=== PATIENT | male | born 1960 | race Caucasian/White ===

== ENCOUNTER 2016-12-25 21:37 | Inpatient (IN) ==
--- NOTE | 2016-12-25 21:41 | Emergency Department Note ---
Disposition Clinical Impression: Deep vein thrombosis of lower extremity Disposition: Admitted As Inpatient Condition: Undetermined General Adult HPI - General Chief complaint: ED Extremity Problem,Nontraumatic Stated complaint: right leg pain r/o DVT/hx DVT on blood thinners Time Seen by Provider: 12/25/16 21:39 - Related Data Home Medications Medication Instructions Recorded Confirmed Duloxetine HCl [Cymbalta] 60 mg PO 0900,1700 07/13/15 12/25/16 clonazePAM [Klonopin] 0.5 mg PO BID 07/13/15 12/25/16 Mycophenolate Mofetil [Cellcept] 500 mg PO BID 12/14/15 12/25/16 amLODIPine [Norvasc] 5 mg PO DAILY 12/14/15 12/25/16 Metoprolol [Lopressor] 12.5 mg PO BID 04/04/16 12/25/16 ARIPiprazole [Abilify] 10 mg PO DAILY 12/25/16 12/25/16 Albuterol Sulfate [Ventolin Hfa] 2 puff IH Q4H PRN 12/25/16 12/25/16 Budesonide/Formoterol 160/4.5 2 puff IH BID 12/25/16 12/25/16 [Symbicort 160/4.5] Buspirone HCl [Buspar] 10 mg PO TID 12/25/16 12/25/16 Trazodone HCl 100 - 300 mg PO HS 12/25/16 12/25/16 predniSONE [PredniSONE] 10 mg PO DAILY 12/25/16 12/25/16 Previous Rx's Medication Instructions Recorded Apixaban [Eliquis] 2.5 mg PO BID #60 tablet 04/12/16 Allergies Allergy/AdvReac Type Severity Reaction Status Date / Time codeine AdvReac Nausea Verified 12/25/16 21:40 Past Medical History - Past Medical History Medical history: Reports: COPD, coronary artery disease, DVT, hepatitis, hypertension, renal disease, other Surgical history: Reports: hip replacement, transplant Psychiatric history: Reports: anxiety, depression, previous psychiatric hospitalization, other - Social History Smoking Status: Current every day smoker Smokeless Tobacco Status: No Alcohol use: Reports: none Drug use: Reports: cocaine, marijuana Course Vital Signs Temperature 98.4 F 12/25/16 21:41 Pulse Rate 86 12/25/16 21:41 Respiratory Rate 20 12/25/16 21:41 Blood Pressure 136/97 12/25/16 21:41 O2 Sat by Pulse Oximetry 94 12/25/16 21:41 Temperature 97.8 F 12/26/16 03:44 Pulse Rate 68 12/26/16 03:44 Respiratory Rate 18 12/26/16 03:44 Blood Pressure 117/74 12/26/16 03:44 O2 Sat by Pulse Oximetry 97 12/26/16 03:44 Oxygen Delivery Oxygen Delivery Room Air Medical Decision Making - Lab Data Result diagrams: 12/25/16 22:35 12/25/16 22:35 Lab Results 12/25/16 12/25/16 12/25/16 Range/Units 22:35 22:35 22:35 WBC 9.2 (4.3-11.1) K/mcL RBC 5.74 H (4.19-5.50) M/mcL Hgb 14.6 (12.9-16.9) g/dL Hct 47.5 (37.5-50.1) % MCV 82.8 L (83.0-100.0) fL MCH 25.4 L (28.0-33.3) pg MCHC 30.7 L (31.6-35.5) g/dL RDW 15.1 H (11.5-14.5) % Plt Count 250 (140-400) K/mcL MPV 8.6 L (9.4-12.4) fL Immature Gran % 0.4 (0-4) % Seg Neutrophils % 74.7 % Lymphocytes % 15.2 % Monocytes % 8.6 % Eosinophils % 1.0 % Basophils % 0.1 % Neutrophils # 6.9 (1.6-8.9) K/mcL Lymphocytes # 1.4 (0.6-4.6) K/mcL Monocytes # 0.8 (0.0-1.3) K/mcL Eosinophils # 0.1 (0.0-0.6) K/mcL Basophils # 0.0 (0.0-0.2) K/mcL PT 12.5 H (9.4-12.1) Seconds INR 1.2 APTT 30.4 (26.0-36.0) Seconds Sodium 141 (136-145) mEq/L Potassium 3.8 (3.5-4.5) mEq/L Chloride 105 (98-109) mEq/L Carbon Dioxide 27 (19-29) mEq/L BUN 13 (8-26) mg/dL Creatinine 1.06 (0.72-1.25) mg/dL Est GFR ( Amer) > 60 (> 60) Est GFR (Non-Af Amer) > 60 (> 60) BUN/Creatinine Ratio 12 (6-26) Glucose 105 H (70-99) mg/dL Calculated Osmolality 292 (280-300) Calcium 10.4 (8.6-10.8) mg/dL Critical Care Time Critical Care Time: Yes Total Critical Care Time: 30 Attestation: Patient required IV heparinization due to an acute DVT in his right thigh despite being on eliquis. admission to hospitalist Attestation Statement - Attestation Attestation: I examined this patient and my medical decision-making was reviewed with the [employer]PR[employer]ISER/PA/Advanced Practice Nurse/Resident Physician. I agree with the documented findings, disposition and treatment plan as described except to the extent set forth below. [id number] time provided Patient presents via EMS complaining of right lower extremity pain. He has a history of recurrent DVTs and takes eliquis. Subjectively his pain is similar to had DVTs. Doppler ultrasound ordered. No evidence of acute arterial insufficiency on exam
--- NOTE | 2016-12-25 21:48 | Emergency Department Note ---
Disposition Clinical Impression: Deep vein thrombosis of lower extremity Qualifiers: Affected thrombotic vein of extremity: iliac Laterality: right Chronicity: acute Qualified Code(s): I82.421 - Acute embolism and thrombosis of right iliac vein Disposition: Admitted As Inpatient Condition: Undetermined Referrals: NO,PCP [Primary Care Provider] - Forms: ED Satisfaction Letter Time of Disposition: 23:24 Extremity Problem HPI - General Chief complaint: ED Extremity Problem,Nontraumatic Stated complaint: right leg pain r/o DVT/hx DVT on blood thinners Time Seen by Provider: 12/25/16 21:39 Source: patient Mode of arrival: EMS Limitations: no limitations Nursing Notes Reviewed: Yes Vital Signs Reviewed: Yes - History of Present Illness HPI Narrative: 56-year-old male with history of renal transplant, hypertension, DVT 3 on Eloquis. Patient states that he is here today complaining of right lower extremity pain that feels identical to his previous DVT in the right lower extremity that started 1 week ago. The patient denies any difficulty breathing or any other complaints. Patient denies any other complaints. He has been taking his medications as prescribed. Pt Subjective Complaint: extremity pain Injury Location: right, lower extremity Pain Scale: 4 Quality: aching Radiation: none Improves with: nothing Worsens with: nothing Associated symptoms: Reports: denies other symptoms - Related Data Home Medications Medication Instructions Recorded Confirmed Duloxetine HCl [Cymbalta] 60 mg PO 0900,1700 07/13/15 12/25/16 clonazePAM [Klonopin] 0.5 mg PO BID 07/13/15 12/25/16 Mycophenolate Mofetil [Cellcept] 500 mg PO BID 12/14/15 12/25/16 amLODIPine [Norvasc] 5 mg PO DAILY 12/14/15 12/25/16 Metoprolol [Lopressor] 12.5 mg PO BID 04/04/16 12/25/16 ARIPiprazole [Abilify] 10 mg PO DAILY 12/25/16 12/25/16 Albuterol Sulfate [Ventolin Hfa] 2 puff IH Q4H PRN 12/25/16 12/25/16 Budesonide/Formoterol 160/4.5 2 puff IH BID 12/25/16 12/25/16 [Symbicort 160/4.5] Buspirone HCl [Buspar] 10 mg PO TID 12/25/16 12/25/16 Trazodone HCl 100 - 300 mg PO HS 12/25/16 12/25/16 predniSONE [PredniSONE] 10 mg PO DAILY 12/25/16 12/25/16 Previous Rx's Medication Instructions Recorded Apixaban [Eliquis] 2.5 mg PO BID #60 tablet 04/12/16 Allergies Allergy/AdvReac Type Severity Reaction Status Date / Time codeine AdvReac Nausea Verified 12/25/16 21:40 All systems ED: reviewed and negative except as stated. Constitutional: Denies: fever, chills, weakness, weight change Eyes: Denies: eye pain, eye discharge, vision change ENT ED: Denies: ear pain, throat pain, dental pain, hearing loss, epistaxis, congestion, dysphagia Cardiovascular: Denies: chest pain, palpitations, dyspnea on exertion, edema, syncope Respiratory: Denies: cough, dyspnea, wheezes, hemoptysis, stridor Gastrointestinal: Denies: abdominal pain, nausea, vomiting, diarrhea, constipation, hematemesis, melena, hematochezia Genitourinary: Denies: urgency, dysuria, frequency, hematuria Musculoskeletal: Reports: myalgia. Denies: back pain, neck pain, arthralgia Integumentary: Denies: rash, abrasion, lesions Neurological: Denies: headache, weakness, numbness, paresthesias, confusion, abnormal gait, vertigo Past Medical History - Past Medical History Attestation: Yes The following information was validated with the patient. Source: patient Medical history: Reports: COPD, coronary artery disease, DVT, hepatitis, hypertension, renal disease, other Surgical history: Reports: hip replacement, transplant Psychiatric history: Reports: anxiety, depression, previous psychiatric hospitalization, other - Social History Smoking Status: Current every day smoker Smokeless Tobacco Status: No Alcohol use: Reports: none Drug use: Reports: cocaine, marijuana Physical Exam - General Limitations: no limitations General appearance: alert, in no apparent distress - Head Head exam: atraumatic, normocephalic, normal inspection - Eye Eye exam: Present: normal appearance, PERRL, EOMI - Expanded Eye Exam Pupils: Bilateral: reactive - ENT ENT exam: normal exam, normal oropharynx, mucous membranes moist - Expanded ENT Exam External ear exam: Present: normal external inspection Mouth exam: Present: normal external inspection Teeth exam: Present: normal inspection Throat exam: Present: normal inspection - Neck Neck exam: Present: normal inspection, full ROM, trachea midline - Chest Chest inspection: Present: normal inspection, symmetric chest wall rise - Respiratory Respiratory exam: Present: normal lung sounds bilaterally - Cardiovascular Cardiovascular exam: Present: regular rate, normal rhythm, normal heart sounds - Abdominal Exam Abdominal exam: Present: soft, Non-Tender. Absent: tenderness, distention, guarding, rebound, rigidity - Extremities Exam Extremities exam: Present: normal inspection, full ROM. Absent: tenderness, pedal edema - Expanded Upper Extremity Exam Shoulder exam: Present: normal inspection, full ROM Arm exam: Present: normal inspection, full ROM Elbow exam: Present: normal inspection, full ROM Forearm/Wrist exam: Present: normal inspection, full ROM Hand exam: Present: normal inspection, full ROM Vascular exam: Normal: capillary refill, radial pulse - Expanded Lower Extremity Exam Hip/Pelvis exam: Present: normal inspection, full ROM Upper leg exam: Present: normal inspection, full ROM Knee exam: Present: normal inspection, full ROM Lower leg exam: Present: full ROM, tenderness (In calf and behind right knee), other (Chronic venous stasis noted on bilateral lower extremities) Ankle exam: Present: normal inspection, full ROM Foot/toe exam: Present: normal inspection, full ROM Neurovascular/Tendon exam: Present: normal capillary refill. Absent: pulse deficit, motor deficit, sensory deficit, tendon deficit - Back Exam Back exam: Present: normal inspection, full ROM. Absent: tenderness - Neurological Exam Neurological exam: Present: alert, oriented X3 - Expanded Neurological Exam Patient oriented to: Present: person, place, time Coma Scale Eye Opening: Spontaneous Coma Scale Motor Response: Obeys Commands Coma Scale Verbal Response: Oriented Coma Scale Total: 15 - Psychiatric Psychiatric exam: Present: normal affect, normal mood - Skin Skin exam: Present: warm, dry, intact, normal color Course - Consultations Consultation #1: We spoke to Dr. Glaser in hematology who requested the patient be admitted to the hospital and heparinized. Patient agrees to plan. We will perform labs and heparinized the patient. Time: 22:32 Vital Signs Temperature 98.4 F 12/25/16 21:41 Pulse Rate 86 12/25/16 21:41 Respiratory Rate 20 12/25/16 21:41 Blood Pressure 136/97 12/25/16 21:41 O2 Sat by Pulse Oximetry 94 12/25/16 21:41 Temperature 98.4 F 12/25/16 21:41 Pulse Rate 73 12/25/16 22:30 Respiratory Rate 20 12/25/16 22:30 Blood Pressure 136/82 12/25/16 22:30 O2 Sat by Pulse Oximetry 96 12/25/16 22:30 Oxygen Delivery Oxygen Delivery Room Air Extremity Problem, Nontraumati - MDM Narrative Medical decision making narrative: Right lower extremity DVT study positive. There is a acute thrombus in the right mid thigh with collaterals and flow around it. Does appear Acute. Patient already taking Eliquis. He had previously taken or friend but states he was having difficulty with tolerating it. We will discuss this with hematology oncology. Hematology recommends heparinization and admission to the hospital. Spoke with the hospitalist who accepts patient. - Medical Records Medical records reviewed: Yes I reviewed the patient's medical records. - Lab Data Lab results reviewed: Yes I reviewed the patient's lab results. Result diagrams: 12/25/16 22:35 12/25/16 22:35 Lab Results 12/25/16 12/25/16 12/25/16 Range/Units 22:35 22:35 22:35 WBC 9.2 (4.3-11.1) K/mcL RBC 5.74 H (4.19-5.50) M/mcL Hgb 14.6 (12.9-16.9) g/dL Hct 47.5 (37.5-50.1) % MCV 82.8 L (83.0-100.0) fL MCH 25.4 L (28.0-33.3) pg MCHC 30.7 L (31.6-35.5) g/dL RDW 15.1 H (11.5-14.5) % Plt Count 250 (140-400) K/mcL MPV 8.6 L (9.4-12.4) fL Immature Gran % 0.4 (0-4) % Seg Neutrophils % 74.7 % Lymphocytes % 15.2 % Monocytes % 8.6 % Eosinophils % 1.0 % Basophils % 0.1 % Neutrophils # 6.9 (1.6-8.9) K/mcL Lymphocytes # 1.4 (0.6-4.6) K/mcL Monocytes # 0.8 (0.0-1.3) K/mcL Eosinophils # 0.1 (0.0-0.6) K/mcL Basophils # 0.0 (0.0-0.2) K/mcL PT 12.5 H (9.4-12.1) Seconds INR 1.2 APTT 30.4 (26.0-36.0) Seconds Sodium 141 (136-145) mEq/L Potassium 3.8 (3.5-4.5) mEq/L Chloride 105 (98-109) mEq/L Carbon Dioxide 27 (19-29) mEq/L BUN 13 (8-26) mg/dL Creatinine 1.06 (0.72-1.25) mg/dL Est GFR ( Amer) > 60 (> 60) Est GFR (Non-Af Amer) > 60 (> 60) BUN/Creatinine Ratio 12 (6-26) Glucose 105 H (70-99) mg/dL Calculated Osmolality 292 (280-300) Calcium 10.4 (8.6-10.8) mg/dL - Radiology Data Radiology results reviewed: Yes I reviewed the patient's radiology results. - EKG Data EKG attestation: Yes I reviewed and interpreted this EKG. EKG results narrative: Heart rate 73 bpm. TN interval 209 ms. QTc 420 ms. Left axis deviation. Normal sinus rhythm. No ST elevation or ST depression noted. No previous EKG on record.
[2016-12-25] MEDS ORDERED: *HR* Heparin 5,000 UNIT/ML VIAL IVP ONE (22:30)
[2016-12-25] MEDS ORDERED: *HR* Heparin 5,000 UNIT/ML VIAL IVP PRN ×2 (22:30)
--- NOTE | 2016-12-25 22:50 | Venous Imaging Report ---
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 Right lower extremity: normal superficial exam. Recommendations: Test completed on 12/25/2016 at 10:06:00 pm. Critical findings reported to Dr Champion in ED in person at 10:08:00 pm on 12/25/2016 by Meg Mendez RDCS. Findings Venous Duplex Results: Right: Venous imaging of the lower extremity reveals full patency and normal vessel compressibility of the right distal iliac, right common femoral, right popliteal, right posterior tibial, right peroneal, right great saphenous and right lesser saphenous. Doppler signals in the evaluated veins were normal. There is an acute partially occlusive thrombus seen in the right mid superficial femoral. It demonstrates a partially compressible vein. Flow was phasic and it did augment. Lower Extremity Venous Duplex Side Vein Compress Spontaneous Flow Augment Diameter (cm) Depth (cm) Right Distal Iliac Normal Yes Phasic Yes Right Common Femoral Normal Yes Phasic Yes Right Superficial Femoral Partial yes Phasic yes Right Popliteal Normal Yes Phasic Yes Right Posterior Tibial Normal Yes Phasic Yes Right Peroneal Normal Yes Phasic Yes Right Great Saphenous Normal Yes Phasic Yes Right Lesser Saphenous Normal Yes Phasic Yes Updated by Adama Bernal MD, FACS on 12/25/2016 10:46:11 PM Adama Bernal MD electronically signed on 12/25/2016 10:46:28 PM with status of Final
[2016-12-25 22:55] LABS: Basophils % 0.1 %; Eosinophils # 0.1 K/mcL (0.0-0.6); Hematocrit 47.5 % (37.5-50.1); Hemoglobin 14.6 g/dL (12.9-16.9); Immature Granulocytes % 0.4 % (0-4); Lymphocytes # 1.4 K/mcL (0.6-4.6); Lymphocytes % 15.2 %; Mean Corpuscular HGB Conc 30.7 g/dL (31.6-35.5); Mean Corpuscular Hemoglobin 25.4 pg (28.0-33.3); Mean Corpuscular Volume 82.8 fL (83.0-100.0); Mean Platelet Volume 8.6 fL (9.4-12.4); Monocytes # 0.8 K/mcL (0.0-1.3); Monocytes % 8.6 %; Neutrophils # 6.9 K/mcL (1.6-8.9); Platelet Count 250 K/mcL (140-400); Red Blood Count 5.74 M/mcL (4.19-5.50); Red Cell Distribution Width 15.1 % (11.5-14.5); Segmented Neutrophils % 74.7 %
[2016-12-25 23:02] LABS: INR 1.2; Prothrombin Time 12.5 Seconds (9.4-12.1)
[2016-12-25 23:05] LABS: Activated Partial Thrombo Time 30.4 Seconds (26.0-36.0)
[2016-12-25 23:10] LABS: BUN/Creatinine Ratio 12 (6-26); Blood Urea Nitrogen 13 mg/dL (8-26); Calcium 10.4 mg/dL (8.6-10.8); Carbon Dioxide 27 mEq/L (19-29); Chloride 105 mEq/L (98-109); Glucose 105 mg/dL (70-99); Osmolality,Calculated 292 (280-300); Potassium 3.8 mEq/L (3.5-4.5); Sodium 141 mEq/L (136-145); eGFR For African Americans > 60 (> 60); eGFR For Non-African Americans > 60 (> 60)
[2016-12-26] MEDS: Heparin 25,000 UNIT/500 ML D5W 25,000 UNIT/500 ML MLS IVC SCH ×2 (01:07→23:06)
[2016-12-26] MEDS ORDERED: *HR* Morphine 2 MG/ML SYRINGE IVP ONE (01:41)
[2016-12-26] MEDS ORDERED: 0.9 % Sodium Chloride 1,000 ML ONE (04:01)
[2016-12-26] MEDS: 0.9 % Sodium Chloride 1,000 ML IVC SCH (04:05)
--- NOTE | 2016-12-26 04:40 | Internal Med History&Physical ---
Date of Encounter: 12/26/16 Time of Encounter: 04:00 Assessment and Plan (1) Acute deep vein thrombosis (DVT) Current visit: Yes Status: Acute Pt was previously on apixaban 2.5 mg BID (which is not full dose therapeutic dose) - pt developed acute DVT on this dose. Venous Doppler showed acute partially occlusive thrombus in the right mid superficial femoral vein. ER provider discussed with the oncologist recommended heparin infusion. I think pt can be started on full dose anticoagulation with rivaroxaban versus warfarin. Will consult oncologist for further evaluation of device Qualifiers: DVT location: lower extremity Affected thrombotic vein of extremity: femoral Laterality: right Qualified Code(s): I82.411 - Acute embolism and thrombosis of right femoral vein (2) History of kidney transplant Current visit: Yes Status: Chronic Continue home medications (3) COPD (chronic obstructive pulmonary disease) Current visit: Yes Status: Chronic continue bronchodilators Qualifiers: COPD type: unspecified COPD Qualified Code(s): J44.9 - Chronic obstructive pulmonary disease, unspecified (4) Hypertension Current visit: Yes Status: Chronic Continue home medications Qualifiers: Hypertension type: essential hypertension Qualified Code(s): I10 - Essential (primary) hypertension (5) Nicotine dependence Current visit: Yes Status: Chronic Counselled for smoking cessation. Pt does not want nicotine patches at this time Qualifiers: Nicotine product type: cigarettes Substance use status: unspecified nicotine-induced disorder Qualified Code(s): F17.219 - Nicotine dependence, cigarettes, with unspecified nicotine-induced disorders Internal Medicine - H&P: HPI Chief complaint: Pain in right lower extremity Admitted From: Emergency Dept Plans for Post Hospital Care: Home History of present illness: Mr. Campbell is a 56 year old male with history of renal transplant, hypertension , prior DVTs - on Eliquis (2.5 mg BID - pt reports compliance with treatment and missed one dose 2 days ago), COPD - presents with moderate pain / pressing sensation in the popliteal area, for a week and is worsening. The pain was similar to his prior DVTs and hence he was concerned about DVT and presented to the emergency department. He also noticed some swelling of the right leg. He denies chest pain, shortness of breath, hemoptysis, abdominal pain, hematuria, nausea, vomiting, hemoptysis, melena, hematochezia, fever, chills. Was evaluated in the emergency department and venous Doppler showed acute partially occlusive thrombus in the right mid superficial femoral vein. ER physician discussed with technical sme/oncologist media relations coordinator, who recommended heparin infusion. Patient is admitted to the hospitalist service for further management. Past Med Surg Social Fam HX - Past Medical History Medical history: COPD, coronary artery disease, DVT, hepatitis, hypertension, renal disease, other Psychiatric history: anxiety, depression, previous psychiatric hospitalization, other - Past Surgical History Surgical History: hip replacement, transplant - Social History Smoking Status: Current every day smoker Smokeless Tobacco Status: No Alcohol use: none Drug use: cocaine, marijuana - Family History Mother Adopted: No Family Member Ethnicity: Non- Living Status: Hx Family Cardiac Disorders: Yes Hx Family Respiratory Disorders: Yes Hx Family Cancer: No Hx Family GI Disorders: No Hx Family Endocrine Disorder: No Hx Family Neuromuscular Disorders: No Hx Family Neurologic Disorders: No Hx Family HEENT Disorders: No Hx Family Autoimmune Disorders: No Internal Medicine - H&P: Meds Duloxetine HCl [Cymbalta] 60 mg PO 0900,1700 07/13/15 [History] clonazePAM [Klonopin] 0.5 mg PO BID 07/13/15 [History] Mycophenolate Mofetil [Cellcept] 500 mg PO BID 12/14/15 [History] amLODIPine [Norvasc] 5 mg PO DAILY 12/14/15 [History] Metoprolol [Lopressor] 12.5 mg PO BID 04/04/16 [History] Apixaban [Eliquis] 2.5 mg PO BID #60 tablet 04/12/16 [Rx] ARIPiprazole [Abilify] 10 mg PO DAILY 12/25/16 [History] Albuterol Sulfate [Ventolin Hfa] 2 puff IH Q4H PRN 12/25/16 [History] Budesonide/Formoterol 160/4.5 [Symbicort 160/4.5] 2 puff IH BID 12/25/16 [ History] Buspirone HCl [Buspar] 10 mg PO TID 12/25/16 [History] Trazodone HCl 100 - 300 mg PO HS 12/25/16 [History] predniSONE [PredniSONE] 10 mg PO DAILY 12/25/16 [History] Allergies codeine Adverse Reaction (Verified 12/25/16 21:40) Nausea All Systems PM: A 10-system review of systems was performed and is negative for pertinent findings except as documented above in the HPI. - Constitutional Vitals: Temp Pulse Resp BP Pulse Ox 97.8 F 68 18 117/74 97 12/26/16 03:44 12/26/16 03:44 12/26/16 03:44 12/26/16 03:44 12/26/16 03:44 Exam: General: Not in acute distress at the time of my evaluation HEENT: Oral mucosa is moist. No conjunctival palor or scleral icterus Neck: No obvious neck swellings Lungs: Clear to auscultation Cardiac: Regular rate and rhythm. No significant murmurs Abdomen: Soft, non tender. Bowel sounds present Genitourinary: No sanford catheter Neurological: Alert and oriented. No gross localizing deficits Psych: Not aggressive or agitated Extremities: Venous stasis dermatosis of the legs with small ulcers present Skin: No generalized rash Internal Med - H&P Results - Labs CBC & Chem 7: 12/25/16 22:35 12/25/16 22:35
[2016-12-26] MEDS ORDERED: Naloxone 0.4 MG/ML INJ IVP PRN (04:42)
[2016-12-26 06:29] LABS: Hematocrit 44.1 % (37.5-50.1); Hemoglobin 13.8 g/dL (12.9-16.9); Mean Corpuscular HGB Conc 31.3 g/dL (31.6-35.5); Mean Corpuscular Volume 83.2 fL (83.0-100.0); Platelet Count 177 K/mcL (140-400); Red Cell Distribution Width 15.3 % (11.5-14.5)
[2016-12-26 06:47] LABS: BUN/Creatinine Ratio 17 (6-26); Blood Urea Nitrogen 17 mg/dL (8-26); Calcium 9.7 mg/dL (8.6-10.8); Carbon Dioxide 30 mEq/L (19-29); Chloride 107 mEq/L (98-109); Glucose 96 mg/dL (70-99); Magnesium 1.6 mg/dL (1.6-2.6); Osmolality,Calculated 295 (280-300); Potassium 4.2 mEq/L (3.5-4.5); Sodium 142 mEq/L (136-145); eGFR For African Americans > 60 (> 60); eGFR For Non-African Americans > 60 (> 60)
[2016-12-26] MEDS: ARIPiprazole 10 MG TABLET PO SCH (08:42)
[2016-12-26] MEDS: clonazePAM 0.5 MG TABLET PO SCH ×2 (08:43→20:25)
[2016-12-26] MEDS: predniSONE 10 MG TABLET PO SCH (08:43)
[2016-12-26] MEDS: amLODIPine 5 MG TABLET PO SCH (08:43)
--- NOTE | 2016-12-26 10:01 | Event Note ---
Date of Encounter: 12/26/16 Time of Encounter: 09:00 Seen and evaluated at bedside Admitted this morning for DVT while on anticoagulation, patient endorsed non- complaince "sometimes" with Eliquis. He has a PMH of Recurrent DVT, HTN, s/p renal transplant on Cellcept and prednisone, anxiety disorder, hepatitis, tobacco abuse He has been started on heparin drip and awaiting Onoclogy evaluation Denies new complains, has pain on R LE, where DVT is, pain is mild. Physical exam: Cachectic, disheveled, not in distress. VSS. Chest is clear, Heart: S1, S2 only, Abd: Scar. Soft, not tender, Extremities: Chronic venous stasis changes, multiple healed skin lesions on the legs bilaterally. Neurology exam with no focal deficits. Labs and Imaging reviewed Plan is to continue current care, await heme/onc eval for recommendation for oral anticoagulation. Plan of care discussed, verbalized understanding
[2016-12-26] MEDS: Budesonide/Formoterol 160/4.5 MDI IH SCH ×2 (11:33→19:44)
[2016-12-26] MEDS: *HR* HYDROcodone/Acet 5/325 mg TABLET PO PRN ×2 (14:01→20:25)
--- NOTE | 2016-12-26 14:55 | Electrocardiograph Report ---
[place] [id number] Test Date: 2016-12-25 Pat Name: Fahad Campbell Department: 105 Room: 3B46 Gender: M [employer] Consultant: SULTANA : 1960 Requested By: Juliana Khan Order Number: [id number] Reading MD: Uriel Magana MD Measurements Intervals [place] Rate: 73 P: -14 NE: 209 QRS: -30 QRSD: 115 T: 55 QT: 394 QTc: 420 Interpretive Statements SINUS RHYTHM BORDERLINE LEFT AXIS DEVIATION MINIMAL VOLTAGE CRITERIA FOR LVH, CONSIDER NORMAL VARIANT Electronically Signed On 12-26-2016 14:54:07 EDT by Uriel Magana MD
--- NOTE | 2016-12-26 17:59 | Oncology Inp Consult Note ---
Date of Encounter: 12/26/16 Time of Encounter: 17:00 Assessment and Plan (1) Recurrent deep vein thrombosis (DVT) of both lower extremities Status: Chronic Assessment and plan: Patient with history of recurrent deep venous thrombosis, bilateral lower extremities as well as right upper extremity in the past, with acute right lower extremity superficial femoral vein thrombosis. Patient was on apixiban and had missed one dose due to running out of medication supply. He reports compliance otherwise. Patient had difficulty with achieving INR previously on Coumadin. Would be safe to start patient on xarelto twice daily for buttermaker anticoagulation. Risk benefits reviewed briefy. He will f/u with our clinic for continued anticoagulation/monitoring and lab works periodically. Outpt meds reviewed. Compliance reinforced Patient is agreeable to above plan of care - Data of Consult Requesting Physician: Juliana Gamez Primary Care Provider: PCP NO - Consult Narrative Reason for consult: dvt recurrent History of present illness: Mr. Campbell is a 56 year old male medical history significant for kidney transplant in 2005, end-stage renal disease was on dialysis several years prior , hypertension, deep venous thrombosis in the right and lower extremities recurrent was on apixiban, hospitalized due to right lower extremity pain, patient reports missing 1 dose of his blood thinner as he ran out of medication otherwise reports compliance. A Doppler study obtained showed left lower extremity right superficial femoral vein acute thrombosis. Right side exam was normal. Patient currently does not have any pain or swelling. He denies any shortness of breath. He is on prednisone and CellCept for his transplanted kidney. He denies any bleeding issues hemoglobin on admission was 13.8 normal kidney function. 14 point review of systems otherwise negative. Past Med Surg Social Fam HX - Past Medical History Medical history: COPD, coronary artery disease, DVT, hepatitis, hypertension, renal disease, other Psychiatric history: anxiety, depression, previous psychiatric hospitalization, other - Past Surgical History Surgical History: hip replacement, transplant - Social History Smoking Status: Current every day smoker Smokeless Tobacco Status: No Alcohol use: none Drug use: cocaine, marijuana - Family History Mother Adopted: No Family Member Ethnicity: Non- Living Status: Hx Family Cardiac Disorders: Yes Hx Family Respiratory Disorders: Yes Hx Family Cancer: No Hx Family GI Disorders: No Hx Family Endocrine Disorder: No Hx Family Neuromuscular Disorders: No Hx Family Neurologic Disorders: No Hx Family HEENT Disorders: No Hx Family Autoimmune Disorders: No Medications and Allergies Duloxetine HCl [Cymbalta] 60 mg PO 0900,1700 07/13/15 [History] clonazePAM [Klonopin] 0.5 mg PO BID 07/13/15 [History] Mycophenolate Mofetil [Cellcept] 500 mg PO BID 12/14/15 [History] amLODIPine [Norvasc] 5 mg PO DAILY 12/14/15 [History] Metoprolol [Lopressor] 12.5 mg PO BID 04/04/16 [History] Apixaban [Eliquis] 2.5 mg PO BID #60 tablet 04/12/16 [Rx] ARIPiprazole [Abilify] 10 mg PO DAILY 12/25/16 [History] Albuterol Sulfate [Ventolin Hfa] 2 puff IH Q4H PRN 12/25/16 [History] Budesonide/Formoterol 160/4.5 [Symbicort 160/4.5] 2 puff IH BID 12/25/16 [ History] Buspirone HCl [Buspar] 10 mg PO TID 12/25/16 [History] Trazodone HCl 100 - 300 mg PO HS 12/25/16 [History] predniSONE [PredniSONE] 10 mg PO DAILY 12/25/16 [History] Allergies codeine Adverse Reaction (Verified 12/25/16 21:40) Nausea Review of systems: as in HPI Oncology - Exam - Constitutional Vitals: Temp Pulse Resp BP Pulse Ox 98.3 F 64 16 105/66 98 12/26/16 15:24 12/26/16 15:24 12/26/16 15:24 12/26/16 15:24 12/26/16 15:24 General appearance: average body habitus, cooperative - Head Head exam: Present: atraumatic, normal inspection - Eye Eye exam: Present: sclera anicteric - ENT ENT exam: Present: mucous membranes dry - Neck Neck exam: Present: full ROM, normal inspection - Respiratory Respiratory exam: Present: CTAB - Cardiovascular Cardiovascular exam: Present: +S1, +S2 - GI/Abdominal GI/Abdominal exam: Present: distended, normal bowel sounds, soft - Extremities Exam Additional comments: no edema/skin changes - Neurological Exam Neurological exam: Present: alert, CN II-XII intact, oriented X3 - Psychiatric Psychiatric exam: Present: normal mood - Skin Skin exam: Present: dry, warm Oncology - Results - Labs Labs: Short CBC 12/26/16 Range/Units 06:19 WBC 5.6 (4.3-11.1) K/mcL Hgb 13.8 (12.9-16.9) g/dL Hct 44.1 (37.5-50.1) % Plt Count 177 (140-400) K/mcL BMP 12/26/16 06:19 Sodium 142 Potassium 4.2 Chloride 107 Carbon Dioxide 30 H BUN 17 Creatinine 0.99 Glucose 96 Calcium 9.7 - Imaging and Cardiology Venous US Status: image reviewed by me Consult Discharge Plan - Plan Referrals: NO,PCP [Primary Care Provider] -
[2016-12-26] MEDS ORDERED: traZODone 50 MG TABLET PO SCH (21:00)
[2016-12-27] MEDS: 0.9 % Sodium Chloride 1,000 ML IVC SCH (00:45)
[2016-12-27] MEDS: *HR* HYDROcodone/Acet 5/325 mg TABLET PO PRN ×2 (05:46→12:50)
[2016-12-27] MEDS: predniSONE 10 MG TABLET PO SCH (09:04)
[2016-12-27] MEDS: amLODIPine 5 MG TABLET PO SCH (09:04)
[2016-12-27] MEDS: ARIPiprazole 10 MG TABLET PO SCH (09:04)
[2016-12-27] MEDS: clonazePAM 0.5 MG TABLET PO SCH (09:04)
[2016-12-27] MEDS: *HR* Rivaroxaban 15 MG TABLET PO SCH ×2 (09:18→15:01)
[2016-12-27] MEDS: Budesonide/Formoterol 160/4.5 MDI IH SCH (10:25)
[2016-12-27 11:12] VITALS: BP 123/72
--- NOTE | 2016-12-27 12:47 | Discharge Summary ---
Date of Encounter: 12/27/16 Time of Encounter: 12:45 - Discharge Diagnosis (1) Acute deep vein thrombosis (DVT) Priority: Primary Status: Acute Qualifiers: DVT location: lower extremity Affected thrombotic vein of extremity: femoral Laterality: right Qualified Code(s): I82.411 - Acute embolism and thrombosis of right femoral vein (2) Hypothyroid Priority: Secondary Status: Chronic Qualifiers: Hypothyroidism type: unspecified Qualified Code(s): E03.9 - Hypothyroidism , unspecified (3) COPD (chronic obstructive pulmonary disease) Priority: Secondary Status: Chronic Qualifiers: COPD type: unspecified COPD Qualified Code(s): J44.9 - Chronic obstructive pulmonary disease, unspecified (4) History of kidney transplant Priority: Secondary Status: Chronic (5) Hepatitis C Priority: Secondary Status: Chronic Qualifiers: Viral hepatitis chronicity: chronic Hepatic coma status: without hepatic coma Qualified Code(s): B18.2 - Chronic viral hepatitis C (6) Recurrent deep vein thrombosis (DVT) of both lower extremities Priority: Secondary Status: Chronic (7) Hypertension Priority: Secondary Status: Chronic Qualifiers: Hypertension type: essential hypertension Qualified Code(s): I10 - Essential (primary) hypertension (8) Nicotine dependence Priority: Secondary Status: Chronic Qualifiers: Nicotine product type: cigarettes Substance use status: unspecified nicotine-induced disorder Qualified Code(s): F17.219 - Nicotine dependence, cigarettes, with unspecified nicotine-induced disorders - Discharge Medications Prescriptions: Rivaroxaban [Xarelto] 15 mg PO BID #42 tablet Home Medications: Duloxetine HCl [Cymbalta] 60 mg PO 0900,1700 07/13/15 [History] clonazePAM [Klonopin] 0.5 mg PO BID 07/13/15 [History] Mycophenolate Mofetil [Cellcept] 500 mg PO BID 12/14/15 [History] amLODIPine [Norvasc] 5 mg PO DAILY 12/14/15 [History] Metoprolol [Lopressor] 12.5 mg PO BID 04/04/16 [History] ARIPiprazole [Abilify] 10 mg PO DAILY 12/25/16 [History] Albuterol Sulfate [Ventolin Hfa] 2 puff IH Q4H PRN 12/25/16 [History] Budesonide/Formoterol 160/4.5 [Symbicort 160/4.5] 2 puff IH BID 12/25/16 [ History] Buspirone HCl [Buspar] 10 mg PO TID 12/25/16 [History] Trazodone HCl 100 - 300 mg PO HS 12/25/16 [History] predniSONE [PredniSONE] 10 mg PO DAILY 12/25/16 [History] Rivaroxaban [Xarelto] 15 mg PO BID #42 tablet 12/27/16 [Rx] Allergies/Adverse Reactions: Allergies codeine Adverse Reaction (Verified 12/25/16 21:40) Nausea Procedures/tests Complete & Pending: Procedures Performed prior 72 hours Category Date Time Status ECG 12 lead ECG [ECG] Routine Y 12/25/16 21:44 Completed Date of admission: 12/26/16 05:01 Primary care physician: PCP DAYANA Discharging clinician: Azam Yanes Anticipated date of discharge: 12/27/16 - Patient Status Disposition: Home, Self-Care Condition: Fair Functional capacity at discharge: independent ambulation Overall status at discharge: patient is progressing back to baseline - Discharge Instructions Instructions: Rivaroxaban (By mouth) Follow Up With: DAYANA,PCP [Primary Care Provider] - - Diet and Activity Activity: resume usual activities as tolerated Interval History: See below Hospital course: Mr. Campbell is a 56 year old male with PMH of Recurrent DVT, HTN, s/p renal transplant on Cellcept and prednisone, anxiety disorder, hepatitis, tobacco abuse He was admitted for acute R LE superficial femoral vein DVT while on anticoagulation He was started on heparin drip and Oncology consulted due to patient's history of recurrent DVTs and anothe DVT while on ELiquis His other chronic medical conditions were stable Hematology/Oncology recommended Xarelto which was started in-patient Patient is seen at bedside this morning, he is clinically stable to be discharged home He was educated about his new medication Tobacco cessation counselling done Follow up and establish PCP care and follow up with Hematology/Oncology Time spent discussing smoking cessation with patient: 3 to 10 minutes (3 minutes on tobacco cessation) - Time Spent with Patient Total time spent providing and/or coordinating discharge services: Less than 30 minutes - Constitutional Vitals: Temp Pulse Resp BP Pulse Ox 97.5 F L 58 14 123/72 96 12/27/16 11:11 12/27/16 11:11 12/27/16 11:11 12/27/16 11:11 12/27/16 11:11 General appearance: Present: A&O X 3, pleasant, no acute distress - Head Head exam: Present: atraumatic, normocephalic - Eye Eye exam: Present: PERRL, conjuntiva pink, sclera anicteric Pupils: Present: PERRL - Neck Neck exam general surgery: Present: supple, trachea midline. Absent: lymphadenopathy - Respiratory Respiratory exam: Present: CTAB. Absent: accessory muscle use, rales, rhonchi, wheezes - Cardiovascular Cardiovascular exam: Present: RRR, +S1, +S2. Absent: diastolic murmur, gallop, rubs, systolic murmur - GI/Abdominal GI/Abdominal exam: Present: normal bowel sounds, soft, no peritoneal signs. Absent: distended, tenderness - Extremities Exam Extremities exam: Present: warm, radial pulses palpable and symetrical. Absent : calf tenderness, cyanotic, pedal edema Additional comments: Chronic venous stasis changes - Neurological Exam Neurological exam: Present: alert, CN II-XII intact, oriented X3, no focal deficits. Absent: pronater drift, facial droop, speech deficit - Skin Skin exam: Present: dry, intact - VTE Reasons for not Prescribing Prophylaxis: Not indicated-Anticoagulated or INR therapeutic
--- NOTE | 2016-12-27 13:01 | Oncology Inp Progress Note ---
Date of Encounter: 12/27/16 Time of Encounter: 12:15 (1) Recurrent deep vein thrombosis (DVT) of both lower extremities Current Visit: No Status: Chronic Assessment and plan: Appears to be doing well with improved swelling and pain. Continue with Xarelto 15 mg bid x 21 days and transition to 20 mg daily. Will set up for outpatient follow-up with Karen. We will otherwise signoff. Please call [phone] with questions. Oncology: Subj Interval history: Feeling better. Ambulated about the room a bit but still a bit unsteady and not as surefooted as he would like to be. Pain and swelling have improved. No SOB or SANCHEZ. Afebrile. - Constitutional Vitals: Vital Signs Temp Pulse Resp BP Pulse Ox 12/27/16 11:11 97.5 F L 58 14 123/72 96 12/27/16 07:29 97.4 F L 62 15 126/75 96 12/27/16 03:23 97.4 F L 57 16 106/60 96 12/26/16 22:46 98.2 F 52 18 113/69 93 12/26/16 19:45 18 97 12/26/16 18:42 97.9 F 57 18 111/62 95 12/26/16 15:24 98.3 F 64 16 105/66 98 Intake and Output 12/27/16 12/27/16 12/27/16 00:59 08:59 16:59 Intake Total 1240 / 1240 150 / 150 240 / 240 Output Total 225 / 225 Balance 1015 / 1015 150 / 150 240 / 240 Intake: IV Fluids 1240 / 1240 150 / 150 0.9 % Sodium Chloride 1, 1000 / 1000 000 ML @ 50 mls/hr IVC . Q20H [facility] Rx#:[id number] Heparin 25,000 UNIT/500 240 / 240 150 / 150 ML D5W 25,000 unit In 500 ml @ 14 UNIT/KG/HR 19. 305 mls/hr IVC .Q24H [facility] Rx#:[id number] Oral 240 / 240 Output: Urine 225 / 225 Other: Meal Breakfast Percent of Meal Consumed 100% Weight 70.6 kg Patient Weight 12/28/16 00:59 Weight 70.6 kg General appearance: average body habitus, no acute distress - Head Head exam: Present: atraumatic, normal inspection, normocephalic - Eye Eye exam: Present: normal appearance, sclera anicteric - ENT ENT exam: Present: mucous membranes moist - Neck Neck exam: Present: full ROM, normal inspection - Respiratory Respiratory exam: Present: CTAB - Cardiovascular Cardiovascular exam: Present: RRR - GI/Abdominal GI/Abdominal exam: Present: normal bowel sounds, soft - Extremities Exam Extremities exam: Present: normal inspection - Expanded Lower Extremity Exam Lower leg exam: Present: abrasion - Neurological Exam Neurological exam: Present: CN II-XII intact, normal gait, oriented X3 - Skin Skin exam: Present: abrasion, erythema Oncology: Obj Data - Labs CBC & Chem 7: 12/26/16 06:19 12/26/16 06:19 Labs: Laboratory Results - last 24 hr 12/26/16 12/26/16 12/27/16 12:35 20:05 02:56 APTT 39.9 H 76.3 H D 100.0 H 12/27/16 09:33 APTT 72.1 H - ABG Interpretation ABG results: PT/INR, D-dimer PT 12.5 Seconds (9.4-12.1) H 12/25/16 22:35 Consult Discharge Plan - Plan Referrals: NO,PCP [Primary Care Provider] - Prescriptions: Rivaroxaban [Xarelto] 15 mg PO BID #42 tablet
== END 2016-12-27 15:00 | disposition home or self-care (01) | DRG 300 ==
LOC: EMEROO 21:37 → 3BNU 21:37
PROVIDERS: ADMIT Internal Medicine; ATTEND Nurse Practitioner Family

== ENCOUNTER 2017-11-16 19:10 | Observation (INO) ==
--- NOTE | 2017-11-16 19:59 | Emergency Department Note ---
Disposition Clinical Impression: Lower extremity edema Dyspnea Qualifiers: Dyspnea type: shortness of breath Qualified Code(s): R06.02 - Shortness of breath Disposition: Admitted As Inpatient Condition: Fair Time of Disposition: 22:00 General Adult HPI - General Chief complaint: ED Extremity Problem,Nontraumatic Stated complaint: leg pain Time Seen by Provider: 11/16/17 19:15 Source: patient Limitations: no limitations Nursing Notes Reviewed: Yes Vital Signs Reviewed: Yes - History of Present Illness HPI Narrative: Patient is a 57-year-old male who presents to [facility] ED with a chief complaint of right lower extremity pain and swelling. Patient does have a history of prior DVT and is anticoagulated on xarelto. States over the last several days, he feels like the swelling and pain have worsened in his right lower extremity. Concern that the clot is worsening. He has also gotten a little more short of breath over the last several days with exertion. Denies any pleuritic chest pain. No abdominal pain, problems with urination or bowel movements. Onset (ago): day(s) Location: right, lower extremity Pain Severity: moderate Pain Scale: 7 Quality: aching Consistency: Worsening Improves with: nothing Worsens with: nothing Associated symptoms: Reports: shortness of breath. Denies: chest pain, cough, fever/chills, nausea/vomiting, rash Treatments Prior to Arrival: none - Related Data Home Medications Medication Instructions Recorded Confirmed Duloxetine HCl [Cymbalta] 60 mg PO 0900,1700 07/13/15 11/16/17 clonazePAM [Klonopin] 0.5 mg PO BID 07/13/15 11/16/17 Mycophenolate Mofetil [Cellcept] 500 mg PO BID 12/14/15 11/16/17 ARIPiprazole [Abilify] 15 mg PO DAILY 12/25/16 11/16/17 Albuterol Sulfate [Ventolin Hfa] 2 puff IH Q4H PRN 12/25/16 11/16/17 Budesonide/Formoterol 160/4.5 2 puff IH BID 12/25/16 11/16/17 [Symbicort 160/4.5] Buspirone HCl [Buspar] 5 mg PO TID 12/25/16 11/16/17 Trazodone HCl 100 - 300 mg PO HS 12/25/16 11/16/17 predniSONE [PredniSONE] 10 mg PO DAILY 12/25/16 11/16/17 Eucerin Creme 1 applic TD DAILY 10/23/17 11/16/17 Rivaroxaban [Xarelto] 20 mg PO BID 10/23/17 11/16/17 Triamcinolone Acet 0.1% CRM 1 appl TP BID 10/23/17 11/16/17 [Kenalog] Previous Rx's Medication Instructions Recorded Ascorbic Acid [Vitamin C] 500 mg PO 0630 tablet 11/05/17 Ferrous Sulfate 325 mg PO 0630 tablet 11/05/17 Allergies Allergy/AdvReac Type Severity Reaction Status Date / Time codeine AdvReac Nausea Verified 11/16/17 20:50 All systems ED: reviewed and negative except as stated. Past Medical History - Past Medical History Attestation: Yes The following information was validated with the patient. Source: patient Medical history: Reports: COPD, coronary artery disease, DVT, hepatitis, hypertension, renal disease, other Surgical history: Reports: hip replacement, transplant Psychiatric history: Reports: anxiety, depression, previous psychiatric hospitalization, other - Social History Smoking Status: Current every day smoker Smokeless Tobacco Status: No Alcohol use: Reports: none Drug use: Reports: cocaine, marijuana Physical Exam - General Limitations: no limitations General appearance: alert - Head Head exam: atraumatic, normocephalic, normal inspection - Eye Eye exam: Present: normal appearance, EOMI - ENT ENT exam: normal exam, mucous membranes moist - Neck Neck exam: Present: normal inspection, other (no jvd) - Chest Chest inspection: Present: normal inspection, symmetric chest wall rise - Respiratory Respiratory exam: Present: normal lung sounds bilaterally - Cardiovascular Cardiovascular exam: Present: regular rate, normal rhythm, normal heart sounds - Abdominal Exam Abdominal exam: Present: soft, Non-Tender. Absent: tenderness, distention, guarding, rebound, rigidity - Extremities Exam Extremities exam: Present: pedal edema (2+ b/l), other (excoriations present b/l ) - Neurological Exam Neurological exam: Present: alert, oriented X3 - Psychiatric Psychiatric exam: Present: normal affect, normal mood - Skin Skin exam: Present: warm, dry Course Course Narrative: Patient seen and examined. Bilateral lower extremity swelling. Pain worse in the right lower extremity. Concern for possible worsening DVT. Patient already anticoagulated on xarelto. Right lower extremity Doppler ultrasound ordered. Patient has also had gradual worsening shortness of breath. Denies any pleuritic chest pain. His oxygenation is normal so I do not suspect patient to have a pulmonary embolus. He is not tachycardic on my exam. Concern for possible congestive heart failure with more fluid retention. Cardiopulmonary workup. - Reevaluation(s) Reevaluation #1: Labwork shows elevated BNP level in the 1999. This was previously in the 100s. Concern for possible new right-sided heart failure. Since there was a new onset heart failure, decision was made to do a CTA of the chest. This did not show any pulmonary embolus. Patient will likely need an echocardiogram. I discussed with the hospitalist who has accepted patient for admission. Time: 21:56 Vital Signs Temperature 98.7 F 11/16/17 19:17 Pulse Rate 101 11/16/17 19:17 Respiratory Rate 18 11/16/17 19:17 Blood Pressure 148/97 11/16/17 19:17 O2 Sat by Pulse Oximetry 97 11/16/17 19:17 Temperature 98.3 F 11/17/17 04:17 Pulse Rate 71 11/17/17 04:17 Respiratory Rate 18 11/17/17 04:17 Blood Pressure 116/75 11/17/17 04:17 O2 Sat by Pulse Oximetry 94 11/17/17 04:17 Oxygen Delivery Oxygen Delivery Room Air Medical Decision Making - Medical Records Medical records reviewed: Yes I reviewed the patient's medical records. - Lab Data Lab results reviewed: Yes I reviewed the patient's lab results. Result diagrams: 11/16/17 19:29 11/16/17 19:15 Lab Results 11/16/17 11/16/17 11/16/17 Range/Units 19:15 19:24 19:29 WBC 6.2 (4.3-11.1) K/mcL RBC 4.02 L (4.19-5.50) M/mcL Hgb 10.4 L (12.9-16.9) g/dL Hct 34.7 L (37.5-50.1) % MCV 86.3 (83.0-100.0) fL MCH 25.9 L (28.0-33.3) pg MCHC 30.0 L (31.6-35.5) g/dL RDW 17.9 H (11.5-14.5) % Plt Count 194 (140-400) K/mcL MPV 9.1 L (9.4-12.4) fL Immature Gran % 0.6 (0-4) % Seg Neutrophils % 81.4 % Lymphocytes % 10.9 % Monocytes % 6.6 % Eosinophils % 0.3 % Basophils % 0.2 % Neutrophils # 5.0 (1.6-8.9) K/mcL Lymphocytes # 0.7 (0.6-4.6) K/mcL Monocytes # 0.4 (0.0-1.3) K/mcL Eosinophils # 0.0 (0.0-0.6) K/mcL Basophils # 0.0 (0.0-0.2) K/mcL Sodium 140 (136-145) mEq/L Potassium 4.0 (3.5-5.1) mEq/L Chloride 110 H (98-107) mEq/L Carbon Dioxide 22 L (23-29) mEq/L BUN 18 (6-20) mg/dL Creatinine 0.82 (0.70-1.30) mg/dL Est GFR ( Amer) > 60 (> 60) Est GFR (Non-Af Amer) > 60 (> 60) BUN/Creatinine Ratio 22 (6-26) Glucose 149 H (70-105) mg/dL Calculated Osmolality 295 (280-300) Calcium 9.3 (8.6-10.3) mg/dL Magnesium 1.7 (1.6-2.6) mg/dL Troponin I (< 0.04) ng/mL B-Natriuretic Peptide 1355 H (Less than 100) pg/mL 11/16/17 Range/Units 19:29 WBC (4.3-11.1) K/mcL RBC (4.19-5.50) M/mcL Hgb (12.9-16.9) g/dL Hct (37.5-50.1) % MCV (83.0-100.0) fL MCH (28.0-33.3) pg MCHC (31.6-35.5) g/dL RDW (11.5-14.5) % Plt Count (140-400) K/mcL MPV (9.4-12.4) fL Immature Gran % (0-4) % Seg Neutrophils % % Lymphocytes % % Monocytes % % Eosinophils % % Basophils % % Neutrophils # (1.6-8.9) K/mcL Lymphocytes # (0.6-4.6) K/mcL Monocytes # (0.0-1.3) K/mcL Eosinophils # (0.0-0.6) K/mcL Basophils # (0.0-0.2) K/mcL Sodium (136-145) mEq/L Potassium (3.5-5.1) mEq/L Chloride (98-107) mEq/L Carbon Dioxide (23-29) mEq/L BUN (6-20) mg/dL Creatinine (0.70-1.30) mg/dL Est GFR ( Amer) (> 60) Est GFR (Non-Af Amer) (> 60) BUN/Creatinine Ratio (6-26) Glucose (70-105) mg/dL Calculated Osmolality (280-300) Calcium (8.6-10.3) mg/dL Magnesium (1.6-2.6) mg/dL Troponin I 0.03 (< 0.04) ng/mL B-Natriuretic Peptide (Less than 100) pg/mL - Radiology Data Radiology results reviewed: Yes I reviewed the patient's radiology results. Chest X-Ray 11/16/17 19:24 IMPRESSION: Normal chest x-ray D/ / Melchor Pineda MD / Melchor Pineda MD Interpreting Provider: Melchor Pineda MD Chest CTA 11/16/17 20:26 IMPRESSION: No evidence of pulmonary embolism or acute pulmonary abnormality. Kyphosis Mild COPD D/ / Melchor Pineda MD / Melchor Pineda MD Interpreting Provider: Melchor Pineda MD - EKG Data EKG #1 EKG attestation: Yes I reviewed and interpreted this EKG. EKG results narrative: EKG done at 1954 shows normal sinus rhythm with a rate of 99 bpm. First-degree AV block noted. Occasional PVCs. No acute ST elevation or depression. Left axis deviation. Q waves noted in leads 1 and aVL. This appears unchanged from prior EKG done 10/16/2017. Attestation Statement - Attestation Attestation: I examined this patient and my medical decision-making was reviewed with the Resident Physician. I agree with the documented findings, disposition and treatment plan as described except to the extent set forth below. Superficial thrombophlebitis in the setting of previous DVT and findings of elevated BNP and worsening dyspnea recently. X-ray shows no acute findings however we will admit for cardiac echo and further evaluation of elevated bnp.
[2017-11-16 20:09] LABS: BUN/Creatinine Ratio 22 (6-26); Blood Urea Nitrogen 18 mg/dL (6-20); Calcium 9.3 mg/dL (8.6-10.3); Carbon Dioxide 22 mEq/L (23-29); Chloride 110 mEq/L (98-107); Glucose 149 mg/dL (70-105); Osmolality,Calculated 295 (280-300); Sodium 140 mEq/L (136-145); eGFR For African Americans > 60 (> 60); eGFR For Non-African Americans > 60 (> 60)
[2017-11-16 20:16] LABS: Basophils % 0.2 %; Eosinophils % 0.3 %; Hematocrit 34.7 % (37.5-50.1); Hemoglobin 10.4 g/dL (12.9-16.9); Immature Granulocytes % 0.6 % (0-4); Lymphocytes # 0.7 K/mcL (0.6-4.6); Lymphocytes % 10.9 %; Mean Corpuscular Hemoglobin 25.9 pg (28.0-33.3); Mean Corpuscular Volume 86.3 fL (83.0-100.0); Mean Platelet Volume 9.1 fL (9.4-12.4); Monocytes # 0.4 K/mcL (0.0-1.3); Monocytes % 6.6 %; Platelet Count 194 K/mcL (140-400); Red Blood Count 4.02 M/mcL (4.19-5.50); Red Cell Distribution Width 17.9 % (11.5-14.5); Segmented Neutrophils % 81.4 %
[2017-11-16] MEDS ORDERED: Isovue-370 500 ML INFUS..BTL IV ONE (20:26)
--- NOTE | 2017-11-16 22:50 | Internal Med History&Physical ---
Date of Encounter: 11/16/17 Time of Encounter: 22:41 Internal Medicine - H&P: HPI Chief complaint: Dyspnea Admitted From: Emergency Dept Plans for Post Hospital Care: Home History of present illness: Mr. 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 The patient is on xarelto for anticoagulation. He has been having pain and swelling that has worsened fora few days. He was worried that his DVT's recurred so he came to the ED. He also reports some shortness of breath worse with exertion. He was hemodynamically stable in the ED. Labs significant for BNP of 1355 which is above his baseline, hgb of 10.4 with previous hemoglobin of 14.0 back on 10/16. A CXR was negative. A CTA chest ruled out PE. LE doppler ruled out DVT on the right. EKG with NSR with no acute ischemic changes. It did show PVCs. Patient' s last echo was in 2014 with an EF of 60%, mild diastolic dysfunction. Denies fever, chills, nausea, vomiting, chest pain, blurry vision, headache, diarrhea, constipation, abdominal pain, urinary symptoms, or neurological symptoms. Past Med Surg Social Fam HX - Past Medical History Medical history: COPD, coronary artery disease, DVT, hepatitis, hypertension, renal disease, other Psychiatric history: anxiety, depression, previous psychiatric hospitalization, other - Past Surgical History Surgical History: hip replacement, transplant - Social History Smoking Status: Current every day smoker Smokeless Tobacco Status: No Alcohol use: none Drug use: cocaine, marijuana - Family History Father Hx Family Cardiac Disorders: Yes ([place]) Mother Adopted: No Family Member Ethnicity: Non- Living Status: Hx Family Cardiac Disorders: Yes ([place]) Hx Family Respiratory Disorders: Yes (asthma) Hx Family Cancer: No Hx Family GI Disorders: No Hx Family Endocrine Disorder: No Hx Family Neuromuscular Disorders: No Hx Family Neurologic Disorders: No Hx Family HEENT Disorders: No Hx Family Autoimmune Disorders: No Internal Medicine - H&P: Meds Duloxetine HCl [Cymbalta] 60 mg PO 0900,1700 07/13/15 [History] clonazePAM [Klonopin] 0.5 mg PO BID 07/13/15 [History] Mycophenolate Mofetil [Cellcept] 500 mg PO BID 12/14/15 [History] ARIPiprazole [Abilify] 15 mg PO DAILY 12/25/16 [History] Albuterol Sulfate [Ventolin Hfa] 2 puff IH Q4H PRN 12/25/16 [History] Budesonide/Formoterol 160/4.5 [Symbicort 160/4.5] 2 puff IH BID 12/25/16 [ History] Buspirone HCl [Buspar] 5 mg PO TID 12/25/16 [History] Trazodone HCl 100 - 300 mg PO HS 12/25/16 [History] predniSONE [PredniSONE] 10 mg PO DAILY 12/25/16 [History] Eucerin Creme 1 applic TD DAILY 10/23/17 [History] Rivaroxaban [Xarelto] 20 mg PO BID 10/23/17 [History] Triamcinolone Acet 0.1% CRM [Kenalog] 1 appl TP BID 10/23/17 [History] Ascorbic Acid [Vitamin C] 500 mg PO 0630 tablet 11/05/17 [Rx] Ferrous Sulfate 325 mg PO 0630 tablet 11/05/17 [Rx] 3 Allergy/AdvReac Type Severity Reaction Status Date / Time codeine AdvReac Nausea Verified 11/16/17 20:50 All Systems PM: A 10-system review of systems was performed and is negative for pertinent findings except as documented above in the HPI. Review of systems: All systems reviewed are negative except as mentioned above - Constitutional Vitals: Temp Pulse Resp BP Pulse Ox 98.0 F 83 16 147/99 97 11/16/17 22:32 11/16/17 22:32 11/16/17 22:32 11/16/17 22:32 11/16/17 22:32 Exam: GEN: NAD HEENT: AT, NC, No cyanosis, oral mucosa is moist, No JVD Lymphatics: No lymphadenoapthy Eyes: Extrocular muscles intact, anicteric CVS:RRR. S1, S2, No m/r/g RESP: CTAB ABD: Soft, NT, ND, +BS EXT: 2+ edema, No rashes, 2+ DP NEURO: Nonfocal, CN II-XII intact, No focal motor or sensory deficits Psych: Cooperative, Not anxious or depressed Internal Med - H&P Results - Labs CBC & Chem 7: 11/16/17 19:29 11/16/17 19:15 - Assessment and plan (1) Dyspnea Current Visit: Yes Status: Acute Assessment and plan: The patient reports dyspnea but his CXR is clear. ??anemia causing dyspnea. Has some what of a significant drop since last month but no bleeding. Will check iron studies. He is not hypoxic. BNP is elevated. echo ordered. Qualifiers: Dyspnea type: shortness of breath Qualified Code(s): R06.02 - Shortness of breath; R06.00 - Dyspnea, unspecified; R06.01 - Orthopnea (2) Lower extremity edema Current Visit: Yes Status: Acute Assessment and plan: I believe the patient may have some right sided heart failure. Will give lasix 40 mg IV now and start lasix IV BID tomorrow. Will check an echo as above. BNP is significantly above baseline. monitor I&O. (3) Elevated TSH Current Visit: Yes Status: Acute Assessment and plan: Had mildly elevated TSH at 6.20 back on 10/25. He used to be on synthroid but has been taken off for some reason. Will check thyroid panel. (4) Anemia Current Visit: No Status: Acute Assessment and plan: We will check iron studies. I suspect some of the patient's dyspnea might be related to this. Patient is on anticoagulation with Xarelto. Check FOBT and rule out a GI bleed. His hemoglobin was 4 g higher earlier last month. The patient is on iron supplements Qualifiers: Anemia type: unspecified type Qualified Code(s): D64.9 - Anemia, unspecified (5) COPD (chronic obstructive pulmonary disease) Current Visit: No Status: Chronic Assessment and plan: Not in exacerbation. Resume inhalers. Qualifiers: COPD type: unspecified COPD Qualified Code(s): J44.9 - Chronic obstructive pulmonary disease, unspecified (6) History of kidney transplant Current Visit: No Status: Chronic Assessment and plan: Resume immunosuppressants. (7) History of DVT (deep vein thrombosis) Current Visit: Yes Status: Acute Assessment and plan: c/w xarelto (8) DVT prophylaxis Current Visit: Yes Status: Acute Assessment and plan: On xarelto. - Time Spent With Patient Total time spent is greater than 50% in coordination of care (as documented) at patient's floor/unit and/or counseling patient:
[2017-11-16] MEDS ORDERED: Naloxone 0.4 MG/ML INJ IVP PRN (22:51)
[2017-11-16] MEDS ORDERED: Acetaminophen 325 MG TABLET PO PRN (22:51)
[2017-11-16] MEDS ORDERED: Furosemide 40 MG/4 ML VIAL IVP ONE (23:09)
[2017-11-16 23:13] LABS: Magnesium 1.7 mg/dL (1.6-2.6)
[2017-11-17] MEDS: *HR* HYDROcodone/Acet 5/325 mg TABLET PO PRN ×3 (00:13→19:58)
[2017-11-17] MEDS ORDERED: Magnesium Oxide 400 MG TABLET PO ONE (03:37)
[2017-11-17 05:49] LABS: % Iron Saturation 9 % (20-55); Ferritin 122 ng/ml (20-250); Iron 27 mcg/dL (65-175); Transferrin 214 mg/dL (203-362)
[2017-11-17] MEDS: Ascorbic Acid 500 MG TABLET PO SCH (05:59)
[2017-11-17 06:07] LABS: Triiodothyronine (T3) Free 2.35 pg/mL (2.50-3.90)
[2017-11-17 06:12] LABS: Triiodothyronine (T3) Total 0.85 ng/mL (0.87-1.78)
[2017-11-17 06:15] LABS: Folate 13.9 ng/mL (3.0-16.0)
[2017-11-17] MEDS: Budesonide/Formoterol 160/4.5 MDI IH SCH ×2 (07:46→20:47)
[2017-11-17] MEDS: Furosemide 40 MG/4 ML VIAL IVP SCH ×2 (10:58→17:20)
[2017-11-17] MEDS: ARIPiprazole 10 MG TABLET PO SCH (10:58)
[2017-11-17] MEDS: predniSONE 10 MG TABLET PO SCH (10:59)
[2017-11-17] MEDS: clonazePAM 0.5 MG TABLET PO SCH ×2 (11:00→22:09)
[2017-11-17] MEDS: Triamcinolone Acet 0.1% CRM 15 GM TUBE TP SCH ×2 (14:53→22:08)
--- NOTE | 2017-11-17 15:24 | Internal Med Progress Note ---
Date of Encounter: 11/17/17 Time of Encounter: 15:22 - Assessment and plan (1) Hypothyroid Current Visit: No Status: Chronic Assessment and plan: cont home meds Qualifiers: Hypothyroidism type: unspecified Qualified Code(s): E03.9 - Hypothyroidism , unspecified (2) COPD (chronic obstructive pulmonary disease) Current Visit: No Status: Chronic Assessment and plan: no active wheezing Qualifiers: COPD type: unspecified COPD Qualified Code(s): J44.9 - Chronic obstructive pulmonary disease, unspecified (3) History of kidney transplant Current Visit: No Status: Chronic Assessment and plan: normal renal function (4) Lower extremity edema Current Visit: Yes Status: Acute Assessment and plan: due to chf no new dvt (5) Dyspnea Current Visit: Yes Status: Acute Assessment and plan: acute chf Qualifiers: Dyspnea type: shortness of breath Qualified Code(s): R06.02 - Shortness of breath; R06.00 - Dyspnea, unspecified; R06.01 - Orthopnea - Time Spent With Patient Total time spent is greater than 50% in coordination of care (as documented) at patient's floor/unit and/or counseling patient: - Subjective Interval history: Patient with history of DVT on anticoagulation, hypertension, COPD, and history of kidney transplantation. Patient present with the lower extremity swelling right more than the left with increased shortness of breath emergency room evaluation had a CTA which showed no pulmonary embolism BNP was 1353 of acute congestive heart failure patient received some diuresis. Today patient feeling much better 2-D echo has been done patient just came back from the echo studies reports pending on exams still have some bilateral rales lower extremity edema has improved - Constitutional Vitals: Temp Pulse Resp BP Pulse Ox 98.6 F 92 20 131/79 97 11/17/17 11:50 11/17/17 11:50 11/17/17 11:50 11/17/17 11:50 11/17/17 11:50 - Head Head exam: Present: atraumatic, normocephalic - Eye Eye exam: Present: PERRL, conjuntiva pink, sclera anicteric Pupils: Present: PERRL - Respiratory Respiratory exam: Present: rales, rhonchi - Cardiovascular Cardiovascular exam: Present: RRR, +S1, +S2. Absent: diastolic murmur, gallop, rubs, systolic murmur - GI/Abdominal GI/Abdominal exam: Present: normal bowel sounds, soft, no peritoneal signs. Absent: distended, tenderness - Extremities Exam Extremities exam: Present: warm, radial pulses palpable and symmetrical. Absent : calf tenderness, cyanotic, pedal edema Internal Medicine: Result - Labs CBC & Chem 7: 11/16/17 19:29 11/16/17 19:15 Consult Discharge Plan - Plan Referrals: NONE,PCP [Primary Care Provider] -
[2017-11-17] MEDS ORDERED: Bumetanide 1 MG/4 ML VIAL IVP ONE (15:28)
[2017-11-17] MEDS ORDERED: *HR* Rivaroxaban 10 MG TABLET PO SCH (18:00)
[2017-11-17] MEDS ORDERED: traZODone 50 MG TABLET PO SCH (21:00)
[2017-11-18] MEDS: Ascorbic Acid 500 MG TABLET PO SCH (05:51)
[2017-11-18] MEDS: Budesonide/Formoterol 160/4.5 MDI IH SCH (07:51)
[2017-11-18 07:52] LABS: BUN/Creatinine Ratio 20 (6-26); Blood Urea Nitrogen 20 mg/dL (6-20); Calcium 9.7 mg/dL (8.6-10.3); Carbon Dioxide 30 mEq/L (23-29); Chloride 106 mEq/L (98-107); Glucose 96 mg/dL (70-105); Osmolality,Calculated 302 (280-300); Potassium 4.1 mEq/L (3.5-5.1); Sodium 145 mEq/L (136-145); eGFR For African Americans > 60 (> 60); eGFR For Non-African Americans > 60 (> 60)
[2017-11-18] MEDS: *HR* HYDROcodone/Acet 5/325 mg TABLET PO PRN (08:14)
[2017-11-18] MEDS: ARIPiprazole 10 MG TABLET PO SCH (08:15)
[2017-11-18] MEDS: clonazePAM 0.5 MG TABLET PO SCH (08:15)
[2017-11-18] MEDS: predniSONE 10 MG TABLET PO SCH (08:15)
[2017-11-18] MEDS: Furosemide 40 MG/4 ML VIAL IVP SCH (08:15)
[2017-11-18] MEDS: Triamcinolone Acet 0.1% CRM 15 GM TUBE TP SCH (08:17)
[2017-11-18 11:53] VITALS: BP 139/93
--- NOTE | 2017-11-18 12:34 | Discharge Summary ---
Date of Encounter: 11/18/17 Time of Encounter: 12:31 - Discharge Diagnosis (1) Hypothyroid Priority: Secondary Status: Chronic Qualifiers: Hypothyroidism type: unspecified Qualified Code(s): E03.9 - Hypothyroidism , unspecified (2) COPD (chronic obstructive pulmonary disease) Priority: Secondary Status: Chronic Assessment and Plan: clinically much better Qualifiers: COPD type: unspecified COPD Qualified Code(s): J44.9 - Chronic obstructive pulmonary disease, unspecified (3) History of kidney transplant Priority: Secondary Status: Chronic Assessment and Plan: renal function normal (4) Lower extremity edema Priority: Primary Status: Acute Assessment and Plan: much im[proved (5) Dyspnea Priority: Secondary Status: Acute Qualifiers: Dyspnea type: shortness of breath Qualified Code(s): R06.02 - Shortness of breath; R06.00 - Dyspnea, unspecified; R06.01 - Orthopnea Hospital course: Mr. Campbell is a 57 year old male Discharge discussed with: patient - Time Spent with Patient Total time spent providing and/or coordinating discharge services: Less than 30 minutes - Discharge Medications Home Medications: Duloxetine HCl [Cymbalta] 60 mg PO 0900,1700 07/13/15 [History] clonazePAM [Klonopin] 0.5 mg PO BID 07/13/15 [History] Mycophenolate Mofetil [Cellcept] 500 mg PO BID 12/14/15 [History] ARIPiprazole [Abilify] 15 mg PO DAILY 12/25/16 [History] Albuterol Sulfate [Ventolin Hfa] 2 puff IH Q4H PRN 12/25/16 [History] Budesonide/Formoterol 160/4.5 [Symbicort 160/4.5] 2 puff IH BID 12/25/16 [ History] Buspirone HCl [Buspar] 5 mg PO TID 12/25/16 [History] Trazodone HCl 100 - 300 mg PO HS 12/25/16 [History] predniSONE [PredniSONE] 10 mg PO DAILY 12/25/16 [History] Rivaroxaban [Xarelto] 20 mg PO BID 10/23/17 [History] amLODIPine [Norvasc] 5 mg PO DAILY 11/17/17 [History] Furosemide [Lasix] 40 mg PO DAILY tablet 05/08/18 [Rx] Allergies/Adverse Reactions: 3 Allergy/AdvReac Type Severity Reaction Status Date / Time codeine AdvReac Nausea Verified 11/16/17 20:50 Date of admission: 11/16/17 21:44 Primary care physician: PCP NONE Discharging clinician: Myriam Mayfield Anticipated date of discharge: 11/18/17 - Constitutional Vitals: Temp Pulse Resp BP Pulse Ox 97.6 F 94 14 139/93 97 11/18/17 11:51 11/18/17 11:51 11/18/17 11:51 11/18/17 11:51 11/18/17 11:51 - Patient Status Disposition: Home, Self-Care Condition: Good Functional capacity at discharge: independent ambulation Overall status at discharge: patient is progressing back to baseline - Discharge Instructions - Diet and Activity Activity: increase activity as tolerated Diet: advance to your usual diet
--- NOTE | 2017-11-18 16:31 | Electrocardiograph Report ---
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
[2017-11-19] MEDS ORDERED: Furosemide 40 MG TABLET PO SCH (09:00)
== END 2017-11-18 14:50 | disposition home or self-care (01) ==
LOC: EMEROO 19:10 → 3BNU 19:10
PROVIDERS: ADMIT Internal Medicine; ATTEND Internal Medicine

== ENCOUNTER 2017-12-31 03:39 | Inpatient (IN) ==
--- NOTE | 2017-12-31 04:04 | Emergency Department Note ---
Disposition Clinical Impression: Acute exacerbation of chronic obstructive airways disease Acute exacerbation of CHF (congestive heart failure) Qualifiers: Heart failure type: unspecified Qualified Code(s): I50.9 - Heart failure, unspecified A-fib Qualifiers: Atrial fibrillation type: unspecified Qualified Code(s): I48.91 - Unspecified atrial fibrillation Disposition: Admitted As Inpatient Condition: Undetermined Referrals: NONE,PCP [Non-Partnered Physician] - Forms: ED Satisfaction Letter General Adult HPI - General Chief complaint: ED Shortness of Breath/Dyspnea Stated complaint: SoB Time Seen by Provider: 12/31/17 03:40 Source: patient, EMS Mode of arrival: EMS Limitations: no limitations Nursing Notes Reviewed: Yes Vital Signs Reviewed: Yes - History of Present Illness HPI Narrative: 57-year-old male presents emergency department via EMS for evaluation of " CANNOT BREATHE" patient states that what position he is then he is having shortness of breath. He states this started a couple weeks ago about a week after he was released from the skilled nursing. Patient also complaining of increased shortness breath with exertion. Symptoms have progressively gotten worse over time. Patient states he is on inhalers, and that he has been taking all of his medication as he is supposed to. He states he has a daily inhaler and his rescue inhaler and that he has had to be using his rescue inhaler "a lot". Patient is a smoker and states he smokes around 5 cigarettes a day. Patient denies fevers, chills, coughing, chest pain, palpitations, edema, nausea , vomiting, diarrhea, constipation, genitourinary complaints, he denies any symptoms of DVT. Patient does have a history of multiple DVTs of the last DVT in October 2017 where he was treated and placed on Xarelto, he is a new diagnosis CHF with an echo on 11/17 that showed an EF of 40-45%, COPD, kidney transplant recipient (no medications), hypertension, hypothyroidism, HCV, he states he has a "slight murmur". EMS reports the patient SPO2 is high 80s around 88-89% on room air whenever he is ambulating, he is 94% when sitting, after placing 2 L nasal cannula on patient his saturation level balanced out and he stated he felt "much better" Pt does not have home 02 Onset (ago): week(s) Improves with: rest Worsens with: movement Treatments Prior to Arrival: other (Prescribed medications) - Related Data Home Medications Medication Instructions Recorded Confirmed Duloxetine HCl [Cymbalta] 60 mg PO 0900,1700 07/13/15 11/17/17 clonazePAM [Klonopin] 0.5 mg PO BID 07/13/15 11/17/17 Mycophenolate Mofetil [Cellcept] 500 mg PO BID 12/14/15 11/17/17 ARIPiprazole [Abilify] 15 mg PO DAILY 12/25/16 11/17/17 Albuterol Sulfate [Ventolin Hfa] 2 puff IH Q4H PRN 12/25/16 11/17/17 Budesonide/Formoterol 160/4.5 2 puff IH BID 12/25/16 11/17/17 [Symbicort 160/4.5] Buspirone HCl [Buspar] 5 mg PO TID 12/25/16 11/17/17 Trazodone HCl 100 - 300 mg PO HS 12/25/16 11/17/17 predniSONE [PredniSONE] 10 mg PO DAILY 12/25/16 11/17/17 Rivaroxaban [Xarelto] 20 mg PO BID 10/23/17 11/17/17 amLODIPine [Norvasc] 5 mg PO DAILY 11/17/17 11/17/17 Previous Rx's Medication Instructions Recorded Furosemide [Lasix] 40 mg PO DAILY tablet 11/18/17 Allergies Allergy/AdvReac Type Severity Reaction Status Date / Time codeine AdvReac Nausea Verified 11/16/17 20:50 All systems ED: reviewed and negative except as stated. Review of Systems: As Per HPI Past Medical History - Past Medical History Attestation: Yes The following information was validated with the patient. Source: patient Medical history: Reports: COPD, coronary artery disease, DVT, hepatitis, hypertension, renal disease, other Surgical history: Reports: hip replacement, transplant Psychiatric history: Reports: anxiety, depression, previous psychiatric hospitalization, other - Social History Smoking Status: Current every day smoker Smokeless Tobacco Status: No Alcohol use: Reports: none Drug use: Reports: cocaine, marijuana Physical Exam - General Limitations: no limitations General appearance: alert, in no apparent distress - Head Head exam: atraumatic, normocephalic, normal inspection - Eye Eye exam: Present: normal appearance - ENT ENT exam: normal exam, mucous membranes moist - Neck Neck exam: Present: normal inspection, full ROM, trachea midline. Absent: tenderness - Chest Chest inspection: Present: normal inspection, symmetric chest wall rise - Respiratory Respiratory exam: Present: normal lung sounds bilaterally - Cardiovascular Cardiovascular exam: Present: tachycardia, irregular rhythm, normal heart sounds - Abdominal Exam Abdominal exam: Present: soft, Non-Tender, normal bowel sounds. Absent: tenderness, distention, guarding, rebound, rigidity - Extremities Exam Extremities exam: Present: normal inspection, full ROM, normal capillary refill. Absent: tenderness, pedal edema - Back Exam Back exam: Present: normal inspection, full ROM. Absent: tenderness - Neurological Exam Neurological exam: Present: alert, oriented X3 - Psychiatric Psychiatric exam: Present: normal affect, normal mood - Skin Skin exam: Present: warm, dry, intact, normal color Course Course Narrative: Nontoxic appearing male who is well-hydrated, well-developed. Respirations are easy and even, he speaks in full sentences without distress. Physical exam reveals respirations easy and even on 2 L of oxygen, lungs clear to auscultate. Heart rate irregular, EKG reveals A. fib with a ventricle rate of 102, normotensive, No edema. Abdomen round, nontender. Spoke with patient regarding admission to hospital, patient is agreeable to stay and receive treatment. BNP elevated at 1755, chest x-ray shows cardiomegaly and exacerbation of CHF. Admit for acute exacerbation CHF, A. fib. Spoke with hospitalist who is agreeable to take patient for inpatient status, patient agreeable to plan of care. Patient has rested comfortably all night, ABG shows slightly hypercapnia , respiratory alkalosis. Patient has been on oxygen throughout the night should resolve as breathing status normalizes. Dr. Peñaloza is seen patient had one-on-one face time and is agreeable plan of care. Vital Signs Temperature 98.2 F 12/31/17 03:42 Pulse Rate 110 12/31/17 03:42 Respiratory Rate 20 12/31/17 03:42 Blood Pressure 120/93 12/31/17 03:42 O2 Sat by Pulse Oximetry 97 12/31/17 03:42 Temperature 98.2 F 12/31/17 03:42 Pulse Rate 103 12/31/17 05:51 Respiratory Rate 20 12/31/17 05:51 Blood Pressure 140/113 12/31/17 05:51 O2 Sat by Pulse Oximetry 98 12/31/17 05:51 Oxygen Delivery Oxygen Delivery Room Air Medical Decision Making - Medical Records Medical records reviewed: Yes I reviewed the patient's medical records. - Lab Data Lab results reviewed: Yes I reviewed the patient's lab results. Result diagrams: 12/31/17 05:08 12/31/17 05:08 Lab Results 12/31/17 12/31/17 12/31/17 Range/Units 05:08 05:08 05:08 WBC 8.1 (4.3-11.1) K/mcL RBC 4.81 (4.19-5.50) M/mcL Hgb 11.8 L (12.9-16.9) g/dL Hct 38.4 (37.5-50.1) % MCV 79.8 L (83.0-100.0) fL MCH 24.5 L (28.0-33.3) pg MCHC 30.7 L (31.6-35.5) g/dL RDW 16.7 H (11.5-14.5) % Plt Count 293 (140-400) K/mcL MPV 9.5 (9.4-12.4) fL Immature Gran % 0.9 (0-4) % Seg Neutrophils % 74.0 % Lymphocytes % 9.1 % Monocytes % 12.3 % Eosinophils % 3.5 % Basophils % 0.2 % Neutrophils # 6.0 (1.6-8.9) K/mcL Lymphocytes # 0.7 (0.6-4.6) K/mcL Monocytes # 1.0 (0.0-1.3) K/mcL Eosinophils # 0.3 (0.0-0.6) K/mcL Basophils # 0.0 (0.0-0.2) K/mcL Immature Plt Fraction 2.1 (1.1-6.1) % VBG pH (7.32-7.42) pH Units VBG pCO2 (41-51) mmHg VBG pO2 (25-50) mmHg VBG HCO3 (21-27) mEq/L Sodium 135 L (136-145) mEq/L Potassium 3.8 (3.5-5.1) mEq/L Chloride 104 (98-107) mEq/L Carbon Dioxide 23 (23-29) mEq/L BUN 13 (6-20) mg/dL Creatinine 0.77 (0.70-1.30) mg/dL Est GFR ( Amer) > 60 (> 60) Est GFR (Non-Af Amer) > 60 (> 60) BUN/Creatinine Ratio 17 (6-26) Glucose 114 H (70-105) mg/dL Calculated Osmolality 281 (280-300) Lactic Acid 1.3 (0.5-2.2) mmol/L Calcium 8.9 (8.6-10.3) mg/dL B-Natriuretic Peptide (Less than 100) pg/mL 12/31/17 12/31/17 Range/Units 05:08 05:18 WBC (4.3-11.1) K/mcL RBC (4.19-5.50) M/mcL Hgb (12.9-16.9) g/dL Hct (37.5-50.1) % MCV (83.0-100.0) fL MCH (28.0-33.3) pg MCHC (31.6-35.5) g/dL RDW (11.5-14.5) % Plt Count (140-400) K/mcL MPV (9.4-12.4) fL Immature Gran % (0-4) % Seg Neutrophils % % Lymphocytes % % Monocytes % % Eosinophils % % Basophils % % Neutrophils # (1.6-8.9) K/mcL Lymphocytes # (0.6-4.6) K/mcL Monocytes # (0.0-1.3) K/mcL Eosinophils # (0.0-0.6) K/mcL Basophils # (0.0-0.2) K/mcL Immature Plt Fraction (1.1-6.1) % VBG pH 7.49 H (7.32-7.42) pH Units VBG pCO2 31 L (41-51) mmHg VBG pO2 223 H (25-50) mmHg VBG HCO3 24 (21-27) mEq/L Sodium (136-145) mEq/L Potassium (3.5-5.1) mEq/L Chloride (98-107) mEq/L Carbon Dioxide (23-29) mEq/L BUN (6-20) mg/dL Creatinine (0.70-1.30) mg/dL Est GFR ( Amer) (> 60) Est GFR (Non-Af Amer) (> 60) BUN/Creatinine Ratio (6-26) Glucose (70-105) mg/dL Calculated Osmolality (280-300) Lactic Acid (0.5-2.2) mmol/L Calcium (8.6-10.3) mg/dL B-Natriuretic Peptide 1777 H (Less than 100) pg/mL - Radiology Data Radiology results reviewed: Yes I reviewed the patient's radiology results. Chest X-Ray 12/31/17 03:56 IMPRESSION: 1. Cardiomegaly with mild to moderate congestive heart failure. D/ / Myesha Dalton MD / Myesha Dalton MD Interpreting Provider: Myesha Dalton MD - EKG Data EKG #1 EKG attestation: Yes I reviewed and interpreted this EKG. Attestation Statement - Attestation Attestation: I examined this patient and my medical decision-making was reviewed with the Resident Physician. I agree with the documented findings, disposition and treatment plan as described except to the extent set forth below. new onset afib , will start lovenox, admit to hospital for cards evaluation.
[2017-12-31] MEDS ORDERED: 0.9 % Sodium Chloride 500 ML IVC ONE (05:15)
[2017-12-31 05:21] LABS: Basophils % 0.2 %; Eosinophils # 0.3 K/mcL (0.0-0.6); Eosinophils % 3.5 %; Hematocrit 38.4 % (37.5-50.1); Hemoglobin 11.8 g/dL (12.9-16.9); Immature Granulocytes % 0.9 % (0-4); Immature Platelets 2.1 % (1.1-6.1); Lymphocytes # 0.7 K/mcL (0.6-4.6); Lymphocytes % 9.1 %; Mean Corpuscular HGB Conc 30.7 g/dL (31.6-35.5); Mean Corpuscular Hemoglobin 24.5 pg (28.0-33.3); Mean Corpuscular Volume 79.8 fL (83.0-100.0); Mean Platelet Volume 9.5 fL (9.4-12.4); Monocytes % 12.3 %; Platelet Count 293 K/mcL (140-400); Red Blood Count 4.81 M/mcL (4.19-5.50); Red Cell Distribution Width 16.7 % (11.5-14.5)
[2017-12-31 05:21] LABS: VBG HCO3 24 mEq/L (21-27); VBG PCO2 31 mmHg (41-51); VBG PH 7.49 pH Units (7.32-7.42); VBG PO2 223 mmHg (25-50)
[2017-12-31 05:35] LABS: BUN/Creatinine Ratio 17 (6-26); Blood Urea Nitrogen 13 mg/dL (6-20); Calcium 8.9 mg/dL (8.6-10.3); Carbon Dioxide 23 mEq/L (23-29); Chloride 104 mEq/L (98-107); Glucose 114 mg/dL (70-105); Osmolality,Calculated 281 (280-300); Potassium 3.8 mEq/L (3.5-5.1); Sodium 135 mEq/L (136-145); eGFR For African Americans > 60 (> 60); eGFR For Non-African Americans > 60 (> 60)
[2017-12-31 06:31] LABS: Magnesium 1.7 mg/dL (1.6-2.6); Phosphorous 3.3 mg/dL (2.7-4.5)
[2017-12-31 06:33] LABS: Bilirubin,Urine Moderate (Negative); Blood,Urine Negative (Negative); Clarity,Urine Clear (Clear); Color,Urine Dark Yellow (Yellow); Glucose,Urine (UA) Normal (Normal); Ketones,Urine Trace mg/dL (Negative); Leukocyte Esterase,Urine Negative (Negative); Nitrite,Urine Negative (Negative); Protein,Urine >=300 mg/dL (Neg-Trace); Specific Gravity,Urine 1.026 (1.010-1.025); Urobilinogen,Urine Normal (Normal)
[2017-12-31 06:36] LABS: Bacteria,Urine None Seen per hpf (None-Few); Hyaline Casts,Urine None Seen per lpf (None-Few); Squamous Epithelial Cell,Urine Many per lpf (None-Few)
[2017-12-31 06:37] LABS: Troponin I 0.06 ng/mL (< 0.04)
[2017-12-31] MEDS ORDERED: Aspirin 325 MG TABLET PO ONE (07:48)
--- NOTE | 2017-12-31 07:54 | Emergency Department Note ---
START Narrative - START START: Patient was admitted to medicine, accepted by the hospitalist per nurse practitioner Patricia Quiroz. After her shift ended, patient's troponin was resulted and is elevated. Patient's EKG does not show an ST elevation NM. I discussed this result with Dr. Peñaloza who had also already seen the patient. He recommends giving the patient an aspirin. We discussed that the patient is currently on Xarelto. He stated that the patient should still be given an aspirin. This was ordered.
[2017-12-31] MEDS ORDERED: Naloxone 0.4 MG/ML INJ IVP PRN (11:05)
--- NOTE | 2017-12-31 11:21 | Internal Med History&Physical ---
Date of Encounter: 12/31/17 Time of Encounter: 09:00 Internal Medicine - H&P: HPI Chief complaint: Shortness of breath Admitted From: Home Plans for Post Hospital Care: Home History of present illness: Patient is a 57-year-old male with past medical history significant for systolic heart failure, COPD, hypertension, multiple DVTs and renal transplant recipient who presents to the ER on 12/31/17 due to shortness of breath. Patient reports for the past few weeks of having shortness of breath which has gradually gotten worse. Patient reports his shortness of breath is mainly with exertion. He admits to not taking his Lasix as directed and only has taken it twice in the last week. Patient called EMS and was brought into the ER for evaluation. In the ER, patient was found to have elevated troponin of 0.06 with elevated BNP of 1777 in addition to vascular congestion on chest x-ray. He will be admitted for acute on chronic systolic heart failure with new onset atrial fibrillation Past Med Surg Social Fam HX - Past Medical History Medical history: COPD, coronary artery disease, DVT, hepatitis, hypertension, renal disease, other Additional medical history: Last DVT 2008 Psychiatric history: anxiety, depression, previous psychiatric hospitalization, other - Past Surgical History Surgical History: hip replacement, transplant Additional surgical history: Kidney transplant, left hip replacement - Social History Smoking Status: Current every day smoker Packs per day: 1/4 Smokeless Tobacco Status: No Alcohol use: none Drug use: cocaine, marijuana - Family History Father Living Status: Hx Family Cardiac Disorders: Yes (ID) Mother Adopted: No Family Member Ethnicity: Non- Living Status: Hx Family Cardiac Disorders: Yes (ID) Hx Family Respiratory Disorders: Yes (asthma) Hx Family Cancer: No Hx Family GI Disorders: No Hx Family Endocrine Disorder: No Hx Family Neuromuscular Disorders: No Hx Family Neurologic Disorders: No Hx Family HEENT Disorders: No Hx Family Autoimmune Disorders: No Internal Medicine - H&P: Meds Duloxetine HCl [Cymbalta] 60 mg PO 0900,1700 07/13/15 [History] clonazePAM [Klonopin] 0.5 mg PO BID 07/13/15 [History] Mycophenolate Mofetil [Cellcept] 500 mg PO BID 12/14/15 [History] ARIPiprazole [Abilify] 15 mg PO DAILY 12/25/16 [History] Albuterol Sulfate [Ventolin Hfa] 2 puff IH Q4H PRN 12/25/16 [History] Budesonide/Formoterol 160/4.5 [Symbicort 160/4.5] 2 puff IH BID 12/25/16 [ History] Buspirone HCl [Buspar] 10 mg PO TID 12/25/16 [History] Trazodone HCl 100 - 300 mg PO HS 12/25/16 [History] predniSONE [PredniSONE] 10 mg PO DAILY 12/25/16 [History] Rivaroxaban [Xarelto] 20 mg PO DAILY 10/23/17 [History] amLODIPine [Norvasc] 5 mg PO DAILY 11/17/17 [History] Furosemide [Lasix] 40 mg PO DAILY tablet 11/18/17 [Rx] 3 Allergy/AdvReac Type Severity Reaction Status Date / Time codeine AdvReac Nausea Verified 12/31/17 06:50 All Systems PM: A 10-system review of systems was performed and is negative for pertinent findings except as documented above in the HPI. - Constitutional Vitals: Temp Pulse Resp BP Pulse Ox 98.2 F 96 17 122/105 93 12/31/17 03:42 12/31/17 08:56 12/31/17 08:56 12/31/17 08:56 12/31/17 08:56 General appearance: Present: A&O X 3, no acute distress, answers questions appropriately - Eye Eye exam: Present: normal appearance - ENT ENT exam: Present: mucous membranes moist - Respiratory Respiratory exam: Present: CTAB. Absent: accessory muscle use, rales, rhonchi, wheezes - Cardiovascular Cardiovascular exam: Present: RRR, +S1, +S2. Absent: diastolic murmur, gallop, rubs, systolic murmur - GI/Abdominal GI/Abdominal exam: Present: normal bowel sounds, soft, no peritoneal signs. Absent: distended, tenderness - Extremities Exam Extremities exam: Absent: pedal edema - Neurological Exam Neurological exam: Absent: no focal deficits - Psychiatric Psychiatric exam: Present: normal mood - Skin Skin exam: Present: normal color Internal Med - H&P Results - Labs CBC & Chem 7: 12/31/17 05:08 12/31/17 05:08 - Assessment and plan (1) New onset atrial fibrillation Current Visit: Yes Status: Acute Assessment and plan: Patient found to have new onset of atrial fibrillation; rate controlled Patient already on oral anticoagulation for history of multiple DVTs Cardiology has been consulted and appreciate recommendations (2) Acute exacerbation of CHF (congestive heart failure) Current Visit: Yes Status: Acute Assessment and plan: Patient with acute on chronic diastolic heart failure Patient with elevated BNP in the ER of 1777 and vascular congestion noted on chest x-ray. Patient of not taking his Lasix as directed. He will be started on IV Lasix 40 mg twice daily Qualifiers: Heart failure type: systolic Qualified Code(s): I50.23 - Acute on chronic systolic (congestive) heart failure (3) Anemia Current Visit: No Status: Acute Assessment and plan: Patient with a hemoglobin of 11.8 which is stable Will continue to monitor Qualifiers: Anemia type: unspecified type Qualified Code(s): D64.9 - Anemia, unspecified (4) COPD (chronic obstructive pulmonary disease) Current Visit: No Status: Chronic Assessment and plan: Patient not in exacerbation; continue home medications Qualifiers: COPD type: unspecified COPD Qualified Code(s): J44.9 - Chronic obstructive pulmonary disease, unspecified (5) Hepatitis C Current Visit: No Status: Chronic Assessment and plan: Patient reports a history of hepatitis C Qualifiers: Viral hepatitis chronicity: chronic Hepatic coma status: without hepatic coma Qualified Code(s): B18.2 - Chronic viral hepatitis C (6) History of kidney transplant Current Visit: No Status: Chronic Assessment and plan: Continue daily prednisone (7) Hypertension Current Visit: No Status: Chronic Assessment and plan: Controlled; continue home medications Qualifiers: Hypertension type: essential hypertension Qualified Code(s): I10 - Essential (primary) hypertension (8) Personality disorder Current Visit: No Status: Chronic Assessment and plan: Continue home medications (9) History of DVT (deep vein thrombosis) Current Visit: No Status: Acute Assessment and plan: Continue oral anticoagulation was Xarelto (10) DVT prophylaxis Current Visit: No Status: Acute Assessment and plan: Patient is on Xarelto - Time Spent With Patient Total time spent is greater than 50% in coordination of care (as documented) at patient's floor/unit and/or counseling patient:
--- NOTE | 2017-12-31 12:36 | Electrocardiograph Report ---
[place] [id number] Test Date: 2017-12-31 Pat Name: Fahad Campbell Department: 103 Room: 2NE19 Gender: M Offset [employer]: ENOC : 1960 Requested By: [id number] Order Number: [id number] Reading MD: Uriel Magana Measurements Intervals [place] Rate: 102 P: NE: 0 QRS: -37 QRSD: 107 T: 17 QT: 359 QTc: 418 Interpretive Statements ATRIAL FIBRILLATION WITH RAPID VENTRICULAR RESPONSE MARKED LEFT AXIS DEVIATION Poor R wave progression Electronically Signed On 12-31-2017 12:34:55 EDT by Uriel Magana
--- NOTE | 2017-12-31 14:00 | Cardiology Consult Note ---
<Britton Lorenz R - Last Filed: 12/31/17 15:55> Date of Encounter: 12/31/17 Time of Encounter: 13:59 Assessment and Plan (1) Acute exacerbation of CHF (congestive heart failure) Current Visit: Yes Status: Acute TTE in 2014 EF was preserved. TTE 11/2017 EF newly reduced 40-45%, global, moderate-severe MR, mild TR, severe phtn. Pt reports being noncompliant with Lasix in recent weeks. BNP 1777. CXR with evidence of CHF. Agree with IV diuresis Lasix 40mg BID. Recommend strict I/Os, Na and fluid restriction, daily weights. Qualifiers: Heart failure type: systolic Qualified Code(s): I50.23 - Acute on chronic systolic (congestive) heart failure (2) Cardiomyopathy Current Visit: Yes Status: Acute TTE 11/2017 EF newly reduced 40-45%. Global dysfunction, moderate-severe MR. TTE in 2014 EF was preserved. ICMP vs NICMP. No prior ischemic evaluation. Recommend LHC during stay to further evaluate. R/B/A discussed. Will await oncology consult for recurrent DVTs on Xarelto and VQ scan to r/o CTEPH. Given DVTs as recent as 10/2017. Will require bridging with IV heparin gtt. Discussed with Dr. Barrera. Will stop Xarelto and start heparin gtt in anticipation for LHC. Qualifiers: Cardiomyopathy type: unspecified Qualified Code(s): I42.9 - Cardiomyopathy , unspecified (3) History of kidney transplant Current Visit: Yes Status: Chronic Hx of renal transplant in 2005. Renal function currently normal. Will monitor closely with diuresis and possible LHC. (4) Recurrent deep vein thrombosis (DVT) of both lower extremities Current Visit: Yes Status: Chronic Hx of recurrent DVTs. Recently had recurrent DVTs 10/2017 while on Xarelto and was transferred to [facility]. Continues to be on Xarelto. LLE doppler 11/2017 Normal left lower extremity deep venous exam. The left lesser saphenous vein has chronic superficial venous thrombosis. Oncology consulted to evaluate recurrent DVTs on Xarelto. Reviewed prior notes, appears has hx of recurrent DVT on Eliquis as well and previously on Coumadin but had difficulty with INRs. There is concern for chronic thromboembolic pulmonary hypertension given severe phtn on TTE and known hypercoaguable state. VQ scans have higher sensitivity than CTA in this condition. VQ scan ordered. Hold Xarelto, start IV heparin gtt in anticipation for LHC. (5) A-fib Current Visit: Yes Status: Acute Pt had TTE 11/2017 and rhythm was noted to be A-Fib during study. Current rhythm is difficult to interpret, as sometimes there are P waves, but very irregular. [id number] 2 (CHF, HTN). Anticoagulation recommended. Already on Xarelto 20mg daily for recurrent DVT hx. HR 90s-low 100s at bedside. Add low dose BB. Qualifiers: Atrial fibrillation type: unspecified Qualified Code(s): I48.91 - Unspecified atrial fibrillation (6) Elevated troponin Current Visit: Yes Status: Acute Troponin 0.06, 0.07--mild, flat troponin in setting of CHF exacerbation. Suspect demand ischemia, nondiagnostic for ACS. Known recently reduced EF 40-45%. LHC during stay. Denies chest pain. (7) Mitral regurgitation Current Visit: Yes Status: Acute Moderate-severe MR on TTE. LHC when able to evaluate for ischemic cause. Further recs to follow. Qualifiers: Cardiac valve disease etiology: etiology unspecified Qualified Code(s): I34.0 - Nonrheumatic mitral (valve) insufficiency Discussion w patient/family: The assessment and plan as outlined above was discussed with the patient and/or family members who expressed understanding and agreement. All questions were answered. Thank you for involving us in the care of your patient. Please call with any questions. I will discuss all the above with Dr. Barrera and make changes as necessary. History of Present Illness Consult date: 12/31/17 Requesting physician: Willy Blair Consult reason: A-Fib, systolic CHF Chief complaint: dyspnea History of present illness: Mr. Campbell is a 57 year old male with PMH COPD, hypertension, multiple DVTs anticoagulated on Xarelto and renal transplant in 2005, presents to ED due to worsening shortness of breath over the past few weeks. Reports his shortness of breath is mostly with exertion. He admits to not taking his Lasix in recent weeks. Patient called EMS and was brought into the ER for evaluation. In the ER , patient was found to have elevated troponin of 0.06, 0.07 with elevated BNP of 1777 in addition to vascular congestion on chest x-ray. He was also noted to be in A-Fib. Pt denies chest pain, palpitations or LE edema. Upon further review , pt had TTE in 2014 with preserved EF of 60%. He had an echo during hospitalization last month that showed a newly reduced EF 40-45%, global dysfunction, moderate-severe MR, mild TR, severe phtn. Rhythm on echo last month documented to be A-Fib. HR at bedside 90s-low 100s. Cardiology consulted for further recs. There was also concern for 8 beat run NSVT on telemetry, but on review appears irregular, suspect A-Fib with aberrancy. Prior CV testing: TTE 11/17/17: LVEF 40-45%. Normal LV chamber size and wall thickness. Global left ventricular systolic dysfunction. Indeterminate diastolic function. Normal right ventricular structure and function. Moderate-severe mitral regurgitation. Mild tricuspid regurgitation. Severe pulmonary hypertension. TTE 04/26/15: LVEF 60%, normal LV size and systolic function. Evidence of mild ( Grade I) diastolic dysfunction. Normal RV size and function. Mildly calcified aortic valve with mild . No phtn. Past Med Surg Social Fam HX - Past Medical History Medical history: COPD, DVT, hepatitis, hypertension, renal disease, other Additional medical history: Last DVT 2008 Psychiatric history: anxiety, depression, previous psychiatric hospitalization, other - Past Surgical History Surgical History: hip replacement, transplant Additional surgical history: Kidney transplant, left hip replacement - Social History Smoking Status: Current every day smoker Packs per day: 1/4 Smokeless Tobacco Status: No Alcohol use: none Drug use: cocaine, marijuana - Family History Father Living Status: Hx Family Cardiac Disorders: Yes (RI) Mother Adopted: No Family Member Ethnicity: Non- Living Status: Hx Family Cardiac Disorders: Yes (RI) Hx Family Respiratory Disorders: Yes (asthma) Hx Family Cancer: No Hx Family GI Disorders: No Hx Family Endocrine Disorder: No Hx Family Neuromuscular Disorders: No Hx Family Neurologic Disorders: No Hx Family HEENT Disorders: No Hx Family Autoimmune Disorders: No Medications and Allergies Duloxetine HCl [Cymbalta] 60 mg PO 0900,1700 07/13/15 [History] clonazePAM [Klonopin] 0.5 mg PO BID 07/13/15 [History] Mycophenolate Mofetil [Cellcept] 500 mg PO BID 06/02/16 [History] ARIPiprazole [Abilify] 15 mg PO DAILY 12/25/16 [History] Albuterol Sulfate [Ventolin Hfa] 2 puff IH Q4H PRN 12/25/16 [History] Budesonide/Formoterol 160/4.5 [Symbicort 160/4.5] 2 puff IH BID 12/25/16 [ History] Buspirone HCl [Buspar] 10 mg PO TID 12/25/16 [History] Trazodone HCl 100 - 300 mg PO HS 12/25/16 [History] predniSONE [PredniSONE] 10 mg PO DAILY 12/25/16 [History] Rivaroxaban [Xarelto] 20 mg PO DAILY 10/23/17 [History] amLODIPine [Norvasc] 5 mg PO DAILY 11/17/17 [History] Furosemide [Lasix] 40 mg PO DAILY tablet 11/18/17 [Rx] 3 Allergy/AdvReac Type Severity Reaction Status Date / Time codeine AdvReac Nausea Verified 12/31/17 06:50 All Systems Review: The remainder of the systems were reviewed and are negative - Cardiovascular Cardiovascular: as per HPI, dyspnea at rest, dyspnea on exertion - Respiratory Respiratory: dyspnea Physical Examination Vital Signs, Last 4 Hours Pulse Resp BP Pulse Ox 12/31/17 11:28 103 19 121/91 99 Vital Signs Temp Pulse Resp BP Pulse Ox 12/31/17 11:28 103 19 121/91 99 12/31/17 08:56 96 17 122/105 93 12/31/17 08:20 86 22 114/88 93 12/31/17 07:22 95 124/100 12/31/17 06:42 75 20 113/92 98 12/31/17 05:51 103 20 140/113 98 12/31/17 04:45 116 20 120/97 97 12/31/17 03:42 98.2 F 110 20 120/93 97 Intake and Output 12/30/17 12/31/17 12/31/17 23:59 07:59 15:59 Other: Weight 65.771 kg Patient Weight 12/31/17 23:59 Weight 65.771 kg General: Conversant, No Apparent Distress HEENT: Atraumatic, Normocephaly, Mucus Membranes Moist Neck: No JVD, Normal carotid pulses Cardiac: Other (irregularly irregular, 2/6 murmur) Lungs: Other (diminished) Neuro: Alert and responsive, No focal deficits noted Abdomen: Soft, Non-Tender Skin: No rashes noted on visualized skin Musculoskeletal: No Chest Wall Tenderness Extremities: No Clubbing, No Cyanosis, No Edema, Normal Pulses Results 12/31/17 05:08 12/31/17 05:08 Lab Results 12/31/17 11:46 Troponin I 0.07 H* Short CBC 12/31/17 Range/Units 05:08 WBC 8.1 (4.3-11.1) K/mcL Hgb 11.8 L (12.9-16.9) g/dL Hct 38.4 (37.5-50.1) % Plt Count 293 (140-400) K/mcL Neutrophils # 6.0 (1.6-8.9) K/mcL BMP 12/31/17 Range/Units 05:08 Sodium 135 L (136-145) mEq/L Potassium 3.8 (3.5-5.1) mEq/L Chloride 104 (98-107) mEq/L Carbon Dioxide 23 (23-29) mEq/L BUN 13 (6-20) mg/dL Creatinine 0.77 (0.70-1.30) mg/dL Glucose 114 H (70-105) mg/dL Calcium 8.9 (8.6-10.3) mg/dL Cardiac Enzymes 12/31/17 12/31/17 Range/Units 11:46 05:08 Troponin I 0.07 H* 0.06 H* (< 0.04) ng/mL Urine 12/31/17 Range/Units 06:19 Urine Color Dark Yellow (Yellow) Urine Clarity Clear (Clear) Urine pH 6.0 (5.0-8.0) pH Units Ur Specific [place] 1.026 H (1.010-1.025) Urine Protein >=300 H (Neg-Trace) mg/dL Urine Glucose (UA) Normal (Normal) mg/dL Impressions Chest X-Ray 12/31/17 03:56 IMPRESSION: 1. Cardiomegaly with mild to moderate congestive heart failure. D/ / 12/31/2017 07:42:09 Myesha Dalton MD / carlos Interpreting Provider: Myesha Dalton MD Active Medications Albuterol Sulfate (Albuterol Inhaler) 2 puff IH Q4H PRN PRN Reason: Shortness Of Breath Stop: 07/02/18 11:11 Amlodipine Besylate (Norvasc) 5 mg PO DAILY [place] PRN Reason: Protocol Stop: 07/03/18 09:01 Aripiprazole (Abilify) 15 mg PO DAILY [place] Stop: 07/03/18 09:01 Budesonide/Formoterol Fumarate (Symbicort) 2 puff IH BIDR [facility] PRN Reason: Protocol Stop: 07/02/18 22:01 Buspirone HCl (Buspar) 10 mg PO TID [place] Stop: 07/02/18 15:01 Clonazepam (Klonopin) 0.5 mg PO BID [place] Stop: 07/02/18 21:01 Duloxetine HCl (Cymbalta) 60 mg PO 0900,1700 [place] Stop: 07/02/18 17:01 Furosemide (Lasix) 40 mg IVP BID [place] Stop: 07/02/18 21:01 Mycophenolate Mofetil (Cellcept) 500 mg PO BID [facility] Stop: 07/02/18 21:01 Naloxone HCl (Narcan) 0.4 mg IVP Q2MIN PRN PRN Reason: SEE COMMENTS Stop: 07/02/18 11:06 Prednisone (Prednisone) 10 mg PO DAILY [facility] Stop: 07/03/18 09:01 Rivaroxaban (Xarelto) 20 mg PO DAILY [facility] Stop: 07/03/18 09:01 - Imaging and Cardiology Echo: report reviewed - EKG Interpretation EKG results cardiology: personally reviewed (A-Fib) Consult Discharge Plan - Plan Referrals: NONE,PCP [Primary Care Provider] - <Tram Barrera - Last Filed: 12/31/17 16:10> Date of Encounter: 12/31/17 - Attending Attestation I examined this patient and my medical decision-making was reviewed with the Resident Physician. I agree with the documented findings, disposition and treatment plan. Mr. Campbell presents with worsening SOB which may be multifactorial. He admits to not taking any lasix for the last 3 weeks. He was incidentally discovered to have presumably newly reduced LVEF on an Echo done about a month ago. He presents with elevated BNP and pulmonary congestion noted on CXR. Agree with IV lasix. Alternatively, also with a complicated history of recurrent DVT. Etiology of DVT's is unclear. Developed the first one in 1998. Presumably, he had a hypercoaguable workup in the past but this is not documented. Also, notably he was on both coumadin and eliquis with recurrent DVT. Also with a DVT in October while on xarelto. Patient does admit to forgetting some doses more recently but denies missing several doses. At this time, we recommend having the patient undergo a V/Q scan which can be helpful in the setting of CTEPH. He did have a CTA last month that was negative for PE. Echo demonstrates newly discovered pulmonary hypertension. We will stop xarelto and start him on heparin in anticipation of potentially undergoing LHC for elevated troponin and newly reduced LVEF. We will ask Hematology to help with anticoagulation in the setting of possible treatment failure for DVT. In regards to atrial fibrillation, this was incidentally discovered during a recent hospitalization. Presently he appears to be in NSR with PACs. Would ideally agree with anticoagulation (CHADSVASC 2). Will await Hematology recommendations to help guide management. Assessment and Plan Discussion w patient/family: The assessment and plan as outlined above was discussed with the patient and/or family members who expressed understanding and agreement. All questions were answered. Thank you for involving us in the care of your patient. Please call with any questions. History of Present Illness History of present illness: Mr. Campbell is a 57 year old male All Systems Review: The remainder of the systems were reviewed and are negative Physical Examination Vital Signs, Last 4 Hours Temp Pulse Resp BP Pulse Ox 12/31/17 15:21 97.7 F 95 18 127/91 98 Results 12/31/17 05:08 12/31/17 05:08
[2017-12-31] MEDS ORDERED: *HR* Heparin 5,000 UNIT/ML VIAL IVP ONE (16:00)
[2017-12-31] MEDS ORDERED: *HR* Heparin 5,000 UNIT/ML VIAL IVP PRN ×2 (16:00)
[2017-12-31 16:39] LABS: Hematocrit 47.1 % (37.5-50.1); Hemoglobin 13.8 g/dL (12.9-16.9); Mean Corpuscular HGB Conc 29.3 g/dL (31.6-35.5); Mean Corpuscular Hemoglobin 24.2 pg (28.0-33.3); Mean Corpuscular Volume 82.6 fL (83.0-100.0); Mean Platelet Volume 9.2 fL (9.4-12.4); Platelet Count 298 K/mcL (140-400); Red Cell Distribution Width 17.9 % (11.5-14.5)
[2017-12-31 16:43] LABS: INR 1.4; Prothrombin Time 15.4 Seconds (9.4-12.1)
[2017-12-31 16:45] LABS: Activated Partial Thrombo Time 44.6 Seconds (26.0-36.0)
[2017-12-31] MEDS: Metoprolol XL (24 HR) Succ 25 MG TAB.ER.24H PO SCH (16:54)
[2017-12-31] MEDS: Heparin 25,000 UNIT/500 ML D5W 25,000 UNIT/500 ML BAG IVC SCH (17:39)
[2017-12-31] MEDS: clonazePAM 0.5 MG TABLET PO SCH (20:01)
[2017-12-31] MEDS: Furosemide 40 MG/4 ML VIAL IVP SCH (20:01)
[2017-12-31] MEDS: Budesonide/Formoterol 160/4.5 MDI IH SCH (21:46)
[2018-01-01 05:39] LABS: Basophils % 0.3 %; Eosinophils # 0.4 K/mcL (0.0-0.6); Hematocrit 40.5 % (37.5-50.1); Immature Granulocytes % 0.4 % (0-4); Lymphocytes # 0.9 K/mcL (0.6-4.6); Lymphocytes % 12.8 %; Mean Corpuscular HGB Conc 30.1 g/dL (31.6-35.5); Mean Corpuscular Hemoglobin 24.5 pg (28.0-33.3); Mean Corpuscular Volume 81.5 fL (83.0-100.0); Mean Platelet Volume 9.5 fL (9.4-12.4); Monocytes # 0.9 K/mcL (0.0-1.3); Monocytes % 12.4 %; Neutrophils # 4.9 K/mcL (1.6-8.9); Platelet Count 265 K/mcL (140-400); Red Blood Count 4.97 M/mcL (4.19-5.50); Red Cell Distribution Width 16.5 % (11.5-14.5); Segmented Neutrophils % 68.1 %
[2018-01-01 05:41] LABS: Hemoglobin 12.2 g/dL (12.9-16.9)
[2018-01-01 05:49] LABS: BUN/Creatinine Ratio 14 (6-26); Blood Urea Nitrogen 16 mg/dL (6-20); Calcium 8.9 mg/dL (8.6-10.3); Carbon Dioxide 26 mEq/L (23-29); Chloride 105 mEq/L (98-107); Glucose 135 mg/dL (70-105); Osmolality,Calculated 285 (280-300); Potassium 3.9 mEq/L (3.5-5.1); Sodium 136 mEq/L (136-145); eGFR For African Americans > 60 (> 60); eGFR For Non-African Americans > 60 (> 60)
[2018-01-01] MEDS: Budesonide/Formoterol 160/4.5 MDI IH SCH ×2 (08:10→19:53)
[2018-01-01] MEDS ORDERED: *HR* Rivaroxaban 15 MG TABLET PO SCH (09:00)
[2018-01-01] MEDS: ARIPiprazole 10 MG TABLET PO SCH (09:12)
[2018-01-01] MEDS: predniSONE 10 MG TABLET PO SCH (09:13)
[2018-01-01] MEDS: clonazePAM 0.5 MG TABLET PO SCH ×2 (09:13→19:51)
[2018-01-01] MEDS: Furosemide 40 MG/4 ML VIAL IVP SCH ×2 (09:13→17:36)
[2018-01-01] MEDS: Metoprolol XL (24 HR) Succ 25 MG TAB.ER.24H PO SCH (09:13)
[2018-01-01] MEDS: amLODIPine 5 MG TABLET PO SCH (09:13)
--- NOTE | 2018-01-01 09:24 | Internal Med Progress Note ---
Date of Encounter: 01/01/18 Time of Encounter: 09:20 - Assessment and plan (1) Acute exacerbation of CHF (congestive heart failure) Current Visit: Yes Status: Acute Assessment and plan: Patient with acute on chronic systolic and diastolic heart failure with EF 40-45 %. Patient with elevated BNP in the ER of 1777 and vascular congestion noted on chest x-ray. STarted on lasix 40mg IV BID. cardiology following Qualifiers: Heart failure type: combined systolic and diastolic Qualified Code(s): I50.43 - Acute on chronic combined systolic (congestive) and diastolic ( congestive) heart failure (2) Cardiomyopathy Current Visit: Yes Status: Acute Assessment and plan: New onset cardiomyopathy. cardiology plan for left heart cath. On heparin drip to bridge xarelto Qualifiers: Cardiomyopathy type: unspecified Qualified Code(s): I42.9 - Cardiomyopathy , unspecified (3) New onset atrial fibrillation Current Visit: Yes Status: Acute Assessment and plan: Patient found to have new onset of atrial fibrillation; rate controlled Patient already on oral anticoagulation for history of multiple DVTs. Currently on heparin drip for bridging prior to cath (4) Limb ischemia Current Visit: Yes Status: Acute Assessment and plan: Query limb ischemia, Pt has extremely cold right foot with faint pulses. Denies pain. will obtain BONIFACIO and arterial studies. Vascular recs appreciated (5) COPD (chronic obstructive pulmonary disease) Current Visit: Yes Status: Chronic Assessment and plan: Patient not in exacerbation; continue home medications Qualifiers: COPD type: unspecified COPD Qualified Code(s): J44.9 - Chronic obstructive pulmonary disease, unspecified (6) History of kidney transplant Current Visit: Yes Status: Chronic Assessment and plan: Continue daily prednisone (7) Hepatitis C Current Visit: No Status: Chronic Assessment and plan: Patient reports a history of hepatitis C Qualifiers: Viral hepatitis chronicity: chronic Hepatic coma status: without hepatic coma Qualified Code(s): B18.2 - Chronic viral hepatitis C (8) Personality disorder Current Visit: No Status: Chronic Assessment and plan: Continue home medications (9) Hypertension Current Visit: No Status: Chronic Assessment and plan: Controlled; continue home medications Qualifiers: Hypertension type: essential hypertension Qualified Code(s): I10 - Essential (primary) hypertension (10) Anemia Current Visit: No Status: Acute Assessment and plan: Patient with a hemoglobin of 11.8 which is stable Will continue to monitor Qualifiers: Anemia type: unspecified type Qualified Code(s): D64.9 - Anemia, unspecified (11) History of DVT (deep vein thrombosis) Current Visit: No Status: Acute Assessment and plan: wason xarelto. currently on hold and on heparin drip for bridging prior to cath (12) DVT prophylaxis Current Visit: No Status: Acute Assessment and plan: Patient is on Xarelto - Time Spent With Patient Total time spent is greater than 50% in coordination of care (as documented) at patient's floor/unit and/or counseling patient: - Subjective Interval history: No acute events overnight - Constitutional Vitals: Temp Pulse Resp BP Pulse Ox 98.6 F 84 16 101/82 94 01/01/18 07:27 01/01/18 07:27 01/01/18 08:12 01/01/18 07:27 01/01/18 08:12 General appearance: Present: A&O X 3, no acute distress, answers questions appropriately - Head Head exam: Present: atraumatic, normocephalic - Eye Eye exam: Present: PERRL, conjuntiva pink, sclera anicteric Pupils: Present: PERRL - Neck Neck exam general surgery: Present: supple, trachea midline. Absent: lymphadenopathy - Respiratory Respiratory exam: Present: CTAB. Absent: accessory muscle use, rales, rhonchi, wheezes - Cardiovascular Cardiovascular exam: Present: RRR, +S1, +S2. Absent: diastolic murmur, gallop, rubs, systolic murmur - GI/Abdominal GI/Abdominal exam: Present: normal bowel sounds, soft, no peritoneal signs. Absent: distended, tenderness - Extremities Exam Extremities exam: Present: warm, radial pulses palpable and symmetrical. Absent : calf tenderness, cyanotic, pedal edema Additional comments: faint pulses in the lower extremities, cold right foot - Neurological Exam Neurological exam: Present: CN II-XII intact, oriented X3, no focal deficits. Absent: pronater drift, facial droop, speech deficit - Skin Skin exam: Present: dry, intact Internal Medicine: Result - Labs CBC & Chem 7: 01/01/18 05:09 01/01/18 05:09 Labs: Short CBC 12/31/17 01/01/18 Range/Units 16:21 05:09 WBC 6.3 7.2 (4.3-11.1) K/mcL Hgb 13.8 D 12.2 L D (12.9-16.9) g/dL Hct 47.1 40.5 (37.5-50.1) % Plt Count 298 265 (140-400) K/mcL Neutrophils # 4.9 (1.6-8.9) K/mcL BMP 01/01/18 05:09 Sodium 136 Potassium 3.9 Chloride 105 Carbon Dioxide 26 BUN 16 Creatinine 1.12 Glucose 135 H Calcium 8.9 Cardiac Enzymes 12/31/17 12/31/17 Range/Units 16:21 23:14 Troponin I 0.07 H* 0.07 H* (< 0.04) ng/mL - ABG Interpretation ABG results: PT/INR, D-dimer PT 15.4 Seconds (9.4-12.1) H 12/31/17 16:21 Consult Discharge Plan - Plan Referrals: NONE,PCP [Primary Care Provider] -
--- NOTE | 2018-01-01 10:02 | Cardiology Progress Note ---
Date of Encounter: 01/01/18 Time of Encounter: 09:59 Assessment and Plan (1) Cardiomyopathy Current Visit: Yes Status: Acute TTE 11/2017 EF newly reduced 40-45%. Global dysfunction, moderate-severe MR. TTE in 2014 EF was preserved. ICMP vs NICMP. No prior ischemic evaluation. Ischemic evaluation with stress test vs [facility] recommended. With history of renal transplant would recommend stress test to evaluate to avoid possibility of ARABELLA. VQ scan ordered yesterday to evaluate for CTEPH. Patient was unable to lay flat for the test due to orthopnea. BNP was 1700. CXR showed mild to moderate CHF. Lasix 40 mg IV BID started last night. Recommend continuing diuresis today and we will re-evaluate readiness for ischemic evaluation tomorrow. Currently net positive 50 ML for stay. Strict I&O and daily weights. Low sodium diet. Qualifiers: Cardiomyopathy type: unspecified Qualified Code(s): I42.9 - Cardiomyopathy , unspecified (2) A-fib Current Visit: Yes Status: Acute Pt had TTE 11/2017 and rhythm was noted to be A-Fib during study. Currently afib on telemetry. Avg HR was 82 BPM. [id number] 2 (CHF, HTN). Anticoagulation recommended. Already on Xarelto 20mg daily for recurrent DVT hx. Hematology consulted for further recommendation. HR 90s-low 100s at bedside. Add dose BB added 12/31/17. Qualifiers: Atrial fibrillation type: unspecified Qualified Code(s): I48.91 - Unspecified atrial fibrillation (3) Elevated troponin Current Visit: Yes Status: Acute Troponin 0.06, 0.07--mild, flat troponin in setting of CHF exacerbation. Suspect demand ischemia, nondiagnostic for ACS. Known recently reduced EF 40-45%. Recommend ischemic evaluation during stay. Denies chest pain. (4) Mitral regurgitation Current Visit: Yes Status: Acute Moderate-severe MR on TTE. Continue medical therapy with IV diuresis. Possible ischemic evaluation during stay. Qualifiers: Cardiac valve disease etiology: etiology unspecified Qualified Code(s): I34.0 - Nonrheumatic mitral (valve) insufficiency (5) Recurrent deep vein thrombosis (DVT) of both lower extremities Current Visit: Yes Status: Chronic Hx of recurrent DVTs. Recently had recurrent DVTs 10/2017 while on Xarelto and was transferred to [facility]. Continues to be on Xarelto. LLE doppler 11/2017 Normal left lower extremity deep venous exam. The left lesser saphenous vein has chronic superficial venous thrombosis. Oncology consulted to evaluate recurrent DVTs on Xarelto. Appreciate recommendations for anticoagulation. Reported hx of recurrent DVT on Eliquis as well and previously on Coumadin but had difficulty with INRs. There is concern for chronic thromboembolic pulmonary hypertension given severe phtn on TTE and known hypercoaguable state. VQ scan ordered yesterday to rule out. Patient unable to lay flat. Noted that he had CTA one month ago that was negative. VQ scan with high sensitivity for CTEPH. Patient unable to complete due to orthopnea. We will hold off on testing at this time. Xarelto held yesterday and heparin gtt started in anticipation for further testing. Discussion w patient/family: The assessment and plan as outlined above was discussed with the patient and/or family members who expressed understanding and agreement. All questions were answered. Thank you for involving us in the care of your patient. Please call with any questions. Subjective Principal diagnosis: Cardiomyoapthy, afib, mod-severe MRArleen Interval history: Mr. Campbell denies chest pain. C/o SOB last night when trying to lay flat for VQ scan. IV lasix started. Objective Vital Signs, Last 4 Hours Temp Pulse Resp BP Pulse Ox 01/01/18 08:12 16 94 01/01/18 07:27 98.6 F 84 16 101/82 93 General: Conversant, No Apparent Distress HEENT: Atraumatic, Normocephaly, Mucus Membranes Moist Neck: No JVD, Normal carotid pulses Cardiac: Reg Rate and Rhythm, Normal S1 and S2, No Murmur Lungs: Normal Breath Sounds, No Wheeze, Rales, Rhonchi Neuro: Alert and responsive, No focal deficits noted Abdomen: Soft, Non-Tender Skin: No rashes noted on visualized skin Musculoskeletal: No Chest Wall Tenderness Extremities: No Clubbing, No Cyanosis, No Edema, Normal Pulses Results 01/01/18 05:09 01/01/18 05:09 Lab Results 12/31/17 12/31/17 12/31/17 16:21 16:21 16:21 WBC 6.3 Hgb 13.8 D Hct 47.1 Plt Count 298 INR 1.4 APTT 44.6 H Sodium Potassium Chloride Carbon Dioxide BUN Creatinine Glucose Calcium Troponin I 0.07 H* 12/31/17 12/31/17 01/01/18 23:14 23:14 05:09 WBC 7.2 Hgb 12.2 L D Hct 40.5 Plt Count 265 INR APTT 59.0 H Sodium Potassium Chloride Carbon Dioxide BUN Creatinine Glucose Calcium Troponin I 0.07 H* 01/01/18 01/01/18 05:09 05:09 WBC Hgb Hct Plt Count INR APTT 56.5 H Sodium 136 Potassium 3.9 Chloride 105 Carbon Dioxide 26 BUN 16 Creatinine 1.12 Glucose 135 H Calcium 8.9 Troponin I - EKG Interpretation EKG results cardiology: personally reviewed Consult Discharge Plan - Plan Referrals: NONE,PCP [Primary Care Provider] -
--- NOTE | 2018-01-01 14:53 | Oncology Inp Consult Note ---
<Helen Rich L - Last Filed: 01/02/18 10:10> Date of Encounter: 01/01/18 Time of Encounter: 11:30 Assessment and Plan (1) Recurrent deep vein thrombosis (DVT) of both lower extremities Status: Chronic Assessment and plan: Recurrent DVT-s/p multiple AC's with history of noncompliance. Most recently stopped taking his Xarelto about 3 weeks ago. Check Venous Dopplers to establish baseline with recent noncompliance. Encouraged regular use of medication given his history and high risk for complication Currently on heparin gtt in preparation for potential upcoming cardiac intervention Given his history of noncompliance he is a poor candidate for coumadin, his compliance may be best with continued Xarelto which allows for once daily dosing. Unless he has evidence of acute thrombosis on venous dopplers he may restart his 20 mg once daily dosing when cleared from intervention per cardiology. His kidney function is normal at this time, recommend continued monitoring while on Xarelto. He denies s/s of bleeding or history of bleeding, Hgb and platelet count stable (2) Encounter for smoking cessation counseling Status: Acute Assessment and plan: Longstanding history of tobacco abuse. He is not interested in quitting at this time. Information given on tobacco cassation when ready and free lung screening program. (3) Cardiomyopathy Status: Acute Assessment and plan: TTE 11/2017 EF newly reduced 40-45%. Global dysfunction, moderate-severe MRArleen TTE in 2014 EF was preserved. Cardiology considering stress test and potential C SOB improving with diuresis He has no history of PE according to chart review and patient. He had a CTA about one month ago which was negative. He is unable to lay flat for VQ He denies SOB at rest presently, chest pain, pain with inspiration or hemoptysis. He is in no acute distress and reports his SOB is improving since admission. Etiology of pulmonary HTN unclear, appreciate further workup per cardiology Qualifiers: Cardiomyopathy type: unspecified Qualified Code(s): I42.9 - Cardiomyopathy , unspecified - Data of Consult Patient: known to practice within the last 3 years Consult date: 01/01/18 Requesting Physician: Willy Blair Primary Care Provider: PCP NONE - Consult Narrative Reason for consult: Recurrent DVT History of present illness: Mr. Campbell is a 57 year old male with past medical history significant for kidney transplant in 2006 (prednisone/Cellcept), end-stage renal disease was on dialysis several years prior, hypertension, multiple, recurrent deep venous thrombosis in the BLE and RUE (state 8-9 since 1996). He denies history of PE. He has taken coumadin in the past with difficulty in achieving INR likely to noncompliance. According to record he has also taken apixiban (failed after charted non compliance) and most recently Xarelto since December of 2016 with the hope of once daily dosing to help with compliance. In October of 2017 he was transferred to [facility] following his ER presentation for acute DVT. In reviewing records from [facility] from this admission. He was discharged on Xarelto as his acute DVT was noted to patients reported non compliance with his xarelto at that time. Hypercoagulable workup was obtained at that time- Protein C and S were low likely in setting of clot, cardiolipin and beta-2 glycoprotein negative. Antithrombin was low but patient was on heparin gtt at this time so result is not significant. Mr. Campbell most recently presented to [facility] ED on 12/31/2017 with report of SOB. Patient informs me that his SOB has been gradually worsening over past 5 weeks. He also informed me that he stopped taking his Xarelto about 3 weeks ago. He denies LE pain. Denies chest pain, hemoptysis, cough or pain with inspiration. Reports dyspnea on exertion. He is admitted with cardiology consultation for cardiomyopathy, new onset A-Fib, acute exacerbation of CHF. Imaging: Chest CTA 11/16/17-No evidence of PE Left venous doppler 11/16/17-The left lesser saphenous vein has chronic superficial venous thrombosis. Bilateral venous doppler 10/16/17- reveals partially occlusive thrombus in the right superficial femoral and popliteal veins and occlusive thrombus in the right lesser saphenous vein. Left exam revealed a partial occlusive thrombus in the left distal iliac and popliteal. Past Med Surg Social Fam HX - Past Medical History Medical history: COPD, DVT, hepatitis, hypertension, renal disease, other Additional medical history: Last DVT 2008 Psychiatric history: anxiety, depression, previous psychiatric hospitalization, other - Past Surgical History Surgical History: hip replacement, transplant Additional surgical history: Kidney transplant, left hip replacement - Social History Smoking Status: Current every day smoker Packs per day: / Smokeless Tobacco Status: No Alcohol use: none Drug use: cocaine, marijuana - Family History Father Living Status: Hx Family Cardiac Disorders: Yes (NE) Mother Adopted: No Family Member Ethnicity: Non- Living Status: Hx Family Cardiac Disorders: Yes (NE) Hx Family Respiratory Disorders: Yes (asthma) Hx Family Cancer: No Hx Family GI Disorders: No Hx Family Endocrine Disorder: No Hx Family Neuromuscular Disorders: No Hx Family Neurologic Disorders: No Hx Family HEENT Disorders: No Hx Family Autoimmune Disorders: No Medications and Allergies Duloxetine HCl [Cymbalta] 60 mg PO 0900,1700 07/13/15 [History] clonazePAM [Klonopin] 0.5 mg PO BID 07/13/15 [History] Mycophenolate Mofetil [Cellcept] 500 mg PO BID 12/14/15 [History] ARIPiprazole [Abilify] 15 mg PO DAILY 12/25/16 [History] Albuterol Sulfate [Ventolin Hfa] 2 puff IH Q4H PRN 12/25/16 [History] Budesonide/Formoterol 160/4.5 [Symbicort 160/4.5] 2 puff IH BID 12/25/16 [ History] Buspirone HCl [Buspar] 10 mg PO TID 12/25/16 [History] Trazodone HCl 100 - 300 mg PO HS 12/25/16 [History] predniSONE [PredniSONE] 10 mg PO DAILY 12/25/16 [History] Rivaroxaban [Xarelto] 20 mg PO DAILY 10/23/17 [History] amLODIPine [Norvasc] 5 mg PO DAILY 11/17/17 [History] Furosemide [Lasix] 40 mg PO DAILY tablet 11/18/17 [Rx] 3 Allergy/AdvReac Type Severity Reaction Status Date / Time codeine AdvReac Nausea Verified 12/31/17 06:50 Constitutional: Present: fatigue, weakness. Absent: anorexia, chills, fever(s) , frequent falls, weight loss Eyes: Absent: change in vision Nose, mouth and throat: Absent: dysphagia Cardiovascular: Absent: chest pain, palpitations Respiratory: Present: dyspnea on exertion. Absent: cough, hemoptysis, pain on inspiration Gastrointestinal: Absent: abdominal pain, hematemesis, hematochezia, melena, nausea, vomiting Additional comments: denies dysuria Musculoskeletal: Present: muscle weakness Integumentary: Absent: rash, wounds Neurological: Absent: focal weakness, frequent falls, memory loss Additional comments: history of falls, denies recent fall Psychiatric: Present: as per HPI Endocrine: Present: as per HPI Hematologic/Lymphatic: Present: as per HPI Oncology - Exam - Constitutional Vitals: Temp Pulse Resp BP Pulse Ox 97.9 F 112 16 122/89 98 01/01/18 09:00 01/01/18 09:00 01/01/18 09:00 01/01/18 09:00 01/01/18 09:00 General appearance: cooperative, no acute distress, no febrile Exam: chronically ill appearing - Head Head exam: Present: atraumatic - ENT ENT exam: Present: mucous membranes moist - Respiratory Respiratory exam: Present: decreased breath sounds, wheezes. Absent: respiratory distress - Cardiovascular Cardiovascular exam: Present: RRR, +S1, +S2 Oncology - Results Labs: 3 01/01/18 01/01/18 01/01/18 12:24 05:09 05:09 WBC RBC Hgb Hct MCV MCH MCHC RDW Plt Count MPV Immature Gran % Seg Neutrophils % Lymphocytes % Monocytes % Eosinophils % Basophils % Neutrophils # Lymphocytes # Monocytes # Eosinophils # Basophils # PT INR APTT 93.7 H D 56.5 H Sodium 136 Potassium 3.9 Chloride 105 Carbon Dioxide 26 BUN 16 Creatinine 1.12 Est GFR ( Amer) > 60 Est GFR (Non-Af Amer) > 60 BUN/Creatinine Ratio 14 Glucose 135 H Calculated Osmolality 285 Calcium 8.9 Troponin I 3 01/01/18 12/31/17 12/31/17 05:09 23:14 23:14 WBC 7.2 RBC 4.97 Hgb 12.2 L D Hct 40.5 MCV 81.5 L MCH 24.5 L MCHC 30.1 L RDW 16.5 H Plt Count 265 MPV 9.5 Immature Gran % 0.4 Seg Neutrophils % 68.1 Lymphocytes % 12.8 Monocytes % 12.4 Eosinophils % 6.0 Basophils % 0.3 Neutrophils # 4.9 Lymphocytes # 0.9 Monocytes # 0.9 Eosinophils # 0.4 Basophils # 0.0 PT INR APTT 59.0 H Sodium Potassium Chloride Carbon Dioxide BUN Creatinine Est GFR ( Amer) Est GFR (Non-Af Amer) BUN/Creatinine Ratio Glucose Calculated Osmolality Calcium Troponin I 0.07 H* 3 06/12/31/17 12/31/17 16:21 16:21 16:21 WBC 6.3 RBC 5.70 H Hgb 13.8 D Hct 47.1 MCV 82.6 L MCH 24.2 L MCHC 29.3 L RDW 17.9 H Plt Count 298 MPV 9.2 L Immature Gran % Seg Neutrophils % Lymphocytes % Monocytes % Eosinophils % Basophils % Neutrophils # Lymphocytes # Monocytes # Eosinophils # Basophils # PT 15.4 H INR 1.4 APTT 44.6 H Sodium Potassium Chloride Carbon Dioxide BUN Creatinine Est GFR ( Amer) Est GFR (Non-Af Amer) BUN/Creatinine Ratio Glucose Calculated Osmolality Calcium Troponin I 0.07 H* Consult Discharge Plan - Plan Referrals: NONE,PCP [Primary Care Provider] - <Héctor Wen - Last Filed: 01/02/18 17:04> Date of Encounter: 01/02/18 - Data of Consult Requesting Physician: Willy Blair Primary Care Provider: DAIANA NONE - Consult Narrative History of present illness: Mr. Campbell is a 57 year old male Oncology - Exam - Constitutional Vitals: Temp Pulse Resp BP Pulse Ox 98.9 F 70 16 92/68 95 01/02/18 16:05 01/02/18 16:05 01/02/18 16:05 01/02/18 16:05 01/02/18 16:05 Oncology - Results Labs: 3 01/02/18 01/02/18 01/01/18 03:38 03:38 18:20 WBC 5.0 RBC 4.80 Hgb 11.5 L Hct 39.2 MCV 81.7 L MCH 24.0 L MCHC 29.3 L RDW 16.5 H Plt Count 238 MPV 9.7 Immature Gran % 0.4 Seg Neutrophils % 66.6 Lymphocytes % 14.8 Monocytes % 14.2 Eosinophils % 3.6 Basophils % 0.4 Neutrophils # 3.3 Lymphocytes # 0.7 Monocytes # 0.7 Eosinophils # 0.2 Basophils # 0.0 PT INR APTT 83.7 H Sodium 139 Potassium 3.6 Chloride 104 Carbon Dioxide 28 BUN 19 Creatinine 1.09 Est GFR ( Amer) > 60 Est GFR (Non-Af Amer) > 60 BUN/Creatinine Ratio 17 Glucose 115 H Calculated Osmolality 291 Calcium 9.1 Troponin I 3 01/01/18 01/01/1818 12:24 05:09 05:09 WBC RBC Hgb Hct MCV MCH MCHC RDW Plt Count MPV Immature Gran % Seg Neutrophils % Lymphocytes % Monocytes % Eosinophils % Basophils % Neutrophils # Lymphocytes # Monocytes # Eosinophils # Basophils # PT INR APTT 93.7 H D 56.5 H Sodium 136 Potassium 3.9 Chloride 105 Carbon Dioxide 26 BUN 16 Creatinine 1.12 Est GFR ( Amer) > 60 Est GFR (Non-Af Amer) > 60 BUN/Creatinine Ratio 14 Glucose 135 H Calculated Osmolality 285 Calcium 8.9 Troponin I 3 01/01/18 12/31/17 12/31/17 05:09 23:14 23:14 WBC 7.2 RBC 4.97 Hgb 12.2 L D Hct 40.5 MCV 81.5 L MCH 24.5 L MCHC 30.1 L RDW 16.5 H Plt Count 265 MPV 9.5 Immature Gran % 0.4 Seg Neutrophils % 68.1 Lymphocytes % 12.8 Monocytes % 12.4 Eosinophils % 6.0 Basophils % 0.3 Neutrophils # 4.9 Lymphocytes # 0.9 Monocytes # 0.9 Eosinophils # 0.4 Basophils # 0.0 PT INR APTT 59.0 H Sodium Potassium Chloride Carbon Dioxide BUN Creatinine Est GFR ( Amer) Est GFR (Non-Af Amer) BUN/Creatinine Ratio Glucose Calculated Osmolality Calcium Troponin I 0.07 H* 3 12/31/17 12/31/17 12/31/17 16:21 16:21 16:21 WBC 6.3 RBC 5.70 H Hgb 13.8 D Hct 47.1 MCV 82.6 L MCH 24.2 L MCHC 29.3 L RDW 17.9 H Plt Count 298 MPV 9.2 L Immature Gran % Seg Neutrophils % Lymphocytes % Monocytes % Eosinophils % Basophils % Neutrophils # Lymphocytes # Monocytes # Eosinophils # Basophils # PT 15.4 H INR 1.4 APTT 44.6 H Sodium Potassium Chloride Carbon Dioxide BUN Creatinine Est GFR ( Amer) Est GFR (Non-Af Amer) BUN/Creatinine Ratio Glucose Calculated Osmolality Calcium Troponin I 0.07 H* - Attending Attestation I 1. History of recurrent DVT. Chest CTA 11/16/17-No evidence of PE Left venous doppler 11/16/17-The left lesser saphenous vein has chronic superficial venous thrombosis. Bilateral venous doppler 10/16/17- reveals partially occlusive thrombus in the right superficial femoral and popliteal veins and occlusive thrombus in the right lesser saphenous vein. Left exam revealed a partial occlusive thrombus in the left distal iliac and popliteal. 2. Cardiology following for pulmonary hypertension. I am not sure if he had any PE or if pulmonary attention is secondary to his PE. V/Q scan low probability for PE 01/02/2018 3. Venkat ejection fraction 40-45%. [employer] elevated at 1700. History of A. fib 3. Currently he on heparin IV He was on Xarelto 20 mg by mouth daily at home. He has compliance issues with anticoagulation mainly Coumadin From hematological point of view he could continue Xarelto 20 mg a day. Compliance may be slightly better as it is once a day dosing and no monitoring necessary
--- NOTE | 2018-01-01 17:52 | Electrocardiograph Report ---
[place] [id number] Test Date: 2017-12-31 Pat Name: Fahad Campbell Department: 111 Room: 2NE19 Gender: M Bilingual Hr Generalist: ELVIRA : 1960 Requested By: Willy Blair Order Number: [id number] Reading MD: Krishan De Anda Measurements Intervals Pedro Rate: 81 P: MD: 0 QRS: -37 QRSD: 111 T: 29 QT: 417 QTc: 455 Interpretive Statements ATRIAL FIBRILLATION MARKED LEFT AXIS DEVIATION INTRAVENTRICULAR CONDUCTION DELAY NONSPECIFIC T-WAVE ABNORMALITY Electronically Signed On 01-01-2018 17:50:27 EDT by Krishan De Anda
--- NOTE | 2018-01-01 18:54 | Vascular/Endovasc Consult Note ---
Date of Encounter: 01/01/18 Time of Encounter: 18:15 Assessment and Plan (1) Acute exacerbation of CHF (congestive heart failure) Current Visit: Yes Status: Chronic Patient has known congestive heart failure. Qualifiers: Heart failure type: combined systolic and diastolic Qualified Code(s): I50.43 - Acute on chronic combined systolic (congestive) and diastolic ( congestive) heart failure (2) A-fib Current Visit: Yes Status: Chronic Patient has chronic atrial fibrillation. He has a pacemaker. Qualifiers: Atrial fibrillation type: unspecified Qualified Code(s): I48.91 - Unspecified atrial fibrillation (3) Limb ischemia Current Visit: Yes Status: Acute On physical examination the patient has pulse deficits distally. However noninvasive testing demonstrates noncompressible vessels at the level of the ankle most likely due to his chronic renal disease. However total brachial index measurements were made. These were found to be 1.06 on the right and 0.79 on the left. Also wave form analysis at the level of the ankle and at the level of the toe bilaterally are normal or near normal. The patient denies any discomfort. Therefore I do not think the patient has clinically significant vascular occlusive disease that limits his lifestyle or presents with limb threatening ischemia. I do not recommend any further diagnostic testing at this time including angiography or CT angiogram. The patient does not require follow- up at this time and I do not recommend a follow-up appointment in our office. - History of Present Illness Consult date: 01/01/18 Consult reason: Question of lower extremity arterial insufficiency Chief complaint: Shortness of breath History of present illness: Mr. Campbell is a 57 year old male Who was admitted earlier today for exacerbation of congestive heart failure with shortness of breath. Later the day there was some question raised about his peripheral circulation. Screening with the patient this evening he denies any lower extremity complaints or discomfort. Apparently earlier in the day the right leg was cold. The patient as noted above has a history of congestive heart failure as well as atrial fibrillation. He is on an IV heparin drip and was prescribed oral anticoagulation medicine on a chronic basis. The patient denies any antecedent history of claudication or ischemic rest pain or nocturnal rest pain. Past Med Surg Social Fam HX - Past Medical History Medical history: COPD, DVT, hepatitis, hypertension, renal disease, other Additional medical history: Last DVT 2008 Psychiatric history: anxiety, depression, previous psychiatric hospitalization, other - Past Surgical History Surgical History: hip replacement, transplant Additional surgical history: Kidney transplant, left hip replacement - Social History Smoking Status: Current every day smoker Packs per day: 1/ Smokeless Tobacco Status: No Alcohol use: none Drug use: cocaine, marijuana - Family History Father Living Status: Hx Family Cardiac Disorders: Yes ([place]) Mother Adopted: No Family Member Ethnicity: Non- Living Status: Hx Family Cardiac Disorders: Yes ([place]) Hx Family Respiratory Disorders: Yes (asthma) Hx Family Cancer: No Hx Family GI Disorders: No Hx Family Endocrine Disorder: No Hx Family Neuromuscular Disorders: No Hx Family Neurologic Disorders: No Hx Family HEENT Disorders: No Hx Family Autoimmune Disorders: No Medications and Allergies Duloxetine HCl [Cymbalta] 60 mg PO 0900,1700 07/13/15 [History] clonazePAM [Klonopin] 0.5 mg PO BID 07/13/15 [History] Mycophenolate Mofetil [Cellcept] 500 mg PO BID 12/14/15 [History] ARIPiprazole [Abilify] 15 mg PO DAILY 12/25/16 [History] Albuterol Sulfate [Ventolin Hfa] 2 puff IH Q4H PRN 12/25/16 [History] Budesonide/Formoterol 160/4.5 [Symbicort 160/4.5] 2 puff IH BID 12/25/16 [ History] Buspirone HCl [Buspar] 10 mg PO TID 12/25/16 [History] Trazodone HCl 100 - 300 mg PO HS 12/25/16 [History] predniSONE [PredniSONE] 10 mg PO DAILY 12/25/16 [History] Rivaroxaban [Xarelto] 20 mg PO DAILY 10/23/17 [History] amLODIPine [Norvasc] 5 mg PO DAILY 11/17/17 [History] Furosemide [Lasix] 40 mg PO DAILY tablet 11/18/17 [Rx] 3 Allergy/AdvReac Type Severity Reaction Status Date / Time codeine AdvReac Nausea Verified 12/31/17 06:50 All Systems Review: The remainder of the systems were reviewed and are negative Exam Vital Signs, Last 4 Hours Temp Pulse Resp BP Pulse Ox 01/01/18 15:30 98.5 F 75 17 100/69 100 General: Present: Conversant, No Apparent Distress, Other (Ill appearing white male who looks older than his stated age.) HEENT: Present: Other (Muscular wasting of the temporal and neck muscles.) Neck: Absent: JVD Cardiac: Present: Reg Rate and Rhythm, Normal S1 and S2, No Murmur Lungs: Present: Decreased breath sounds Neuro: Present: Alert and responsive, No focal deficits noted, Cranial nerves grossly intact Abdomen: Present: Soft, Non-tender, Other (Status post right pelvic kidney transplant with associated fullness to the right hypogastric region. This area is nontender.). Absent: Masses Vascular: Present: Normal capillary refill, Pulse, absent (I do not palpate pedal pulses on either side.). Absent: Cyanosis, Edema Skin: Present: No rashes noted on visualized skin Consult Discharge Plan - Plan Referrals: NONE,PCP [Primary Care Provider] -
[2018-01-01] MEDS: Heparin 25,000 UNIT/500 ML D5W 25,000 UNIT/500 ML BAG IVC SCH (19:52)
[2018-01-02 04:20] LABS: Basophils % 0.4 %; Eosinophils # 0.2 K/mcL (0.0-0.6); Eosinophils % 3.6 %; Hematocrit 39.2 % (37.5-50.1); Hemoglobin 11.5 g/dL (12.9-16.9); Immature Granulocytes % 0.4 % (0-4); Lymphocytes # 0.7 K/mcL (0.6-4.6); Lymphocytes % 14.8 %; Mean Corpuscular HGB Conc 29.3 g/dL (31.6-35.5); Mean Corpuscular Volume 81.7 fL (83.0-100.0); Mean Platelet Volume 9.7 fL (9.4-12.4); Monocytes # 0.7 K/mcL (0.0-1.3); Monocytes % 14.2 %; Neutrophils # 3.3 K/mcL (1.6-8.9); Platelet Count 238 K/mcL (140-400); Red Cell Distribution Width 16.5 % (11.5-14.5); Segmented Neutrophils % 66.6 %
[2018-01-02 04:32] LABS: BUN/Creatinine Ratio 17 (6-26); Blood Urea Nitrogen 19 mg/dL (6-20); Calcium 9.1 mg/dL (8.6-10.3); Carbon Dioxide 28 mEq/L (23-29); Chloride 104 mEq/L (98-107); Glucose 115 mg/dL (70-105); Osmolality,Calculated 291 (280-300); Potassium 3.6 mEq/L (3.5-5.1); Sodium 139 mEq/L (136-145); eGFR For African Americans > 60 (> 60); eGFR For Non-African Americans > 60 (> 60)
[2018-01-02] MEDS: Budesonide/Formoterol 160/4.5 MDI IH SCH ×2 (07:56→19:33)
--- NOTE | 2018-01-02 09:21 | Cardiology Progress Note ---
Date of Encounter: 01/02/18 Time of Encounter: 09:15 Assessment and Plan (1) Cardiomyopathy Current Visit: Yes Status: Acute TTE 11/2017 EF newly reduced 40-45%. Global dysfunction, moderate-severe MR. TTE in 2014 EF was preserved. ICMP vs NICMP. No prior ischemic evaluation. Ischemic evaluation with stress test vs [facility] recommended. With history of renal transplant would recommend stress test to evaluate to avoid possibility of ARABELLA. VQ scan ordered to evaluate for CTEPH. Patient was unable to lay flat for the test due to orthopnea. SOB improved with diuresis. We will proceed with test today. Plan for stress test tomorrow. BNP was 1700. CXR showed mild to moderate CHF. Lasix 40 mg IV BID started 12/31/17. Currently net negative 1270ml for stay. Scr remains normal. Symptoms significantly improved. Will decrease IV lasix to once a day. Strict I&O and daily weights. Low sodium diet. Qualifiers: Cardiomyopathy type: unspecified Qualified Code(s): I42.9 - Cardiomyopathy , unspecified (2) A-fib Current Visit: Yes Status: Chronic Pt had TTE 11/2017 and rhythm was noted to be A-Fib during study. Currently afib on telemetry. Avg HR was 82 BPM. [id number] 2 (CHF, HTN). Anticoagulation recommended. Already on Xarelto 20mg daily for recurrent DVT hx. Hematology consulted for further recommendation. BB added 12/31/17. Qualifiers: Atrial fibrillation type: unspecified Qualified Code(s): I48.91 - Unspecified atrial fibrillation (3) Elevated troponin Current Visit: Yes Status: Acute Troponin 0.06, 0.07--mild, flat troponin in setting of CHF exacerbation. Suspect demand ischemia, nondiagnostic for ACS. Known recently reduced EF 40-45%. Recommend ischemic evaluation during stay. Denies chest pain. (4) Mitral regurgitation Current Visit: Yes Status: Acute Moderate-severe MR on TTE. Continue medical therapy with IV diuresis. Possible ischemic evaluation during stay. Qualifiers: Cardiac valve disease etiology: etiology unspecified Qualified Code(s): I34.0 - Nonrheumatic mitral (valve) insufficiency (5) Recurrent deep vein thrombosis (DVT) of both lower extremities Current Visit: Yes Status: Chronic Hx of recurrent DVTs. Recently had recurrent DVTs 10/2017 while on Xarelto and was transferred to [facility]. Continues to be on Xarelto. LLE doppler 11/2017 Normal left lower extremity deep venous exam. The left lesser saphenous vein has chronic superficial venous thrombosis. Repeat dopplers pending. Hematology consulted to evaluate recurrent DVTs on Xarelto. Appreciate recommendations for anticoagulation. Reported hx of recurrent DVT on Eliquis as well and previously on Coumadin but had difficulty with INRs. There is concern for non-compliance as documented in the past. There is concern for chronic thromboembolic pulmonary hypertension given severe phtn on TTE and known hypercoaguable state. VQ scan ordered to rule out. Noted that he had CTA one month ago that was negative. VQ scan with high sensitivity for CTEPH. Xarelto held yesterday and heparin gtt started in anticipation for further testing. Restart AC prior to d/c. Discussion w patient/family: The assessment and plan as outlined above was discussed with the patient and/or family members who expressed understanding and agreement. All questions were answered. Thank you for involving us in the care of your patient. Please call with any questions. Subjective Principal diagnosis: Cardiomyoapthy, afib, mod-severe MRArleen Interval history: Mr. Campbell denies chest pain. Reports SOB has improved. He does have back pain that limits his ability to lay flat. On my exam he was able to lay flat. Objective Vital Signs, Last 4 Hours Temp Pulse Resp BP Pulse Ox 01/02/18 07:56 18 99 01/02/18 07:36 97.6 F 77 16 109/83 97 General: Conversant, No Apparent Distress HEENT: Atraumatic, Normocephaly, Mucus Membranes Moist Neck: No JVD, Normal carotid pulses Cardiac: Other (Irregularly irregular) Lungs: Normal Breath Sounds, No Wheeze, Rales, Rhonchi Neuro: Alert and responsive, No focal deficits noted Abdomen: Soft, Non-Tender Skin: Other (BLE edema with brownish dicoloration and scaling. ) Musculoskeletal: No Chest Wall Tenderness Extremities: No Clubbing, No Cyanosis, No Edema Results 01/02/18 03:38 01/02/18 03:38 Lab Results 01/01/18 01/01/18 01/02/18 12:24 18:20 03:38 WBC 5.0 Hgb 11.5 L Hct 39.2 Plt Count 238 APTT 93.7 H D 83.7 H Sodium Potassium Chloride Carbon Dioxide BUN Creatinine Glucose Calcium 01/02/18 03:38 WBC Hgb Hct Plt Count APTT Sodium 139 Potassium 3.6 Chloride 104 Carbon Dioxide 28 BUN 19 Creatinine 1.09 Glucose 115 H Calcium 9.1 - Imaging and Cardiology Echo: report reviewed - EKG Interpretation EKG results cardiology: personally reviewed Consult Discharge Plan - Plan Referrals: NONE,PCP [Primary Care Provider] -
--- NOTE | 2018-01-02 09:39 | Internal Med Progress Note ---
Date of Encounter: 01/02/18 Time of Encounter: 09:35 - Assessment and plan (1) Acute exacerbation of CHF (congestive heart failure) Current Visit: Yes Status: Chronic Assessment and plan: Patient with acute on chronic systolic and diastolic heart failure with EF 40-45 %. Patient has elevated BNP in the ER of 1777 and vascular congestion noted on chest x-ray. Lasix reduced to 40mg Iv daily by cardiology. Plan for cardiomyopathy work up. Qualifiers: Heart failure type: combined systolic and diastolic Qualified Code(s): I50.43 - Acute on chronic combined systolic (congestive) and diastolic ( congestive) heart failure (2) Cardiomyopathy Current Visit: Yes Status: Acute Assessment and plan: New onset cardiomyopathy. Unclear etiology. Cardiology planned for left heart cath, but want to proceed with stress test instead due to risk of contrast induced nephropathy in the setting of kidney transplant. V/Q scan ordered to evaluate for CTEPH Qualifiers: Cardiomyopathy type: unspecified Qualified Code(s): I42.9 - Cardiomyopathy , unspecified (3) A-fib Current Visit: Yes Status: Chronic Assessment and plan: Pt had TTE in november 2017 and was found to be in a fib during study. He was on xarelto for recurrent DVTs. 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 BONIFACIO came back WNL. Seen by vascular surgery who recommend no further intervention (5) Mitral regurgitation Current Visit: Yes Status: Acute Assessment and plan: Cotninue IV diuresis, f/u cardiomyopathy work up Qualifiers: Cardiac valve disease etiology: etiology unspecified Qualified Code(s): I34.0 - Nonrheumatic mitral (valve) insufficiency (6) COPD (chronic obstructive pulmonary disease) Current Visit: Yes Status: Chronic Assessment and plan: Patient not in exacerbation; continue home medications Qualifiers: COPD type: unspecified COPD Qualified Code(s): J44.9 - Chronic obstructive pulmonary disease, unspecified (7) History of kidney transplant Current Visit: Yes Status: Chronic Assessment and plan: Continue daily prednisone (8) Hepatitis C Current Visit: No Status: Chronic Assessment and plan: Patient reports a history of hepatitis C Qualifiers: Viral hepatitis chronicity: chronic Hepatic coma status: without hepatic coma Qualified Code(s): B18.2 - Chronic viral hepatitis C (9) Personality disorder Current Visit: No Status: Chronic Assessment and plan: Continue home medications (10) Hypertension Current Visit: No Status: Chronic Assessment and plan: Controlled; continue home medications Qualifiers: Hypertension type: essential hypertension Qualified Code(s): I10 - Essential (primary) hypertension (11) History of DVT (deep vein thrombosis) Current Visit: No Status: Acute Assessment and plan: was on xarelto with non compliance. Plan to repeat dopplers. Hematology following. Continue heparin drip (12) DVT prophylaxis Current Visit: No Status: Acute Assessment and plan: Patient is on Xarelto - Time Spent With Patient Total time spent is greater than 50% in coordination of care (as documented) at patient's floor/unit and/or counseling patient: - Subjective Interval history: No acute events overnight - Constitutional Vitals: Temp Pulse Resp BP Pulse Ox 97.6 F 77 18 109/83 99 01/02/18 07:36 01/02/18 07:36 01/02/18 07:56 01/02/18 07:36 01/02/18 07:56 General appearance: Present: A&O X 3, no acute distress, answers questions appropriately - Head Head exam: Present: atraumatic, normocephalic - Eye Eye exam: Present: PERRL, conjuntiva pink, sclera anicteric Pupils: Present: PERRL - Neck Neck exam general surgery: Present: supple, trachea midline. Absent: lymphadenopathy - Respiratory Respiratory exam: Present: CTAB. Absent: accessory muscle use, rales, rhonchi, wheezes - Cardiovascular Cardiovascular exam: Present: RRR, +S1, +S2. Absent: diastolic murmur, gallop, rubs, systolic murmur - GI/Abdominal GI/Abdominal exam: Present: normal bowel sounds, soft, no peritoneal signs. Absent: distended, tenderness - Extremities Exam Extremities exam: Present: warm, radial pulses palpable and symmetrical. Absent : calf tenderness, cyanotic, pedal edema - Neurological Exam Neurological exam: Present: CN II-XII intact, oriented X3, no focal deficits. Absent: pronater drift, facial droop, speech deficit - Skin Skin exam: Present: dry, intact Internal Medicine: Result - Labs CBC & Chem 7: 01/02/18 03:38 01/02/18 03:38 Labs: Short CBC 01/02/18 Range/Units 03:38 WBC 5.0 (4.3-11.1) K/mcL Hgb 11.5 L (12.9-16.9) g/dL Hct 39.2 (37.5-50.1) % Plt Count 238 (140-400) K/mcL Neutrophils # 3.3 (1.6-8.9) K/mcL BMP 01/02/18 03:38 Sodium 139 Potassium 3.6 Chloride 104 Carbon Dioxide 28 BUN 19 Creatinine 1.09 Glucose 115 H Calcium 9.1 - ABG Interpretation ABG results: PT/INR, D-dimer PT 15.4 Seconds (9.4-12.1) H 12/31/17 16:21 Consult Discharge Plan - Plan Referrals: NONE,PCP [Primary Care Provider] -
[2018-01-02] MEDS ORDERED: *HR* Morphine 2 MG/ML SYRINGE IVP ONE (10:01)
[2018-01-02] MEDS: Metoprolol XL (24 HR) Succ 25 MG TAB.ER.24H PO SCH (10:19)
[2018-01-02] MEDS: amLODIPine 5 MG TABLET PO SCH (10:19)
[2018-01-02] MEDS: clonazePAM 0.5 MG TABLET PO SCH ×2 (10:20→21:01)
[2018-01-02] MEDS: ARIPiprazole 10 MG TABLET PO SCH (10:20)
[2018-01-02] MEDS: predniSONE 10 MG TABLET PO SCH (10:20)
[2018-01-02] MEDS: Furosemide 40 MG/4 ML VIAL IVP SCH (10:24)
--- NOTE | 2018-01-02 15:19 | Oncology Inp Progress Note ---
<Helen Rich L - Last Filed: 01/02/18 18:09> Date of Encounter: 01/02/18 Time of Encounter: 14:00 (1) Recurrent deep vein thrombosis (DVT) of both lower extremities Current Visit: Yes Status: Chronic Assessment and plan: Recurrent DVT-s/p multiple AC's with history of noncompliance. Most recently stopped taking his Xarelto about 3 weeks ago. Check Venous Dopplers to establish baseline with recent noncompliance. Encouraged regular use of medication given his history and high risk for complication Currently on heparin gtt in preparation for potential upcoming cardiac intervention Given his history of noncompliance he is a poor candidate for coumadin, his compliance may be best with continued Xarelto which allows for once daily dosing. Preliminary results of Venous doppler on 01/01/2018 reveals "No DVT right leg, Right superficial lesser saphenous vein appears to have calcified chronic partial clot, Left deep External iliac vein and Common femoral vein both appear to have chronic small calcified area along wall. No acute DVT or superficial clot seen at this time." With no sign of acute clot, recommend he restart his Xarelto at 20 mg once daily dosing when cleared from intervention per cardiology. His kidney function is normal at this time, recommend continued monitoring while on Xarelto. He denies s/s of bleeding or history of bleeding, Hgb and platelet count stable. He was given a follow up appointment with Dr. Wen in about 2 weeks time. Hematology will otherwise sign off, please feel free to contact for any other questions or concerns. (2) Encounter for smoking cessation counseling Current Visit: Yes Status: Acute Assessment and plan: Longstanding history of tobacco abuse. He is not interested in quitting at this time. Information given on tobacco cassation when ready and free lung screening program. (3) Cardiomyopathy Current Visit: Yes Status: Acute Assessment and plan: TTE 11/2017 EF newly reduced 40-45%. Global dysfunction, moderate-severe MR. TTE in 2014 EF was preserved. Cardiology considering stress test and potential LHC SOB improving with diuresis He has no history of PE according to chart review and patient. He had a CTA about one month ago which was negative. He was able to tolerate VQ scanning today, ventilation images are unremarkable and there are no focal areas of consolidation or significant effusions on recent chest radiograph. He denies SOB at rest presently, chest pain, pain with inspiration or hemoptysis. He is in no acute distress and reports his SOB is improving since admission. Radiographic findings, history and clinical exam do not appear to be consistent with CTEPH. Etiology of pulmonary HTN unclear, appreciate further workup per cardiology. As discussed above, hematology will sign off at this time. Qualifiers: Cardiomyopathy type: unspecified Qualified Code(s): I42.9 - Cardiomyopathy , unspecified Oncology: Subj Interval history: Mr. Campbell is resting comfortably. He denies pain. His SOB is improving. He denies chest pain, calf pain, cough, fever or chills. - Constitutional Vitals: Vital Signs Temp Pulse Resp BP Pulse Ox 01/02/18 12:23 98.9 F 75 17 113/90 100 01/02/18 07:56 18 99 01/02/18 07:36 97.6 F 77 16 109/83 97 01/02/18 05:00 97.8 F 70 16 112/90 99 01/01/18 21:00 97.7 F 80 18 113/65 99 01/01/18 20:00 16 97 01/01/18 15:30 98.5 F 75 17 100/69 100 Intake and Output 01/01/18 01/02/18 01/02/18 23:59 07:59 15:59 Intake Total 340 / 340 60 / 60 0 / 0 Output Total 150 / 150 500 / 500 Balance 190 / 190 -440 / -440 0 / 0 Intake: IV Fluids 100 / 100 Heparin 25,000 UNIT/500 ML D5W 100 / 100 25,000 unit In 500 ml @ 14 UNIT /KG/HR 18.416 mls/hr IVC .Q24H [facility] Rx#:[id number] Oral 240 / 240 60 / 60 0 / 0 Output: Urine 150 / 150 500 / 500 Other: Meal NPO breakfast Stool Size Moderate Stool Consistency soft Stool Color Brown # Urine Diapers 1 # Bowel Movement Diapers 1 Weight 70.5 kg Patient Weight 01/02/18 23:59 Weight 70.5 kg General appearance: cooperative, no acute distress, no febrile - Head Head exam: Present: atraumatic - ENT ENT exam: Present: mucous membranes moist - Respiratory Respiratory exam: Present: wheezes. Absent: respiratory distress - Cardiovascular Cardiovascular exam: Present: RRR, +S1, +S2 - GI/Abdominal GI/Abdominal exam: Present: normal bowel sounds, soft. Absent: guarding, rebound, tenderness - Extremities Exam Extremities exam: Absent: calf tenderness Additional comments: chronic skin changes to BLE secondary to chronic venous insufficiency - Neurological Exam Neurological exam: Present: alert, oriented X3, no focal deficits, strengths equal and symetr throughout - Psychiatric Psychiatric exam: Present: normal affect, normal mood - Skin Skin exam: Present: dry, intact, normal color, warm Oncology: Obj Data - Labs CBC & Chem 7: 01/02/18 03:38 01/02/18 03:38 Labs: Laboratory Results - last 24 hr 01/01/18 01/02/18 01/02/18 18:20 03:38 03:38 WBC 5.0 RBC 4.80 Hgb 11.5 L Hct 39.2 MCV 81.7 L MCH 24.0 L MCHC 29.3 L RDW 16.5 H Plt Count 238 MPV 9.7 Immature Gran % 0.4 Seg Neutrophils % 66.6 Lymphocytes % 14.8 Monocytes % 14.2 Eosinophils % 3.6 Basophils % 0.4 Neutrophils # 3.3 Lymphocytes # 0.7 Monocytes # 0.7 Eosinophils # 0.2 Basophils # 0.0 APTT 83.7 H Sodium 139 Potassium 3.6 Chloride 104 Carbon Dioxide 28 BUN 19 Creatinine 1.09 Est GFR ( Amer) > 60 Est GFR (Non-Af Amer) > 60 BUN/Creatinine Ratio 17 Glucose 115 H Calculated Osmolality 291 Calcium 9.1 - Impressions Impressions Pulmonary Perfusion Imaging 01/02/18 08:54 IMPRESSION: Low probability for pulmonary embolus. D/ / Randy Alexandre MD / Randy Alexandre MD Interpreting Provider: aRndy Alexandre MD Chest X-Ray 01/02/18 11:00 IMPRESSION: No significant interval change in coarse interstitial bilateral opacities. D/ / Isabela Nino MD / Isabela Nino MD Interpreting Provider: Isabela Nino MD - ABG Interpretation ABG results: PT/INR, D-dimer PT 15.4 Seconds (9.4-12.1) H 12/31/17 16:21 Consult Discharge Plan - Plan Referrals: NONE,PCP [Primary Care Provider] - <Charles Gibbons - Last Filed: 01/02/18 20:56> Date of Encounter: 01/02/18 - Constitutional Vitals: Vital Signs Temp Pulse Resp BP Pulse Ox 01/02/18 19:36 18 100 01/02/18 16:05 98.9 F 70 16 92/68 95 01/02/18 12:23 98.9 F 75 17 113/90 100 01/02/18 07:56 18 99 01/02/18 07:36 97.6 F 77 16 109/83 97 01/02/18 05:00 97.8 F 70 16 112/90 99 01/01/18 21:00 97.7 F 80 18 113/65 99 Intake and Output 01/02/18 01/02/18 01/03/18 08:59 16:59 00:59 Intake Total 60 / 60 0 / 0 620 / 620 Output Total 500 / 500 250 / 250 Balance -440 / -440 -250 / -250 620 / 620 Intake: IV Fluids 500 / 500 Heparin 25,000 UNIT/500 ML D5W 500 / 500 25,000 unit In 500 ml @ 14 UNIT /KG/HR 18.416 mls/hr IVC .Q24H [facility] Rx#:[id number] Oral 60 / 60 0 / 0 120 / 120 Output: Urine 500 / 500 250 / 250 Other: Meal NPO breakfast Dinner Percent of Meal Consumed 75% Stool Size Moderate Stool Consistency soft Stool Color Brown # Urine Diapers 1 # Bowel Movement Diapers 1 Weight 70.5 kg Patient Weight 01/03/18 00:59 Weight 70.5 kg Oncology: Obj Data - Labs CBC & Chem 7: 01/02/18 03:38 01/02/18 03:38 Labs: Laboratory Results - last 24 hr 01/02/18 01/02/18 01/02/18 03:38 03:38 18:30 WBC 5.0 RBC 4.80 Hgb 11.5 L Hct 39.2 MCV 81.7 L MCH 24.0 L MCHC 29.3 L RDW 16.5 H Plt Count 238 MPV 9.7 Immature Gran % 0.4 Seg Neutrophils % 66.6 Lymphocytes % 14.8 Monocytes % 14.2 Eosinophils % 3.6 Basophils % 0.4 Neutrophils # 3.3 Lymphocytes # 0.7 Monocytes # 0.7 Eosinophils # 0.2 Basophils # 0.0 APTT 32.4 D Sodium 139 Potassium 3.6 Chloride 104 Carbon Dioxide 28 BUN 19 Creatinine 1.09 Est GFR ( Amer) > 60 Est GFR (Non-Af Amer) > 60 BUN/Creatinine Ratio 17 Glucose 115 H Calculated Osmolality 291 Calcium 9.1 - Impressions Impressions Pulmonary Perfusion Imaging 01/02/18 08:54 IMPRESSION: Low probability for pulmonary embolus. D/ / Randy Alexandre MD / Randy Alexandre MD Interpreting Provider: Randy Alexandre MD Chest X-Ray 01/02/18 11:00 IMPRESSION: No significant interval change in coarse interstitial bilateral opacities. D/ / Isabela Nino MD / Isabela Nino MD Interpreting Provider: Isabela Nino MD - ABG Interpretation ABG results: PT/INR, D-dimer PT 15.4 Seconds (9.4-12.1) H 12/31/17 16:21 - Attending Attestation I examined this patient and my medical decision-making was reviewed with the Advanced Practice Nurse. I agree with the documented findings, disposition and treatment plan as described except to the extent set forth below. Mr. Campbell has history of DVT. No evidence of PE by CT or V/Q, so thromboembolism unlikely cause of pulmonary HTN. Would recommend Xarelto at d/c. Outpatient f/ u scheduled. We will sign off. Please call with concerns or questions.
[2018-01-02] MEDS: Heparin 25,000 UNIT/500 ML D5W 25,000 UNIT/500 ML BAG IVC SCH (17:24)
[2018-01-03 03:17] LABS: Basophils % 0.4 %; Eosinophils # 0.1 K/mcL (0.0-0.6); Eosinophils % 2.3 %; Hemoglobin 11.3 g/dL (12.9-16.9); Immature Granulocytes % 0.2 % (0-4); Lymphocytes # 0.7 K/mcL (0.6-4.6); Mean Corpuscular HGB Conc 29.7 g/dL (31.6-35.5); Mean Corpuscular Hemoglobin 24.1 pg (28.0-33.3); Mean Corpuscular Volume 81.2 fL (83.0-100.0); Mean Platelet Volume 9.6 fL (9.4-12.4); Monocytes # 0.6 K/mcL (0.0-1.3); Neutrophils # 3.8 K/mcL (1.6-8.9); Platelet Count 253 K/mcL (140-400); Red Blood Count 4.68 M/mcL (4.19-5.50); Red Cell Distribution Width 16.6 % (11.5-14.5); Segmented Neutrophils % 72.1 %
[2018-01-03 03:31] LABS: BUN/Creatinine Ratio 19 (6-26); Blood Urea Nitrogen 22 mg/dL (6-20); Calcium 9.1 mg/dL (8.6-10.3); Carbon Dioxide 30 mEq/L (23-29); Chloride 103 mEq/L (98-107); Glucose 150 mg/dL (70-105); Osmolality,Calculated 296 (280-300); Potassium 3.8 mEq/L (3.5-5.1); Sodium 140 mEq/L (136-145); eGFR For African Americans > 60 (> 60); eGFR For Non-African Americans > 60 (> 60)
[2018-01-03] MEDS ORDERED: Regadenoson 0.4 MG/5 ML SYRINGE IVP ONE (05:17)
[2018-01-03] MEDS: Budesonide/Formoterol 160/4.5 MDI IH SCH ×2 (07:37→19:55)
--- NOTE | 2018-01-03 08:39 | Internal Med Progress Note ---
Date of Encounter: 01/03/18 Time of Encounter: 08:40 - Assessment and plan (1) Acute exacerbation of CHF (congestive heart failure) Current Visit: Yes Status: Chronic Assessment and plan: Patient has acute on chronic systolic and diastolic heart failure with EF 40-45% . Patient has elevated BNP in the ER of 1777 and vascular congestion noted on chest x-ray. Lasix reduced to 40mg Iv daily by cardiology. Plan for cardiomyopathy work up wtith stress test. Qualifiers: Heart failure type: combined systolic and diastolic Qualified Code(s): I50.43 - Acute on chronic combined systolic (congestive) and diastolic ( congestive) heart failure (2) Cardiomyopathy Current Visit: Yes Status: Acute Assessment and plan: New onset cardiomyopathy. Unclear etiology. Cardiology planned for left heart cath, but want to proceed with stress test instead due to risk of contrast induced nephropathy in the setting of kidney transplant. V/Q scan ordered to evaluate for CTEPH came back WNL Qualifiers: Cardiomyopathy type: unspecified Qualified Code(s): I42.9 - Cardiomyopathy , unspecified (3) A-fib Current Visit: Yes Status: Chronic Assessment and plan: Pt had TTE in november 2017 and was found to be in a fib during study. He was on xarelto for recurrent DVTs. 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 BONIFACIO came back WNL. Seen by vascular surgery who recommend no further intervention (5) Mitral regurgitation Current Visit: Yes Status: Acute Assessment and plan: Cotninue IV diuresis, f/u cardiomyopathy work up Qualifiers: Cardiac valve disease etiology: etiology unspecified Qualified Code(s): I34.0 - Nonrheumatic mitral (valve) insufficiency (6) COPD (chronic obstructive pulmonary disease) Current Visit: Yes Status: Chronic Assessment and plan: Patient not in exacerbation; continue home medications Qualifiers: COPD type: unspecified COPD Qualified Code(s): J44.9 - Chronic obstructive pulmonary disease, unspecified (7) History of kidney transplant Current Visit: Yes Status: Chronic Assessment and plan: Continue daily prednisone (8) Hepatitis C Current Visit: No Status: Chronic Assessment and plan: Patient reports a history of hepatitis C Qualifiers: Viral hepatitis chronicity: chronic Hepatic coma status: without hepatic coma Qualified Code(s): B18.2 - Chronic viral hepatitis C (9) Personality disorder Current Visit: No Status: Chronic Assessment and plan: Continue home medications (10) Hypertension Current Visit: No Status: Chronic Assessment and plan: Controlled; continue home medications Qualifiers: Hypertension type: essential hypertension Qualified Code(s): I10 - Essential (primary) hypertension (11) History of DVT (deep vein thrombosis) Current Visit: No Status: Acute Assessment and plan: was on xarelto with non compliance. Plan to repeat dopplers. Hematology following. Continue heparin drip (12) DVT prophylaxis Current Visit: No Status: Acute Assessment and plan: Patient is on Xarelto - Time Spent With Patient Total time spent is greater than 50% in coordination of care (as documented) at patient's floor/unit and/or counseling patient: - Subjective Interval history: No acute events overnight - Constitutional Vitals: Temp Pulse Resp BP Pulse Ox 97.6 F 74 18 97/81 97 01/03/18 06:52 01/03/18 06:52 01/03/18 07:37 01/03/18 06:52 01/03/18 07:37 General appearance: Present: A&O X 3, no acute distress, answers questions appropriately - Head Head exam: Present: atraumatic, normocephalic - Eye Eye exam: Present: PERRL, conjuntiva pink, sclera anicteric Pupils: Present: PERRL - Neck Neck exam general surgery: Present: supple, trachea midline. Absent: lymphadenopathy - Respiratory Respiratory exam: Present: CTAB. Absent: accessory muscle use, rales, rhonchi, wheezes - Cardiovascular Cardiovascular exam: Present: RRR, +S1, +S2. Absent: diastolic murmur, gallop, rubs, systolic murmur - GI/Abdominal GI/Abdominal exam: Present: normal bowel sounds, soft, no peritoneal signs. Absent: distended, tenderness - Extremities Exam Extremities exam: Present: warm, radial pulses palpable and symmetrical. Absent : calf tenderness, cyanotic, pedal edema Additional comments: 2+ pitting edema - Neurological Exam Neurological exam: Present: CN II-XII intact, oriented X3, no focal deficits. Absent: pronater drift, facial droop, speech deficit - Skin Skin exam: Present: dry, intact Internal Medicine: Result - Labs CBC & Chem 7: 01/03/18 02:54 01/03/18 02:54 Labs: Short CBC 01/03/18 Range/Units 02:54 WBC 5.3 (4.3-11.1) K/mcL Hgb 11.3 L (12.9-16.9) g/dL Hct 38.0 (37.5-50.1) % Plt Count 253 (140-400) K/mcL Neutrophils # 3.8 (1.6-8.9) K/mcL BMP 01/03/18 02:54 Sodium 140 Potassium 3.8 Chloride 103 Carbon Dioxide 30 H BUN 22 H Creatinine 1.15 Glucose 150 H Calcium 9.1 - ABG Interpretation ABG results: PT/INR, D-dimer PT 15.4 Seconds (9.4-12.1) H 12/31/17 16:21 - Impressions Impressions Pulmonary Perfusion Imaging 01/02/18 08:54 IMPRESSION: Low probability for pulmonary embolus. D/ / Randy Alexandre MD / Randy Alexandre MD Interpreting Provider: Randy Alexandre MD Chest X-Ray 01/02/18 11:00 IMPRESSION: No significant interval change in coarse interstitial bilateral opacities. D/ / Isabela Nino MD / Isabela Nino MD Interpreting Provider: Isabela Nino MD Consult Discharge Plan - Plan Referrals: NONE,PCP [Primary Care Provider] -
[2018-01-03] MEDS: clonazePAM 0.5 MG TABLET PO SCH ×2 (08:52→23:08)
[2018-01-03] MEDS: ARIPiprazole 10 MG TABLET PO SCH (08:53)
[2018-01-03] MEDS: amLODIPine 5 MG TABLET PO SCH (08:53)
[2018-01-03] MEDS: Metoprolol XL (24 HR) Succ 25 MG TAB.ER.24H PO SCH (08:53)
[2018-01-03] MEDS: predniSONE 10 MG TABLET PO SCH (08:53)
[2018-01-03] MEDS ORDERED: Furosemide 40 MG/4 ML VIAL IVP SCH (09:00)
--- NOTE | 2018-01-03 11:18 | Cardiology Progress Note ---
Date of Encounter: 01/03/18 Time of Encounter: 11:16 Assessment and Plan (1) A-fib Current Visit: Yes Status: Chronic Atrial fibrillation noted. [id number] (CHF, HTN). Anticoagulation recommended. Previously on Xarelto, now on a heparin drip. Continue beta porsche therapy. Seen by hematology. Recommended resuming Xarelto after cardiology work up complete. Qualifiers: Atrial fibrillation type: unspecified Qualified Code(s): I48.91 - Unspecified atrial fibrillation (2) Cardiomyopathy Current Visit: Yes Status: Acute TTE 11/2017 EF newly reduced 40-45%. Global dysfunction, moderate-severe MR. TTE in 2014 EF was preserved. Unclear if ischemic or nonischemic. No prior ischemic evaluation. Ischemic evaluation with stress test vs [facility] recommended. With history of renal transplant would recommend stress test to evaluate to avoid possibility of ARABELLA. VQ scan ordered to evaluate for CTEPH. Results indicate low probability study. Plan for Lexiscan nuclear stress test, but we will need to wait 48 hours after VQ scan. We should be able to perform stress test on Friday. Continue CHF education. Patient has tolerated cautious diuresis. Qualifiers: Cardiomyopathy type: unspecified Qualified Code(s): I42.9 - Cardiomyopathy , unspecified Discussion w patient/family: The assessment and plan as outlined above was discussed with the patient and/or family members who expressed understanding and agreement. All questions were answered. Thank you for involving us in the care of your patient. Please call with any questions. Subjective Principal diagnosis: Cardiomyoapthy, afib, mod-severe MR. Interval history: Patient seen and examined. Overall, reports he is doing well. Denies chest pain or discomfort. Ventilation/perfusion scan results reviewed with the patient, findings suggest low probability. We will proceed with an ischemic evaluation for cardiomyopathy. TTE 11/2017: LVEF 40-45%. Global LV systolic dysfunction. Normal RV size and function. Moderate to severe MR. Mild TR. Severe pulmonary hypertension. Objective Vital Signs, Last 4 Hours Temp Pulse Resp BP Pulse Ox 01/03/18 10:57 97.8 F 94 16 108/84 91 01/03/18 07:37 18 97 General: Conversant, No Apparent Distress HEENT: Atraumatic, Normocephaly, Mucus Membranes Moist Neck: No JVD, Normal carotid pulses Cardiac: Normal S1 and S2, Other (Irregular rate and rhythm. Mild systolic murmur.) Lungs: Normal Breath Sounds, No Wheeze, Rales, Rhonchi Neuro: Alert and responsive, No focal deficits noted Abdomen: Soft, Non-Tender Skin: No rashes noted on visualized skin Musculoskeletal: No Chest Wall Tenderness Extremities: No Edema Results 01/03/18 02:54 01/03/18 02:54 Lab Results 01/02/18 01/02/18 01/03/18 18:30 21:14 02:54 WBC 5.3 Hgb 11.3 L Hct 38.0 Plt Count 253 APTT 32.4 D 66.4 H D Sodium Potassium Chloride Carbon Dioxide BUN Creatinine Glucose Calcium 01/03/18 02:54 WBC Hgb Hct Plt Count APTT Sodium 140 Potassium 3.8 Chloride 103 Carbon Dioxide 30 H BUN 22 H Creatinine 1.15 Glucose 150 H Calcium 9.1 - Imaging and Cardiology Echo: report reviewed Consult Discharge Plan - Plan Referrals: NONE,PCP [Primary Care Provider] -
[2018-01-03] MEDS: *HR* Rivaroxaban 10 MG TABLET PO SCH (17:19)
[2018-01-04 04:07] LABS: Basophils % 0.3 %; Eosinophils # 0.2 K/mcL (0.0-0.6); Eosinophils % 2.7 %; Hematocrit 38.5 % (37.5-50.1); Hemoglobin 11.5 g/dL (12.9-16.9); Immature Granulocytes % 0.3 % (0-4); Lymphocytes # 0.8 K/mcL (0.6-4.6); Lymphocytes % 12.9 %; Mean Corpuscular HGB Conc 29.9 g/dL (31.6-35.5); Mean Corpuscular Hemoglobin 24.6 pg (28.0-33.3); Mean Corpuscular Volume 82.3 fL (83.0-100.0); Mean Platelet Volume 9.4 fL (9.4-12.4); Monocytes # 0.7 K/mcL (0.0-1.3); Monocytes % 10.7 %; Neutrophils # 4.6 K/mcL (1.6-8.9); Platelet Count 254 K/mcL (140-400); Red Blood Count 4.68 M/mcL (4.19-5.50); Red Cell Distribution Width 16.6 % (11.5-14.5); Segmented Neutrophils % 73.1 %
[2018-01-04 04:27] LABS: BUN/Creatinine Ratio 21 (6-26); Blood Urea Nitrogen 26 mg/dL (6-20); Calcium 9.3 mg/dL (8.6-10.3); Carbon Dioxide 32 mEq/L (23-29); Chloride 103 mEq/L (98-107); Glucose 107 mg/dL (70-105); Osmolality,Calculated 293 (280-300); Sodium 139 mEq/L (136-145); eGFR For African Americans > 60 (> 60); eGFR For Non-African Americans 59 (> 60)
[2018-01-04] MEDS: Budesonide/Formoterol 160/4.5 MDI IH SCH ×2 (07:37→19:39)
--- NOTE | 2018-01-04 08:02 | Internal Med Progress Note ---
Date of Encounter: 01/04/18 Time of Encounter: 08:00 - Assessment and plan (1) Acute exacerbation of CHF (congestive heart failure) Current Visit: Yes Status: Chronic Assessment and plan: Patient has acute on chronic systolic and diastolic heart failure with EF 40-45% . Patient has elevated BNP in the ER of 1776 and vascular congestion noted on chest x-ray. Pt has crackles on lung exam. Will increase lasix to BID. Plan for cardiomyopathy work up with stress test on friday. Qualifiers: Heart failure type: combined systolic and diastolic Qualified Code(s): I50.43 - Acute on chronic combined systolic (congestive) and diastolic ( congestive) heart failure (2) Cardiomyopathy Current Visit: Yes Status: Acute Assessment and plan: New onset cardiomyopathy. Unclear etiology. Cardiology planned for left heart cath, but want to proceed with stress test instead due to risk of contrast induced nephropathy in the setting of kidney transplant. V/Q scan ordered to evaluate for CTEPH came back WNL. Stress test pending Qualifiers: Cardiomyopathy type: unspecified Qualified Code(s): I42.9 - Cardiomyopathy , unspecified (3) A-fib Current Visit: Yes Status: Chronic Assessment and plan: Pt had TTE in november 2017 and was found to be in a fib during study. He was on xarelto for recurrent DVTs. 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 Currently on heparin drip Qualifiers: Atrial fibrillation type: unspecified Qualified Code(s): I48.91 - Unspecified atrial fibrillation (4) Limb ischemia Current Visit: Yes Status: Acute Assessment and plan: Query limb ischemia, Pt has extremely cold right foot with faint pulses. BONIFACIO came back WNL. Seen by vascular surgery who recommend no further intervention (5) Mitral regurgitation Current Visit: Yes Status: Acute Assessment and plan: Cotninue IV diuresis, f/u cardiomyopathy work up Qualifiers: Cardiac valve disease etiology: etiology unspecified Qualified Code(s): I34.0 - Nonrheumatic mitral (valve) insufficiency (6) COPD (chronic obstructive pulmonary disease) Current Visit: Yes Status: Chronic Assessment and plan: Patient not in exacerbation; continue home medications Qualifiers: COPD type: unspecified COPD Qualified Code(s): J44.9 - Chronic obstructive pulmonary disease, unspecified (7) History of kidney transplant Current Visit: Yes Status: Chronic Assessment and plan: Continue daily prednisone (8) Hepatitis C Current Visit: No Status: Chronic Assessment and plan: Patient reports a history of hepatitis C Qualifiers: Viral hepatitis chronicity: chronic Hepatic coma status: without hepatic coma Qualified Code(s): B18.2 - Chronic viral hepatitis C (9) Personality disorder Current Visit: No Status: Chronic Assessment and plan: Continue home medications (10) Hypertension Current Visit: No Status: Chronic Assessment and plan: Controlled; continue home medications Qualifiers: Hypertension type: essential hypertension Qualified Code(s): I10 - Essential (primary) hypertension (11) History of DVT (deep vein thrombosis) Current Visit: No Status: Acute Assessment and plan: was on xarelto with non compliance. Repeat dopplers showed evidence of chronic DVT. Hematology following. Continue heparin drip till cardiology workup is complete (12) DVT prophylaxis Current Visit: No Status: Acute Assessment and plan: Patient is on heparin drip - Time Spent With Patient Total time spent is greater than 50% in coordination of care (as documented) at patient's floor/unit and/or counseling patient: - Subjective Interval history: No acute events overnight - Constitutional Vitals: Temp Pulse Resp BP Pulse Ox 97.6 F 90 16 103/79 100 01/04/18 06:54 01/04/18 06:54 01/04/18 06:54 01/04/18 06:54 01/04/18 06:54 General appearance: Present: A&O X 3, no acute distress, answers questions appropriately - Head Head exam: Present: atraumatic, normocephalic - Eye Eye exam: Present: PERRL, conjuntiva pink, sclera anicteric Pupils: Present: PERRL - Neck Neck exam general surgery: Present: supple, trachea midline. Absent: lymphadenopathy - Respiratory Respiratory exam: Present: CTAB. Absent: accessory muscle use, rales, rhonchi, wheezes - Cardiovascular Cardiovascular exam: Present: RRR, +S1, +S2. Absent: diastolic murmur, gallop, rubs, systolic murmur - GI/Abdominal GI/Abdominal exam: Present: normal bowel sounds, soft, no peritoneal signs. Absent: distended, tenderness - Extremities Exam Extremities exam: Present: warm, radial pulses palpable and symmetrical. Absent : calf tenderness, cyanotic, pedal edema Additional comments: 2+ edema - Neurological Exam Neurological exam: Present: CN II-XII intact, oriented X3, no focal deficits. Absent: pronater drift, facial droop, speech deficit - Skin Skin exam: Present: dry, intact Internal Medicine: Result - Labs CBC & Chem 7: 01/04/18 03:48 01/04/18 03:48 Labs: Short CBC 01/04/18 Range/Units 03:48 WBC 6.4 (4.3-11.1) K/mcL Hgb 11.5 L (12.9-16.9) g/dL Hct 38.5 (37.5-50.1) % Plt Count 254 (140-400) K/mcL Neutrophils # 4.6 (1.6-8.9) K/mcL BMP 01/04/18 03:48 Sodium 139 Potassium 4.0 Chloride 103 Carbon Dioxide 32 H BUN 26 H Creatinine 1.25 Glucose 107 H Calcium 9.3 - ABG Interpretation ABG results: PT/INR, D-dimer PT 15.4 Seconds (9.4-12.1) H 12/31/17 16:21 Consult Discharge Plan - Plan Referrals: NONE,PCP [Primary Care Provider] -
[2018-01-04] MEDS: ARIPiprazole 10 MG TABLET PO SCH (09:01)
[2018-01-04] MEDS: Furosemide 40 MG/4 ML VIAL IVP SCH ×2 (09:01→22:08)
[2018-01-04] MEDS: Metoprolol XL (24 HR) Succ 25 MG TAB.ER.24H PO SCH (09:01)
[2018-01-04] MEDS: amLODIPine 5 MG TABLET PO SCH (09:02)
[2018-01-04] MEDS: predniSONE 10 MG TABLET PO SCH (09:02)
[2018-01-04] MEDS: clonazePAM 0.5 MG TABLET PO SCH ×2 (09:02→22:08)
--- NOTE | 2018-01-04 12:09 | Event Note ---
Date of Encounter: 01/04/18 Time of Encounter: 12:07 No new events reported overnight. Plan for ischemic evaluation tomorrow with stress test. Further recommendations to follow.
[2018-01-04] MEDS: *HR* Rivaroxaban 10 MG TABLET PO SCH (16:42)
[2018-01-05 05:31] LABS: Basophils % 0.3 %; Eosinophils # 0.2 K/mcL (0.0-0.6); Eosinophils % 2.3 %; Hematocrit 40.3 % (37.5-50.1); Immature Granulocytes % 0.5 % (0-4); Lymphocytes # 0.9 K/mcL (0.6-4.6); Mean Corpuscular HGB Conc 29.8 g/dL (31.6-35.5); Mean Corpuscular Hemoglobin 24.6 pg (28.0-33.3); Mean Corpuscular Volume 82.8 fL (83.0-100.0); Mean Platelet Volume 9.5 fL (9.4-12.4); Monocytes # 0.7 K/mcL (0.0-1.3); Monocytes % 10.9 %; Neutrophils # 4.7 K/mcL (1.6-8.9); Platelet Count 267 K/mcL (140-400); Red Blood Count 4.87 M/mcL (4.19-5.50); Red Cell Distribution Width 16.4 % (11.5-14.5)
[2018-01-05 05:53] LABS: BUN/Creatinine Ratio 26 (6-26); Blood Urea Nitrogen 33 mg/dL (6-20); Calcium 9.6 mg/dL (8.6-10.3); Carbon Dioxide 35 mEq/L (23-29); Chloride 100 mEq/L (98-107); Glucose 107 mg/dL (70-105); Osmolality,Calculated 296 (280-300); Potassium 3.8 mEq/L (3.5-5.1); Sodium 139 mEq/L (136-145); eGFR For African Americans > 60 (> 60); eGFR For Non-African Americans 58 (> 60)
[2018-01-05] MEDS ORDERED: Regadenoson 0.4 MG/5 ML SYRINGE IVP ONE (06:11)
--- NOTE | 2018-01-05 08:13 | Internal Med Progress Note ---
Date of Encounter: 01/05/18 Time of Encounter: 08:00 - Assessment and plan (1) Acute exacerbation of CHF (congestive heart failure) Current Visit: Yes Status: Chronic Assessment and plan: Patient has acute on chronic systolic and diastolic heart failure with echo showing EF 40-45%. Patient had elevated BNP in the ER of 177 and vascular congestion noted on chest x-ray. Pt has crackles on lung exam. Will increase lasix to BID. Plan for cardiomyopathy work up with stress test today. Qualifiers: Heart failure type: combined systolic and diastolic Qualified Code(s): I50.43 - Acute on chronic combined systolic (congestive) and diastolic ( congestive) heart failure (2) Cardiomyopathy Current Visit: Yes Status: Acute Assessment and plan: New onset cardiomyopathy. Unclear etiology. Cardiology planned for left heart cath, but want to proceed with stress test instead due to risk of contrast induced nephropathy in the setting of kidney transplant. V/Q scan ordered to evaluate for CTEPH came back WNL. Stress test today Qualifiers: Cardiomyopathy type: unspecified Qualified Code(s): I42.9 - Cardiomyopathy , unspecified (3) A-fib Current Visit: Yes Status: Chronic Assessment and plan: Pt had TTE in november 2017 and was found to be in a fib during study. He was on xarelto for recurrent DVTs. Hematology consulted for further recs for skilled nursing anticoagulation especially in the setting of mitral regurgitation. Currently on heparin drip pending completion of cardiac work up which may include left heart catheterization for new onset cardiomyopathy Qualifiers: Atrial fibrillation type: unspecified Qualified Code(s): I48.91 - Unspecified atrial fibrillation (4) Mitral regurgitation Current Visit: Yes Status: Acute Qualifiers: Cardiac valve disease etiology: etiology unspecified Qualified Code(s): I34.0 - Nonrheumatic mitral (valve) insufficiency (5) COPD (chronic obstructive pulmonary disease) Current Visit: Yes Status: Chronic Assessment and plan: Patient not in exacerbation; continue home medications Qualifiers: COPD type: unspecified COPD Qualified Code(s): J44.9 - Chronic obstructive pulmonary disease, unspecified (6) History of kidney transplant Current Visit: Yes Status: Chronic Assessment and plan: Continue daily prednisone (7) Hepatitis C Current Visit: No Status: Chronic Assessment and plan: Patient reports a history of hepatitis C Qualifiers: Viral hepatitis chronicity: chronic Hepatic coma status: without hepatic coma Qualified Code(s): B18.2 - Chronic viral hepatitis C (8) Hypertension Current Visit: No Status: Chronic Assessment and plan: Controlled; continue home medications Qualifiers: Hypertension type: essential hypertension Qualified Code(s): I10 - Essential (primary) hypertension (9) History of DVT (deep vein thrombosis) Current Visit: No Status: Acute Assessment and plan: was on xarelto with non compliance. Repeat dopplers showed evidence of chronic DVT. Hematology following. Continue heparin drip till cardiology workup is complete (10) DVT prophylaxis Current Visit: No Status: Acute Assessment and plan: Patient is on heparin drip - Time Spent With Patient Total time spent is greater than 50% in coordination of care (as documented) at patient's floor/unit and/or counseling patient: - Subjective Interval history: No acute events overnight - Constitutional Vitals: Temp Pulse Resp BP Pulse Ox 97.6 F 80 16 106/73 91 01/05/18 04:00 01/05/18 06:32 01/05/18 06:32 01/05/18 06:32 01/05/18 06:32 General appearance: Present: A&O X 3, no acute distress, answers questions appropriately - Head Head exam: Present: atraumatic, normocephalic - Eye Eye exam: Present: PERRL, conjuntiva pink, sclera anicteric Pupils: Present: PERRL - Neck Neck exam general surgery: Present: supple, trachea midline. Absent: lymphadenopathy - Respiratory Respiratory exam: Present: CTAB. Absent: accessory muscle use, rales, rhonchi, wheezes - Cardiovascular Cardiovascular exam: Present: RRR, +S1, +S2. Absent: diastolic murmur, gallop, rubs, systolic murmur - GI/Abdominal GI/Abdominal exam: Present: normal bowel sounds, soft, no peritoneal signs. Absent: distended, tenderness - Extremities Exam Extremities exam: Present: warm, radial pulses palpable and symmetrical. Absent : calf tenderness, cyanotic, pedal edema - Neurological Exam Neurological exam: Present: CN II-XII intact, oriented X3, no focal deficits. Absent: pronater drift, facial droop, speech deficit - Skin Skin exam: Present: dry, intact Internal Medicine: Result - Labs CBC & Chem 7: 01/05/18 05:19 01/05/18 05:19 Labs: Short CBC 06/25/18 Range/Units 05:19 WBC 6.5 (4.3-11.1) K/mcL Hgb 12.0 L (12.9-16.9) g/dL Hct 40.3 (37.5-50.1) % Plt Count 267 (140-400) K/mcL Neutrophils # 4.7 (1.6-8.9) K/mcL BMP 01/05/18 05:19 Sodium 139 Potassium 3.8 Chloride 100 Carbon Dioxide 35 H BUN 33 H Creatinine 1.27 Glucose 107 H Calcium 9.6 - ABG Interpretation ABG results: PT/INR, D-dimer PT 15.4 Seconds (9.4-12.1) H 12/31/17 16:21 - Impressions Impressions Chest X-Ray 01/04/18 08:32 IMPRESSION: 1. Persistently enlarged cardiac silhouette with prominence of the pulmonary vasculature. 2. There may be a trace left pleural effusion with left basilar atelectasis. D/ / Neftaly Warner MD / Neftaly Warner MD Interpreting Provider: Neftaly Warner MD Consult Discharge Plan - Plan Referrals: NONE,PCP [Primary Care Provider] -
[2018-01-05] MEDS: Budesonide/Formoterol 160/4.5 MDI IH SCH ×2 (09:35→19:30)
[2018-01-05] MEDS: ARIPiprazole 10 MG TABLET PO SCH (10:15)
[2018-01-05] MEDS: clonazePAM 0.5 MG TABLET PO SCH ×2 (10:16→21:29)
[2018-01-05] MEDS: amLODIPine 5 MG TABLET PO SCH (10:16)
[2018-01-05] MEDS: Metoprolol XL (24 HR) Succ 25 MG TAB.ER.24H PO SCH (10:16)
[2018-01-05] MEDS: Furosemide 40 MG/4 ML VIAL IVP SCH (10:16)
[2018-01-05] MEDS: predniSONE 10 MG TABLET PO SCH (10:17)
--- NOTE | 2018-01-05 12:39 | Cardiology Progress Note ---
Date of Encounter: 01/05/18 Time of Encounter: 12:37 Assessment and Plan (1) Cardiomyopathy Current Visit: Yes Status: Acute TTE 11/2017 EF newly reduced 40-45%. Global dysfunction, moderate-severe MR. TTE in 2014 EF was preserved. Unclear if ischemic or nonischemic. Ischemic evaluation with stress test vs [facility] recommended. With history of renal transplant recommended stress test to evaluate to avoid possibility of ARABELLA. Stress test resulted. Negative for ischemia. Findings suggest prior infarct involving basal to mid lateral wall. Gated EF 31%. No known hx of prior infarct. Will discuss with Dr. Magana to determine if further work-up is warranted. Would recommend ACEi prior to d/c if renal function tolerates. Qualifiers: Cardiomyopathy type: unspecified Qualified Code(s): I42.9 - Cardiomyopathy , unspecified (2) A-fib Current Visit: Yes Status: Chronic Atrial fibrillation noted. [id number] 2 (CHF, HTN). Anticoagulation recommended. On Xarelto for recurrent DVT hx. Continue beta porsche therapy. Qualifiers: Atrial fibrillation type: unspecified Qualified Code(s): I48.91 - Unspecified atrial fibrillation (3) Mitral regurgitation Current Visit: Yes Status: Acute Moderate-severe MR on TTE. Continue medical therapy with IV diuresis. Qualifiers: Cardiac valve disease etiology: etiology unspecified Qualified Code(s): I34.0 - Nonrheumatic mitral (valve) insufficiency Discussion w patient/family: The assessment and plan as outlined above was discussed with the patient and/or family members who expressed understanding and agreement. All questions were answered. Thank you for involving us in the care of your patient. Please call with any questions. I will discuss all the above with Dr. Magana and make changes as necessary. Subjective Principal diagnosis: Cardiomyoapthy, afib, mod-severe MR. Interval history: Denies acute complaints this AM. Denies chest pain. Dyspnea improved. Stress test resulted. Negative for ischemia. Findings suggest prior infarct involving basal to mid lateral wall. Gated EF 31%. Objective Vital Signs, Last 4 Hours Resp Pulse Ox 01/05/18 09:35 16 100 Vital Signs Temp Pulse Resp BP Pulse Ox 01/05/18 09:35 16 100 01/05/18 06:32 80 16 106/73 91 01/05/18 04:00 97.6 F 83 16 115/79 100 01/04/18 20:00 98.1 F 87 17 111/84 100 01/04/18 19:41 16 98 01/04/18 15:36 97.9 F 83 16 110/102 94 Intake and Output 01/04/18 01/05/18 01/05/18 23:59 07:59 15:59 Intake Total 120 / 120 0 / 0 Output Total 100 / 100 525 / 525 225 / 225 Balance -525 / -525 -225 / -225 Intake: Oral 120 / 120 0 / 0 Output: Urine 100 / 100 525 / 525 225 / 225 Other: Weight 70.8 kg Patient Weight 01/05/18 23:59 Weight 70.8 kg General: Conversant, No Apparent Distress HEENT: Atraumatic, Normocephaly, Mucus Membranes Moist Neck: Normal carotid pulses Cardiac: Other (irregular) Lungs: Other (diminished, wheezes) Neuro: Alert and responsive, No focal deficits noted Abdomen: Soft, Non-Tender Skin: No rashes noted on visualized skin Musculoskeletal: No Chest Wall Tenderness Extremities: No Clubbing, No Cyanosis, No Edema, Normal Pulses Results 01/05/18 05:19 01/05/18 05:19 Lab Results 01/05/18 01/05/18 05:19 05:19 WBC 6.5 Hgb 12.0 L Hct 40.3 Plt Count 267 Sodium 139 Potassium 3.8 Chloride 100 Carbon Dioxide 35 H BUN 33 H Creatinine 1.27 Glucose 107 H Calcium 9.6 Short CBC 01/05/18 Range/Units 05:19 WBC 6.5 (4.3-11.1) K/mcL Hgb 12.0 L (12.9-16.9) g/dL Hct 40.3 (37.5-50.1) % Plt Count 267 (140-400) K/mcL Neutrophils # 4.7 (1.6-8.9) K/mcL BMP 01/05/18 Range/Units 05:19 Sodium 139 (136-145) mEq/L Potassium 3.8 (3.5-5.1) mEq/L Chloride 100 (98-107) mEq/L Carbon Dioxide 35 H (23-29) mEq/L BUN 33 H (6-20) mg/dL Creatinine 1.27 (0.70-1.30) mg/dL Glucose 107 H (70-105) mg/dL Calcium 9.6 (8.6-10.3) mg/dL Active Medications Albuterol Sulfate (Albuterol Inhaler) 2 puff IH Q4H PRN PRN Reason: Shortness Of Breath Stop: 07/02/18 11:11 Last Admin: 01/01/18 08:11 Dose: 2 puff Amlodipine Besylate (Norvasc) 5 mg PO DAILY [facility] PRN Reason: Protocol Stop: 07/03/18 09:01 Last Admin: 01/05/18 10:16 Dose: 5 mg Aripiprazole (Abilify) 15 mg PO DAILY [facility] Stop: 07/03/18 09:01 Last Admin: 01/05/18 10:15 Dose: 15 mg Budesonide/Formoterol Fumarate (Symbicort) 2 puff IH BIDR [facility] PRN Reason: Protocol Stop: 07/02/18 22:01 Last Admin: 01/05/18 09:35 Dose: 2 puff Buspirone HCl (Buspar) 10 mg PO TID [facility] Stop: 07/02/18 15:01 Last Admin: 01/05/18 10:16 Dose: 10 mg Clonazepam (Klonopin) 0.5 mg PO BID [facility] Stop: 07/02/18 21:01 Last Admin: 01/05/18 10:16 Dose: 0.5 mg Duloxetine HCl (Cymbalta) 60 mg PO 0900,1700 [facility] Stop: 07/02/18 17:01 Last Admin: 01/05/18 10:16 Dose: 60 mg Furosemide (Lasix) 40 mg IVP BID [facility] Stop: 07/06/18 09:01 Last Admin: 01/05/18 10:16 Dose: 40 mg Metoprolol Succinate (Toprol Xl) 12.5 mg PO DAILY [facility] Stop: 07/02/18 16:01 Last Admin: 01/05/18 10:16 Dose: 12.5 mg Mycophenolate Mofetil (Cellcept) 500 mg PO BID [facility] Stop: 07/02/18 21:01 Last Admin: 01/05/18 10:16 Dose: 500 mg Naloxone HCl (Narcan) 0.4 mg IVP Q2MIN PRN PRN Reason: SEE COMMENTS Stop: 07/02/18 11:06 Prednisone (Prednisone) 10 mg PO DAILY [facility] Stop: 07/03/18 09:01 Last Admin: 01/05/18 10:17 Dose: 10 mg Rivaroxaban (Xarelto) 20 mg PO 1700 [facility] Stop: 07/05/18 17:01 Last Admin: 01/04/18 16:42 Dose: 20 mg - Imaging and Cardiology Stress Test: report reviewed Echo: report reviewed - EKG Interpretation EKG results cardiology: other (12 hr tele AVG HR 79, A-Fib and SR PACs) Consult Discharge Plan - Plan Referrals: NONE,PCP [Primary Care Provider] -
--- NOTE | 2018-01-05 14:19 | Event Note ---
Date of Encounter: 01/05/18 Time of Encounter: 14:10 - Cardiology Event Note Seen and examined. Results of Nuclear stress test (see below) discussed with Dr. Magana. Given hx of renal transplant and lack of CP symptoms, recommended medical therapy. Continue BB, consider addition of MARTÍN-I upon discharge if renal function/BP will allow. No further recommendations as inpatient. Cardiology will sign-off. Will coordinate outpatient follow-up. Regadenoson Nuclear Stress 01/05/18 Impression: No perfusion evidence for ischemia. Severe intensity fixed perfusion defect involving the basal to mid lateral wall associated with abnormal wall motion. Findings consistent with infarct. Pharmacologic stress ECG is negative for ischemia at level of heart rate achieved. No appreciable change from baseline ECG. Frequent PACs noted during testing. Gated EF = 31%. The left ventricle is dilated.
[2018-01-05] MEDS: *HR* Rivaroxaban 10 MG TABLET PO SCH (16:37)
[2018-01-06 05:00] LABS: Basophils % 0.3 %; Eosinophils # 0.1 K/mcL (0.0-0.6); Eosinophils % 1.2 %; Hematocrit 36.6 % (37.5-50.1); Hemoglobin 10.7 g/dL (12.9-16.9); Immature Granulocytes % 0.3 % (0-4); Lymphocytes # 0.7 K/mcL (0.6-4.6); Lymphocytes % 11.6 %; Mean Corpuscular HGB Conc 29.2 g/dL (31.6-35.5); Mean Corpuscular Hemoglobin 23.8 pg (28.0-33.3); Mean Corpuscular Volume 81.3 fL (83.0-100.0); Mean Platelet Volume 9.6 fL (9.4-12.4); Monocytes # 0.6 K/mcL (0.0-1.3); Monocytes % 9.9 %; Neutrophils # 4.5 K/mcL (1.6-8.9); Platelet Count 234 K/mcL (140-400); Red Cell Distribution Width 16.6 % (11.5-14.5); Segmented Neutrophils % 76.7 %
[2018-01-06 05:17] LABS: BUN/Creatinine Ratio 31 (6-26); Blood Urea Nitrogen 35 mg/dL (6-20); Calcium 9.5 mg/dL (8.6-10.3); Carbon Dioxide 33 mEq/L (23-29); Chloride 103 mEq/L (98-107); Glucose 125 mg/dL (70-105); Osmolality,Calculated 299 (280-300); Potassium 3.8 mEq/L (3.5-5.1); Sodium 140 mEq/L (136-145); eGFR For African Americans > 60 (> 60); eGFR For Non-African Americans > 60 (> 60)
[2018-01-06 07:23] VITALS: BP 106/84
[2018-01-06] MEDS ORDERED: Aspirin 81 MG TAB.CHEW PO SCH (09:00)
[2018-01-06] MEDS ORDERED: Furosemide 40 MG/4 ML VIAL IVP SCH (09:00)
[2018-01-06] MEDS: Budesonide/Formoterol 160/4.5 MDI IH SCH (09:30)
[2018-01-06] MEDS: predniSONE 10 MG TABLET PO SCH (09:48)
[2018-01-06] MEDS: ARIPiprazole 10 MG TABLET PO SCH (09:48)
[2018-01-06] MEDS: amLODIPine 5 MG TABLET PO SCH (09:49)
[2018-01-06] MEDS: Metoprolol XL (24 HR) Succ 25 MG TAB.ER.24H PO SCH (09:49)
[2018-01-06] MEDS: clonazePAM 0.5 MG TABLET PO SCH (09:49)
--- NOTE | 2018-01-06 10:19 | Discharge Summary ---
- NOTES TO OUTPATIENT PROVIDER Notes to Outpatient Provider: Follow up with SNF physician in 2-3 days after discharge. Follow up with cardiology as directed. Orders not resulted at time of discharge: Pending orders 01/05/18 08:00 NM paige perf SPECT multi [NM] Routine 01/07/18 04:00 Basic Metabolic Panel AM 0400 CBC [Complete Blood Count] [HEME] AM 0400 Date of Encounter: 01/06/18 Time of Encounter: 10:17 - Discharge Diagnosis (1) Acute exacerbation of CHF (congestive heart failure) Priority: Primary Status: Acute Qualifiers: Heart failure type: combined systolic and diastolic Qualified Code(s): I50.43 - Acute on chronic combined systolic (congestive) and diastolic ( congestive) heart failure (2) A-fib Priority: Secondary Status: Chronic Qualifiers: Atrial fibrillation type: unspecified Qualified Code(s): I48.91 - Unspecified atrial fibrillation (3) Cardiomyopathy Priority: Secondary Status: Chronic Qualifiers: Cardiomyopathy type: unspecified Qualified Code(s): I42.9 - Cardiomyopathy , unspecified (4) Mitral regurgitation Priority: Secondary Status: Chronic Qualifiers: Cardiac valve disease etiology: etiology unspecified Qualified Code(s): I34.0 - Nonrheumatic mitral (valve) insufficiency (5) COPD (chronic obstructive pulmonary disease) Priority: Secondary Status: Chronic Qualifiers: COPD type: unspecified COPD Qualified Code(s): J44.9 - Chronic obstructive pulmonary disease, unspecified (6) History of kidney transplant Priority: Secondary Status: Chronic (7) Hepatitis C Priority: Secondary Status: Chronic Qualifiers: Viral hepatitis chronicity: chronic Hepatic coma status: without hepatic coma Qualified Code(s): B18.2 - Chronic viral hepatitis C (8) Hypertension Priority: Secondary Status: Chronic Qualifiers: Hypertension type: essential hypertension Qualified Code(s): I10 - Essential (primary) hypertension (9) History of DVT (deep vein thrombosis) Priority: Secondary Status: Chronic (10) DVT prophylaxis Priority: Secondary Status: Acute Hospital course: Mr. Campbell is a 57 year old male admitted for SOB likely secondary to acute exacerbation of CHF and new onset AFib. Patient was admitted to general medical floor with telemetry. Cardiology was consultd. Home xarelto was continued. He was started on IV lasix for diuresis. Low dose beta porsche was started for rate control. Cardiology initially considered LHC, but decided on stress test due to renal disease and risk. Oncology was consulted about recurrent DVTs on xarelto. Recurrent DVTs likely secondary to non-compliance. Oncology recommended restarting xarelto. Vascular surgery consulted for possible limb ischemia. They determined he likely does not have clinically significant vascular occlusive disease or limb ischemia. Stress test showed infarct but no ischemia. Cardiology recommended medical management with aspirin , statin, beta porsche, and tuyet inhibitor. He will follow up with cardiology as directed after discharge. 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 SOB resolved with diuresis. He will follow up with [facility] physician in 2-3 days after discharge. Patient has met maximum benefit of this hospitalization and will be discharged home in stable condition. Discharge discussed with: patient, nurse, case management - Time Spent with Patient Total time spent providing and/or coordinating discharge services: Greater than 30 minutes - Discharge Medications Prescriptions: Atorvastatin [Lipitor] 40 mg PO HS 4 Days #4 tablet clonazePAM [Klonopin] 0.5 mg PO BID 4 Days #8 tablet Metoprolol XL (24 HR) Succ [Toprol Xl] 12.5 mg PO DAILY 4 Days #4 tab.er.24h Home Medications: Duloxetine HCl [Cymbalta] 60 mg PO 0900,1700 07/13/15 [History] Mycophenolate Mofetil [Cellcept] 500 mg PO BID 12/14/15 [History] ARIPiprazole [Abilify] 15 mg PO DAILY 12/25/16 [History] Albuterol Sulfate [Ventolin Hfa] 2 puff IH Q4H PRN 12/25/16 [History] Budesonide/Formoterol 160/4.5 [Symbicort 160/4.5] 2 puff IH BID 12/25/16 [ History] Buspirone HCl [Buspar] 10 mg PO TID 12/25/16 [History] Trazodone HCl 100 - 300 mg PO HS 12/25/16 [History] predniSONE [PredniSONE] 10 mg PO DAILY 12/25/16 [History] Rivaroxaban [Xarelto] 20 mg PO DAILY 10/23/17 [History] amLODIPine [Norvasc] 5 mg PO DAILY 11/17/17 [History] Furosemide [Lasix] 40 mg PO DAILY tablet 11/18/17 [Rx] Aspirin 81 mg PO DAILY tab.chew 01/06/18 [Rx] Atorvastatin [Lipitor] 40 mg PO HS 4 Days #4 tablet 01/06/18 [Rx] Metoprolol XL (24 HR) Succ [Toprol Xl] 12.5 mg PO DAILY 4 Days #4 tab.er.24h [Rx] clonazePAM [Klonopin] 0.5 mg PO BID 4 Days #8 tablet 01/06/18 [Rx] Allergies/Adverse Reactions: 3 Allergy/AdvReac Type Severity Reaction Status Date / Time codeine AdvReac Nausea Verified 12/31/17 06:50 Date of admission: 12/31/17 14:34 Primary care physician: PCP NONE Consults: 12/31/17 14:39 Consult to Oncology [CONS] Routine Consulting Provider: Oncology [facility] Reason for Consult: recurrent DVT 10/2017 while on Xarelto, anticoagulation recs Call Completed: Yes 01/01/18 12:47 Consult to Vascular Surgery [CONS] Routine Consulting Provider: Vascular Surgery Jamila Reason for Consult: cold right foot with faint pulses r/o PAD/ ischemic limb Call Completed: Yes Discharging clinician: Magdy Olivera Anticipated date of discharge: 01/06/18 - Constitutional Vitals: Temp Pulse Resp BP Pulse Ox 98.0 F 90 17 106/84 96 01/06/18 04:39 01/06/18 07:09 01/06/18 09:33 01/06/18 07:09 01/06/18 09:33 General appearance: Present: cooperative, A&O X 3, pleasant, no acute distress, answers questions appropriately - Respiratory Respiratory exam: Present: CTAB. Absent: accessory muscle use, rales, rhonchi, wheezes Additional comments: Normal WOB - Cardiovascular Cardiovascular exam: Present: RRR, +S1, +S2. Absent: diastolic murmur, gallop, rubs, systolic murmur Additional comments: No BLE edema - GI/Abdominal GI/Abdominal exam: Present: normal bowel sounds, soft. Absent: distended, hepatomegaly, mass, splenomegaly, tenderness - Psychiatric Psychiatric exam: Present: normal affect, normal mood. Absent: agitated, anxious, depressed - Skin Skin exam: Present: dry, intact, warm. Absent: cyanosis, rash - Patient Status Disposition: Transfer SNF Condition: Good Overall status at discharge: patient is progressing back to baseline - Discharge Instructions Follow Up With: NONE,PCP [Primary Care Provider] - Additional Instructions: Follow up with SNF physician in 2-3 days after discharge. Follow up with cardiology as directed. - Diet and Activity Activity: as per physical therapy Diet: low fat, low cholesterol, low salt diet, other (Cardiac Diet, Renal Diet) - VTE Contraindication No Overlap Therapy: Admin of oral Factor Xa Inhibitor
--- NOTE | 2018-01-06 11:06 | Physician Discharge Referral ---
ExtendedCare Referral Info Transfer To: [facility] Provider in Charge after Transfer: Other (SNF Physician) Institutional Level of Care: Skilled - Diagnosis (1) Acute exacerbation of CHF (congestive heart failure) Priority: Primary Status: Acute (2) A-fib Priority: Secondary Status: Chronic (3) Cardiomyopathy Priority: Secondary Status: Chronic (4) Mitral regurgitation Priority: Secondary Status: Chronic (5) COPD (chronic obstructive pulmonary disease) Priority: Secondary Status: Chronic (6) History of kidney transplant Priority: Secondary Status: Chronic (7) Hepatitis C Priority: Secondary Status: Chronic (8) Hypertension Priority: Secondary Status: Chronic (9) History of DVT (deep vein thrombosis) Priority: Secondary Status: Chronic (10) DVT prophylaxis Priority: Secondary Status: Acute Prognosis: Fair Aware of Diagnosis: Patient Aware of Prognosis: Patient - Transfer Medications Prescriptions: Atorvastatin [Lipitor] 40 mg PO HS 4 Days #4 tablet clonazePAM [Klonopin] 0.5 mg PO BID 4 Days #8 tablet Metoprolol XL (24 HR) Succ [Toprol Xl] 12.5 mg PO DAILY 4 Days #4 tab.er.24h Home Medications: Duloxetine HCl [Cymbalta] 60 mg PO 0900,1700 07/13/15 [History] Mycophenolate Mofetil [Cellcept] 500 mg PO BID 12/14/15 [History] ARIPiprazole [Abilify] 15 mg PO DAILY 12/25/16 [History] Albuterol Sulfate [Ventolin Hfa] 2 puff IH Q4H PRN 12/25/16 [History] Budesonide/Formoterol 160/4.5 [Symbicort 160/4.5] 2 puff IH BID 12/25/16 [ History] Buspirone HCl [Buspar] 10 mg PO TID 12/25/16 [History] Trazodone HCl 100 - 300 mg PO HS 12/25/16 [History] predniSONE [PredniSONE] 10 mg PO DAILY 12/25/16 [History] Rivaroxaban [Xarelto] 20 mg PO DAILY 10/23/17 [History] amLODIPine [Norvasc] 5 mg PO DAILY 11/17/17 [History] Furosemide [Lasix] 40 mg PO DAILY tablet 11/18/17 [Rx] Aspirin 81 mg PO DAILY tab.chew 01/06/18 [Rx] Atorvastatin [Lipitor] 40 mg PO HS 4 Days #4 tablet 01/06/18 [Rx] Metoprolol XL (24 HR) Succ [Toprol Xl] 12.5 mg PO DAILY 4 Days #4 tab.er.24h [Rx] clonazePAM [Klonopin] 0.5 mg PO BID 4 Days #8 tablet 01/06/18 [Rx] Allergies/Adverse Reactions: 3 Allergy/AdvReac Type Severity Reaction Status Date / Time codeine AdvReac Nausea Verified 12/31/17 06:50 - Respiratory Orders None Smoking Cessation: Smoking cessation has been advised. For more information, call the [place] Tobacco Quit Line at 4-019-AQGT-NOW. - Advance Directives Code Status: Full Code - Mobility Orders Other (Per physical therapy) - Rehabiliation Orders Rehab Potential: Fair Rehab Orders: Evaluation for Physical Therapy, Evaluation for Occupational Therapy - Diet Orders No Added Salt (BRIGID), Renal, Cardiac CERTIFICATION: I certify that the transfer of the above named patient to an Extended Care Facility is necessary for the continuing treatment of the diagnosis listed. The above information is true and accurate reflection of patient's current condition. Confidential - Redisclosure prohibited without a patient's written consent.
== END 2018-01-06 16:54 | DRG 291 ==
LOC: EMEROO 03:39 → 2NENU 03:39
PROVIDERS: ADMIT Hospitalist; ATTEND Hospitalist

== ENCOUNTER 2018-01-18 21:28 | Inpatient (IN) ==
--- NOTE | 2018-01-18 21:45 | Emergency Department Note ---
Disposition Clinical Impression: Premature atrial complexes, Elevated INR, Dyspnea on exertion Chest pain Qualifiers: Chest pain type: unspecified Qualified Code(s): R07.9 - Chest pain, unspecified CHF exacerbation Qualifiers: Heart failure type: unspecified Qualified Code(s): I50.9 - Heart failure, unspecified Disposition: Still a Patient Condition: Fair Referrals: NONE,PCP [Primary Care Provider] - Forms: ED Satisfaction Letter General Adult HPI - General Time Seen by Provider: 01/18/18 21:30 Nursing Notes Reviewed: Yes Vital Signs Reviewed: Yes - History of Present Illness HPI Narrative: 57 year male presents emergency department with concern for shortness of breath , chest pain. Patient states that his shortness of breath has been going on for last few days. It is worse on exertion. He has known history of congestive heart failure. He describes having chest pain at 1600 today. States that it could not of last more than 30 minutes. Has not had any chest pain since Patient has no history of heart attack before. Does not have any stents. Reports having history of atrial fibrillation. States that he takes his medications. Currently on metoprolol extended release 12.5 mg once daily. Patient also takes Xarelto. Patient reports having history of hepatitis C. - Related Data Home Medications Medication Instructions Recorded Confirmed Duloxetine HCl [Cymbalta] 60 mg PO 0900,1700 07/13/15 01/13/18 Mycophenolate Mofetil [Cellcept] 500 mg PO BID 12/14/15 01/13/18 ARIPiprazole [Abilify] 15 mg PO DAILY 12/25/16 01/13/18 Albuterol Sulfate [Ventolin Hfa] 2 puff IH Q4H PRN 12/25/16 01/13/18 Budesonide/Formoterol 160/4.5 2 puff IH BID 12/25/16 01/13/18 [Symbicort 160/4.5] Buspirone HCl [Buspar] 10 mg PO TID 12/25/16 01/13/18 Trazodone HCl 100 - 300 mg PO HS 12/25/16 01/13/18 predniSONE [PredniSONE] 10 mg PO DAILY 12/25/16 01/13/18 Rivaroxaban [Xarelto] 20 mg PO DAILY 10/23/17 01/13/18 amLODIPine [Norvasc] 5 mg PO DAILY 11/17/17 01/13/18 Previous Rx's Medication Instructions Recorded Furosemide [Lasix] 40 mg PO DAILY tablet 11/18/17 Aspirin 81 mg PO DAILY tab.chew 01/06/18 Atorvastatin [Lipitor] 40 mg PO HS 4 Days #4 tablet 01/06/18 Metoprolol XL (24 HR) Succ [Toprol 12.5 mg PO DAILY 4 Days #4 01/06/18 Xl] tab.er.24h clonazePAM [Klonopin] 0.5 mg PO BID 4 Days #8 tablet 01/06/18 Ascorbic Acid [Vitamin C] 1 tab PO DAILY #30 tablet 01/13/18 Ferrous Sulfate [Iron] 1 tab PO DAILY #30 tablet 01/13/18 Allergies Allergy/AdvReac Type Severity Reaction Status Date / Time codeine AdvReac Nausea Verified 01/13/18 13:17 All systems ED: reviewed and negative except as stated. Review of Systems: As Per HPI Constitutional: Denies: fever Cardiovascular: Reports: chest pain, palpitations, dyspnea on exertion Respiratory: Reports: dyspnea Gastrointestinal: Denies: abdominal pain, nausea, vomiting Genitourinary: Denies: hematuria Musculoskeletal: Denies: back pain Neurological: Denies: headache Hematological/Lymphatic: Denies: easy bleeding Past Medical History - Past Medical History Medical history: Reports: COPD, DVT, hepatitis, hypertension, renal disease, other Surgical history: Reports: hip replacement, transplant Psychiatric history: Reports: anxiety, depression, previous psychiatric hospitalization, other - Social History Smoking Status: Current every day smoker Smokeless Tobacco Status: No Alcohol use: Reports: none Drug use: Reports: cocaine, marijuana Physical Exam - General General appearance: alert, in no apparent distress - Head Head exam: atraumatic - Eye Eye exam: Present: EOMI - ENT ENT exam: normal oropharynx - Neck Neck exam: Present: trachea midline - Chest Chest inspection: Present: symmetric chest wall rise - Respiratory Respiratory exam: Present: wheezes (Mild). Absent: respiratory distress, accessory muscle use - Cardiovascular Cardiovascular exam: Present: tachycardia, irregular rhythm - Abdominal Exam Abdominal exam: Present: Non-Tender, distention - Extremities Exam Extremities exam: Present: normal capillary refill. Absent: pedal edema - Back Exam Back exam: Present: full ROM - Neurological Exam Neurological exam: Present: alert, oriented X3 - Psychiatric Psychiatric exam: Present: normal affect, normal mood - Skin Skin exam: Present: warm, dry, intact Course Vital Signs Temperature 97.9 F 01/18/18 21:38 Pulse Rate 120 01/18/18 21:38 Respiratory Rate 26 01/18/18 21:38 Blood Pressure 123/114 01/18/18 21:38 O2 Sat by Pulse Oximetry 96 01/18/18 21:38 Temperature 97.9 F 01/18/18 21:38 Pulse Rate 113 01/18/18 22:59 Respiratory Rate 16 01/18/18 22:59 Blood Pressure 118/102 01/18/18 22:59 O2 Sat by Pulse Oximetry 97 01/18/18 22:59 Oxygen Delivery Oxygen Delivery Nasal Cannula Medical Decision Making - MDM Narrative Medical decision making narrative: 57-year-old male presents emergency department with concern for increasing dyspnea on exertion the past few weeks as well as a having an episode of chest pain and worsening shortness of breath earlier today. EKG revealed patient was in sinus rhythm with frequent premature atrial complexes. Patient was given a dose of Lopressor IV 5 mg. He was also then given oral 12.5 mg of metoprolol. We will obtain a chest x-ray this revealed cardiomegaly with no overt failure. BNP is 2024. Due to patient's symptoms, we have administered 40 mg of Lasix. Patient had an INR of 4.0. Patient states that he does not take any Coumadin. With known history of hepatitis C, there is concern for possible liver cirrhosis and patient not being able to produce his clotting factors. Patient not currently complaining of any bleeding at this time. Patient had some mild wheezes on lung exam. We gave one 25 mg Solu-Medrol as well as 3 DuoNeb's. Due to concern for worsening heart failure as well as having sinus tachycardia with multiple premature atrial complexes that is not rate controlled, and patient having an INR 4.0, society admit patient to hospitalist. Did not give any aspirin at this time for the episode of chest pain. Patient currently takes 81 mg of aspirin daily, and with the elevated INR 4.0, there is concern for GI bleed. Patient currently signed out to night team awaiting hospitalist to call back for admission. Chest X-Ray 01/18/18 21:35 IMPRESSION: Stable chest. Cardiomegaly with no overt failure. Stable dependent left basilar atelectasis. D/ / Fahad Amaral MD / Fahad Amaral MD Interpreting Provider: Fahad Amaral MD - Lab Data Result diagrams: 01/18/18 21:49 01/18/18 21:49 Lab Results 01/18/18 01/18/18 01/18/18 Range/Units 21:49 21:49 21:49 WBC 9.6 (4.3-11.1) K/mcL RBC 4.61 (4.19-5.50) M/mcL Hgb 11.2 L (12.9-16.9) g/dL Hct 37.4 L (37.5-50.1) % MCV 81.1 L (83.0-100.0) fL MCH 24.3 L (28.0-33.3) pg MCHC 29.9 L (31.6-35.5) g/dL RDW 18.1 H (11.5-14.5) % Plt Count 216 (140-400) K/mcL MPV 9.2 L (9.4-12.4) fL Immature Gran % 0.5 (0-4) % Seg Neutrophils % 86.7 % Lymphocytes % 6.9 % Monocytes % 5.6 % Eosinophils % 0.2 % Basophils % 0.1 % Neutrophils # 8.4 (1.6-8.9) K/mcL Lymphocytes # 0.7 (0.6-4.6) K/mcL Monocytes # 0.5 (0.0-1.3) K/mcL Eosinophils # 0.0 (0.0-0.6) K/mcL Basophils # 0.0 (0.0-0.2) K/mcL PT 45.6 H* (9.4-12.1) Seconds INR 4.0 APTT 63.4 H (26.0-36.0) Seconds Sodium (136-145) mEq/L Potassium (3.5-5.1) mEq/L Chloride (98-107) mEq/L Carbon Dioxide (23-29) mEq/L BUN (6-20) mg/dL Creatinine (0.70-1.30) mg/dL Est GFR ( Amer) (> 60) Est GFR (Non-Af Amer) (> 60) BUN/Creatinine Ratio (6-26) Glucose (70-105) mg/dL Calculated Osmolality (280-300) Calcium (8.6-10.3) mg/dL Total Bilirubin (0.3-1.0) mg/dL Direct Bilirubin (0.0-0.2) mg/dL Indirect Bilirubin (0.0-1.2) mg/dL AST (13-39) Units/L ALT (7-52) Units/L Alkaline Phosphatase (34-104) Units/L Troponin I (< 0.04) ng/mL B-Natriuretic Peptide 2025 H (Less than 100) pg/mL Serum Total Protein (6.4-8.9) g/dL Albumin (3.5-5.7) g/dL Globulin (2.4-3.5) g/dL Albumin/Globulin Ratio (1.1-2.2) 01/18/18 Range/Units 21:49 WBC (4.3-11.1) K/mcL RBC (4.19-5.50) M/mcL Hgb (12.9-16.9) g/dL Hct (37.5-50.1) % MCV (83.0-100.0) fL MCH (28.0-33.3) pg MCHC (31.6-35.5) g/dL RDW (11.5-14.5) % Plt Count (140-400) K/mcL MPV (9.4-12.4) fL Immature Gran % (0-4) % Seg Neutrophils % % Lymphocytes % % Monocytes % % Eosinophils % % Basophils % % Neutrophils # (1.6-8.9) K/mcL Lymphocytes # (0.6-4.6) K/mcL Monocytes # (0.0-1.3) K/mcL Eosinophils # (0.0-0.6) K/mcL Basophils # (0.0-0.2) K/mcL PT (9.4-12.1) Seconds INR APTT (26.0-36.0) Seconds Sodium 140 (136-145) mEq/L Potassium 3.7 (3.5-5.1) mEq/L Chloride 107 (98-107) mEq/L Carbon Dioxide 23 (23-29) mEq/L BUN 25 H (6-20) mg/dL Creatinine 1.19 (0.70-1.30) mg/dL Est GFR ( Amer) > 60 (> 60) Est GFR (Non-Af Amer) > 60 (> 60) BUN/Creatinine Ratio 21 (6-26) Glucose 114 H (70-105) mg/dL Calculated Osmolality 295 (280-300) Calcium 9.6 (8.6-10.3) mg/dL Total Bilirubin 0.6 (0.3-1.0) mg/dL Direct Bilirubin 0.2 (0.0-0.2) mg/dL Indirect Bilirubin 0.4 (0.0-1.2) mg/dL AST 18 (13-39) Units/L ALT 12 (7-52) Units/L Alkaline Phosphatase 97 (34-104) Units/L Troponin I 0.05 H* (< 0.04) ng/mL B-Natriuretic Peptide (Less than 100) pg/mL Serum Total Protein 7.2 (6.4-8.9) g/dL Albumin 3.5 (3.5-5.7) g/dL Globulin 3.7 H (2.4-3.5) g/dL Albumin/Globulin Ratio 0.9 L (1.1-2.2) - EKG Data EKG #1 EKG attestation: Yes I reviewed and interpreted this EKG. EKG results narrative: 21:38 Ventricular rate 97 bpm, no P waves, QRS duration 107 ms, QT 365 ms, QTC 420 ms Atrial fibrillation with a ventricular rate of [address] changes when in comparison with her previous study obtained on 12/31/2017.
[2018-01-18] MEDS ORDERED: 0.9 % Sodium Chloride 1,000 ML IVC ONE (21:51)
[2018-01-18 22:03] LABS: Basophils % 0.1 %; Eosinophils % 0.2 %; Hematocrit 37.4 % (37.5-50.1); Hemoglobin 11.2 g/dL (12.9-16.9); Immature Granulocytes % 0.5 % (0-4); Lymphocytes # 0.7 K/mcL (0.6-4.6); Lymphocytes % 6.9 %; Mean Corpuscular HGB Conc 29.9 g/dL (31.6-35.5); Mean Corpuscular Hemoglobin 24.3 pg (28.0-33.3); Mean Corpuscular Volume 81.1 fL (83.0-100.0); Mean Platelet Volume 9.2 fL (9.4-12.4); Monocytes # 0.5 K/mcL (0.0-1.3); Monocytes % 5.6 %; Neutrophils # 8.4 K/mcL (1.6-8.9); Platelet Count 216 K/mcL (140-400); Red Blood Count 4.61 M/mcL (4.19-5.50); Red Cell Distribution Width 18.1 % (11.5-14.5); Segmented Neutrophils % 86.7 %
[2018-01-18 22:13] LABS: Activated Partial Thrombo Time 63.4 Seconds (26.0-36.0)
[2018-01-18 22:17] LABS: Prothrombin Time 45.6 Seconds (9.4-12.1)
--- NOTE | 2018-01-18 22:17 | Emergency Department Note ---
Disposition Clinical Impression: Premature atrial complexes, Elevated INR, Dyspnea on exertion Chest pain Qualifiers: Chest pain type: unspecified Qualified Code(s): R07.9 - Chest pain, unspecified CHF exacerbation Qualifiers: Heart failure type: systolic Qualified Code(s): I50.23 - Acute on chronic systolic (congestive) heart failure Disposition: Admitted As Inpatient Condition: Fair General Adult HPI - General Chief complaint: ED Chest Pain Stated complaint: Chest pain Time Seen by Provider: 01/18/18 21:30 Source: patient, EMS Mode of arrival: ambulatory Limitations: no limitations Nursing Notes Reviewed: Yes Vital Signs Reviewed: Yes - History of Present Illness Pain Scale: 0 - Related Data Home Medications Medication Instructions Recorded Confirmed Duloxetine HCl [Cymbalta] 60 mg PO 0900,1700 07/13/15 01/19/18 Mycophenolate Mofetil [Cellcept] 500 mg PO BID 12/14/15 01/19/18 ARIPiprazole [Abilify] 15 mg PO DAILY 12/25/16 01/19/18 Albuterol Sulfate [Ventolin Hfa] 2 puff IH Q4H PRN 12/25/16 01/19/18 Budesonide/Formoterol 160/4.5 2 puff IH BID 12/25/16 01/19/18 [Symbicort 160/4.5] Buspirone HCl [Buspar] 10 mg PO TID 12/25/16 01/19/18 predniSONE [PredniSONE] 10 mg PO DAILY 12/25/16 01/19/18 Rivaroxaban [Xarelto] 20 mg PO DAILY 10/23/17 01/19/18 amLODIPine [Norvasc] 5 mg PO DAILY 11/17/17 01/19/18 Ferrous Sulfate [Iron] 325 mg PO DAILY 01/19/18 01/19/18 Lanolin Alcohol/Mo/W.pet/[place] 1 appl TP DAILY 01/19/18 01/19/18 [Eucerin Creme] Previous Rx's Medication Instructions Recorded Furosemide [Lasix] 40 mg PO DAILY tablet 11/18/17 Metoprolol XL (24 HR) Succ [Toprol 12.5 mg PO DAILY 4 Days #4 01/06/18 Xl] tab.er.24h clonazePAM [Klonopin] 0.5 mg PO BID 4 Days #8 tablet 01/06/18 Ascorbic Acid [Vitamin C] 1 tab PO DAILY #30 tablet 01/13/18 Allergies Allergy/AdvReac Type Severity Reaction Status Date / Time codeine AdvReac Nausea Verified 01/13/18 13:17 Past Medical History - Past Medical History Medical history: Reports: COPD, DVT, hepatitis, hypertension, renal disease, other Surgical history: Reports: hip replacement, transplant Psychiatric history: Reports: anxiety, depression, previous psychiatric hospitalization, other - Social History Smoking Status: Current every day smoker Smokeless Tobacco Status: No Alcohol use: Reports: none Drug use: Reports: cocaine, marijuana Physical Exam - General Limitations: no limitations General appearance: alert, in no apparent distress Course Vital Signs Temperature 97.9 F 01/18/18 21:38 Pulse Rate 120 01/18/18 21:38 Respiratory Rate 26 01/18/18 21:38 Blood Pressure 123/114 01/18/18 21:38 O2 Sat by Pulse Oximetry 96 01/18/18 21:38 Temperature 99.4 F 01/21/18 00:20 Pulse Rate 93 01/21/18 01:00 Respiratory Rate 15 01/21/18 01:09 Blood Pressure 126/79 01/21/18 01:00 O2 Sat by Pulse Oximetry 96 01/21/18 01:09 Oxygen Delivery Oxygen Delivery Nasal Cannula Medical Decision Making - Lab Data Result diagrams: 01/20/18 22:00 01/20/18 00:41 Lab Results 01/18/18 01/18/18 01/18/18 Range/Units 21:49 21:49 21:49 WBC 9.6 (4.3-11.1) K/mcL RBC 4.61 (4.19-5.50) M/mcL Hgb 11.2 L (12.9-16.9) g/dL Hct 37.4 L (37.5-50.1) % MCV 81.1 L (83.0-100.0) fL MCH 24.3 L (28.0-33.3) pg MCHC 29.9 L (31.6-35.5) g/dL RDW 18.1 H (11.5-14.5) % Plt Count 216 (140-400) K/mcL MPV 9.2 L (9.4-12.4) fL Immature Gran % 0.5 (0-4) % Seg Neutrophils % 86.7 % Lymphocytes % 6.9 % Monocytes % 5.6 % Eosinophils % 0.2 % Basophils % 0.1 % Neutrophils # 8.4 (1.6-8.9) K/mcL Lymphocytes # 0.7 (0.6-4.6) K/mcL Monocytes # 0.5 (0.0-1.3) K/mcL Eosinophils # 0.0 (0.0-0.6) K/mcL Basophils # 0.0 (0.0-0.2) K/mcL PT 45.6 H* (9.4-12.1) Seconds INR 4.0 APTT 63.4 H (26.0-36.0) Seconds Sodium (136-145) mEq/L Potassium (3.5-5.1) mEq/L Chloride (98-107) mEq/L Carbon Dioxide (23-29) mEq/L BUN (6-20) mg/dL Creatinine (0.70-1.30) mg/dL Est GFR ( Amer) (> 60) Est GFR (Non-Af Amer) (> 60) BUN/Creatinine Ratio (6-26) Glucose (70-105) mg/dL Calculated Osmolality (280-300) Calcium (8.6-10.3) mg/dL Total Bilirubin (0.3-1.0) mg/dL Direct Bilirubin (0.0-0.2) mg/dL Indirect Bilirubin (0.0-1.2) mg/dL AST (13-39) Units/L ALT (7-52) Units/L Alkaline Phosphatase (34-104) Units/L Troponin I (< 0.04) ng/mL B-Natriuretic Peptide 2025 H (Less than 100) pg/mL Serum Total Protein (6.4-8.9) g/dL Albumin (3.5-5.7) g/dL Globulin (2.4-3.5) g/dL Albumin/Globulin Ratio (1.1-2.2) 01/18/18 Range/Units 21:49 WBC (4.3-11.1) K/mcL RBC (4.19-5.50) M/mcL Hgb (12.9-16.9) g/dL Hct (37.5-50.1) % MCV (83.0-100.0) fL MCH (28.0-33.3) pg MCHC (31.6-35.5) g/dL RDW (11.5-14.5) % Plt Count (140-400) K/mcL MPV (9.4-12.4) fL Immature Gran % (0-4) % Seg Neutrophils % % Lymphocytes % % Monocytes % % Eosinophils % % Basophils % % Neutrophils # (1.6-8.9) K/mcL Lymphocytes # (0.6-4.6) K/mcL Monocytes # (0.0-1.3) K/mcL Eosinophils # (0.0-0.6) K/mcL Basophils # (0.0-0.2) K/mcL PT (9.4-12.1) Seconds INR APTT (26.0-36.0) Seconds Sodium 140 (136-145) mEq/L Potassium 3.7 (3.5-5.1) mEq/L Chloride 107 (98-107) mEq/L Carbon Dioxide 23 (23-29) mEq/L BUN 25 H (6-20) mg/dL Creatinine 1.19 (0.70-1.30) mg/dL Est GFR ( Amer) > 60 (> 60) Est GFR (Non-Af Amer) > 60 (> 60) BUN/Creatinine Ratio 21 (6-26) Glucose 114 H (70-105) mg/dL Calculated Osmolality 295 (280-300) Calcium 9.6 (8.6-10.3) mg/dL Total Bilirubin 0.6 (0.3-1.0) mg/dL Direct Bilirubin 0.2 (0.0-0.2) mg/dL Indirect Bilirubin 0.4 (0.0-1.2) mg/dL AST 18 (13-39) Units/L ALT 12 (7-52) Units/L Alkaline Phosphatase 97 (34-104) Units/L Troponin I 0.05 H* (< 0.04) ng/mL B-Natriuretic Peptide (Less than 100) pg/mL Serum Total Protein 7.2 (6.4-8.9) g/dL Albumin 3.5 (3.5-5.7) g/dL Globulin 3.7 H (2.4-3.5) g/dL Albumin/Globulin Ratio 0.9 L (1.1-2.2) Attestation Statement - Attestation Attestation: I, Maximo Epstein, examined this patient and my medical decision-making was reviewed with the HAIR AND MAKEUP DESIGNER/PA/Advanced Practice Nurse/Resident Physician. I agree with the documented findings, disposition and treatment plan as described except to the extent set forth below. 57-year-old male presents emergency Department with concerns of acute onset chest pain, dyspnea with exertion and weakness. Patient states that symptoms have been worsening over the past few weeks prior to arrival but significantly worse today. Patient denies recent trauma. He denies nausea, vomiting, diarrhea, hematochezia, melena, changes in medications.. Patient does not have chest pain emergency department. He does have atrial fibrillation with a rapid ventricular response that varies from 90 to 130. Patient hemoglobin is at his baseline. Patient has significantly elevated INR and PTT compared to previous lab values. Patient has mildly elevated troponin which is at his baseline compared to previous labs. He is a significantly elevated BNP. Chest x-ray shows vascular congestion and patient was given 40 mg of Lasix IV. Patient was started on Lopressor for his atrial fibrillation with RVR. Additional laboratory evaluation is pending, patient will likely be admitted to the hospitalist for further care and evaluation.
[2018-01-18 22:23] LABS: BUN/Creatinine Ratio 21 (6-26); Blood Urea Nitrogen 25 mg/dL (6-20); Calcium 9.6 mg/dL (8.6-10.3); Carbon Dioxide 23 mEq/L (23-29); Chloride 107 mEq/L (98-107); Glucose 114 mg/dL (70-105); Osmolality,Calculated 295 (280-300); Potassium 3.7 mEq/L (3.5-5.1); Sodium 140 mEq/L (136-145); eGFR For African Americans > 60 (> 60); eGFR For Non-African Americans > 60 (> 60)
[2018-01-18 22:29] LABS: Troponin I 0.05 ng/mL (< 0.04)
[2018-01-18] MEDS ORDERED: *HR* Metoprolol 5 MG/5 ML VIAL IVP ONE (22:42)
[2018-01-18] MEDS ORDERED: Furosemide 40 MG/4 ML VIAL IVP ONE (22:42)
[2018-01-18 23:08] LABS: Alanine Aminotransferase 12 Units/L (7-52); Albumin 3.5 g/dL (3.5-5.7); Albumin/Globulin Ratio 0.9 (1.1-2.2); Alkaline Phosphatase 97 Units/L (34-104); Aspartate Amino Transferase 18 Units/L (13-39); Bilirubin,Direct 0.2 mg/dL (0.0-0.2); Bilirubin,Indirect 0.4 mg/dL (0.0-1.2); Bilirubin,Total 0.6 mg/dL (0.3-1.0); Globulin 3.7 g/dL (2.4-3.5); Total Protein 7.2 g/dL (6.4-8.9)
[2018-01-18] MEDS ORDERED: Ipratropium/Albuterol Neb 3 ML IH ONE (23:34)
[2018-01-18] MEDS ORDERED: methylPREDNISolone 125 MG/2 ML VIAL IVP ONE (23:35)
--- NOTE | 2018-01-19 00:05 | Emergency Department Note ---
Disposition Clinical Impression: Premature atrial complexes, Elevated INR, Dyspnea on exertion Chest pain Qualifiers: Chest pain type: unspecified Qualified Code(s): R07.9 - Chest pain, unspecified CHF exacerbation Qualifiers: Heart failure type: unspecified Qualified Code(s): I50.9 - Heart failure, unspecified Disposition: Admitted As Inpatient Condition: Fair Referrals: NONE,PCP [Primary Care Provider] - Forms: ED Satisfaction Letter Time of Disposition: 00:05 General Adult HPI - General Chief complaint: ED Chest Pain Stated complaint: Chest pain Time Seen by Provider: 01/18/18 21:30 Source: patient, EMS Mode of arrival: ambulatory Limitations: no limitations - History of Present Illness Pain Scale: 0 - Related Data Home Medications Medication Instructions Recorded Confirmed Duloxetine HCl [Cymbalta] 60 mg PO 0900,1700 07/13/15 01/13/18 Mycophenolate Mofetil [Cellcept] 500 mg PO BID 12/14/15 01/13/18 ARIPiprazole [Abilify] 15 mg PO DAILY 12/25/16 01/13/18 Albuterol Sulfate [Ventolin Hfa] 2 puff IH Q4H PRN 12/25/16 01/13/18 Budesonide/Formoterol 160/4.5 2 puff IH BID 12/25/16 01/13/18 [Symbicort 160/4.5] Buspirone HCl [Buspar] 10 mg PO TID 12/25/16 01/13/18 Trazodone HCl 100 - 300 mg PO HS 12/25/16 01/13/18 predniSONE [PredniSONE] 10 mg PO DAILY 12/25/16 01/13/18 Rivaroxaban [Xarelto] 20 mg PO DAILY 10/23/17 01/13/18 amLODIPine [Norvasc] 5 mg PO DAILY 11/17/17 01/13/18 Previous Rx's Medication Instructions Recorded Furosemide [Lasix] 40 mg PO DAILY tablet 11/18/17 Aspirin 81 mg PO DAILY tab.chew 01/06/18 Atorvastatin [Lipitor] 40 mg PO HS 4 Days #4 tablet 01/06/18 Metoprolol XL (24 HR) Succ [Toprol 12.5 mg PO DAILY 4 Days #4 01/06/18 Xl] tab.er.24h clonazePAM [Klonopin] 0.5 mg PO BID 4 Days #8 tablet 01/06/18 Ascorbic Acid [Vitamin C] 1 tab PO DAILY #30 tablet 01/13/18 Ferrous Sulfate [Iron] 1 tab PO DAILY #30 tablet 01/13/18 Allergies Allergy/AdvReac Type Severity Reaction Status Date / Time codeine AdvReac Nausea Verified 01/13/18 13:17 Constitutional: Denies: fever Cardiovascular: Reports: chest pain, palpitations, dyspnea on exertion Respiratory: Reports: dyspnea Gastrointestinal: Denies: abdominal pain, nausea, vomiting Genitourinary: Denies: hematuria Musculoskeletal: Denies: back pain Neurological: Denies: headache Hematological/Lymphatic: Denies: easy bleeding Past Medical History - Past Medical History Medical history: Reports: COPD, DVT, hepatitis, hypertension, renal disease, other Surgical history: Reports: hip replacement, transplant Psychiatric history: Reports: anxiety, depression, previous psychiatric hospitalization, other - Social History Smoking Status: Current every day smoker Smokeless Tobacco Status: No Alcohol use: Reports: none Drug use: Reports: cocaine, marijuana Physical Exam - General Limitations: no limitations General appearance: alert, in no apparent distress Course - Reevaluation(s) Reevaluation #1: Received patient in signout from the department in ED attending Maximo ARANDA and Titus Sood. Patient signed out at 2300. For ACS CHF. Patient's troponin was negative his B and P was 2025 chest x-ray shows increased markings discussed case with hospitalist Dr. MARRERO. Patient accepted for admission in stable condition Time: 00:04 Vital Signs Temperature 97.9 F 01/18/18 21:38 Pulse Rate 120 01/18/18 21:38 Respiratory Rate 26 01/18/18 21:38 Blood Pressure 123/114 01/18/18 21:38 O2 Sat by Pulse Oximetry 96 01/18/18 21:38 Temperature 97.9 F 01/18/18 21:38 Pulse Rate 113 01/18/18 22:59 Respiratory Rate 16 01/18/18 22:59 Blood Pressure 118/102 01/18/18 22:59 O2 Sat by Pulse Oximetry 97 01/18/18 22:59 Oxygen Delivery Oxygen Delivery Nasal Cannula Medical Decision Making - Lab Data Result diagrams: 01/18/18 21:49 01/18/18 21:49 Lab Results 01/18/18 01/18/18 01/18/18 Range/Units 21:49 21:49 21:49 WBC 9.6 (4.3-11.1) K/mcL RBC 4.61 (4.19-5.50) M/mcL Hgb 11.2 L (12.9-16.9) g/dL Hct 37.4 L (37.5-50.1) % MCV 81.1 L (83.0-100.0) fL MCH 24.3 L (28.0-33.3) pg MCHC 29.9 L (31.6-35.5) g/dL RDW 18.1 H (11.5-14.5) % Plt Count 216 (140-400) K/mcL MPV 9.2 L (9.4-12.4) fL Immature Gran % 0.5 (0-4) % Seg Neutrophils % 86.7 % Lymphocytes % 6.9 % Monocytes % 5.6 % Eosinophils % 0.2 % Basophils % 0.1 % Neutrophils # 8.4 (1.6-8.9) K/mcL Lymphocytes # 0.7 (0.6-4.6) K/mcL Monocytes # 0.5 (0.0-1.3) K/mcL Eosinophils # 0.0 (0.0-0.6) K/mcL Basophils # 0.0 (0.0-0.2) K/mcL PT 45.6 H* (9.4-12.1) Seconds INR 4.0 APTT 63.4 H (26.0-36.0) Seconds Sodium (136-145) mEq/L Potassium (3.5-5.1) mEq/L Chloride (98-107) mEq/L Carbon Dioxide (23-29) mEq/L BUN (6-20) mg/dL Creatinine (0.70-1.30) mg/dL Est GFR ( Amer) (> 60) Est GFR (Non-Af Amer) (> 60) BUN/Creatinine Ratio (6-26) Glucose (70-105) mg/dL Calculated Osmolality (280-300) Calcium (8.6-10.3) mg/dL Total Bilirubin (0.3-1.0) mg/dL Direct Bilirubin (0.0-0.2) mg/dL Indirect Bilirubin (0.0-1.2) mg/dL AST (13-39) Units/L ALT (7-52) Units/L Alkaline Phosphatase (34-104) Units/L Troponin I (< 0.04) ng/mL B-Natriuretic Peptide 2025 H (Less than 100) pg/mL Serum Total Protein (6.4-8.9) g/dL Albumin (3.5-5.7) g/dL Globulin (2.4-3.5) g/dL Albumin/Globulin Ratio (1.1-2.2) 01/18/18 Range/Units 21:49 WBC (4.3-11.1) K/mcL RBC (4.19-5.50) M/mcL Hgb (12.9-16.9) g/dL Hct (37.5-50.1) % MCV (83.0-100.0) fL MCH (28.0-33.3) pg MCHC (31.6-35.5) g/dL RDW (11.5-14.5) % Plt Count (140-400) K/mcL MPV (9.4-12.4) fL Immature Gran % (0-4) % Seg Neutrophils % % Lymphocytes % % Monocytes % % Eosinophils % % Basophils % % Neutrophils # (1.6-8.9) K/mcL Lymphocytes # (0.6-4.6) K/mcL Monocytes # (0.0-1.3) K/mcL Eosinophils # (0.0-0.6) K/mcL Basophils # (0.0-0.2) K/mcL PT (9.4-12.1) Seconds INR APTT (26.0-36.0) Seconds Sodium 140 (136-145) mEq/L Potassium 3.7 (3.5-5.1) mEq/L Chloride 107 (98-107) mEq/L Carbon Dioxide 23 (23-29) mEq/L BUN 25 H (6-20) mg/dL Creatinine 1.19 (0.70-1.30) mg/dL Est GFR ( Amer) > 60 (> 60) Est GFR (Non-Af Amer) > 60 (> 60) BUN/Creatinine Ratio 21 (6-26) Glucose 114 H (70-105) mg/dL Calculated Osmolality 295 (280-300) Calcium 9.6 (8.6-10.3) mg/dL Total Bilirubin 0.6 (0.3-1.0) mg/dL Direct Bilirubin 0.2 (0.0-0.2) mg/dL Indirect Bilirubin 0.4 (0.0-1.2) mg/dL AST 18 (13-39) Units/L ALT 12 (7-52) Units/L Alkaline Phosphatase 97 (34-104) Units/L Troponin I 0.05 H* (< 0.04) ng/mL B-Natriuretic Peptide (Less than 100) pg/mL Serum Total Protein 7.2 (6.4-8.9) g/dL Albumin 3.5 (3.5-5.7) g/dL Globulin 3.7 H (2.4-3.5) g/dL Albumin/Globulin Ratio 0.9 L (1.1-2.2)
[2018-01-19] MEDS ORDERED: Naloxone 0.4 MG/ML INJ IVP PRN ×2 (01:04→04:14)
[2018-01-19] MEDS ORDERED: *HR* Metoprolol 5 MG/5 ML VIAL IVP PRN (01:10)
[2018-01-19] MEDS ORDERED: Furosemide 40 MG/4 ML VIAL IVP ONE (01:13)
[2018-01-19] MEDS ORDERED: Ipratropium/Albuterol Neb 3 ML IH ONE (01:13)
[2018-01-19] MEDS ORDERED: Nitroglycerin 0.4 MG TAB.SUBL SL PRN (01:13)
[2018-01-19] MEDS ORDERED: Nitroglycerin 0.4 MG TAB.SUBL SL ONE (01:20)
[2018-01-19] MEDS ORDERED: *HR* LORazepam 2 MG/ML VIAL IVP ONE (01:53)
--- NOTE | 2018-01-19 02:06 | Internal Med History&Physical ---
Date of Encounter: 01/19/18 Time of Encounter: 02:00 Internal Medicine - H&P: HPI Chief complaint: Shortness of breath, chest pain Admitted From: Home (Shortness of breath) Plans for Post Hospital Care: Home History of present illness: Mr. Campbell is a 57 year old male with medical history of atrial fibrillation, CHF reduced ejection fraction, cardiomyopathy, mitral regurgitation, COPD, history of renal transplant, chronic hepatitis C, hypertension, his showed deep venous thromboses on anticoagulation. The patient also has multiple psychiatric diagnoses including anxiety disorder, pression, previous psychiatric hospitalization. He also has history of illicit drug use and drug abuse. Patient was seen and evaluated in the emergency room, he was dyspneic on evaluation, tripoding, able to complete his sentences, and also very anxious. Chest examination revealed diffuse coarse crackles up to the neck. Associated JVD. The patient reports having had a short of shortness of breath for the past week , he reports no leg swelling, he reports chest pain started on the afternoon prior to presentation, said to have lasted about 20 minutes, substernal, nonradiating, and not associated with dizziness or diaphoresis. He denied nausea, vomiting, diarrhea, change in bowel habits, no hematemesis, or hematochezia. In the emergency room, workup revealed supratherapeutic INR of fall, tachycardia with atrial fibrillation and rapid ventricular response, increased vascular markings on chest x-ray, BNP elevated 2024, anemia is stable at baseline, kidney function is stable at this time. Liver Function tests is unremarkable. The patient is also hypoxic and is not previously on home oxygen. Patient will be admitted inpatient for management of acute on chronic heart failure, acute hypoxic respiratory failure, COPD exacerbation. He remains high- risk mechanical intubation. The patient is full code Past Med Surg Social Fam HX - Past Medical History Medical history: CHF, COPD, DVT, hepatitis, hypertension, renal disease, other Additional medical history: Last DVT 2008 Psychiatric history: anxiety, depression, previous psychiatric hospitalization, other - Past Surgical History Surgical History: hip replacement, transplant Additional surgical history: Kidney transplant, left hip replacement - Social History Smoking Status: Current every day smoker Smokeless Tobacco Status: No Alcohol use: none Drug use: cocaine, marijuana - Family History Father Living Status: Hx Family Cardiac Disorders: Yes ([place]) Mother Adopted: No Family Member Ethnicity: Non- Living Status: Hx Family Cardiac Disorders: Yes ([place]) Hx Family Respiratory Disorders: Yes (asthma) Hx Family Cancer: No Hx Family GI Disorders: No Hx Family Endocrine Disorder: No Hx Family Neuromuscular Disorders: No Hx Family Neurologic Disorders: No Hx Family HEENT Disorders: No Hx Family Autoimmune Disorders: No Internal Medicine - H&P: Meds Duloxetine HCl [Cymbalta] 60 mg PO 0900,1700 07/13/15 [History] Mycophenolate Mofetil [Cellcept] 500 mg PO BID 12/14/15 [History] ARIPiprazole [Abilify] 15 mg PO DAILY 12/25/16 [History] Albuterol Sulfate [Ventolin Hfa] 2 puff IH Q4H PRN 12/25/16 [History] Budesonide/Formoterol 160/4.5 [Symbicort 160/4.5] 2 puff IH BID 12/25/16 [ History] Buspirone HCl [Buspar] 10 mg PO TID 12/25/16 [History] Trazodone HCl 100 - 300 mg PO HS 12/25/16 [History] predniSONE [PredniSONE] 10 mg PO DAILY 12/25/16 [History] Rivaroxaban [Xarelto] 20 mg PO DAILY 10/23/17 [History] amLODIPine [Norvasc] 5 mg PO DAILY 11/17/17 [History] Furosemide [Lasix] 40 mg PO DAILY tablet 11/18/17 [Rx] Aspirin 81 mg PO DAILY tab.chew 01/06/18 [Rx] Atorvastatin [Lipitor] 40 mg PO HS 4 Days #4 tablet 01/06/18 [Rx] Metoprolol XL (24 HR) Succ [Toprol Xl] 12.5 mg PO DAILY 4 Days #4 tab.er.24h [Rx] clonazePAM [Klonopin] 0.5 mg PO BID 4 Days #8 tablet 01/06/18 [Rx] Ascorbic Acid [Vitamin C] 1 tab PO DAILY #30 tablet 01/13/18 [Rx] Ferrous Sulfate [Iron] 1 tab PO DAILY #30 tablet 01/13/18 [Rx] 3 Allergy/AdvReac Type Severity Reaction Status Date / Time codeine AdvReac Nausea Verified 01/13/18 13:17 All Systems PM: A 10-system review of systems was performed and is negative for pertinent findings except as documented above in the HPI. - Constitutional Constitutional: no chills, no fever(s), no night sweats - EENT Eyes: no change in vision, no discharge, no pain, no photophobia Ears: no ear discharge, no ear pain, no tinnitus Nose, mouth and throat: no dysphagia, no nasal discharge, no neck pain, no sore throat - Cardiovascular Cardiovascular ROS IM: as per HPI - Respiratory Respiratory: as per HPI - Gastrointestinal Gastrointestinal: as per HPI - Genitourinary Genitourinary ROS male: as per HPI - Musculoskeletal Musculoskeletal ROS IM: no numbness, no tingling - Integumentary Integumentary IM: no rash, no unusual bruising - Neurological Neurological ROS: no confusion, no convulsions, no focal weakness, no numbness, no tingling, no tremor(s) - Hematologic/Lymphatic Hematologic/Lymphatic: no easy bruising - Constitutional Vitals: Temp Pulse Resp BP Pulse Ox 97.9 F 113 24 118/102 92 01/18/18 21:38 01/18/18 22:59 01/19/18 01:32 01/18/18 22:59 01/19/18 01:32 General appearance: Present: cachectic, A&O X 3, severe distress - Head Head exam: Present: atraumatic, normocephalic - Eye Eye exam: Present: PERRL, conjuntiva pink. Absent: scleral icterus - Neck Neck exam general surgery: Present: normal inspection - Respiratory Additional comments: diffuse widespread bilateral coarse crackles up to the neck - Cardiovascular Cardiovascular exam: Present: irregular rhythm, +S1, +S2, tachycardia. Absent: diastolic murmur, gallop, rubs, systolic murmur - GI/Abdominal GI/Abdominal exam: Present: normal bowel sounds, soft, no peritoneal signs. Absent: distended, tenderness - Extremities Exam Additional comments: Chronic venostasis changes trace bilateral pitting pedal edema - Neurological Exam Neurological exam: Present: alert, CN II-XII intact, oriented X3, no focal deficits. Absent: pronater drift, facial droop, speech deficit - Skin Skin exam: Present: dry Internal Med - H&P Results - Labs CBC & Chem 7: 01/18/18 21:49 01/18/18 21:49 - Assessment and plan (1) Acute respiratory failure with hypoxia Current Visit: Yes Status: Acute Assessment and plan: Patient with shortness of breath, in moderate to severe respiratory distress on evaluation, BNP 2024, history of CHF with cardiomyopathy EF estimated to be 31% on the last stress tests, Patient to be placed on BiPAP encouraged to keep BiPAP on, resume home on the anxiety meds, IV for now Very high risk for progression to worsening respiratory failure and invasive ventilation He is full code (2) A-fib Current Visit: Yes Status: Chronic Assessment and plan: Continue home dose of Toprol IV metoprolol 2.5 mg every 6 when necessary heart rate greater than 110 Adjust by mouth metoprolol as needed and as tolerated by blood pressure. Qualifiers: Atrial fibrillation type: chronic Qualified Code(s): I48.2 - Chronic atrial fibrillation (3) Acute exacerbation of CHF (congestive heart failure) Current Visit: Yes Status: Acute Assessment and plan: TTE 11/2017 EF reduced 40-45%. Global dysfunction, moderate-severe MR Stress test done 12/2017 shows infarct, no ischemia No intervention by cardiology at that time due to patient's history of renal transplant and no chest pain symptoms. Presents in acute on chronic CHF, with elevated troponin of 2.05, no EKG findings of ischemia. BNP 2024 Received 40 mg Lasix IV in the ER, give additional 40 to make 80 mg stat 40 mg IV twice a day Lasix Strict intake and output Daily weights Fluid restriction NIPPV for respiratory distress Qualifiers: Heart failure type: combined systolic and diastolic Qualified Code(s): I50.9 - Heart failure, unspecified (4) Acute exacerbation of chronic obstructive airways disease Current Visit: Yes Status: Acute Assessment and plan: Solu-Medrol, duo nebs every 4 hours, No current indication for antibiotics as the patient has no cough or phlegm production. Placed on BiPAP. (5) Anxiety disorder Current Visit: Yes Status: Chronic Assessment and plan: IV Ativan q8hr when necessary till home medications confirmed. Qualifiers: Anxiety disorder type: unspecified anxiety disorder Qualified Code(s): F41.9 - Anxiety disorder, unspecified (6) Cardiomyopathy Current Visit: Yes Status: Chronic Assessment and plan: as in CHF add low dose ACEI Qualifiers: Cardiomyopathy type: unspecified Qualified Code(s): I42.9 - Cardiomyopathy , unspecified (7) Chest pain Current Visit: Yes Status: Acute Assessment and plan: trop 0.05 cycle trops cardiology eval from last admission showed stress test with evidence of infarct but no ischemia, no intervention by cardiology due to patient being a kidney transplant patient. Cardiology will be consulted again this time due to presence of chest pain and patient in acute CHF exacerbation. Qualifiers: Chest pain type: unspecified Qualified Code(s): R07.9 - Chest pain, unspecified (8) DVT prophylaxis Current Visit: Yes Status: Acute Assessment and plan: SCDs, INR supratherapeutic (9) Elevated INR Current Visit: Yes Status: Acute (10) History of DVT (deep vein thrombosis) Current Visit: Yes Status: Chronic Assessment and plan: Hold xarelto. INR 4.0. Monitor INR daily. Goal INR is 2-3 (11) History of kidney transplant Current Visit: Yes Status: Chronic Assessment and plan: on prednisone chronically, on solumedrol for COPDE Resume prednisone upon discharge (12) Hypertension Current Visit: Yes Status: Chronic Assessment and plan: Continue beta blockers, MARTÍN inhibitor, Lasix. Qualifiers: Hypertension type: essential hypertension Qualified Code(s): I10 - Essential (primary) hypertension (13) Mitral regurgitation Current Visit: Yes Status: Chronic Assessment and plan: Management as in CHF. Qualifiers: Cardiac valve disease etiology: etiology unspecified Qualified Code(s): I34.0 - Nonrheumatic mitral (valve) insufficiency - Time Spent With Patient Total time spent is greater than 50% in coordination of care (as documented) at patient's floor/unit and/or counseling patient:
[2018-01-19] MEDS ORDERED: Lacri-Lube 3.5 GM TUBE BOTH EYES PRN (04:14)
--- NOTE | 2018-01-19 04:27 | Procedure Note ---
Date of procedure: 01/19/18 Pre-op diagnosis: Acute respiratory failure Post-op diagnosis: same Procedure: A time-out was not completed due to emergency intubation. The patient was placed in a flat position. Sedation was obtained using Versed 5mg, and additionally with Etomidate 20mg. The patient was easily ventilated using an ambu bag. The MAC 3 BLADE was used and inserted into the oropharynx at which time there was a Grade 1 view of the vocal cords. A 7.5-british endotracheal tube was inserted and visualized going through the vocal cords. The stylette was removed. Colorimetric change was visualized on the CO2 meter. Breath sounds were heard in both lung fraser equally. The endotracheal tube was placed at 23 cm, measured at the lip. Attending Dr. Yanes was present for the entire procedure. The patient tolerated the procedure well and there were no complications. A chest x-ray was ordered to assess for pneumothorax and verify endotracheal tube placement. ITS Impressions Chest X-Ray 01/19/18 04:14 IMPRESSION: Endotracheal tube and orogastric tube are in adequate position. Pulmonary vascular congestion. Worsening right perihilar and right basilar airspace opacities, which may reflect worsening edema. D/ / Bayron Nino MD / Bayron Nino MD Interpreting Provider: Bayron Nino MD Anesthesia: IV sedation Surgeon: Fahad Ford Was there an assistant district attorney present: Yes Mash Grinder: Azam Yanes Estimated blood loss (cc): 0 Specimen: N/A Pathology: none sent Condition: critical Disposition: ICU
[2018-01-19 04:46] LABS: Basophils % 0.1 %
[2018-01-19 04:47] LABS: Hematocrit 46.3 % (37.5-50.1); Immature Granulocytes % 0.9 % (0-4); Lymphocytes % 1.5 %; Mean Corpuscular HGB Conc 28.1 g/dL (31.6-35.5); Mean Corpuscular Hemoglobin 23.4 pg (28.0-33.3); Mean Corpuscular Volume 83.3 fL (83.0-100.0); Mean Platelet Volume 9.4 fL (9.4-12.4); Monocytes # 1.2 K/mcL (0.0-1.3); Monocytes % 5.2 %; Neutrophils # 21.3 K/mcL (1.6-8.9); Nucleated Red Blood Cells 0.1 /100 WBC (0); Platelet Count 298 K/mcL (140-400); Red Blood Count 5.56 M/mcL (4.19-5.50); Red Cell Distribution Width 19.7 % (11.5-14.5); Segmented Neutrophils % 92.3 %
[2018-01-19 04:56] LABS: Activated Partial Thrombo Time 54.2 Seconds (26.0-36.0)
[2018-01-19 05:01] LABS: Prothrombin Time 54.1 Seconds (9.4-12.1)
[2018-01-19 05:02] LABS: INR 4.8
[2018-01-19 05:07] LABS: BUN/Creatinine Ratio 20 (6-26); Blood Urea Nitrogen 28 mg/dL (6-20); Calcium 9.5 mg/dL (8.6-10.3); Carbon Dioxide 15 mEq/L (23-29); Chloride 106 mEq/L (98-107); Glucose 176 mg/dL (70-105); Osmolality,Calculated 294 (280-300); Sodium 137 mEq/L (136-145); eGFR For African Americans > 60 (> 60); eGFR For Non-African Americans 51 (> 60)
[2018-01-19] MEDS: Ipratropium/Albuterol Neb 3 ML IH SCH ×6 (05:08→23:44)
[2018-01-19 05:12] LABS: Troponin I 0.05 ng/mL (< 0.04)
[2018-01-19] MEDS: FentaNYL (PF) 1,000 MCG in 0.9 % Sodium Chloride 80 ML IVC SCH ×2 (05:14→13:30)
[2018-01-19 05:18] LABS: Lymphocytes # 0.4 K/mcL (0.6-4.6)
[2018-01-19 05:19] LABS: Anisocytosis 2+ (Not Present); Hypochromasia Present (Not Present); Microcytosis Present (Not Present); Platelet Estimate Normal (Normal)
[2018-01-19] MEDS: MethylPREDNISolone 40 MG/ML VIAL IVP SCH ×3 (06:30→18:26)
[2018-01-19 07:56] LABS: ABG Base Excess -8 mEq/L (-2 to 3); ABG HCO3 16 mEq/L (21-27); ABG Oxygen Saturation 97 % (95-98); ABG PCO2 30 mmHg (35-45); ABG PH 7.35 pH Units (7.32-7.45); ABG PO2 99 mmHg (85-104); ABG TCO2 17 mEq/L (20-26); Blood Gas Respiration Rate 12; Blood Gas VT 550 cc
--- NOTE | 2018-01-19 07:57 | Pulmonology Consult Note ---
<Jorje Pollard M - Last Filed: 01/19/18 13:07> Date of Encounter: 01/19/18 Medications and Allergies Duloxetine HCl [Cymbalta] 60 mg PO 0900,1700 07/13/15 [History] Mycophenolate Mofetil [Cellcept] 500 mg PO BID 12/14/15 [History] ARIPiprazole [Abilify] 15 mg PO DAILY 12/25/16 [History] Albuterol Sulfate [Ventolin Hfa] 2 puff IH Q4H PRN 12/25/16 [History] Budesonide/Formoterol 160/4.5 [Symbicort 160/4.5] 2 puff IH BID 12/25/16 [ History] Buspirone HCl [Buspar] 10 mg PO TID 12/25/16 [History] predniSONE [PredniSONE] 10 mg PO DAILY 12/25/16 [History] Rivaroxaban [Xarelto] 20 mg PO DAILY 10/23/17 [History] amLODIPine [Norvasc] 5 mg PO DAILY 11/17/17 [History] Furosemide [Lasix] 40 mg PO DAILY tablet 11/18/17 [Rx] Metoprolol XL (24 HR) Succ [Toprol Xl] 12.5 mg PO DAILY 4 Days #4 tab.er.24h [Rx] clonazePAM [Klonopin] 0.5 mg PO BID 4 Days #8 tablet 01/06/18 [Rx] Ascorbic Acid [Vitamin C] 1 tab PO DAILY #30 tablet 01/13/18 [Rx] Ferrous Sulfate [Iron] 325 mg PO DAILY 01/19/18 [History] Lanolin Alcohol/Mo/W.pet/Gardiner [Eucerin Creme] 1 appl TP DAILY 01/19/18 [History ] 3 Allergy/AdvReac Type Severity Reaction Status Date / Time codeine AdvReac Nausea Verified 01/13/18 13:17 All Systems: The remainder of the systems were reviewed and are negative Physical Examination Vital Signs: Vital Signs, Last 4 Hours Temp Pulse Resp BP Pulse Ox 01/19/18 08:00 121 19 137/95 96 01/19/18 07:39 41 96 01/19/18 07:00 97.4 F L 110 16 150/121 97 Ventilator Settings Ventilator Settings: Ventilator Settings, Last 8 Hours Ventilator Tidal Volume 550 Setting Ventilator Tidal Volume 550 Setting Ventilator Tidal Volume 480 Setting Ventilator Tidal Volume 480 Setting Ventilator Tidal Volume 480 Setting Ventilator Respiratory Rate 12 Setting Ventilator Respiratory Rate 12 Setting Ventilator Respiratory Rate 16 Setting Ventilator Respiratory Rate 16 Setting Ventilator Respiratory Rate 16 Setting Actual Respiratory Rate 20 Actual Respiratory Rate 12 Actual Respiratory Rate 17 Actual Respiratory Rate 42 Actual Respiratory Rate 40 Actual Respiratory Rate 29 Positive End Expiratory 5 Pressure Positive End Expiratory 5 Pressure Positive End Expiratory 5 Pressure Positive End Expiratory 5 Pressure Positive End Expiratory 5 Pressure Positive End Expiratory 5 Pressure Peak Inspiratory Airway 40 Pressure Peak Inspiratory Airway 30 Pressure Peak Inspiratory Airway 40 Pressure Peak Inspiratory Airway 25 Pressure Peak Inspiratory Airway 32 Pressure Results - Laboratory Findings CBC and BMP: 01/19/18 04:37 01/19/18 04:37 ABG ABG pH 7.35 pH Units (7.32-7.45) 01/19/18 07:52 ABG pCO2 30 mmHg (35-45) L 01/19/18 07:52 ABG pO2 99 mmHg (85-104) 01/19/18 07:52 ABG O2 Saturation 97 % (95-98) 01/19/18 07:52 PT/INR, D-dimer PT 54.1 Seconds (9.4-12.1) H* 01/19/18 04:37 Abnormal lab findings: Abnormal lab results WBC 23.1 K/mcL (4.3-11.1) H D 01/19/18 04:37 RBC 5.56 M/mcL (4.19-5.50) H 01/19/18 04:37 MCH 23.4 pg (28.0-33.3) L 01/19/18 04:37 MCHC 28.1 g/dL (31.6-35.5) L 01/19/18 04:37 RDW 19.7 % (11.5-14.5) H 01/19/18 04:37 Neutrophils # 21.3 K/mcL (1.6-8.9) H 01/19/18 04:37 Lymphocytes # 0.4 K/mcL (0.6-4.6) L 01/19/18 04:37 Nucleated RBCs/100 WBC 0.1 /100 WBC (0) H 01/19/18 04:37 Hypochromasia Present (Not Present) A 01/19/18 04:37 Anisocytosis 2+ (Not Present) A 01/19/18 04:37 Microcytosis Present (Not Present) A 01/19/18 04:37 PT 54.1 Seconds (9.4-12.1) H* 01/19/18 04:37 INR 4.8 H* 01/19/18 04:37 APTT 54.2 Seconds (26.0-36.0) H 01/19/18 04:37 ABG pCO2 30 mmHg (35-45) L 01/19/18 07:52 ABG HCO3 16 mEq/L (21-27) L 01/19/18 07:52 ABG Total CO2 17 mEq/L (20-26) L 01/19/18 07:52 ABG Base Excess -8 mEq/L (-2 to 3) L 01/19/18 07:52 Carbon Dioxide 15 mEq/L (23-29) L 01/19/18 04:37 BUN 28 mg/dL (6-20) H 01/19/18 04:37 Creatinine 1.42 mg/dL (0.70-1.30) H 01/19/18 04:37 Est GFR (Non-Af Amer) 51 (> 60) L 01/19/18 04:37 Glucose 176 mg/dL (70-105) H 01/19/18 04:37 POC Glucose 181 mg/dL (70-99) H 01/19/18 07:19 Troponin I 0.05 ng/mL (< 0.04) H* 01/19/18 04:37 B-Natriuretic Peptide 2025 pg/mL (Less than 100) H 01/18/18 21:49 Globulin 3.7 g/dL (2.4-3.5) H 01/18/18 21:49 Albumin/Globulin Ratio 0.9 (1.1-2.2) L 01/18/18 21:49 - Clinical Findings Intake & Output: Intake & Output 01/18/18 01/19/18 01/19/18 23:59 07:59 15:59 Intake Total Output Total 200 / 200 Balance -189 / -189 Weight 77.7 kg Consult Discharge Plan - Plan Referrals: NONE,PCP [Primary Care Provider] - - Attending Attestation I examined this patient and my medical decision-making was reviewed with the Resident Physician. I agree with the documented findings, disposition and treatment plan as described except to the extent set forth below. Patient seen and examined. Labs, radiology, chart personally reviewed. Agree with resident's history and physical, assessment, plan with following comments: APPLICATION COORDINATOR: Patient does not follows commands, will change sedation from Versed to propofol. Pulmonary: Acceptable oxygenation and ventilation, however there is significant intrinsic PEEP which I suspect is interfering with hemodynamics and I have changed vent setting and there is some improvement and intrinsic PEEP and continue sedation as well as treatment of COPD exacerbation. Cardiovascular: Relatively stable, however he has potential for deterioration and there is evidence of chronic changes in the lower extremities and will check BONIFACIO and if necessary will need consultation from vascular. GI: Nutrition per dietary and GI prophylaxis per routine Heme: DVT prophylaxis per routine ID: Continue antibiotics and plan to de-escalation Renal; urine out put and renal funtion reviewed Endorcine: blood glucose is monitored Lines: all lines checked and no evidence of infections Skin: skin care to prevent pressure ulcers per nursing routine care I spent 40 min of Critical Care time with this patient. It involved decision making of high complexity to assess, manipulate, and support vital organ system failure and/or to prevent further life threatening deterioration of the patient' s condition. The time involved in the performance of separately reportable procedures was not counted toward critical care time. <Neymra Guy - Last Filed: 01/19/18 14:51> Date of Encounter: 01/19/18 Time of Encounter: 07:57 Assessment and Plan (1) Acute respiratory failure with hypoxia Current Visit: Yes Status: Acute Patient presented in acute respiratory distress he did have worsening tachypnea while on BiPAP so patient was intubated and placed on the ventilator. Patient was sedated with Versed and fentanyl. We will discontinue the Versed and change to propofol and fentanyl. Patient does have history of COPD. He is not on oxygen at home. Patient most likely has pneumonia based on chest x-ray showing multifocal consolidations and possible effusions. Patient does not see a sales program coordinator regular. Patient needs to continue on the vent. We will get daily ABGs and change that sending ABGresults. Continue sedation daily Mcdaniel of 3. (2) Pneumonia Current Visit: No Status: Resolved Patient most likely has multifocal pneumonia this is most likely hospital- acquired as patient was not a fpc and it admitted approximate one month ago. Chest x-ray did show possible multifocal pneumonia and pleural effusions. Blood cultures pending Started on Zosyn, Levaquin, vancomycin Respiratory panel, Legionella, strep pneumonia, sputum culture pending Qualifiers: Pneumonia type: due to unspecified organism Laterality: right Lung location: lower lobe of lung Qualified Code(s): J18.1 - Lobar pneumonia, unspecified organism (3) Urethritis Current Visit: Yes Status: Acute when examining patient a green discharg patient is sedated to her unable to assess for sexual history. This most likely is going to be an STD, gonorrhea or chlamydia so we will prophylactically treat him with one time dose of ceftriaxone and azithromycin. (4) Acute exacerbation of chronic obstructive airways disease Current Visit: Yes Status: Acute Patient does have history of COPD. Patient is getting steroids every 6 hours. Also getting scheduled duo nebs. Patient is on the ventilator on proper ventilator settings. (5) A-fib Current Visit: Yes Status: Chronic Patient does have chronic history of A. fib. Patient is supratherapeutic on INRs there is no need for any anticoagulation at this time. We will continue to monitor. Qualifiers: Atrial fibrillation type: chronic Qualified Code(s): I48.2 - Chronic atrial fibrillation (6) Elevated INR Current Visit: Yes Status: Acute Patient does have L elevated INR greater than 4. We will hold patient's anticoagulation get him back to a more therapeutic level. (7) Diabetes mellitus Current Visit: Yes Status: Acute We will E patient of diabetes we will start him on low-dose sliding scale insulin. Qualifiers: Diabetes mellitus type: type 2 Diabetes mellitus senior living insulin use: unspecified senior living insulin use status Diabetes mellitus complication status : with unspecified complications Qualified Code(s): E11.8 - Type 2 diabetes mellitus with unspecified complications (8) Diminished pulses in lower extremity Current Visit: Yes Status: Acute On exam we noticed patient had decreased pulses in the right side there were pulses in the left side. Patient's right leg was mildly mottled. This seems to be a chronic vascular disease. ABIs ordered If positive we will get vascular consult (9) DVT prophylaxis Current Visit: Yes Status: Acute Supratherapeutic INR no DVT prophylaxis needed History of Present Illness Consult date: 01/19/18 Requesting physician: Azam Yanes Reason for consult: hypoxemia Chief complaint: Difficulty in breathing History of present illness: Mr. Campbell is a 57-year-old male with medical history of atrial fibrillation, CHF reduced ejection fraction, cardiomyopathy, mitral regurgitation, COPD, history of renal transplant, chronic hepatitis C, hypertension, DVT on anticoagulation he is on Eloquis. Patient does have history of drug use and drug abuse. In the emergency department he was dyspneic tripoding and unable to complete his sentences. Patient did have a supratherapeutic INR of greater than 4. He was tachycardic in A. fib with RVR. He is also hypoxic but is not on previously home oxygen. Patient did have he saturations with a respiratory of 40-50 while on BiPAP so patient was intubated by the hospitalist team at approximately 0 350. Chest x-ray did Confirm proper positioning. Patient was then admitted and transferred to the ICU. Past Med Surg Social Fam HX - Past Medical History Medical history: CHF, COPD, DVT, hepatitis, hypertension, renal disease, other Additional medical history: Last DVT 2008 Psychiatric history: anxiety, depression, previous psychiatric hospitalization, other - Past Surgical History Surgical History: hip replacement, transplant Additional surgical history: Kidney transplant, left hip replacement - Social History Smoking Status: Current every day smoker Smokeless Tobacco Status: No Alcohol use: none Drug use: cocaine, marijuana - Family History Father Living Status: Hx Family Cardiac Disorders: Yes ([place]) Mother Adopted: No Family Member Ethnicity: Non- Living Status: Hx Family Cardiac Disorders: Yes ([place]) Hx Family Respiratory Disorders: Yes (asthma) Hx Family Cancer: No Hx Family GI Disorders: No Hx Family Endocrine Disorder: No Hx Family Neuromuscular Disorders: No Hx Family Neurologic Disorders: No Hx Family HEENT Disorders: No Hx Family Autoimmune Disorders: No ROS unobtainable: due to endotracheal tube, due to mental status All Systems: The remainder of the systems were reviewed and are negative Physical Examination Vital Signs: Vital Signs, Last 4 Hours Temp Pulse Resp BP Pulse Ox 01/19/18 07:39 41 96 01/19/18 05:09 41 138/115 96 01/19/18 04:56 113 33 138/115 94 01/19/18 04:34 29 01/19/18 04:29 97.2 F L 01/19/18 04:10 97.2 F L 112 25 145/116 96 General appearance: no acute distress, other (Somnolent on a ventilator sedated. ) Eyes: nonicteric ENT: oropharynx moist Neck: supple Effort: normal Inspection: normal Auscultation: bilateral: rales Cardiovascular: regular rate and rhythm Gastrointestinal: normoactive bowel sounds, soft, non-tender, non-distended, other (When evaluating patient's . There was noticeable green discharge coming from the tip of the penis. Patient also had extensive anal warts.) Integumentary: normal Extremities: no cyanosis, no edema, no clubbing, other (Patient's right leg is pulseless and blue.) Musculoskeletal: no deformities, ROM normal non-focal exam, pupils equal and round, motor strength normal and symmetric Ventilator Settings Ventilator Settings: Ventilator Settings, Last 8 Hours Ventilator Tidal Volume 550 Setting Ventilator Tidal Volume 480 Setting Ventilator Tidal Volume 480 Setting Ventilator Tidal Volume 480 Setting Ventilator Respiratory Rate 12 Setting Ventilator Respiratory Rate 16 Setting Ventilator Respiratory Rate 16 Setting Ventilator Respiratory Rate 16 Setting Actual Respiratory Rate 12 Actual Respiratory Rate 42 Actual Respiratory Rate 40 Actual Respiratory Rate 29 Positive End Expiratory 5 Pressure Positive End Expiratory 5 Pressure Positive End Expiratory 5 Pressure Positive End Expiratory 5 Pressure Peak Inspiratory Airway 30 Pressure Peak Inspiratory Airway 25 Pressure Peak Inspiratory Airway 32 Pressure Results - Laboratory Findings CBC and BMP: 01/19/18 04:37 01/19/18 04:37 ABG ABG pH 7.35 pH Units (7.32-7.45) 01/19/18 07:52 ABG pCO2 30 mmHg (35-45) L 01/19/18 07:52 ABG pO2 99 mmHg (85-104) 01/19/18 07:52 ABG O2 Saturation 97 % (95-98) 01/19/18 07:52 PT/INR, D-dimer PT 54.1 Seconds (9.4-12.1) H* 01/19/18 04:37 Abnormal lab findings: Abnormal lab results WBC 23.1 K/mcL (4.3-11.1) H D 01/19/18 04:37 RBC 5.56 M/mcL (4.19-5.50) H 01/19/18 04:37 MCH 23.4 pg (28.0-33.3) L 01/19/18 04:37 MCHC 28.1 g/dL (31.6-35.5) L 01/19/18 04:37 RDW 19.7 % (11.5-14.5) H 01/19/18 04:37 Neutrophils # 21.3 K/mcL (1.6-8.9) H 01/19/18 04:37 Lymphocytes # 0.4 K/mcL (0.6-4.6) L 01/19/18 04:37 Nucleated RBCs/100 WBC 0.1 /100 WBC (0) H 01/19/18 04:37 Hypochromasia Present (Not Present) A 01/19/18 04:37 Anisocytosis 2+ (Not Present) A 01/19/18 04:37 Microcytosis Present (Not Present) A 01/19/18 04:37 PT 54.1 Seconds (9.4-12.1) H* 01/19/18 04:37 INR 4.8 H* 01/19/18 04:37 APTT 54.2 Seconds (26.0-36.0) H 01/19/18 04:37 ABG pCO2 30 mmHg (35-45) L 01/19/18 07:52 ABG HCO3 16 mEq/L (21-27) L 01/19/18 07:52 ABG Total CO2 17 mEq/L (20-26) L 01/19/18 07:52 ABG Base Excess -8 mEq/L (-2 to 3) L 01/19/18 07:52 Carbon Dioxide 15 mEq/L (23-29) L 01/19/18 04:37 BUN 28 mg/dL (6-20) H 01/19/18 04:37 Creatinine 1.42 mg/dL (0.70-1.30) H 01/19/18 04:37 Est GFR (Non-Af Amer) 51 (> 60) L 01/19/18 04:37 Glucose 176 mg/dL (70-105) H 01/19/18 04:37 POC Glucose 181 mg/dL (70-99) H 01/19/18 07:19 Troponin I 0.05 ng/mL (< 0.04) H* 01/19/18 04:37 B-Natriuretic Peptide 2025 pg/mL (Less than 100) H 01/18/18 21:49 Globulin 3.7 g/dL (2.4-3.5) H 01/18/18 21:49 Albumin/Globulin Ratio 0.9 (1.1-2.2) L 01/18/18 21:49 - Diagnostic Findings Chest x-ray: report reviewed, image reviewed - Clinical Findings Intake & Output: Intake & Output 01/18/18 01/18/18 01/19/18 15:59 23:59 07:59 Intake Total Output Total 200 / 200 Balance -189 / -189 Weight 77.7 kg
[2018-01-19] MEDS ORDERED: *HR* Midazolam HCl 5 MG/5 ML VIAL IVP ONE (07:58)
[2018-01-19] MEDS ORDERED: *HR* Etomidate 20 MG/10 ML AMPUL IVP ONE (07:58)
[2018-01-19] MEDS ORDERED: D5% in Water 1,000 ML IVC PRN (08:06)
[2018-01-19] MEDS ORDERED: Dextrose Gel 15 GM/37.5 ML TUBE PO PRN ×2 (08:06)
[2018-01-19] MEDS: Budesonide/Formoterol 160/4.5 MDI IH SCH ×2 (08:16→19:32)
[2018-01-19] MEDS: Chlorhexidine Rinse 15 ML MOUTHWASH MM SCH ×2 (08:27→20:51)
[2018-01-19] MEDS: Aspirin 81 MG TAB.CHEW PO SCH (08:28)
[2018-01-19] MEDS: Metoprolol XL (24 HR) Succ 25 MG TAB.ER.24H PO SCH (08:28)
[2018-01-19] MEDS: Pantoprazole 40 MG VIAL IVP SCH (08:28)
[2018-01-19] MEDS: Lacri-Lube 3.5 GM TUBE BOTH EYES SCH ×4 (08:28→20:51)
[2018-01-19] MEDS: Furosemide 40 MG TABLET PO SCH ×2 (08:29→18:27)
[2018-01-19] MEDS ORDERED: predniSONE 20 MG TABLET PO SCH (09:00)
[2018-01-19] MEDS ORDERED: *HR* LORazepam 2 MG/ML VIAL IVP PRN (09:00)
[2018-01-19] MEDS: Insulin LISPRO 300 UNITS/3 ML VIAL SQ SCH ×2 (12:04→18:39)
--- NOTE | 2018-01-19 13:07 | Cardiology Consult Note ---
Addendum entered and electronically signed by Britton Lorenz CNP 01/19/18 13:39: (5) A-Fib RVR A-Fib RVR in setting of acute respiratory failure. HR 110s at bedside. Continue BB. Anticoagulated on Xarelto. INR supratherapeutic. Original Note: <Britton Lorenz - Last Filed: 01/19/18 13:28> Date of Encounter: 01/19/18 Time of Encounter: 13:03 Assessment and Plan (5) Cardiomyopathy Current Visit: Yes Status: Chronic EF 11/2017 40-45%. Underwent stress test 12/2017, negative for ischemia. Did show evidence of prior infarct with no known previous CAD hx. Continue BB and ACEi as renal function tolerates. Qualifiers: Cardiomyopathy type: unspecified Qualified Code(s): I42.9 - Cardiomyopathy , unspecified (6) Acute exacerbation of CHF (congestive heart failure) Current Visit: Yes Status: Acute Known EF 40-45%. BNP 2024, presented with worsening dyspnea. Acute respiratory failure, currently intubated. Per pulmonary team, treating for COPD exacerbation as well. Currently on increased PO dose of Lasix--PO 40mg BID. Will discuss with Dr. An on whether to continue with PO or IV. Recommend strict I/Os, Na and fluid restriction, daily weights. Continue to follow. Qualifiers: Heart failure type: systolic Qualified Code(s): I50.23 - Acute on chronic systolic (congestive) heart failure (7) Mitral regurgitation Current Visit: Yes Status: Chronic Moderate-severe MR on TTE 11/2017. Diurese as necessary. Qualifiers: Cardiac valve disease etiology: etiology unspecified Qualified Code(s): I34.0 - Nonrheumatic mitral (valve) insufficiency (8) Elevated troponin Current Visit: Yes Status: Acute Troponin borderline 0.05 x 2 in setting of acute respiratory failure/CHF/COPD. Suspect demand ischemia, nondiagnostic for ACS. Discussion w patient/family: The assessment and plan as outlined above was discussed with the patient and/or family members who expressed understanding and agreement. All questions were answered. Thank you for involving us in the care of your patient. Please call with any questions. I will discuss all the above with Dr. An and make changes as necessary. History of Present Illness Consult date: 01/19/18 Consult reason: CHF exacerbation, chest pain History of present illness: Mr. 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 Pt is currently sedated and intubated. All info obtained from H&P. Pt reportedly dyspneic on evaluation, tripoding, able to complete his sentences, very anxious. He was noted to have crackles and JVD on presentation. Reportedly shortness of breath for the past week and then chest pain started on the afternoon prior to presentation, said to have lasted about 20 minutes, substernal, nonradiating, and not associated with dizziness or diaphoresis. In ED, had increased vascular markings on chest x-ray, BNP elevated 2024, anemia at baseline. He was hypoxic and not previously on home oxygen. During recent hospital stay, pt underwent stress test for new CMP. Negative for ischemia, evidence of prior infarct. Troponin 0.05 x 2. Prior CV testing: Regadenoson Nuclear Stress 01/05/18 Impression: No perfusion evidence for ischemia. Severe intensity fixed perfusion defect involving the basal to mid lateral wall associated with abnormal wall motion. Findings consistent with infarct. Pharmacologic stress ECG is negative for ischemia at level of heart rate achieved. No appreciable change from baseline ECG. Frequent PACs noted during testing. Gated EF = 31%. The left ventricle is dilated. TTE 11/17/17: LVEF 40-45%. Normal LV chamber size and wall thickness. Global left ventricular systolic dysfunction. Indeterminate diastolic function. Normal right ventricular structure and function. Moderate-severe mitral regurgitation. Mild tricuspid regurgitation. Severe pulmonary hypertension. Past Med Surg Social Fam HX - Past Medical History Medical history: atrial fibrillation, cardiomyopathy, CHF, COPD, DVT, hepatitis , hypertension, renal disease, other Additional medical history: Last DVT 2008 Psychiatric history: anxiety, depression, previous psychiatric hospitalization, other - Past Surgical History Surgical History: hip replacement, transplant Additional surgical history: Kidney transplant, left hip replacement - Social History Smoking Status: Current every day smoker Smokeless Tobacco Status: No Alcohol use: none Drug use: cocaine, marijuana - Family History Father Living Status: Hx Family Cardiac Disorders: Yes (OR) Mother Adopted: No Family Member Ethnicity: Non- Living Status: Hx Family Cardiac Disorders: Yes (OR) Hx Family Respiratory Disorders: Yes (asthma) Hx Family Cancer: No Hx Family GI Disorders: No Hx Family Endocrine Disorder: No Hx Family Neuromuscular Disorders: No Hx Family Neurologic Disorders: No Hx Family HEENT Disorders: No Hx Family Autoimmune Disorders: No Medications and Allergies Duloxetine HCl [Cymbalta] 60 mg PO 0900,1700 07/13/15 [History] Mycophenolate Mofetil [Cellcept] 500 mg PO BID 12/14/15 [History] ARIPiprazole [Abilify] 15 mg PO DAILY 12/25/16 [History] Albuterol Sulfate [Ventolin Hfa] 2 puff IH Q4H PRN 12/25/16 [History] Budesonide/Formoterol 160/4.5 [Symbicort 160/4.5] 2 puff IH BID 12/25/16 [ History] Buspirone HCl [Buspar] 10 mg PO TID 12/25/16 [History] predniSONE [PredniSONE] 10 mg PO DAILY 12/25/16 [History] Rivaroxaban [Xarelto] 20 mg PO DAILY 10/23/17 [History] amLODIPine [Norvasc] 5 mg PO DAILY 11/17/17 [History] Furosemide [Lasix] 40 mg PO DAILY tablet 11/18/17 [Rx] Metoprolol XL (24 HR) Succ [Toprol Xl] 12.5 mg PO DAILY 4 Days #4 tab.er.24h [Rx] clonazePAM [Klonopin] 0.5 mg PO BID 4 Days #8 tablet 01/06/18 [Rx] Ascorbic Acid [Vitamin C] 1 tab PO DAILY #30 tablet 01/13/18 [Rx] Ferrous Sulfate [Iron] 325 mg PO DAILY 01/19/18 [History] Lanolin Alcohol/Mo/W.pet/[place] [Eucerin Creme] 1 appl TP DAILY 01/19/18 [History ] 3 Allergy/AdvReac Type Severity Reaction Status Date / Time codeine AdvReac Nausea Verified 01/13/18 13:17 ROS unobtainable: due to endotracheal tube All Systems Review: The remainder of the systems were reviewed and are negative Physical Examination Vital Signs, Last 4 Hours Temp Pulse Resp BP Pulse Ox 01/19/18 12:00 119 01/19/18 11:22 98.3 F 01/19/18 11:17 15 137/91 97 01/19/18 11:00 98.3 F 114 16 106/80 98 01/19/18 10:00 114 15 122/77 97 Vital Signs Temp Pulse Resp BP Pulse Ox 01/19/18 12:00 119 01/19/18 11:22 98.3 F 01/19/18 11:17 15 137/91 97 01/19/18 11:00 98.3 F 114 16 106/80 98 01/19/18 10:00 114 15 122/77 97 01/19/18 09:00 114 15 122/77 97 01/19/18 08:00 119 19 137/95 96 01/19/18 07:39 41 96 01/19/18 07:00 97.4 F L 110 16 150/121 97 01/19/18 05:09 41 138/115 96 01/19/18 04:56 113 33 138/115 94 01/19/18 04:34 29 01/19/18 04:29 97.2 F L 01/19/18 04:10 97.2 F L 112 25 145/116 96 01/19/18 03:00 136 52 177/50 85 01/19/18 02:08 20 149/124 01/19/18 02:00 39 100 01/19/18 01:32 24 92 01/19/18 00:12 89 01/18/18 22:59 113 16 118/102 97 01/18/18 21:43 96 01/18/18 21:38 97.9 F 120 26 123/114 96 Intake and Output 01/18/18 01/19/18 01/19/18 23:59 07:59 15:59 Intake Total Output Total 200 / 200 150 / 150 Balance -189 / -189 -150 / -150 Intake: IV Fluids FentaNYL (PF) 1,000 MCG In 0.9 % Sodium Chloride 80 ML @ 50 MCG/HR 5 mls/hr IVC CONT [facility] Rx #:[id number] Output: Catheter 200 / 200 150 / 150 Urethral (Watters) 200 / 200 Other: Weight 72.121 kg 77.7 kg Blood Glucose* 181 219 Patient Weight 01/19/18 23:59 Weight 77.7 kg General: Other (intubated) HEENT: Atraumatic, Normocephaly, Mucus Membranes Moist Neck: Normal carotid pulses Cardiac: Other (irregularly irregular) Lungs: Other (crackles) Neuro: Other (sedated and intubated) Abdomen: Soft, Non-Tender Skin: No rashes noted on visualized skin Musculoskeletal: No Chest Wall Tenderness Extremities: No Clubbing, No Cyanosis, No Edema, Normal Pulses Results 01/19/18 04:37 01/19/18 04:37 Lab Results 01/19/18 01/19/18 01/19/18 04:37 04:37 04:37 WBC 23.1 H D Hgb 13.0 D Hct 46.3 Plt Count 298 INR 4.8 H* APTT 54.2 H Sodium 137 Potassium 4.0 Chloride 106 Carbon Dioxide 15 L BUN 28 H Creatinine 1.42 H Glucose 176 H Calcium 9.5 Troponin I 0.05 H* Short CBC 01/19/18 01/18/18 Range/Units 04:37 21:49 WBC 23.1 H D 9.6 (4.3-11.1) K/mcL Hgb 13.0 D 11.2 L (12.9-16.9) g/dL Hct 46.3 37.4 L (37.5-50.1) % Plt Count 298 216 (140-400) K/mcL Neutrophils # 21.3 H 8.4 (1.6-8.9) K/mcL BMP 01/19/18 01/18/18 Range/Units 04:37 21:49 Sodium 137 140 (136-145) mEq/L Potassium 4.0 3.7 (3.5-5.1) mEq/L Chloride 106 107 (98-107) mEq/L Carbon Dioxide 15 L 23 (23-29) mEq/L BUN 28 H 25 H (6-20) mg/dL Creatinine 1.42 H 1.19 (0.70-1.30) mg/dL Glucose 176 H 114 H (70-105) mg/dL Calcium 9.5 9.6 (8.6-10.3) mg/dL Cardiac Enzymes 01/19/18 01/18/18 Range/Units 04:37 21:49 Troponin I 0.05 H* 0.05 H* (< 0.04) ng/mL Liver Function 01/18/18 Range/Units 21:49 Total Bilirubin 0.6 (0.3-1.0) mg/dL Direct Bilirubin 0.2 (0.0-0.2) mg/dL AST 18 (13-39) Units/L ALT 12 (7-52) Units/L Alkaline Phosphatase 97 (34-104) Units/L Albumin 3.5 (3.5-5.7) g/dL Impressions Chest X-Ray 01/18/18 21:35 IMPRESSION: Stable chest. Cardiomegaly with no overt failure. Stable dependent left basilar atelectasis. D/ / Fahad Amaral MD / Fahad Amaral MD Interpreting Provider: Fahad Amaral MD Chest X-Ray 01/19/18 04:14 IMPRESSION: Endotracheal tube and orogastric tube are in adequate position. Pulmonary vascular congestion. Worsening right perihilar and right basilar airspace opacities, which may reflect worsening edema. D/ / 01/19/2018 07:44:09 Bayron Nino MD / [facility] Interpreting Provider: Bayron Nino MD Active Medications Albuterol Sulfate (Albuterol Inhaler) 2 puff IH [id number] [facility] Stop: 07/21/18 04:16 Last Admin: 01/19/18 11:16 Dose: Not Given Albuterol/Ipratropium (Duoneb) 3 ml IH [id number] [facility] Stop: 07/21/18 04:01 Last Admin: 01/19/18 11:15 Dose: 3 ml Artificial Tears (Lacri-Lube) 1 appl BOTH EYES Q4HR [facility] PRN Reason: Protocol Stop: 07/21/18 08:01 Last Admin: 01/19/18 12:04 Dose: 1 appl Artificial Tears (Lacri-Lube) 1 appl BOTH EYES Q2HR PRN; Protocol PRN Reason: Dry Eyes Stop: 07/21/18 04:15 Aspirin (Aspirin) 81 mg PO DAILY [facility] Stop: 07/21/18 09:01 Last Admin: 01/19/18 08:28 Dose: 81 mg Atorvastatin Calcium (Lipitor) 40 mg PO HS [facility] Stop: 07/21/18 21:01 Budesonide/Formoterol Fumarate (Symbicort) 2 puff IH BIDR [facility] PRN Reason: Protocol Stop: 07/21/18 10:01 Last Admin: 01/19/18 08:16 Dose: 2 puff Chlorhexidine Gluconate (Chlorhexidine Rinse) 15 ml MM BID [facility] Stop: 07/21/18 09:01 Last Admin: 01/19/18 08:27 Dose: 15 ml Dextrose/Water (Dextrose 50% (Syg)) 25 ml IVP AD PRN PRN Reason: Hypoglycemia Stop: 07/21/18 08:07 Furosemide (Lasix) 40 mg PO BIDDIURETIC [facility] Stop: 07/21/18 08:01 Last Admin: 01/19/18 08:29 Dose: 40 mg Glucagon (Glucagen) 1 mg IM ONCE PRN PRN Reason: Hypoglycemia Stop: 07/21/18 08:07 Glucose (Gluctose) 15 gm PO ONCE PRN PRN Reason: Hypoglycemia Stop: 07/21/18 08:07 Glucose (Gluctose) 30 gm PO ONCE PRN PRN Reason: Hypoglycemia Stop: 07/21/18 08:07 Fentanyl Citrate 1,000 mcg/ (Sodium Chloride) 100 mls @ 5 mls/hr IVC CONT [facility]; 50 MCG/HR PRN Reason: Protocol Stop: 07/21/18 04:16 Last Titration: 01/19/18 06:31 Dose: 100 mcg/hr, 10 mls/hr Propofol (Diprivan) 1,000 mg in 100 mls @ 2.105 mls/hr IVC .Q24H [facility]; 5 MCG/KG/ MIN PRN Reason: Protocol Stop: 07/21/18 07:01 Last Admin: 01/19/18 08:28 Dose: 5 mcg/kg/min, 2.105 mls/hr Dextrose (Dextrose 5%) 1,000 mls @ 100 mls/hr IVC .Q10H PRN PRN Reason: HYPOGLYCEMIA Stop: 07/21/18 08:07 Levofloxacin/Dextrose (Levaquin Premix 750mg/150 Ml) 750 mg in 150 mls @ 100 mls/hr IVPB DAILY [facility] PRN Reason: Protocol Stop: 07/22/18 09:01 Vancomycin HCl 1,250 mg/ (Sodium Chloride) 250 mls @ 167 mls/hr IVPB RPHPROT [facility] PRN Reason: Protocol Stop: 07/21/18 13:01 Insulin Human Lispro (Humalog) 0 units SQ Q6HR [facility] PRN Reason: Protocol Stop: 07/21/18 12:01 Last Admin: 01/19/18 12:04 Dose: 4 units Lisinopril (Zestril) 2.5 mg PO DAILY [facility] PRN Reason: Protocol Stop: 07/21/18 09:01 Last Admin: 01/19/18 08:29 Dose: 2.5 mg Lorazepam (Ativan) 0.5 mg IVP Q8HR PRN PRN Reason: Anxiety Stop: 07/21/18 09:01 Methylprednisolone (Solu-Medrol) 40 mg IVP Q6HR [facility] Stop: 07/21/18 06:01 Last Admin: 01/19/18 12:04 Dose: 40 mg Metoprolol Succinate (Toprol Xl) 12.5 mg PO DAILY [facility] Stop: 07/21/18 09:01 Last Admin: 01/19/18 08:28 Dose: 12.5 mg Metoprolol Tartrate (Lopressor) 2.5 mg IVP Q6HR PRN PRN Reason: HR >110, inform MD Stop: 07/21/18 01:11 Naloxone HCl (Narcan) 0.4 mg IVP Q2MIN PRN PRN Reason: SEE COMMENTS Stop: 07/21/18 04:15 Nitroglycerin (Nitroglycerin) 0.4 mg SL Q5MIN PRN PRN Reason: Chest Pain Stop: 07/21/18 01:14 Pantoprazole Sodium (Protonix) 40 mg IVP DAILY [facility] Stop: 07/21/18 09:01 Last Admin: 01/19/18 08:28 Dose: 40 mg - Imaging and Cardiology Stress Test: report reviewed Echo: report reviewed - EKG Interpretation EKG results cardiology: personally reviewed (A-Fib, rate 97), other (12 hr tele AVG HR 115, A-Fib) Consult Discharge Plan - Plan Referrals: NONE,PCP [Primary Care Provider] - <Kush An - Last Filed: 01/21/18 16:17> Date of Encounter: 01/21/18 - Attending Attestation I have personally performed a face to face evaluation on this patient. I have reviewed and agree with the care plan. History and Exam by me shows: 57 YOM with multiple comorbidities septic with respiratory failure currently intubated on vent. Afib RVR on EKG on amiodarone after failed x3 CVE's Mild CHF with pneumonia Stress test recently negative ECHO EF 45% Conservative management until cleared to have ischemic eval Continue amiodarone/heparin Assessment and Plan Discussion w patient/family: The assessment and plan as outlined above was discussed with the patient and/or family members who expressed understanding and agreement. All questions were answered. Thank you for involving us in the care of your patient. Please call with any questions. History of Present Illness History of present illness: Mr. Campbell is a 57 year old male All Systems Review: The remainder of the systems were reviewed and are negative Physical Examination Vital Signs, Last 4 Hours Temp Pulse Resp BP Pulse Ox 01/21/18 15:00 92 11 109/77 98 01/21/18 14:00 103 11 105/79 97 01/21/18 13:09 10 91/53 98 01/21/18 13:00 94 11 98/84 97 01/21/18 12:23 99.6 F Results 01/21/18 03:50 01/21/18 03:50 Lab Results 01/20/18 01/20/18 01/21/18 22:00 22:00 03:50 WBC 16.8 H 18.5 H Hgb 12.9 12.6 L Hct 42.8 42.4 Plt Count 274 241 INR 3.8 Sodium Potassium Chloride Carbon Dioxide BUN Creatinine Glucose Calcium 01/21/18 03:50 WBC Hgb Hct Plt Count INR Sodium 129 L Potassium 5.0 Chloride 98 Carbon Dioxide 16 L BUN 70 H Creatinine 2.35 H Glucose 327 H Calcium 7.9 L
[2018-01-19] MEDS ORDERED: Azithromycin 250 MG TABLET PO ONE (14:28)
[2018-01-19] MEDS ORDERED: cefTRIAXone 250 MG VIAL IM ONE (14:28)
[2018-01-19] MEDS ORDERED: Levofloxacin 750 MG/150 ML 750 MG/150 ML BAG IVPB SCH (15:00)
[2018-01-19 17:17] LABS: Adenovirus Not Detected (Not Detect); Bordetella Pertussis Not Detected (Not Detect); Chlamydophila pneumoniae Not Detected (Not Detect); Coronavirus 229E Not Detected (Not Detect); Coronavirus HKU1 Not Detected (Not Detect); Coronavirus NL63 Not Detected (Not Detect); Coronavirus OC43 Not Detected (Not Detect); Human Metapneumovirus Not Detected (Not Detect); Human Rhinovirus/Enterovirus Not Detected (Not Detect); Influenza A Subtype 2009 H1 Not Detected (Not Detect); Influenza A Untypeable Not Detected (Not Detect); Influenza B Not Detected (Not Detect); Mycoplasma pneumoniae Not Detected (Not Detect); Parainfluenza Virus 1 Not Detected (Not Detect); Parainfluenza Virus 2 Not Detected (Not Detect); Parainfluenza Virus 3 Not Detected (Not Detect); Parainfluenza Virus 4 Not Detected (Not Detect); Respiratory Syncytial Virus Not Detected (Not Detect)
[2018-01-19] MEDS: Piperacillin/Tazobactam 3.375 GM in 0.9 % Sodium Chloride Mini Bag 100 ML IVPB SCH (18:27)
--- NOTE | 2018-01-19 19:07 | Electrocardiograph Report ---
[place] [id number] Test Date: 2018-01-18 Pat Name: Fahad Campbell Department: 102 Room: 10 Gender: M Guest Relation Officer: Has : 1960 Requested By: Titus Herrmann Order Number: [id number] Reading MD: Uriel Magana Measurements Intervals [place] Rate: 97 P: MN: 0 QRS: -30 QRSD: 107 T: 74 QT: 365 QTc: 420 Interpretive Statements ATRIAL FIBRILLATION W PVC OR ABERRANT CONDUCTION BORDERLINE LEFT AXIS DEVIATION INCOMPLETE RIGHT BUNDLE BRANCH BLOCK Electronically Signed On 01-19-2018 19:06:29 EDT by Uriel Magana
[2018-01-20] MEDS: Piperacillin/Tazobactam 3.375 GM in 0.9 % Sodium Chloride Mini Bag 100 ML IVPB SCH ×3 (00:11→18:18)
[2018-01-20] MEDS: MethylPREDNISolone 40 MG/ML VIAL IVP SCH ×4 (00:11→17:35)
[2018-01-20] MEDS: Insulin LISPRO 300 UNITS/3 ML VIAL SQ SCH ×4 (00:12→18:15)
[2018-01-20] MEDS: Lacri-Lube 3.5 GM TUBE BOTH EYES SCH ×6 (00:13→19:31)
[2018-01-20] MEDS ORDERED: Acetaminophen IV 1,000 MG/100 ML INFUS..BTL IVPB ONE (00:14)
[2018-01-20] MEDS: FentaNYL (PF) 1,000 MCG in 0.9 % Sodium Chloride 80 ML IVC SCH ×3 (00:15→23:00)
[2018-01-20 01:00] LABS: Basophils % 0.1 %; Hematocrit 46.6 % (37.5-50.1); Immature Granulocytes % 0.4 % (0-4); Lymphocytes # 0.4 K/mcL (0.6-4.6); Lymphocytes % 1.5 %; Mean Corpuscular Hemoglobin 24.6 pg (28.0-33.3); Mean Corpuscular Volume 81.9 fL (83.0-100.0); Mean Platelet Volume 9.7 fL (9.4-12.4); Monocytes # 1.2 K/mcL (0.0-1.3); Nucleated Red Blood Cells 0.3 /100 WBC (0); Platelet Count 320 K/mcL (140-400); Red Blood Count 5.69 M/mcL (4.19-5.50); Red Cell Distribution Width 19.5 % (11.5-14.5)
[2018-01-20 01:18] LABS: Calcium 9.6 mg/dL (8.6-10.3); Potassium 5.1 mEq/L (3.5-5.1)
[2018-01-20 01:20] LABS: Platelet Estimate Normal (Normal)
[2018-01-20 01:21] LABS: Anisocytosis 1+ (Not Present); Polychromasia 1+ (Not Present)
[2018-01-20] MEDS: Ipratropium/Albuterol Neb 3 ML IH SCH ×6 (03:46→23:34)
[2018-01-20 05:39] LABS: ABG Base Excess -6 mEq/L (-2 to 3); ABG HCO3 19 mEq/L (21-27); ABG Oxygen Saturation 87 % (95-98); ABG PCO2 36 mmHg (35-45); ABG PH 7.33 pH Units (7.32-7.45); ABG PO2 56 mmHg (85-104); ABG TCO2 20 mEq/L (20-26); Blood Gas Modality VC; Blood Gas Respiration Rate 12; Blood Gas VT 550 cc
[2018-01-20] MEDS: Acetaminophen IV 1,000 MG/100 ML INFUS..BTL IVPB SCH ×3 (05:51→19:46)
[2018-01-20] MEDS: Budesonide/Formoterol 160/4.5 MDI IH SCH ×2 (07:53→19:50)
[2018-01-20] MEDS ORDERED: Albumin 25% 25gram/100mL 25 GM/100 ML IV.SOLN IVPB ONE (08:06)
--- NOTE | 2018-01-20 08:29 | Pulmonology Progress Note ---
<LatriceGeminimichael M - Last Filed: 01/20/18 17:19> Date of Encounter: 01/20/18 Objective PUL Vital signs: Last Vital Signs Temp 102.6 F H 01/20/18 11:00 Pulse 122 01/20/18 12:00 Resp 11 01/20/18 12:00 BP 81/33 01/20/18 12:00 Pulse Ox 97 01/20/18 12:00 Ventilator Settings Ventilator Settings: Ventilator Settings, Last 8 Hours Ventilator Tidal Volume 600 Setting Ventilator Tidal Volume 600 Setting Ventilator Tidal Volume 600 Setting Ventilator Tidal Volume 550 Setting Ventilator Tidal Volume 550 Setting Ventilator Tidal Volume 550 Setting Ventilator Tidal Volume 550 Setting Ventilator Tidal Volume 550 Setting Ventilator Tidal Volume 550 Setting Ventilator Tidal Volume 550 Setting Ventilator Tidal Volume 550 Setting Ventilator Respiratory Rate 10 Setting Ventilator Respiratory Rate 8 Setting Ventilator Respiratory Rate 8 Setting Ventilator Respiratory Rate 12 Setting Ventilator Respiratory Rate 12 Setting Ventilator Respiratory Rate 12 Setting Ventilator Respiratory Rate 12 Setting Ventilator Respiratory Rate 12 Setting Ventilator Respiratory Rate 12 Setting Ventilator Respiratory Rate 12 Setting Ventilator Respiratory Rate 12 Setting Actual Respiratory Rate 10 Actual Respiratory Rate 8 Actual Respiratory Rate 8 Actual Respiratory Rate 16 Actual Respiratory Rate 15 Actual Respiratory Rate 21 Actual Respiratory Rate 16 Actual Respiratory Rate 16 Actual Respiratory Rate 17 Actual Respiratory Rate 12 Actual Respiratory Rate 14 Positive End Expiratory 5 Pressure Positive End Expiratory 5 Pressure Positive End Expiratory 5 Pressure Positive End Expiratory 5 Pressure Positive End Expiratory 5 Pressure Positive End Expiratory 5 Pressure Positive End Expiratory 5 Pressure Positive End Expiratory 5 Pressure Positive End Expiratory 5 Pressure Positive End Expiratory 5 Pressure Positive End Expiratory 5 Pressure Peak Inspiratory Airway 42 Pressure Peak Inspiratory Airway 34 Pressure Peak Inspiratory Airway 9 Pressure Peak Inspiratory Airway 7 Pressure Peak Inspiratory Airway 17 Pressure Peak Inspiratory Airway 24 Pressure Peak Inspiratory Airway 27 Pressure Results - Laboratory Findings CBC and BMP: 01/20/18 00:41 01/20/18 00:41 ABG ABG pH 7.33 pH Units (7.32-7.45) 01/20/18 05:36 ABG pCO2 36 mmHg (35-45) 01/20/18 05:36 ABG pO2 56 mmHg (85-104) L 01/20/18 05:36 ABG O2 Saturation 87 % (95-98) L 01/20/18 05:36 PT/INR, D-dimer PT 54.1 Seconds (9.4-12.1) H* 01/19/18 04:37 Abnormal lab findings: Abnormal lab results WBC 24.7 K/mcL (4.3-11.1) H 01/20/18 00:41 RBC 5.69 M/mcL (4.19-5.50) H 01/20/18 00:41 MCV 81.9 fL (83.0-100.0) L 01/20/18 00:41 MCH 24.6 pg (28.0-33.3) L 01/20/18 00:41 MCHC 30.0 g/dL (31.6-35.5) L 01/20/18 00:41 RDW 19.5 % (11.5-14.5) H 01/20/18 00:41 Neutrophils # 23.0 K/mcL (1.6-8.9) H 01/20/18 00:41 Lymphocytes # 0.4 K/mcL (0.6-4.6) L 01/20/18 00:41 Nucleated RBCs/100 WBC 0.3 /100 WBC (0) H 01/20/18 00:41 Polychromasia 1+ (Not Present) A 01/20/18 00:41 Hypochromasia Present (Not Present) A 01/19/18 04:37 Anisocytosis 1+ (Not Present) A 01/20/18 00:41 Microcytosis Present (Not Present) A 01/19/18 04:37 PT 54.1 Seconds (9.4-12.1) H* 01/19/18 04:37 INR 4.8 H* 01/19/18 04:37 APTT 54.2 Seconds (26.0-36.0) H 01/19/18 04:37 ABG pO2 56 mmHg (85-104) L 01/20/18 05:36 ABG HCO3 19 mEq/L (21-27) L 01/20/18 05:36 ABG O2 Saturation 87 % (95-98) L 01/20/18 05:36 ABG Base Excess -6 mEq/L (-2 to 3) L 01/20/18 05:36 Carbon Dioxide 18 mEq/L (23-29) L 01/20/18 00:41 BUN 47 mg/dL (6-20) H 01/20/18 00:41 Creatinine 1.67 mg/dL (0.70-1.30) H 01/20/18 00:41 Est GFR ( Amer) 51 (> 60) L 01/20/18 00:41 Est GFR (Non-Af Amer) 42 (> 60) L 01/20/18 00:41 BUN/Creatinine Ratio 28 (6-26) H 01/20/18 00:41 Glucose 115 mg/dL (70-105) H 01/20/18 00:41 POC Glucose 175 mg/dL (70-99) H 01/20/18 13:06 Troponin I 0.05 ng/mL (< 0.04) H* 01/19/18 04:37 B-Natriuretic Peptide 2025 pg/mL (Less than 100) H 01/18/18 21:49 Globulin 3.7 g/dL (2.4-3.5) H 01/18/18 21:49 Albumin/Globulin Ratio 0.9 (1.1-2.2) L 01/18/18 21:49 - Microbiology Findings Microbiology Findings: Microbiology, Last 48 Hours 01/19/18 16:40 Sputum Culture - Preliminary Sputum 01/20/18 00:40 Blood Culture - Preliminary Peripheral Venipuncture Culture is incubating and being continuously monitored for growth. Final report to follow. 01/20/18 00:40 Blood Culture - Preliminary Peripheral Venipuncture Culture is incubating and being continuously monitored for growth. Final report to follow. 01/19/18 15:15 Legionella Antigen - Final Urine,Catheterized Streptococcus pneumoniae Antigen (M - Final 01/19/18 13:23 Blood Culture - Preliminary Peripheral Venipuncture Culture is incubating and being continuously monitored for growth. Final report to follow. 01/19/18 13:23 Blood Culture - Preliminary Peripheral Venipuncture Culture is incubating and being continuously monitored for growth. Final report to follow. - Clinical Findings Intake & Output: Intake & Output 01/19/18 01/20/18 01/20/18 23:59 07:59 15:59 Intake Total 100 / 100 951 / 951 1775 / 1775 Output Total 550 / 550 200 / 200 350 / 350 Balance -450 / -450 751 / 751 1425 / 1425 Weight 73.5 kg Consult Discharge Plan - Plan Referrals: NONE,PCP [Primary Care Provider] - - Attending Attestation I examined this patient and my medical decision-making was reviewed with the Resident Physician. I agree with the documented findings, disposition and treatment plan as described except to the extent set forth below. Patient seen and examined. Labs, radiology, chart personally reviewed. Agree with resident's history and physical, assessment, plan with following comments: FORENSIC NURSE: Patient does not follows commands, patient is sedated for the vent synchrony and also had to give him vecuronium due to significant auto PEEP. Pulmonary: Patient still have significant intrinsic PEEP that is interfering with the hemodynamics and changed tidal volume and respiratory rate and also paralytic was given with some improvement. Cardiovascular: Hemodynamic instability which is multifactorial most likely from underlying sepsis and patient is in septic shock and also he has underlying atrial fibrillation and discussed with cardiology and agree with the plan of care. GI: Nutrition per dietary and GI prophylaxis per routine Heme: DVT prophylaxis per routine ID: Continue antibiotics and plan to de-escalation Renal; urine out put and renal funtion reviewed Endorcine: blood glucose is monitored Lines: all lines checked and no evidence of infections Skin: skin care to prevent pressure ulcers per nursing routine care Discussed with the patient and prognosis is poor and patient with high mortality rate. I spent 40 min of Critical Care time with this patient. It involved decision making of high complexity to assess, manipulate, and support vital organ system failure and/or to prevent further life threatening deterioration of the patient' s condition. The time involved in the performance of separately reportable procedures was not counted toward critical care time. <Neymar Guy - Last Filed: 01/20/18 18:07> Date of Encounter: 01/20/18 Time of Encounter: 08:34 Assessment and Plan (1) Sepsis Current Visit: Yes Status: Acute Patient does meet sepsis criteria most likely secondary to patient's pneumonia. Patient was tachycardic but he is also in A. fib with RVR. Patient also has a fever and a source of infection with the pneumonia. Patient was positive for strep pneumonia urine antigen. We will continue patient on broad-spectrum antibiotics including vancomycin, Zosyn, Levaquin. Day 2 Patient was mildly hypotensive we did give 25% albumin this did not change patient's blood pressure. This could have been all due to breath stacking so we did give patient vecuronium and patient's blood pressure did seem to go up after that. But it did not hold. At this time we decided to consult cardiology cardiology says patient is atrial fibrillation and if we do get them out of atrial fibrillation a could help with patient's blood pressure as he would not be is tachycardic. Spoke with cardiology and they are going to plan on starting heparin drip and trying possible electrocardioversion. We did order a factor X a as patient is on Xarelto severe unsure of his correct INR which was reading at 4.5. The factor X a came back normal at 0.61. We gave patient 2 L lactated Ringer's and will also start Levaquin fed to support patient's blood pressure. For this we will consider placing central venous catheter to give this. We did attempt to decrease patient's sedation but then he was too alert. So patient be changed Precedex which did seem to help minorly but is not working to its full extent. CVC in left groin placed for pressor access. Will order levophed and neosynephrin. Qualifiers: Sepsis type: Pneumococcus Qualified Code(s): A40.3 - Sepsis due to Streptococcus pneumoniae (2) Acute respiratory failure with hypoxia Current Visit: Yes Status: Acute Patient presented in acute respiratory distress he did have worsening tachypnea while on BiPAP so patient was intubated and placed on the ventilator. Patient was sedated with fentanyl, propofol, Precedex. We will discontinue the Versed and change to propofol and fentanyl. Patient does have history of COPD. He is not on oxygen at home. Patient most likely has pneumonia based on chest x-ray showing multifocal consolidations and possible effusions. Patient does not see a transportation engineering technician regular. Patient needs to continue on the vent. We will get daily ABGs and change that sending ABGresults. Continue sedation daily Mcdaniel of 3. (3) Pneumonia Current Visit: No Status: Resolved Patient does have pneumonia. Urine strep pneumoniae antigen was positive. Blood cultures and sputum cultures are still pending. Continue Zosyn, Levaquin, vancomycin Qualifiers: Pneumonia type: due to unspecified organism Laterality: right Lung location: lower lobe of lung Qualified Code(s): J18.1 - Lobar pneumonia, unspecified organism (4) Urethritis Current Visit: Yes Status: Acute when examining patient a green discharg patient is sedated to her unable to assess for sexual history. This most likely is going to be an STD, gonorrhea or chlamydia so we will prophylactically treat him with one time dose of ceftriaxone and azithromycin. (5) Acute exacerbation of chronic obstructive airways disease Current Visit: Yes Status: Acute Patient does have history of COPD. Patient is getting steroids every 6 hours. Also getting scheduled duo nebs. Patient is on the ventilator on proper ventilator settings. (6) A-fib Current Visit: Yes Status: Chronic Patient does have chronic history of A. fib. Patient is supratherapeutic on INRs there is no need for any anticoagulation at this time. We will continue to monitor. Cardiology is following the patient patient will be cardioverted her cardiology' s request we are going to start patient on heparin while we do this. Qualifiers: Atrial fibrillation type: chronic Qualified Code(s): I48.2 - Chronic atrial fibrillation (7) Elevated INR Current Visit: Yes Status: Acute Patient does have elevated INR we did order factor X a which came back normal as patient is on Xarelto. This patient's patient is probably not anticoagulated. We will start heparin to anticoagulate patient due to him being in A. fib (8) Diabetes mellitus Current Visit: Yes Status: Acute Will place patient on low-dose sliding insulin scale Qualifiers: Diabetes mellitus type: type 2 Diabetes mellitus halfway insulin use: unspecified halfway insulin use status Diabetes mellitus complication status : with unspecified complications Qualified Code(s): E11.8 - Type 2 diabetes mellitus with unspecified complications (9) Diminished pulses in lower extremity Current Visit: Yes Status: Acute On exam we noticed patient had decreased pulses in the right side there were pulses in the left side. Patient's right leg was mildly mottled. This seems to be a chronic vascular disease. ABIs negative vascular surgery not needed this is probably chronic. (10) DVT prophylaxis Current Visit: Yes Status: Acute We will now start patient on heparin drip. Subjective Principal diagnosis: Pneumonia Interval history: Patient had no acute or events overnight. Patient still on the ventilator. Patient's labs, imaging, chart were reviewed. Patient this morning did have a few episodes of hypotension. Patient was given his beta porsche as well as Lasix but is scheduled for him. This could have been what caused hypotension. Otherwise patient is still on sedation and on the ventilator. Were unable to get further history on how patient was doing. Objective PUL Vital signs: Last Vital Signs Temp 100.2 F H 01/20/18 04:00 Pulse 122 01/20/18 06:00 Resp 17 01/20/18 07:59 BP 87/41 01/20/18 07:59 Pulse Ox 98 01/20/18 07:59 General appearance: no acute distress, other (Somnolence sedated while still on the ventilator ) Eyes: nonicteric ENT: oropharynx moist Neck: supple Auscultation: bilateral: wheezes, rales Cardiovascular: regular rate and rhythm Gastrointestinal: normoactive bowel sounds, soft, non-tender, non-distended Integumentary: normal Extremities: no cyanosis, no edema, no clubbing Musculoskeletal: no deformities, ROM normal non-focal exam, pupils equal and round, motor strength normal and symmetric Ventilator Settings Ventilator Settings: Ventilator Settings, Last 8 Hours Ventilator Tidal Volume 550 Setting Ventilator Tidal Volume 550 Setting Ventilator Tidal Volume 550 Setting Ventilator Tidal Volume 550 Setting Ventilator Tidal Volume 550 Setting Ventilator Tidal Volume 550 Setting Ventilator Tidal Volume 550 Setting Ventilator Tidal Volume 550 Setting Ventilator Tidal Volume 550 Setting Ventilator Tidal Volume 550 Setting Ventilator Tidal Volume 550 Setting Ventilator Respiratory Rate 12 Setting Ventilator Respiratory Rate 12 Setting Ventilator Respiratory Rate 12 Setting Ventilator Respiratory Rate 12 Setting Ventilator Respiratory Rate 12 Setting Ventilator Respiratory Rate 12 Setting Ventilator Respiratory Rate 12 Setting Ventilator Respiratory Rate 12 Setting Ventilator Respiratory Rate 12 Setting Ventilator Respiratory Rate 12 Setting Ventilator Respiratory Rate 12 Setting Actual Respiratory Rate 16 Actual Respiratory Rate 12 Actual Respiratory Rate 14 Actual Respiratory Rate 14 Actual Respiratory Rate 15 Actual Respiratory Rate 16 Actual Respiratory Rate 25 Actual Respiratory Rate 15 Actual Respiratory Rate 13 Actual Respiratory Rate 16 Positive End Expiratory 5 Pressure Positive End Expiratory 5 Pressure Positive End Expiratory 5 Pressure Positive End Expiratory 5 Pressure Positive End Expiratory 5 Pressure Positive End Expiratory 5 Pressure Positive End Expiratory 5 Pressure Positive End Expiratory 5 Pressure Positive End Expiratory 5 Pressure Positive End Expiratory 5 Pressure Positive End Expiratory 5 Pressure Peak Inspiratory Airway 17 Pressure Peak Inspiratory Airway 24 Pressure Peak Inspiratory Airway 27 Pressure Peak Inspiratory Airway 24 Pressure Peak Inspiratory Airway 24 Pressure Peak Inspiratory Airway 10 Pressure Peak Inspiratory Airway 24 Pressure Peak Inspiratory Airway 24 Pressure Peak Inspiratory Airway 18 Pressure Peak Inspiratory Airway 24 Pressure Results - Laboratory Findings CBC and BMP: 01/20/18 00:41 01/20/18 00:41 ABG ABG pH 7.33 pH Units (7.32-7.45) 01/20/18 05:36 ABG pCO2 36 mmHg (35-45) 01/20/18 05:36 ABG pO2 56 mmHg (85-104) L 01/20/18 05:36 ABG O2 Saturation 87 % (95-98) L 01/20/18 05:36 PT/INR, D-dimer PT 54.1 Seconds (9.4-12.1) H* 01/19/18 04:37 Abnormal lab findings: Abnormal lab results WBC 24.7 K/mcL (4.3-11.1) H 01/20/18 00:41 RBC 5.69 M/mcL (4.19-5.50) H 01/20/18 00:41 MCV 81.9 fL (83.0-100.0) L 01/20/18 00:41 MCH 24.6 pg (28.0-33.3) L 01/20/18 00:41 MCHC 30.0 g/dL (31.6-35.5) L 01/20/18 00:41 RDW 19.5 % (11.5-14.5) H 01/20/18 00:41 Neutrophils # 23.0 K/mcL (1.6-8.9) H 01/20/18 00:41 Lymphocytes # 0.4 K/mcL (0.6-4.6) L 01/20/18 00:41 Nucleated RBCs/100 WBC 0.3 /100 WBC (0) H 01/20/18 00:41 Polychromasia 1+ (Not Present) A 01/20/18 00:41 Hypochromasia Present (Not Present) A 01/19/18 04:37 Anisocytosis 1+ (Not Present) A 01/20/18 00:41 Microcytosis Present (Not Present) A 01/19/18 04:37 PT 54.1 Seconds (9.4-12.1) H* 01/19/18 04:37 INR 4.8 H* 01/19/18 04:37 APTT 54.2 Seconds (26.0-36.0) H 01/19/18 04:37 ABG pO2 56 mmHg (85-104) L 01/20/18 05:36 ABG HCO3 19 mEq/L (21-27) L 01/20/18 05:36 ABG O2 Saturation 87 % (95-98) L 01/20/18 05:36 ABG Base Excess -6 mEq/L (-2 to 3) L 01/20/18 05:36 Carbon Dioxide 18 mEq/L (23-29) L 01/20/18 00:41 BUN 47 mg/dL (6-20) H 01/20/18 00:41 Creatinine 1.67 mg/dL (0.70-1.30) H 01/20/18 00:41 Est GFR ( Amer) 51 (> 60) L 01/20/18 00:41 Est GFR (Non-Af Amer) 42 (> 60) L 01/20/18 00:41 BUN/Creatinine Ratio 28 (6-26) H 01/20/18 00:41 Glucose 115 mg/dL (70-105) H 01/20/18 00:41 POC Glucose 129 mg/dL (70-99) H 01/20/18 05:49 Troponin I 0.05 ng/mL (< 0.04) H* 01/19/18 04:37 B-Natriuretic Peptide 2025 pg/mL (Less than 100) H 01/18/18 21:49 Globulin 3.7 g/dL (2.4-3.5) H 01/18/18 21:49 Albumin/Globulin Ratio 0.9 (1.1-2.2) L 01/18/18 21:49 - Microbiology Findings Microbiology Findings: Microbiology, Last 48 Hours 01/20/18 00:40 Blood Culture - Preliminary Peripheral Venipuncture Culture is incubating and being continuously monitored for growth. Final report to follow. 01/20/18 00:40 Blood Culture - Preliminary Peripheral Venipuncture Culture is incubating and being continuously monitored for growth. Final report to follow. 01/19/18 16:40 Sputum Culture - Preliminary Sputum 01/19/18 15:15 Legionella Antigen - Final Urine,Catheterized Streptococcus pneumoniae Antigen (M - Final 01/19/18 13:23 Blood Culture - Preliminary Peripheral Venipuncture Culture is incubating and being continuously monitored for growth. Final report to follow. 01/19/18 13:23 Blood Culture - Preliminary Peripheral Venipuncture Culture is incubating and being continuously monitored for growth. Final report to follow. - Clinical Findings Intake & Output: Intake & Output 01/19/18 01/20/18 01/20/18 23:59 07:59 15:59 Intake Total 100 / 100 951 / 951 Output Total 550 / 550 200 / 200 Balance -450 / -450 751 / 751 Weight 73.5 kg
[2018-01-20] MEDS: Pantoprazole 40 MG VIAL IVP SCH (09:04)
[2018-01-20] MEDS: Chlorhexidine Rinse 15 ML MOUTHWASH MM SCH ×2 (09:04→19:50)
[2018-01-20] MEDS: Levofloxacin 750 MG/150 ML 750 MG/150 ML BAG IVPB SCH (09:05)
[2018-01-20] MEDS: Metoprolol XL (24 HR) Succ 25 MG TAB.ER.24H PO SCH (09:05)
[2018-01-20] MEDS: Aspirin 81 MG TAB.CHEW PO SCH (09:06)
[2018-01-20] MEDS: Furosemide 40 MG TABLET PO SCH ×2 (09:06→17:35)
[2018-01-20] MEDS: Dexmedetomidine HCl 400 MCG/100 ML MLS IVC SCH ×2 (10:08→18:50)
[2018-01-20] MEDS ORDERED: Ringers Solution, Lactated 1,000 ML ONE (10:54)
[2018-01-20] MEDS ORDERED: Ringers Solution, Lactated 1,000 ML IVC ONE ×2 (10:54→14:45)
[2018-01-20] MEDS ORDERED: *HR* Vecuronium 10 MG VIAL IVP ONE (11:10)
[2018-01-20] MEDS ORDERED: *HR* Vecuronium 10 MG VIAL ONE (11:13)
[2018-01-20] MEDS ORDERED: *HR* Heparin 5,000 UNIT/ML VIAL IVP ONE (14:59)
[2018-01-20] MEDS ORDERED: *HR* Heparin 5,000 UNIT/ML VIAL IVP PRN ×2 (14:59)
[2018-01-20] MEDS: Norepinephrine 4 MG in D5% in Water 250 ML IVC SCH ×2 (15:30→18:28)
[2018-01-20] MEDS: Heparin 25,000 UNIT/500 ML D5W 25,000 UNIT/500 ML BAG IVC SCH (15:48)
[2018-01-20] MEDS ORDERED: Amiodarone Premix 360 MG/200 ML BAG IVC ONE (16:23)
--- NOTE | 2018-01-20 16:30 | Procedure Note ---
Date of procedure: 01/20/18 Pre-op diagnosis: Atrial fibrillation Post-op diagnosis: same Procedure: PROCEDURE: Direct current cardioversion. REASON FOR PROCEDURE: Atrial fibrillation. PROCEDURE IN DETAIL: Patient was sedated so the procedure was not able to be explained to the patient. Due to patient's critical status this was an emergent procedure. The patient had already a transesophageal echocardiogram showing no left atrial appendage thrombus or thrombus in the left atrium. There was spontaneous echocardiogram contrast noticed. The patient was on anticoagulation with heparin. Patient is being sedated with fentanyl and Precedex on the ventilator. The pads applied in the anterior and posterior approach. With synchronized biphasic waveform at 150 J, patient was still in atrial fibrillation. With think and is biphasic waveform at 200 J patient was shocked again. Again patient was in atrial fibrillation so a third shock with synchronized biphasic waveform at 200 J was done again patient was in atrial fibrillation. The patient had no immediate post-procedure complications. Patient was still in atrial fibrillation. At that time patient was started on amiodarone bolus and then a drip. IMPRESSION: UNSuccessful direct current cardioversion patient still being in atrial fibrillation. Patient is started on amiodarone drip as well as bolus. Anesthesia: IV sedation Surgeon: Neymar Guy Was there an planning assistant present: No Estimated blood loss (cc): 0 Specimen: None Pathology: none sent Condition: critical Disposition: ICU
[2018-01-20] MEDS ORDERED: Amiodarone Premix 150 MG/100 ML BAG IVPB ONE (16:48)
[2018-01-20] MEDS ORDERED: Albuterol 2.5 MG/3 ML NEBULIZER IH PRN (17:55)
--- NOTE | 2018-01-20 18:05 | Procedure Note ---
<Neymar Guy - Last Filed: 01/20/18 18:01> Date of procedure: 01/20/18 Pre-op diagnosis: Hypotension Post-op diagnosis: same Procedure: Central Line Procedure Note: Central Venous Catheter Insertion Indication hypotension Attending Physician: Dr. Pollard Skirt Trimmer: Dr. Neymar Guy Indication: This is a 57 year-old Male with hypotension due to sepsis and afib . Consent: Detailed explanation of the procedure, treatment options, risks including but not limited to infection and bleeding, and benefits were explained to the Son. A written informed consent was obtained. Technique: A time out was preformed identifying the correct procedure, the correct location with the nursing staff. The left groin was prepped with 2% chlorhexidine and draped with a full length sterile sheet in the usual fashion. The[default value]vein was accessed under ultrasound guidance with an 18 gauge thin wall needle. A triple lumen was inserted via the seldinger technique. Blood was withdrawn from all lumens and flushed with normal saline. The catheter was sutured in place and a sterile dressing was applied over the site prior to removal of drapes. The patient tolerated the procedure well and there were no complications. EBL: 5cc Complication: None Anesthesia: IV sedation Surgeon: Neymar Guy Was there an retail loan originator assistant present: Yes Pipeline Executive: Duyen Simons Estimated blood loss (cc): 5 Specimen: None Pathology: none sent Condition: critical Disposition: ICU <Jorje Pollard - Last Filed: 01/20/18 22:37> Procedure: I examined this patient and my medical decision-making was reviewed with the Resident Physician. I agree with the documented findings, disposition and treatment plan as described except to the extent set forth below. I have personally supervised Dr. Guy placing central line without immediate complications.
[2018-01-20 18:19] LABS: ABG Base Excess -4 mEq/L (-2 to 3); ABG HCO3 22 mEq/L (21-27); ABG Oxygen Saturation 97 % (95-98); ABG PCO2 43 mmHg (35-45); ABG PH 7.33 pH Units (7.32-7.45); ABG PO2 94 mmHg (85-104); ABG TCO2 24 mEq/L (20-26)
[2018-01-20] MEDS: Phenylephrine 20 MG in D5% in Water 500 ML IVC SCH ×2 (19:30→22:38)
[2018-01-20] MEDS ORDERED: 0.9 % Sodium Chloride 500 ML ONE (20:48)
[2018-01-20] MEDS: Vasopressin 40 UNIT in D5% in Water 100 ML IV SCH (21:03)
[2018-01-20 22:28] LABS: Hematocrit 42.8 % (37.5-50.1); Hemoglobin 12.9 g/dL (12.9-16.9); Mean Corpuscular HGB Conc 30.1 g/dL (31.6-35.5); Mean Corpuscular Hemoglobin 23.8 pg (28.0-33.3); Mean Corpuscular Volume 79.1 fL (83.0-100.0); Mean Platelet Volume 9.2 fL (9.4-12.4); Platelet Count 274 K/mcL (140-400); Red Blood Count 5.41 M/mcL (4.19-5.50)
[2018-01-20 22:37] LABS: Heparin anti-factor XA UFH 0.69 IU/mL (0.30-0.70)
[2018-01-20 22:38] LABS: INR 3.8; Prothrombin Time 43.2 Seconds (9.4-12.1)
[2018-01-20] MEDS: Amiodarone Premix 360 MG/200 ML BAG IVC SCH (23:21)
[2018-01-21] MEDS: Piperacillin/Tazobactam 3.375 GM in 0.9 % Sodium Chloride Mini Bag 100 ML IVPB SCH ×2 (00:13→08:03)
[2018-01-21] MEDS: MethylPREDNISolone 40 MG/ML VIAL IVP SCH ×5 (00:14→23:01)
[2018-01-21] MEDS: Insulin LISPRO 300 UNITS/3 ML VIAL SQ SCH ×5 (00:15→23:02)
[2018-01-21] MEDS: Lacri-Lube 3.5 GM TUBE BOTH EYES SCH ×7 (00:22→23:01)
[2018-01-21] MEDS: Acetaminophen IV 1,000 MG/100 ML INFUS..BTL IVPB SCH ×5 (00:33→23:01)
[2018-01-21] MEDS: Norepinephrine 8 MG in D5% in Water 500 ML IVC SCH ×4 (01:26→18:34)
[2018-01-21] MEDS: Phenylephrine 20 MG in D5% in Water 500 ML IVC SCH (02:34)
[2018-01-21] MEDS: Dexmedetomidine HCl 400 MCG/100 ML MLS IVC SCH ×3 (02:42→23:01)
[2018-01-21] MEDS: Ipratropium/Albuterol Neb 3 ML IH SCH ×6 (03:31→23:34)
[2018-01-21 04:07] LABS: Hematocrit 42.4 % (37.5-50.1); Hemoglobin 12.6 g/dL (12.9-16.9); Mean Corpuscular HGB Conc 29.7 g/dL (31.6-35.5); Mean Corpuscular Volume 80.9 fL (83.0-100.0); Mean Platelet Volume 9.2 fL (9.4-12.4); Nucleated Red Blood Cells 0.4 /100 WBC (0); Platelet Count 241 K/mcL (140-400); Red Blood Count 5.24 M/mcL (4.19-5.50); Red Cell Distribution Width 18.4 % (11.5-14.5)
[2018-01-21 04:22] LABS: Calcium 7.9 mg/dL (8.6-10.3)
[2018-01-21 04:31] LABS: Monocytes # 1.1 K/mcL (0.0-1.3); Neutrophils # 17.4 K/mcL (1.6-8.9)
[2018-01-21 04:32] LABS: Anisocytosis 1+ (Not Present); Microcytosis Present (Not Present); Platelet Estimate Normal (Normal); Polychromasia 1+ (Not Present)
[2018-01-21 04:43] LABS: ABG Base Excess -9 mEq/L (-2 to 3); ABG HCO3 18 mEq/L (21-27); ABG Oxygen Saturation 98 % (95-98); ABG PCO2 45 mmHg (35-45); ABG PH 7.22 pH Units (7.32-7.45); ABG PO2 118 mmHg (85-104); ABG TCO2 20 mEq/L (20-26); Blood Gas Modality ASSIST CONTROL; Blood Gas Respiration Rate 10; Blood Gas VT 600 cc
--- NOTE | 2018-01-21 07:34 | Pulmonology Progress Note ---
<Neymar Guy - Last Filed: 01/21/18 12:16> Date of Encounter: 01/21/18 Time of Encounter: 07:34 Assessment and Plan (1) Sepsis Current Visit: Yes Status: Acute Patient does meet sepsis criteria most likely secondary to patient's pneumonia. Patient was tachycardic but he is also in A. fib with RVR. Patient also has a fever and a source of infection with the pneumonia. Patient was positive for strep pneumonia urine antigen. All other cultures are still pending. Patient was initially placed on broad-spectrum antibiotics including vancomycin , Zosyn, Levaquin. Patient was mildly hypotensive we did give 25% albumin this did not change patient's blood pressure. This could have been all due to breath stacking so we did give patient vecuronium and patient's blood pressure did seem to go up after that. But it did not hold. At this time we decided to consult cardiology cardiology says patient is atrial fibrillation and if we do get them out of atrial fibrillation a could help with patient's blood pressure as he would not be is tachycardic. Spoke with cardiology and they are going to plan on starting heparin drip and trying possible electrocardioversion. We did order a factor X a as patient is on Xarelto severe unsure of his correct INR which was reading at 4.5. The factor X a came back normal at 0.61. We gave patient 2 L lactated Ringer's and will also start Levaquin fed to support patient's blood pressure. For this we will consider placing central venous catheter to give this. We did attempt to decrease patient's sedation but then he was too alert. So patient be changed Precedex which did seem to help minorly but is not working to its full extent. CVC in left groin placed for pressor access. Patient did have to be on levofed , Kota-Synephrine, vasopressin. Has since only been weaned to levofed. Patient did have to be cooled last night as he did have fevers. Patient most likely still and sepsis. Discontinued Zosyn and vancomycin. Day 3 Levaquin Qualifiers: Sepsis type: Pneumococcus Qualified Code(s): A40.3 - Sepsis due to Streptococcus pneumoniae (2) Acute respiratory failure with hypoxia Current Visit: Yes Status: Acute Patient presented in acute respiratory distress he did have worsening tachypnea while on BiPAP so patient was intubated and placed on the ventilator. Patient was sedated with fentanyl, propofol, Precedex. We will discontinue the Versed and change to propofol and fentanyl. Patient does have history of COPD. He is not on oxygen at home. Patient most likely has pneumonia based on chest x-ray showing multifocal consolidations and possible effusions. 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 Patient needs to continue on the vent. We will get daily ABGs and change that sending ABGresults. Continue sedation daily Mcdaniel of 3. (3) Acute kidney injury Current Visit: Yes Status: Acute Worsening creatinine as today measured at 2.35 patient does have a kidney transplant those done about 15 years ago. Patient was a dialysis patient but does not have active using fistulas. Consult nephrology for possible Hoda or dialysis. Appreciate their recommendations (4) Pneumonia Current Visit: No Status: Resolved Patient does have pneumonia. Urine strep pneumoniae antigen was positive. Blood cultures and sputum cultures are still pending. Initially started patient on Zosyn, Levaquin, vancomycin. Due to kidney injury we will stop the vancomycin and keep the patient on Levaquin and also DC the Zosyn Day 3 Levaquin Qualifiers: Pneumonia type: due to unspecified organism Laterality: right Lung location: lower lobe of lung Qualified Code(s): J18.1 - Lobar pneumonia, unspecified organism (5) Urethritis Current Visit: Yes Status: Acute when examining patient a green discharg patient is sedated to her unable to assess for sexual history. This most likely is going to be an STD, gonorrhea or chlamydia so we will prophylactically treat him with one time dose of ceftriaxone and azithromycin. (6) Acute exacerbation of chronic obstructive airways disease Current Visit: Yes Status: Acute Patient does have history of COPD. Patient is getting steroids every 6 hours. Also getting scheduled duo nebs. Patient is on the ventilator on proper ventilator settings. (7) A-fib Current Visit: Yes Status: Chronic Patient does have chronic history of A. fib. Patient is supratherapeutic on INRs there is no need for any anticoagulation at this time. We will continue to monitor. Cardiology is following the patient patient will be cardioverted her cardiology' s request we are going to start patient on heparin while we do this. Patient was unable to be cardioverted so patient started on amiodarone bolus and a drip. Patient is still on initial fibrillation but does have a few beats of sinus rhythm. Cardiology is following we appreciate their recommendations Qualifiers: Atrial fibrillation type: chronic Qualified Code(s): I48.2 - Chronic atrial fibrillation (8) Elevated INR Current Visit: Yes Status: Acute Patient does have elevated INR we did order factor X a which came back normal as patient is on Xarelto. This patient's patient is probably not anticoagulated. We will start heparin to anticoagulate patient due to him being in A. 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 Patient's right leg was mildly mottled. This seems to be a chronic vascular disease. ABIs negative vascular surgery not needed this is probably chronic. (11) DVT prophylaxis Current Visit: Yes Status: Acute We will now start patient on heparin drip. Subjective Principal diagnosis: Pneumonia Interval history: Patient had no acute or events overnight. Patient still on the ventilator. Patient's labs, imaging, chart were reviewed. Patient did have central venous catheter placed yesterday had to be on 3 vasopressors have since been weaned to only 1. Did speak with family and they said there and, today we will speak about goals of care. Patient otherwise had no acute overnight events. Patient does still seem to be in atrial fibrillation but does have a few episodes of sinus rhythm. This is while being on amiodarone Objective PUL Vital signs: Last Vital Signs Temp 97.2 F L 01/21/18 04:59 Pulse 91 01/21/18 06:27 Resp 11 01/21/18 06:27 BP 107/76 01/21/18 06:27 Pulse Ox 97 01/21/18 06:27 General appearance: no acute distress Eyes: nonicteric ENT: oropharynx moist Neck: supple Effort: normal Auscultation: bilateral: rales Cardiovascular: regular rate and rhythm Gastrointestinal: normoactive bowel sounds, soft, non-tender, non-distended Integumentary: normal Extremities: no cyanosis, no edema, no clubbing Musculoskeletal: no deformities, ROM normal non-focal exam, pupils equal and round, motor strength normal and symmetric Ventilator Settings Ventilator Settings: Ventilator Settings, Last 8 Hours Ventilator Tidal Volume 600 Setting Ventilator Tidal Volume 600 Setting Ventilator Tidal Volume 600 Setting Ventilator Tidal Volume 600 Setting Ventilator Tidal Volume 600 Setting Ventilator Tidal Volume 600 Setting Ventilator Tidal Volume 600 Setting Ventilator Respiratory Rate 10 Setting Ventilator Respiratory Rate 10 Setting Ventilator Respiratory Rate 10 Setting Ventilator Respiratory Rate 10 Setting Ventilator Respiratory Rate 10 Setting Ventilator Respiratory Rate 10 Setting Ventilator Respiratory Rate 10 Setting Actual Respiratory Rate 11 Actual Respiratory Rate 11 Actual Respiratory Rate 13 Actual Respiratory Rate 14 Actual Respiratory Rate 13 Actual Respiratory Rate 13 Positive End Expiratory 5 Pressure Positive End Expiratory 5 Pressure Positive End Expiratory 5 Pressure Positive End Expiratory 5 Pressure Positive End Expiratory 5 Pressure Positive End Expiratory 5 Pressure Positive End Expiratory 5 Pressure Peak Inspiratory Airway 15 Pressure Peak Inspiratory Airway 12 Pressure Peak Inspiratory Airway 8.4 Pressure Peak Inspiratory Airway 17 Pressure Peak Inspiratory Airway 16 Pressure Peak Inspiratory Airway 21 Pressure Results - Laboratory Findings CBC and BMP: 01/21/18 03:50 01/21/18 03:50 ABG ABG pH 7.22 pH Units (7.32-7.45) L 01/21/18 04:36 ABG pCO2 45 mmHg (35-45) 01/21/18 04:36 ABG pO2 118 mmHg (85-104) H 01/21/18 04:36 ABG O2 Saturation 98 % (95-98) 01/21/18 04:36 PT/INR, D-dimer PT 43.2 Seconds (9.4-12.1) H 01/20/18 22:00 Abnormal lab findings: Abnormal lab results WBC 18.5 K/mcL (4.3-11.1) H 01/21/18 03:50 Hgb 12.6 g/dL (12.9-16.9) L 01/21/18 03:50 MCV 80.9 fL (83.0-100.0) L 01/21/18 03:50 MCH 24.0 pg (28.0-33.3) L 01/21/18 03:50 MCHC 29.7 g/dL (31.6-35.5) L 01/21/18 03:50 RDW 18.4 % (11.5-14.5) H 01/21/18 03:50 MPV 9.2 fL (9.4-12.4) L 01/21/18 03:50 Band Neutrophils % 18.0 % (0-4) H 01/21/18 03:50 Neutrophils # 17.4 K/mcL (1.6-8.9) H 01/21/18 03:50 Lymphocytes # 0.0 K/mcL (0.6-4.6) L 01/21/18 03:50 Nucleated RBCs/100 WBC 0.4 /100 WBC (0) H 01/21/18 03:50 Polychromasia 1+ (Not Present) A 01/21/18 03:50 Hypochromasia Present (Not Present) A 01/19/18 04:37 Anisocytosis 1+ (Not Present) A 01/21/18 03:50 Microcytosis Present (Not Present) A 01/21/18 03:50 PT 43.2 Seconds (9.4-12.1) H 01/20/18 22:00 APTT 54.2 Seconds (26.0-36.0) H 01/19/18 04:37 ABG pH 7.22 pH Units (7.32-7.45) L 01/21/18 04:36 ABG pO2 118 mmHg (85-104) H 01/21/18 04:36 ABG HCO3 18 mEq/L (21-27) L 01/21/18 04:36 ABG Base Excess -9 mEq/L (-2 to 3) L 01/21/18 04:36 Sodium 129 mEq/L (136-145) L 01/21/18 03:50 Carbon Dioxide 16 mEq/L (23-29) L 01/21/18 03:50 BUN 70 mg/dL (6-20) H 01/21/18 03:50 Creatinine 2.35 mg/dL (0.70-1.30) H 01/21/18 03:50 Est GFR ( Amer) 35 (> 60) L 01/21/18 03:50 Est GFR (Non-Af Amer) 29 (> 60) L 01/21/18 03:50 BUN/Creatinine Ratio 30 (6-26) H 01/21/18 03:50 Glucose 327 mg/dL (70-105) H 01/21/18 03:50 POC Glucose 262 mg/dL (70-99) H 01/21/18 06:20 Calculated Osmolality 301 (280-300) H 01/21/18 03:50 Calcium 7.9 mg/dL (8.6-10.3) L 01/21/18 03:50 Troponin I 0.05 ng/mL (< 0.04) H* 01/19/18 04:37 B-Natriuretic Peptide 2025 pg/mL (Less than 100) H 01/18/18 21:49 Globulin 3.7 g/dL (2.4-3.5) H 01/18/18 21:49 Albumin/Globulin Ratio 0.9 (1.1-2.2) L 01/18/18 21:49 Vancomycin Trough 16 mcg/mL (5-10) H 01/21/18 03:50 - Microbiology Findings Microbiology Findings: Microbiology, Last 48 Hours 01/19/18 16:40 Sputum Culture - Preliminary Sputum 01/20/18 00:40 Blood Culture - Preliminary Peripheral Venipuncture Culture is incubating and being continuously monitored for growth. Final report to follow. 01/20/18 00:40 Blood Culture - Preliminary Peripheral Venipuncture Culture is incubating and being continuously monitored for growth. Final report to follow. 01/19/18 15:15 Legionella Antigen - Final Urine,Catheterized Streptococcus pneumoniae Antigen (M - Final 01/19/18 13:23 Blood Culture - Preliminary Peripheral Venipuncture Culture is incubating and being continuously monitored for growth. Final report to follow. 01/19/18 13:23 Blood Culture - Preliminary Peripheral Venipuncture Culture is incubating and being continuously monitored for growth. Final report to follow. - Clinical Findings Intake & Output: Intake & Output 01/20/18 01/20/18 01/21/18 15:59 23:59 07:59 Intake Total 1974 / 1974 1404 / 1404 1194 / 1194 Output Total 650 / 650 475 / 475 140 / 140 Balance 1325 / 1325 929 / 929 1054 / 1054 Weight 80.5 kg - VTE Documentation of Mechanical Device: Intermittent pneumatic compression device Consult Discharge Plan - Plan Referrals: NONE,PCP [Primary Care Provider] - <Jorje Pollard - Last Filed: 01/21/18 15:55> Date of Encounter: 01/21/18 Objective PUL Vital signs: Last Vital Signs Temp 99.6 F 07/11/18 12:23 Pulse 92 01/21/18 15:00 Resp 11 01/21/18 15:00 BP 109/77 01/21/18 15:00 Pulse Ox 98 01/21/18 15:00 Ventilator Settings Ventilator Settings: Ventilator Settings, Last 8 Hours Ventilator Tidal Volume 600 Setting Ventilator Tidal Volume 600 Setting Ventilator Tidal Volume 600 Setting Ventilator Respiratory Rate 10 Setting Ventilator Respiratory Rate 10 Setting Ventilator Respiratory Rate 10 Setting Actual Respiratory Rate 11 Actual Respiratory Rate 12 Actual Respiratory Rate 10 Actual Respiratory Rate 11 Actual Respiratory Rate 11 Actual Respiratory Rate 16 Actual Respiratory Rate 11 Actual Respiratory Rate 12 Actual Respiratory Rate 12 Actual Respiratory Rate 10 Actual Respiratory Rate 12 Positive End Expiratory 5 Pressure Positive End Expiratory 5 Pressure Positive End Expiratory 5 Pressure Positive End Expiratory 5 Pressure Positive End Expiratory 5 Pressure Positive End Expiratory 5 Pressure Positive End Expiratory 5 Pressure Positive End Expiratory 5 Pressure Positive End Expiratory 5 Pressure Positive End Expiratory 5 Pressure Positive End Expiratory 5 Pressure Peak Inspiratory Airway 29 Pressure Peak Inspiratory Airway 25 Pressure Peak Inspiratory Airway 25 Pressure Peak Inspiratory Airway 22 Pressure Peak Inspiratory Airway 31 Pressure Peak Inspiratory Airway 23 Pressure Peak Inspiratory Airway 12 Pressure Peak Inspiratory Airway 12 Pressure Results - Laboratory Findings CBC and BMP: 01/21/18 03:50 01/21/18 03:50 ABG ABG pH 7.22 pH Units (7.32-7.45) L 01/21/18 04:36 ABG pCO2 45 mmHg (35-45) 01/21/18 04:36 ABG pO2 118 mmHg (85-104) H 01/21/18 04:36 ABG O2 Saturation 98 % (95-98) 01/21/18 04:36 PT/INR, D-dimer PT 43.2 Seconds (9.4-12.1) H 01/20/18 22:00 Abnormal lab findings: Abnormal lab results WBC 18.5 K/mcL (4.3-11.1) H 01/21/18 03:50 Hgb 12.6 g/dL (12.9-16.9) L 01/21/18 03:50 MCV 80.9 fL (83.0-100.0) L 01/21/18 03:50 MCH 24.0 pg (28.0-33.3) L 01/21/18 03:50 MCHC 29.7 g/dL (31.6-35.5) L 01/21/18 03:50 RDW 18.4 % (11.5-14.5) H 01/21/18 03:50 MPV 9.2 fL (9.4-12.4) L 01/21/18 03:50 Band Neutrophils % 18.0 % (0-4) H 01/21/18 03:50 Neutrophils # 17.4 K/mcL (1.6-8.9) H 01/21/18 03:50 Lymphocytes # 0.0 K/mcL (0.6-4.6) L 01/21/18 03:50 Nucleated RBCs/100 WBC 0.4 /100 WBC (0) H 01/21/18 03:50 Polychromasia 1+ (Not Present) A 01/21/18 03:50 Hypochromasia Present (Not Present) A 01/19/18 04:37 Anisocytosis 1+ (Not Present) A 01/21/18 03:50 Microcytosis Present (Not Present) A 01/21/18 03:50 PT 43.2 Seconds (9.4-12.1) H 01/20/18 22:00 APTT 54.2 Seconds (26.0-36.0) H 01/19/18 04:37 ABG pH 7.22 pH Units (7.32-7.45) L 01/21/18 04:36 ABG pO2 118 mmHg (85-104) H 01/21/18 04:36 ABG HCO3 18 mEq/L (21-27) L 01/21/18 04:36 ABG Base Excess -9 mEq/L (-2 to 3) L 01/21/18 04:36 Sodium 129 mEq/L (136-145) L 01/21/18 03:50 Carbon Dioxide 16 mEq/L (23-29) L 01/21/18 03:50 BUN 70 mg/dL (6-20) H 01/21/18 03:50 Creatinine 2.35 mg/dL (0.70-1.30) H 01/21/18 03:50 Est GFR ( Amer) 35 (> 60) L 01/21/18 03:50 Est GFR (Non-Af Amer) 29 (> 60) L 01/21/18 03:50 BUN/Creatinine Ratio 30 (6-26) H 01/21/18 03:50 Glucose 327 mg/dL (70-105) H 01/21/18 03:50 POC Glucose 150 mg/dL (70-99) H 01/21/18 11:13 Calculated Osmolality 301 (280-300) H 01/21/18 03:50 Lactic Acid 4.0 mmol/L (0.5-2.2) H* 01/21/18 12:40 Calcium 7.9 mg/dL (8.6-10.3) L 01/21/18 03:50 Troponin I 0.05 ng/mL (< 0.04) H* 01/19/18 04:37 B-Natriuretic Peptide 2025 pg/mL (Less than 100) H 01/18/18 21:49 Globulin 3.7 g/dL (2.4-3.5) H 01/18/18 21:49 Albumin/Globulin Ratio 0.9 (1.1-2.2) L 01/18/18 21:49 Vancomycin Trough 16 mcg/mL (5-10) H 01/21/18 03:50 - Microbiology Findings Microbiology Findings: Microbiology, Last 48 Hours 01/19/18 16:40 Sputum Culture - Final Sputum 01/20/18 00:40 Blood Culture - Preliminary Peripheral Venipuncture Culture is incubating and being continuously monitored for growth. Final report to follow. 01/20/18 00:40 Blood Culture - Preliminary Peripheral Venipuncture Culture is incubating and being continuously monitored for growth. Final report to follow. 01/19/18 15:15 Legionella Antigen - Final Urine,Catheterized Streptococcus pneumoniae Antigen (M - Final 01/19/18 13:23 Blood Culture - Preliminary Peripheral Venipuncture Culture is incubating and being continuously monitored for growth. Final report to follow. 01/19/18 13:23 Blood Culture - Preliminary Peripheral Venipuncture Culture is incubating and being continuously monitored for growth. Final report to follow. - Clinical Findings Intake & Output: Intake & Output 01/20/18 01/21/18 01/21/18 23:59 07:59 15:59 Intake Total 1404 / 1404 1294 / 1294 700 / 700 Output Total 475 / 475 140 / 140 100 / 100 Balance 929 / 929 1154 / 1154 600 / 600 Weight 80.5 kg - Attending Attestation I examined this patient and my medical decision-making was reviewed with the Resident Physician. I agree with the documented findings, disposition and treatment plan as described except to the extent set forth below. Patient seen and examined. Labs, radiology, chart personally reviewed. 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 Patient remain critically ill and overall condition is deteriorating and multiple discussion with the family regarding his CODE STATUS which was changed appropriately due to his comorbidities. Cardiovascular: Patient remained in cardiogenic shock GI: Nutrition per dietary and GI prophylaxis per routine Heme: DVT prophylaxis per routine ID: Continue antibiotics and plan to de-escalation Renal; urine out put and renal funtion reviewed. This is worsening and they suspect he will need Hoda and nephrology consult Endorcine: blood glucose is monitored Lines: all lines checked and no evidence of infections Skin: skin care to prevent pressure ulcers per nursing routine care Overall prognosis is poor
[2018-01-21] MEDS: Budesonide/Formoterol 160/4.5 MDI IH SCH ×2 (07:36→20:01)
[2018-01-21] MEDS: Chlorhexidine Rinse 15 ML MOUTHWASH MM SCH ×2 (08:02→20:07)
[2018-01-21] MEDS: Aspirin 81 MG TAB.CHEW PO SCH (08:02)
[2018-01-21] MEDS: Pantoprazole 40 MG VIAL IVP SCH (08:02)
[2018-01-21] MEDS: Furosemide 40 MG TABLET PO SCH (08:03)
[2018-01-21] MEDS: Levofloxacin 750 MG/150 ML 750 MG/150 ML BAG IVPB SCH (08:03)
[2018-01-21] MEDS: Metoprolol XL (24 HR) Succ 25 MG TAB.ER.24H PO SCH (08:04)
[2018-01-21] MEDS ORDERED: Aminoglycoside Consult 1 EACH MC ONE (09:34)
--- NOTE | 2018-01-21 10:43 | Nephrology Consult Note ---
Date of Encounter: 01/21/18 Time of Encounter: 09:00 Assessment and Plan (1) Pvjxc-zb-kzzoszy kidney injury Current Visit: Yes Status: Acute History of Renal transplant before 2011; home med Cellcept held on admission MDRD calc - GFR of 66.5 on 01/18/18 Worsening SCr, at 2.35 01/21/18 (1.19->1.42->1.67->2.35) Most likely ATN in setting of septic shock necessitating vasopressor support and use of vancomycin (pre-renal+intrarenal component) Plan: Trending UOP, K+, acidosis, lactic acid Adjust pressors as needed to maintain MAP/BP Vanc trough at 16, slightly high, primary team may consider switching to Linezolid Recommend 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 Day 3 vanc/zosyn/levaquin +strep pneumo urine antigen; cultures pending, consolidations on CXR (3) History of kidney transplant Current Visit: Yes Status: Chronic Prior to 2011; Cellcept held on admission In setting of septic shock continuing to hold; organ rejection/immune response still on differential, but low; monitoring (4) Atrial fibrillation with RVR Current Visit: Yes Status: Acute Primary and Cardiology managing A-Fib RVR in setting of acute respiratory failure, septic shock Cardiology DCCV at bedside on 01/20 x 3, unsuccessful On amiodarone and heparin gtt (5) Acute exacerbation of CHF (congestive heart failure) Current Visit: Yes Status: Acute Pulm vasc congestion and infiltrate on CXR +3L today though MAP/BP being sustained with Levophed currently Holding off on MULTIPLE KNIFE EDGE TRIMMER 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, plan as above Qualifiers: Heart failure type: systolic Qualified Code(s): I50.23 - Acute on chronic systolic (congestive) heart failure History of Present Illness - Reason for Consult Consult date: 01/21/18 Acute Kidney Injury Requesting physician: Neymar Guy - Chief Complaint KALANI; hx renal transplant; sepsis on pressor support; mechanical ventilation - History of Present Illness Interval History: Fahad Cambpell is a 57 year old male with past medical history of chronic afib on Xarelto and bb; CHF w/ EF of 40-45%; non-ischemic CM; COPD, renal transplant, chronic Hep C, HTN, admitted for acute hypoxic respiratory failure 2/2 acute CHF , PNA, and sepsis necessitating mechanical ventilation. Patient meets sepsis criteria due to tachycardia (on top of afib-rvr), fever, source of infection likely PNA with consolidations on CXR; is on day 3 of vanc/zosyn/levaquin. BP/ MAP has had to be managed with 3 pressors, currently now on Levophed, systolic in high 90s low 100s. Pt has also been on Cardizem drip+heparin in setting of afib-rvr; currently has moments of sinus rhythm in upper 90s. Patient was consulted to Nephrology for worsening serum creatinine (1.19->1.42-> 1.67->2.35); as mentioned he is a renal transplant recipient prior to 2011 ( chart review), no current functioning fistula. He is +3L cumulatively. His last ABG shows a metabolic acidosis of 7.22. Potassium of 5.0. Patient was seen and evaluated at ICU bedside, he is intubated and sedated at this time. Past Med Surg Social Fam HX - Past Medical History Medical history: COPD, DVT, hepatitis, hypertension, renal disease, other Additional medical history: Last DVT 2008 Psychiatric history: anxiety, depression, previous psychiatric hospitalization, other - Past Surgical History Surgical History: hip replacement, transplant Additional surgical history: Kidney transplant, left hip replacement - Social History Smoking Status: Current every day smoker Smokeless Tobacco Status: No Alcohol use: none Drug use: cocaine, marijuana - Family History Father Living Status: Hx Family Cardiac Disorders: Yes ([place]) Mother Adopted: No Family Member Ethnicity: Non- Living Status: Hx Family Cardiac Disorders: Yes (NM) Hx Family Respiratory Disorders: Yes (asthma) Hx Family Cancer: No Hx Family GI Disorders: No Hx Family Endocrine Disorder: No Hx Family Neuromuscular Disorders: No Hx Family Neurologic Disorders: No Hx Family HEENT Disorders: No Hx Family Autoimmune Disorders: No Medications and Allergies Duloxetine HCl [Cymbalta] 60 mg PO 0900,1700 07/13/15 [History] Mycophenolate Mofetil [Cellcept] 500 mg PO BID 12/14/15 [History] ARIPiprazole [Abilify] 15 mg PO DAILY 12/25/16 [History] Albuterol Sulfate [Ventolin Hfa] 2 puff IH Q4H PRN 12/25/16 [History] Budesonide/Formoterol 160/4.5 [Symbicort 160/4.5] 2 puff IH BID 12/25/16 [ History] Buspirone HCl [Buspar] 10 mg PO TID 12/25/16 [History] predniSONE [PredniSONE] 10 mg PO DAILY 12/25/16 [History] Rivaroxaban [Xarelto] 20 mg PO DAILY 10/23/17 [History] amLODIPine [Norvasc] 5 mg PO DAILY 11/17/17 [History] Furosemide [Lasix] 40 mg PO DAILY tablet 11/18/17 [Rx] Metoprolol XL (24 HR) Succ [Toprol Xl] 12.5 mg PO DAILY 4 Days #4 tab.er.24h [Rx] clonazePAM [Klonopin] 0.5 mg PO BID 4 Days #8 tablet 01/06/18 [Rx] Ascorbic Acid [Vitamin C] 1 tab PO DAILY #30 tablet 01/13/18 [Rx] Ferrous Sulfate [Iron] 325 mg PO DAILY 01/19/18 [History] Lanolin Alcohol/Mo/W.pet/[place] [Eucerin Creme] 1 appl TP DAILY 01/19/18 [History ] 3 Allergy/AdvReac Type Severity Reaction Status Date / Time codeine AdvReac Nausea Verified 01/13/18 13:17 Review of Systems ROS unobtainable: due to endotracheal tube Exam - Vital Signs Vital signs: Initial Vital Signs Temp Pulse Resp BP Pulse Ox 97.9 F 120 26 123/114 96 01/18/18 21:38 01/18/18 21:38 01/18/18 21:38 01/18/18 21:38 01/18/18 21:38 Vital Signs - Last 8 Hours Temp Pulse Resp BP Pulse Ox 01/21/18 08:33 98.5 F 01/21/18 08:16 10 111/76 98 01/21/18 08:00 98.5 F 101 12 111/76 97 01/21/18 07:35 12 111/76 96 01/21/18 07:00 92 13 108/77 97 01/21/18 06:27 91 11 107/76 97 01/21/18 06:08 13 95 01/21/18 06:00 91 13 108/65 97 01/21/18 05:00 98 12 111/72 94 01/21/18 04:59 97.2 F L 01/21/18 04:00 92 14 116/81 98 01/21/18 03:32 14 96 01/21/18 03:00 97 F L 95 12 117/73 97 Intake and Output 01/20/18 01/21/18 01/21/18 23:59 07:59 15:59 Intake Total 1404 / 1404 1294 / 1294 Output Total 475 / 475 140 / 140 50 / 50 Balance 929 / 929 1154 / 1154 -50 / -50 Intake: IV Fluids 1404 / 1404 1294 / 1294 Vasostrict 40 UNIT In Dextrose 42 / 42 5% 100 ML @ 0.03 UNIT/MIN 4.59 mls/hr IV .[id number] [facility] Rx#: [id number] PRECEDEX Premix 400 mcg In 100 100 / 100 100 / 100 ml @ 0.2 MCG/KG/HR 3.675 mls/hr IVC .Q24H [facility] Rx#:[id number] FentaNYL (PF) 1,000 MCG In 0.9 100 / 100 % Sodium Chloride 80 ML @ 50 MCG/HR 5 mls/hr IVC CONT [facility] Rx #:[id number] Levophed 4 MG In Dextrose 5% 250 / 250 250 ML @ 8 MCG/MIN 30.48 mls/hr IVC CONT [facility] Rx#:[id number] Levophed 8 MG In Dextrose 5% 500 / 500 500 ML @ 8 MCG/MIN 30.48 mls/hr IVC CONT [facility] Rx#:[id number] Phenylephrine 20 MG In Dextrose 754 / 754 352 / 352 5% 500 ML @ 100 MCG/MIN 150.6 mls/hr IVC CONT [facility] Rx#: [id number] Ofirmev 1,000 mg/100 ml 1,000 100 / 100 200 / 200 mg In 100 ml @ 400 mls/hr IVPB Q6HR [facility] Rx#:[id number] Zosyn 3.375 GM In 0.9 % Sodium 100 / 100 100 / 100 Chloride (Mini-Bag +) 100 ML @ 25 mls/hr IVPB Q8HR [facility] Rx#: [id number] Output: Catheter 375 / 375 100 / 100 50 / 50 Gastric Drainage 100 / 100 40 / 40 Other: Weight 80.5 kg Patient Weight 01/21/18 23:59 Weight 80.5 kg - General Appearance General appearance: sedated on ventilator, frail Neck: no JVD Respiratory: course breath sounds Cardiology: rapid rhythm, irregular rhythm, normal S1, normal S2 Gastrointestinal: no masses Integumentary: warm and dry Musculoskeletal: no cyanosis, no clubbing Results - Lab Results 01/21/18 03:50 01/21/18 03:50 Most recent lab results ABG pH 7.22 pH Units (7.32-7.45) L 01/21/18 04:36 ABG pCO2 45 mmHg (35-45) 01/21/18 04:36 ABG pO2 118 mmHg (85-104) H 01/21/18 04:36 ABG HCO3 18 mEq/L (21-27) L 01/21/18 04:36 ABG O2 Saturation 98 % (95-98) 01/21/18 04:36 Calcium 7.9 mg/dL (8.6-10.3) L 01/21/18 03:50 Consult Discharge Plan - Plan Referrals: NONE,PCP [Primary Care Provider] -
--- NOTE | 2018-01-21 11:10 | Palliative - Consult Note ---
Date of Encounter: 01/21/18 Time of Encounter: 11:05 - Assessment and Plan (1) Dyspnea Current Visit: Yes Status: Acute Assessment and plan: Continues with ventilator support. Qualifiers: Qualified Code(s): R06.00 - Dyspnea, unspecified (2) Goals of care, counseling/discussion Current Visit: Yes Status: Acute Assessment and plan: Discussed with son Travis at bedside. Dr. Neymar Guy has also met and discussed clinical situation with son. Son states that pt has resided with friend, that he does not know, but has been in rehab at [facility]. Son states that he does not really have a close relationship with his father, but does speak to him about once a week on the phone. States the last he knew about pt health is when he had some chest pain last October. Son was quite young with father was on dialysis and had renal transplant. He has another brother that is not currently here and asleep at home. Patient has no durable healthcare power of deputy county attorney, and Travis states they are unsure of their father's wishes. Patient does have a brother that they speak with often and son will keep him informed. Discussed code status, and informed that he is not likely to survive hospital stay, if he continues to decline and would cardiac arrest. Son is aware that his prognosis is very poor. He desires to speak with safety fire boss, and states he would need to discuss with brother prior to making any decisions. Will f/u later this afternoon. (3) Acute exacerbation of chronic obstructive airways disease Current Visit: Yes Status: Acute Assessment and plan: Remains on vent support, bronchodilators, and steroids. (4) Acute kidney injury Current Visit: Yes Status: Acute Assessment and plan: Nephrology consulted today. (5) Acute respiratory failure with hypoxia Current Visit: Yes Status: Acute (6) Cardiomyopathy Current Visit: Yes Status: Chronic Assessment and plan: Cardiology following. Last EF 40%. Attempted cardioversion yesterday. 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 Campbell is a 57 year old male who presented to ED with Shortness of breath. He is currently intubated in ICU, son at bedside, but he does not know much information on his father's recent medical condition, so most information was taken from medical record. He was short of breath and in tripod position in the ED. He continued to have increased shortness of breath and tachypnea, and did not tolerate bipap, therefore was intubated. He is being treated for bilateral pneumonia, and sepsis. He has been increasingly hypotensive and on multiple pressors. Also, having decreasing renal function, and has history of renal transplant. He has medical history pertinent for atrial fibrillation, CHF , Cardiomyopathy, COPD, Hepatitis C, HTN, Deep vein thrombosis, anxiety, depression, and the renal transplant several years ago. Upon my visit, he is unresponsive on ventilator. Son Travis is at bedside. He is receiving vasopressor support. Awaiting renal consult. Appears in no distress. Currently on Amiodarone drip to rate control atrial fibrillation. Lactic acid has elevated - currently 4.0. Leukocytosis noted. BUN 70/Cr 2.35. Has been febrile and receiving IV Acetaminophen. CC: Azam Yanes MD Past Med Surg Social Fam HX - Past Medical History Medical history: COPD, DVT, hepatitis, hypertension, renal disease, other Additional medical history: Last DVT 2008 Psychiatric history: anxiety, depression, previous psychiatric hospitalization, other - Past Surgical History Surgical History: hip replacement, transplant Additional surgical history: Kidney transplant, left hip replacement - Social History Smoking Status: Current every day smoker Smokeless Tobacco Status: No Alcohol use: none Drug use: cocaine, marijuana - Family History Father Living Status: Hx Family Cardiac Disorders: Yes ([place]) Mother Adopted: No Family Member Ethnicity: Non- Living Status: Hx Family Cardiac Disorders: Yes (DC) Hx Family Respiratory Disorders: Yes (asthma) Hx Family Cancer: No Hx Family GI Disorders: No Hx Family Endocrine Disorder: No Hx Family Neuromuscular Disorders: No Hx Family Neurologic Disorders: No Hx Family HEENT Disorders: No Hx Family Autoimmune Disorders: No Medications and Allergies Duloxetine HCl [Cymbalta] 60 mg PO 0900,1700 07/13/15 [History] Mycophenolate Mofetil [Cellcept] 500 mg PO BID 12/14/15 [History] ARIPiprazole [Abilify] 15 mg PO DAILY 12/25/16 [History] Albuterol Sulfate [Ventolin Hfa] 2 puff IH Q4H PRN 12/25/16 [History] Budesonide/Formoterol 160/4.5 [Symbicort 160/4.5] 2 puff IH BID 12/25/16 [ History] Buspirone HCl [Buspar] 10 mg PO TID 12/25/16 [History] predniSONE [PredniSONE] 10 mg PO DAILY 12/25/16 [History] Rivaroxaban [Xarelto] 20 mg PO DAILY 10/23/17 [History] amLODIPine [Norvasc] 5 mg PO DAILY 11/17/17 [History] Furosemide [Lasix] 40 mg PO DAILY tablet 11/18/17 [Rx] Metoprolol XL (24 HR) Succ [Toprol Xl] 12.5 mg PO DAILY 4 Days #4 tab.er.24h [Rx] clonazePAM [Klonopin] 0.5 mg PO BID 4 Days #8 tablet 01/06/18 [Rx] Ascorbic Acid [Vitamin C] 1 tab PO DAILY #30 tablet 01/13/18 [Rx] Ferrous Sulfate [Iron] 325 mg PO DAILY 01/19/18 [History] Lanolin Alcohol/Mo/W.pet/[place] [Eucerin Creme] 1 appl TP DAILY 01/19/18 [History ] 3 Allergy/AdvReac Type Severity Reaction Status Date / Time codeine AdvReac Nausea Verified 01/13/18 13:17 ROS unobtainable: due to mental status Palliative Care-Exam - Constitutional Vitals: Temp Pulse Resp BP Pulse Ox 98.5 F 98 12 95/63 97 01/21/18 08:33 01/21/18 10:00 01/21/18 10:00 01/21/18 10:00 01/21/18 10:00 General appearance: Present: no acute distress - Head Head Exam: Present: normal inspection, normocephalic - Respiratory Additional comments: Breath sounds coarse throughout. Occasional rhonchi noted - Cardiovascular Cardiovascular exam: Present: irregular rhythm - GI/Abdominal Exam GI/Abdominal exam: Present: normal bowel sounds, soft - Catheter Type: Urethral (Wat[place]) Additional comments: genital warts noted - Extremities Exam Additional comments: Patient lower extremities mottled and cool to touch - Neurological Exam Additional comments: Unresponsive to verbal/tactile stimuli - Skin Skin exam: Present: dry, pallor, warm Internal Medicine - CN: Reslt - Labs CBC & Chem 7: 01/21/18 03:50 01/21/18 03:50 Labs: Short CBC 01/20/18 01/21/18 Range/Units 22:00 03:50 WBC 16.8 H 18.5 H (4.3-11.1) K/mcL Hgb 12.9 12.6 L (12.9-16.9) g/dL Hct 42.8 42.4 (37.5-50.1) % Plt Count 274 241 (140-400) K/mcL Neutrophils # 17.4 H (1.6-8.9) K/mcL BMP 01/21/18 03:50 Sodium 129 L Potassium 5.0 Chloride 98 Carbon Dioxide 16 L BUN 70 H Creatinine 2.35 H Glucose 327 H Calcium 7.9 L - ABG Interpretation ABG results: ABG ABG pH 7.22 pH Units (7.32-7.45) L 01/21/18 04:36 ABG pCO2 45 mmHg (35-45) 01/21/18 04:36 ABG pO2 118 mmHg (85-104) H 01/21/18 04:36 ABG O2 Saturation 98 % (95-98) 01/21/18 04:36 PT/INR, D-dimer PT 43.2 Seconds (9.4-12.1) H 01/20/18 22:00 - Impressions Impressions Chest X-Ray 01/19/18 04:14 IMPRESSION: Endotracheal tube and orogastric tube are in adequate position. Pulmonary vascular congestion. Worsening right perihilar and right basilar airspace opacities, which may reflect worsening edema. D/ / 01/19/2018 07:44:09 Bayron Nino MD / [facility] Interpreting Provider: Bayron Nino MD Consult Discharge Plan - Plan Referrals: NONE,PCP [Primary Care Provider] - Palliative Quality Palliative Quality: Screen for Code Status: Yes, Screen for Goals of Care: Yes, Screen for Pain: NA (unresponsive on vent), If Pain Regimen Started, Initiate Bowel Regimen: NA, Screen for Nausea/Vomitting: NA
[2018-01-21] MEDS: Amiodarone Premix 360 MG/200 ML BAG IVC SCH ×2 (11:25→21:16)
--- NOTE | 2018-01-21 12:51 | Cardiology Progress Note ---
Date of Encounter: 01/21/18 Time of Encounter: 12:48 Assessment and Plan (1) Acute respiratory failure with hypoxia Current Visit: Yes Status: Acute Intubated, sedated. Acute respiratory failure secondary to PNA and COPD. Pulmonology managing. (2) Atrial fibrillation with RVR Current Visit: Yes Status: Acute A-Fib RVR in setting of acute respiratory failure. BP will not tolerate BB. Dr. An attempted DCCV at bedside yesterday x 3, unsuccessful. IV/loading amiodarone gtt started. HR now controlled--90s. Continue amiodarone. Anticoagulated on Xarelto previously. Currently on heparin gtt. Prognosis is guarded. (3) CHF (congestive heart failure) Current Visit: Yes Status: Acute Known EF 40-45%. BNP 2024, presented with worsening dyspnea. Acute respiratory failure, currently intubated. Lasix on hold given [facility]. Recommend strict I/Os, Na and fluid restriction, daily weights. Continue to follow. Qualifiers: Heart failure type: systolic Heart failure chronicity: acute on chronic Qualified Code(s): I50.23 - Acute on chronic systolic (congestive) heart failure (4) Hypotension Current Visit: Yes Status: Acute Currently requiring pressor support--management per critical care team. Qualifiers: Hypotension type: unspecified hypotension type Qualified Code(s): I95.9 - Hypotension, unspecified (5) Cardiomyopathy Current Visit: Yes Status: Chronic EF 11/2017 40-45%. Underwent stress test 12/2017, negative for ischemia. Did show evidence of prior infarct with no known previous CAD hx. BP and renal function will not tolerate BB or ACEi. Qualifiers: Cardiomyopathy type: unspecified Qualified Code(s): I42.9 - Cardiomyopathy , unspecified Discussion w patient/family: The assessment and plan as outlined above was discussed with the patient and/or family members who expressed understanding and agreement. All questions were answered. Thank you for involving us in the care of your patient. Please call with any questions. I will discuss all the above with Dr. An and make changes as necessary. Subjective Principal diagnosis: Pneumonia Interval history: Pt remains sedated and intubated. Dr. An attempted DCCV at bedside yesterday , 3 attempts unsuccessful. IV amio gtt/loading was started. Pt is now better rate controlled. HR 90s, A-Fib. KALANI with nephrology on board, palliative care following as well. Objective Vital Signs, Last 4 Hours Temp Pulse Resp BP Pulse Ox 01/21/18 12:23 99.6 F 01/21/18 12:00 99.6 F 93 11 91/53 98 01/21/18 11:00 92 11 94/61 98 01/21/18 10:00 97 12 95/63 97 01/21/18 09:00 93 12 93/65 97 Vital Signs Temp Pulse Resp BP Pulse Ox 01/21/18 12:23 99.6 F 01/21/18 12:00 99.6 F 93 11 91/53 98 01/21/18 11:00 92 11 94/61 98 01/21/18 10:00 97 12 95/63 97 01/21/18 09:00 93 12 93/65 97 01/21/18 08:33 98.5 F 01/21/18 08:16 10 111/76 98 01/21/18 08:00 98.5 F 101 12 111/76 97 01/21/18 07:35 12 111/76 96 01/21/18 07:00 92 13 108/77 97 01/21/18 06:27 91 11 107/76 97 01/21/18 06:08 13 95 01/21/18 06:00 91 13 108/65 97 01/21/18 05:00 98 12 111/72 94 01/21/18 04:59 97.2 F L 01/21/18 04:00 92 14 116/81 98 01/21/18 03:32 14 96 01/21/18 03:00 97 F L 95 12 117/73 97 01/21/18 02:00 84 16 116/76 96 01/21/18 01:09 15 96 01/21/18 01:00 93 16 126/79 97 01/21/18 00:20 99.4 F 01/21/18 00:00 107 127/85 01/20/18 23:35 12 96 01/20/18 23:30 116 123/82 01/20/18 23:00 141 121/77 01/20/18 22:30 141 115/78 01/20/18 22:09 133 120/73 01/20/18 21:45 130 128/71 01/20/18 21:40 12 95 01/20/18 21:35 118 127/72 01/20/18 21:25 133 130/73 01/20/18 21:15 130 148/80 01/20/18 21:00 129 123/30 01/20/18 20:46 103.5 F H 01/20/18 20:30 137 72/43 01/20/18 20:00 133 74/55 01/20/18 19:55 12 97 01/20/18 19:45 138 87/49 01/20/18 19:30 140 14 90/65 97 01/20/18 18:00 133 14 78/65 97 01/20/18 17:00 148 14 93/58 98 01/20/18 16:35 14 107/39 97 01/20/18 16:00 102.9 F H 115 14 98/45 97 01/20/18 15:00 144 14 69/27 96 01/20/18 14:00 130 14 83/71 94 01/20/18 13:45 12 50/22 97 01/20/18 13:00 131 14 83/71 95 Intake and Output 01/20/18 01/21/18 01/21/18 23:59 07:59 15:59 Intake Total 1404 / 1404 1294 / 1294 Output Total 475 / 475 140 / 140 100 / 100 Balance 929 / 929 1154 / 1154 -100 / -100 Intake: IV Fluids 1404 / 1404 1294 / 1294 Vasostrict 40 UNIT In Dextrose 42 / 42 5% 100 ML @ 0.03 UNIT/MIN 4.59 mls/hr IV .[id number] [facility] Rx#: [id number] PRECEDEX Premix 400 mcg In 100 100 / 100 100 / 100 ml @ 0.2 MCG/KG/HR 3.675 mls/hr IVC .Q24H [facility] Rx#:[id number] FentaNYL (PF) 1,000 MCG In 0.9 100 / 100 % Sodium Chloride 80 ML @ 50 MCG/HR 5 mls/hr IVC CONT [facility] Rx #:[id number] Levophed 4 MG In Dextrose 5% 250 / 250 250 ML @ 8 MCG/MIN 30.48 mls/hr IVC CONT [facility] Rx#:[id number] Levophed 8 MG In Dextrose 5% 500 / 500 500 ML @ 8 MCG/MIN 30.48 mls/hr IVC CONT [facility] Rx#:[id number] Phenylephrine 20 MG In Dextrose 754 / 754 352 / 352 5% 500 ML @ 100 MCG/MIN 150.6 mls/hr IVC CONT [facility] Rx#: [id number] Ofirmev 1,000 mg/100 ml 1,000 100 / 100 200 / 200 mg In 100 ml @ 400 mls/hr IVPB Q6HR [facility] Rx#:[id number] Zosyn 3.375 GM In 0.9 % Sodium 100 / 100 100 / 100 Chloride (Mini-Bag +) 100 ML @ 25 mls/hr IVPB Q8HR [facility] Rx#: [id number] Output: Catheter 375 / 375 100 / 100 100 / 100 Gastric Drainage 100 / 100 40 / 40 Other: Weight 80.5 kg Blood Glucose* 150 Patient Weight 01/21/18 23:59 Weight 80.5 kg General: Other (intubated and sedated) HEENT: Atraumatic, Normocephaly, Mucus Membranes Moist Neck: Normal carotid pulses Cardiac: Other (irregularly irregualr) Lungs: Other (rhonchi) Neuro: Other (sedated) Abdomen: Soft Skin: No rashes noted on visualized skin Musculoskeletal: No Chest Wall Tenderness Extremities: No Clubbing, No Cyanosis, No Edema Results 01/21/18 03:50 01/21/18 03:50 Lab Results 01/20/18 01/20/18 01/21/18 22:00 22:00 03:50 WBC 16.8 H 18.5 H Hgb 12.9 12.6 L Hct 42.8 42.4 Plt Count 274 241 INR 3.8 Sodium Potassium Chloride Carbon Dioxide BUN Creatinine Glucose Calcium 01/21/18 03:50 WBC Hgb Hct Plt Count INR Sodium 129 L Potassium 5.0 Chloride 98 Carbon Dioxide 16 L BUN 70 H Creatinine 2.35 H Glucose 327 H Calcium 7.9 L Short CBC 01/21/18 01/20/18 Range/Units 03:50 22:00 WBC 18.5 H 16.8 H (4.3-11.1) K/mcL Hgb 12.6 L 12.9 (12.9-16.9) g/dL Hct 42.4 42.8 (37.5-50.1) % Plt Count 241 274 (140-400) K/mcL Neutrophils # 17.4 H (1.6-8.9) K/mcL BMP 01/21/18 Range/Units 03:50 Sodium 129 L (136-145) mEq/L Potassium 5.0 (3.5-5.1) mEq/L Chloride 98 (98-107) mEq/L Carbon Dioxide 16 L (23-29) mEq/L BUN 70 H (6-20) mg/dL Creatinine 2.35 H (0.70-1.30) mg/dL Glucose 327 H (70-105) mg/dL Calcium 7.9 L (8.6-10.3) mg/dL Impressions Chest X-Ray 01/19/18 04:14 IMPRESSION: Endotracheal tube and orogastric tube are in adequate position. Pulmonary vascular congestion. Worsening right perihilar and right basilar airspace opacities, which may reflect worsening edema. D/ / 01/19/2018 07:44:09 Bayron Nino MD / tiffani Interpreting Provider: Bayron Nino MD Active Medications Albuterol Sulfate (Proventil Neb) 2.5 mg IH Q2H PRN; Protocol PRN Reason: Shortness Of Breath/Wheezing Stop: 07/22/18 17:56 Albuterol/Ipratropium (Duoneb) 3 ml IH [id number] [facility] Stop: 07/21/18 04:01 Last Admin: 01/21/18 11:09 Dose: 3 ml Artificial Tears (Lacri-Lube) 1 appl BOTH EYES Q4HR [facility] PRN Reason: Protocol Stop: 07/21/18 08:01 Last Admin: 01/21/18 08:02 Dose: 1 appl Artificial Tears (Lacri-Lube) 1 appl BOTH EYES Q2HR PRN; Protocol PRN Reason: Dry Eyes Stop: 07/21/18 04:15 Aspirin (Aspirin) 81 mg PO DAILY [facility] Stop: 07/21/18 09:01 Last Admin: 01/21/18 08:02 Dose: 81 mg Atorvastatin Calcium (Lipitor) 40 mg PO HS [facility] Stop: 07/21/18 21:01 Last Admin: 01/20/18 19:50 Dose: 40 mg Budesonide/Formoterol Fumarate (Symbicort) 2 puff IH BIDR [facility] PRN Reason: Protocol Stop: 07/21/18 10:01 Last Admin: 01/21/18 07:36 Dose: 2 puff Chlorhexidine Gluconate (Chlorhexidine Rinse) 15 ml MM BID [facility] Stop: 07/21/18 09:01 Last Admin: 01/21/18 08:02 Dose: 15 ml Dextrose/Water (Dextrose 50% (Syg)) 25 ml IVP AD PRN PRN Reason: Hypoglycemia Stop: 07/21/18 08:07 Glucagon (Glucagen) 1 mg IM ONCE PRN PRN Reason: Hypoglycemia Stop: 07/21/18 08:07 Glucose (Gluctose) 15 gm PO ONCE PRN PRN Reason: Hypoglycemia Stop: 07/21/18 08:07 Glucose (Gluctose) 30 gm PO ONCE PRN PRN Reason: Hypoglycemia Stop: 07/21/18 08:07 Heparin Sodium (Porcine) (Heparin) 5,100 unit 70 unit/kg (5100 unit) IVP Q6HR PRN PRN Reason: SEE COMMENTS Stop: 07/22/18 15:00 Heparin Sodium (Porcine) (Heparin) 2,600 unit 35 unit/kg (2600 unit) IVP Q6H PRN PRN Reason: SEE COMMENTS Stop: 07/22/18 15:00 Fentanyl Citrate 1,000 mcg/ (Sodium Chloride) 100 mls @ 5 mls/hr IVC CONT [facility]; 50 MCG/HR PRN Reason: Protocol Stop: 07/21/18 04:16 Last Admin: 01/20/18 23:00 Dose: 100 mcg/hr, 10 mls/hr Propofol (Diprivan) 1,000 mg in 100 mls @ 2.105 mls/hr IVC .Q24H [facility]; 5 MCG/KG/ MIN PRN Reason: Protocol Stop: 07/21/18 07:01 Last Admin: 01/21/18 07:52 Dose: Not Given Dextrose (Dextrose 5%) 1,000 mls @ 100 mls/hr IVC .Q10H PRN PRN Reason: HYPOGLYCEMIA Stop: 07/21/18 08:07 Acetaminophen (Ofirmev 1,000 Mg/100 Ml) 1,000 mg in 100 mls @ 400 mls/hr IVPB Q6HR [facility] Stop: 07/22/18 06:01 Last Infusion: 01/21/18 06:00 Dose: Infused Dexmedetomidine HCl (Precedex Premix) 400 mcg in 100 mls @ 3.675 mls/hr IVC .Q24H [facility]; 0.2 MCG/KG/HR PRN Reason: Protocol Stop: 07/22/18 09:16 Last Admin: 01/21/18 02:42 Dose: 0.5 mcg/kg/hr, 9.188 mls/hr Heparin Sodium/Dextrose (Heparin 25,000 Unit/500 Ml D5w) 25,000 unit in 500 mls @ 20.58 mls/hr IVC .Q24H [facility]; 14 UNIT/KG/HR PRN Reason: Protocol Stop: 07/22/18 15:01 Last Admin: 01/20/18 15:48 Dose: 14 unit/kg/hr, 20.58 mls/hr Amiodarone HCl/Dextrose (Amiodarone Drip Premix 360mg/200ml) 360 mg in 200 mls @ 16.667 mls/hr IVC CONT [facility] PRN Reason: 0.5 MG/MIN Stop: 07/22/18 16:31 Last Admin: 01/20/18 23:21 Dose: 0.5 mg/min, 16.667 mls/hr Phenylephrine HCl 20 mg/ (Dextrose) 502 mls @ 150.6 mls/hr IVC CONT [facility]; 100 MCG/MIN PRN Reason: Protocol Stop: 07/22/18 18:16 Last Titration: 01/21/18 05:15 Dose: 0 mcg/min, 0 mls/hr Norepinephrine Bitartrate 8 mg (/ Dextrose) 508 mls @ 30.48 mls/hr IVC CONT [facility] ; 8 MCG/MIN PRN Reason: Protocol Stop: 07/22/18 14:46 Last Admin: 01/21/18 06:05 Dose: 30 mcg/min, 114.3 mls/hr Vasopressin 40 unit/ Dextrose 102 mls @ 4.59 mls/hr IV .[id number] [facility] PRN Reason: 0.03 UNIT/MIN Stop: 07/22/18 20:31 Last Infusion: 01/21/18 06:26 Dose: 0 unit/min, 0 mls/hr Levofloxacin/Dextrose (Levaquin Premix 750mg/150 Ml) 750 mg in 150 mls @ 100 mls/hr IVPB Q48H [facility] PRN Reason: Protocol Stop: 07/22/18 09:01 Insulin Human Lispro (Humalog) 0 units SQ Q6HR [facility] PRN Reason: Protocol Stop: 07/21/18 12:01 Lorazepam (Ativan) 0.5 mg IVP Q8HR PRN PRN Reason: Anxiety Stop: 07/21/18 09:01 Methylprednisolone (Solu-Medrol) 40 mg IVP Q6HR [facility] Stop: 07/21/18 06:01 Last Admin: 01/21/18 05:33 Dose: 40 mg Metoprolol Tartrate (Lopressor) 2.5 mg IVP Q6HR PRN PRN Reason: HR >110, inform Stop: 07/21/18 01:11 Naloxone HCl (Narcan) 0.4 mg IVP Q2MIN PRN PRN Reason: SEE COMMENTS Stop: 07/21/18 04:15 Nitroglycerin (Nitroglycerin) 0.4 mg SL Q5MIN PRN PRN Reason: Chest Pain Stop: 07/21/18 01:14 Pantoprazole Sodium (Protonix) 40 mg IVP DAILY [facility] Stop: 07/21/18 09:01 Last Admin: 01/21/18 08:02 Dose: 40 mg - EKG Interpretation EKG results cardiology: other (12 hr tele aVG HR 100 A-Fib) - VTE Documentation of Mechanical Device: Intermittent pneumatic compression device Consult Discharge Plan - Plan Referrals: NONE,PCP [Primary Care Provider] -
[2018-01-21] MEDS: FentaNYL (PF) 1,000 MCG in 0.9 % Sodium Chloride 80 ML IVC SCH ×2 (15:45→21:17)
[2018-01-21] MEDS: Sodium Bicarbonate 150 MEQ in D5% in Water 1,000 ML IVC SCH (17:30)
[2018-01-21] MEDS: Heparin 25,000 UNIT/500 ML D5W 25,000 UNIT/500 ML BAG IVC SCH (18:34)
[2018-01-21] MEDS: Vasopressin 40 UNIT in D5% in Water 100 ML IV SCH (18:35)
[2018-01-22] MEDS: Lacri-Lube 3.5 GM TUBE BOTH EYES SCH ×6 (00:07→23:02)
[2018-01-22] MEDS: Sodium Bicarbonate 150 MEQ in D5% in Water 1,000 ML IVC SCH ×4 (00:21→23:02)
[2018-01-22] MEDS: Norepinephrine 8 MG in D5% in Water 500 ML IVC SCH ×2 (00:22→09:34)
[2018-01-22 03:07] LABS: Basophils % 0.1 %; Hematocrit 37.3 % (37.5-50.1); Hemoglobin 11.8 g/dL (12.9-16.9); Immature Granulocytes % 0.6 % (0-4); Lymphocytes # 0.3 K/mcL (0.6-4.6); Lymphocytes % 1.8 %; Mean Corpuscular HGB Conc 31.6 g/dL (31.6-35.5); Mean Corpuscular Hemoglobin 23.9 pg (28.0-33.3); Mean Corpuscular Volume 75.5 fL (83.0-100.0); Mean Platelet Volume 10.2 fL (9.4-12.4); Monocytes # 0.4 K/mcL (0.0-1.3); Monocytes % 2.8 %; Nucleated Red Blood Cells 0.3 /100 WBC (0); Platelet Count 147 K/mcL (140-400); Red Blood Count 4.94 M/mcL (4.19-5.50); Red Cell Distribution Width 17.7 % (11.5-14.5); Segmented Neutrophils % 94.7 %
[2018-01-22 03:08] LABS: Neutrophils # 13.9 K/mcL (1.6-8.9)
[2018-01-22] MEDS: Ipratropium/Albuterol Neb 3 ML IH SCH ×6 (03:21→23:15)
[2018-01-22 03:29] LABS: Platelet Estimate Normal (Normal)
[2018-01-22 03:30] LABS: Albumin 2.1 g/dL (3.5-5.7); Albumin/Globulin Ratio 0.9 (1.1-2.2); Bilirubin,Total 1.3 mg/dL (0.3-1.0); Calcium 6.8 mg/dL (8.6-10.3); Globulin 2.3 g/dL (2.4-3.5); Potassium 4.5 mEq/L (3.5-5.1); Total Protein 4.4 g/dL (6.4-8.9)
[2018-01-22 03:35] LABS: Burr Cells 1+ (Not Present)
[2018-01-22 03:36] LABS: Poikilocytosis 1+ (Not Present)
[2018-01-22] MEDS: MethylPREDNISolone 40 MG/ML VIAL IVP SCH ×4 (05:04→23:02)
[2018-01-22] MEDS: Acetaminophen IV 1,000 MG/100 ML INFUS..BTL IVPB SCH (05:05)
[2018-01-22] MEDS: Insulin LISPRO 300 UNITS/3 ML VIAL SQ SCH ×4 (05:08→23:03)
[2018-01-22] MEDS: Dexmedetomidine HCl 400 MCG/100 ML MLS IVC SCH ×3 (05:14→19:00)
[2018-01-22 05:52] LABS: ABG Base Excess -6 mEq/L (-2 to 3); ABG HCO3 22 mEq/L (21-27); ABG Oxygen Saturation 92 % (95-98); ABG PCO2 51 mmHg (35-45); ABG PH 7.24 pH Units (7.32-7.45); ABG PO2 76 mmHg (85-104); ABG TCO2 24 mEq/L (20-26); Blood Gas Modality ASSIST CONTROL; Blood Gas Respiration Rate 10; Blood Gas VT 600 cc
[2018-01-22] MEDS: Budesonide/Formoterol 160/4.5 MDI IH SCH ×2 (07:05→19:55)
[2018-01-22] MEDS: Aspirin 81 MG TAB.CHEW PO SCH (08:13)
[2018-01-22] MEDS: Chlorhexidine Rinse 15 ML MOUTHWASH MM SCH ×2 (08:13→20:02)
[2018-01-22] MEDS: Pantoprazole 40 MG VIAL IVP SCH (08:13)
[2018-01-22] MEDS: Phenylephrine 20 MG in 0.9 % Sodium Chloride 500 ML IVC SCH (09:33)
[2018-01-22] MEDS ORDERED: 0.9 % Sodium Chloride 1,000 ML IVC ONE (09:34)
[2018-01-22] MEDS: Amiodarone Premix 360 MG/200 ML BAG IVC SCH ×2 (09:36→20:02)
[2018-01-22] MEDS: FentaNYL (PF) 1,000 MCG in 0.9 % Sodium Chloride 80 ML IVC SCH ×3 (09:57→23:38)
--- NOTE | 2018-01-22 10:34 | Palliative Progress Note ---
Date of Encounter: 01/22/18 Time of Encounter: 09:30 - Assessment and plan (1) Generalized pain Current Visit: Yes Status: Acute Assessment and plan: Continues with Fentanyl drip currently at 100 mcg per hour. Monitor and titrate per ICU protocol (2) Anxiety Current Visit: Yes Status: Acute Assessment and plan: Continues with Propofol infusion. Monitor (3) Dyspnea Current Visit: Yes Status: Acute Assessment and plan: Continues with vent support and treatment with bronchodilators/antibiotic therapy. (4) Goals of care, counseling/discussion Current Visit: Yes Status: Acute Assessment and plan: No family present. Will attempt to speak with son today. 1300 UPDATE: No family has arrived. Spoke with son Travis by phone - states he has 9 yr old daughter and not able to visit today. Provided emotional support - he was supposed to take his daughter on a short vacation, and had to cancel his plans. He will try and find a sitter for her tomorrow, to try and come to hospital. I updated on clinical condition - he verbalized understanding. I asked if any family (particularly pt brother) would be coming in town to help him with decisions, and he stated "That's not the way my uncle is. When I called him to tell him how sick he was, he stated "There's nothing I could do if I was there". Asked Travis to notify me if he plans on visiting pt tomorrow. Will continue to follow. (5) Acute exacerbation of chronic obstructive airways disease Current Visit: Yes Status: Acute (6) Acute kidney injury Current Visit: Yes Status: Acute (7) Acute respiratory failure with hypoxia Current Visit: Yes Status: Acute (8) Cardiomyopathy Current Visit: Yes Status: Chronic Qualifiers: Cardiomyopathy type: unspecified Qualified Code(s): I42.9 - Cardiomyopathy , unspecified (9) Pneumonia Current Visit: No Status: Resolved Qualifiers: Pneumonia type: due to unspecified organism Laterality: right Lung location: lower lobe of lung Qualified Code(s): J18.1 - Lobar pneumonia, unspecified organism - Time Spent With Patient Total time spent is greater than 50% in coordination of care (as documented) at patient's floor/unit and/or counseling patient: - Subjective Interval history: Remains sedated on vent and on 3 vasopressors. Mottled from knees down. WBC decreasing today to 14.7, Lactic acid 2.5, Renal function continues to decrease with BUN 76/CR 2.49. AST - 159, ALT 253. Nephrology consult noted. Remains on heparin drip per cardiology at this point. No family present. - Constitutional Vitals: Abnormal lab results WBC 14.7 K/mcL (4.3-11.1) H 01/22/18 03:02 Hgb 11.8 g/dL (12.9-16.9) L 01/22/18 03:02 Hct 37.3 % (37.5-50.1) L 01/22/18 03:02 MCV 75.5 fL (83.0-100.0) L 01/22/18 03:02 MCH 23.9 pg (28.0-33.3) L 01/22/18 03:02 RDW 17.7 % (11.5-14.5) H 01/22/18 03:02 Band Neutrophils % 18.0 % (0-4) H 01/21/18 03:50 Neutrophils # 13.9 K/mcL (1.6-8.9) H 01/22/18 03:02 Lymphocytes # 0.3 K/mcL (0.6-4.6) L 01/22/18 03:02 Nucleated RBCs/100 WBC 0.3 /100 WBC (0) H 01/22/18 03:02 Polychromasia 1+ (Not Present) A 01/21/18 03:50 Hypochromasia Present (Not Present) A 01/19/18 04:37 Poikilocytosis 1+ (Not Present) A 01/22/18 03:02 Anisocytosis 1+ (Not Present) A 01/21/18 03:50 Microcytosis Present (Not Present) A 01/21/18 03:50 Lennie Cells 1+ (Not Present) A 01/22/18 03:02 PT 43.2 Seconds (9.4-12.1) H 01/20/18 22:00 APTT 54.2 Seconds (26.0-36.0) H 01/19/18 04:37 ABG pH 7.24 pH Units (7.32-7.45) L 01/22/18 05:48 ABG pCO2 51 mmHg (35-45) H 01/22/18 05:48 ABG pO2 76 mmHg (85-104) L 01/22/18 05:48 ABG O2 Saturation 92 % (95-98) L 01/22/18 05:48 ABG Base Excess -6 mEq/L (-2 to 3) L 01/22/18 05:48 Sodium 123 mEq/L (136-145) L 01/22/18 03:02 Chloride 90 mEq/L (98-107) L 01/22/18 03:02 Carbon Dioxide 20 mEq/L (23-29) L 01/22/18 03:02 BUN 76 mg/dL (6-20) H 01/22/18 03:02 Creatinine 2.49 mg/dL (0.70-1.30) H 01/22/18 03:02 Est GFR ( Amer) 32 (> 60) L 01/22/18 03:02 Est GFR (Non-Af Amer) 27 (> 60) L 01/22/18 03:02 BUN/Creatinine Ratio 31 (6-26) H 01/22/18 03:02 Glucose 252 mg/dL (70-105) H 01/22/18 03:02 POC Glucose 201 mg/dL (70-99) H 01/22/18 05:07 Lactic Acid 2.5 mmol/L (0.5-2.2) H 01/22/18 03:02 Calcium 6.8 mg/dL (8.6-10.3) L 01/22/18 03:02 Total Bilirubin 1.3 mg/dL (0.3-1.0) H 01/22/18 03:02 AST 159 Units/L (13-39) H 01/22/18 03:02 ALT 253 Units/L (7-52) H 01/22/18 03:02 Troponin I 0.05 ng/mL (< 0.04) H* 01/19/18 04:37 B-Natriuretic Peptide 2025 pg/mL (Less than 100) H 01/18/18 21:49 Serum Total Protein 4.4 g/dL (6.4-8.9) L 01/22/18 03:02 Albumin 2.1 g/dL (3.5-5.7) L 01/22/18 03:02 Globulin 2.3 g/dL (2.4-3.5) L 01/22/18 03:02 Albumin/Globulin Ratio 0.9 (1.1-2.2) L 01/22/18 03:02 Vancomycin Trough 16 mcg/mL (5-10) H 01/21/18 03:50 General appearance: Present: mild distress - Eye Eye exam: Present: periorbital swelling, scleral icterus - Respiratory Additional comments: Rhonchi throughout anterior lung fraser - Cardiovascular Cardiovascular exam: Present: irregular rhythm - GI/Abdominal GI/Abdominal exam: Present: diminished bowel sounds, soft - Additional comments: Genital warts noted - Extremities Exam Additional comments: Lower extremities cool to touch and mottling from knees down - Neurological Exam Additional comments: Sedated on vent - Skin Skin exam: Present: dry, pallor, warm Additional comments: Slightly jaundiced Palliative Quality Palliative Quality: Screen for Code Status: Yes, Screen for Goals of Care: Yes, Screen for Pain: NA (unresponsive on vent), If Pain Regimen Started, Initiate Bowel Regimen: NA, Screen for Nausea/Vomitting: NA Code Status: 01/21/18 15:25 DNR [Resuscitation Status: Active] [RES] Routine Comment: Resuscitation Status: DNR-Comfort Care-Arrest - Labs CBC & Chem 7: 01/22/18 03:02 01/22/18 03:02 Labs: Laboratory Results - last 24 hr 01/21/18 01/21/18 01/21/18 11:13 12:40 17:31 WBC RBC Hgb Hct MCV MCH MCHC RDW Plt Count MPV Immature Gran % Seg Neutrophils % Lymphocytes % Monocytes % Eosinophils % Basophils % Neutrophils # Lymphocytes # Monocytes # Eosinophils # Basophils # Nucleated RBCs/100 WBC Platelet Estimate Poikilocytosis Mentor Cells Heparin Anti-Xa, Unfract ABG pH ABG pCO2 ABG pO2 ABG HCO3 ABG Total CO2 ABG O2 Saturation ABG Base Excess Respiration Rate O2 Delivery Device Blood Gas Modality Inspired O2 Tidal Volume PEEP Sodium Potassium Chloride Carbon Dioxide BUN Creatinine Est GFR ( Amer) Est GFR (Non-Af Amer) BUN/Creatinine Ratio Glucose POC Glucose 150 H 130 H Calculated Osmolality Lactic Acid 4.0 H* Calcium Total Bilirubin AST ALT Alkaline Phosphatase Serum Total Protein Albumin Globulin Albumin/Globulin Ratio 01/21/18 01/21/18 01/22/18 21:20 22:17 03:02 WBC 14.7 H RBC 4.94 Hgb 11.8 L Hct 37.3 L MCV 75.5 L MCH 23.9 L MCHC 31.6 RDW 17.7 H Plt Count 147 MPV 10.2 Immature Gran % 0.6 Seg Neutrophils % 94.7 Lymphocytes % 1.8 Monocytes % 2.8 Eosinophils % 0.0 Basophils % 0.1 Neutrophils # 13.9 H Lymphocytes # 0.3 L Monocytes # 0.4 Eosinophils # 0.0 Basophils # 0.0 Nucleated RBCs/100 WBC 0.3 H Platelet Estimate Normal Poikilocytosis 1+ A Mentor Cells 1+ A Heparin Anti-Xa, Unfract 0.42 ABG pH ABG pCO2 ABG pO2 ABG HCO3 ABG Total CO2 ABG O2 Saturation ABG Base Excess Respiration Rate O2 Delivery Device Blood Gas Modality Inspired O2 Tidal Volume PEEP Sodium Potassium Chloride Carbon Dioxide BUN Creatinine Est GFR ( Amer) Est GFR (Non-Af Amer) BUN/Creatinine Ratio Glucose POC Glucose 165 H Calculated Osmolality Lactic Acid Calcium Total Bilirubin AST ALT Alkaline Phosphatase Serum Total Protein Albumin Globulin Albumin/Globulin Ratio 01/22/18 01/22/18 01/22/18 03:02 03:02 05:07 WBC RBC Hgb Hct MCV MCH MCHC RDW Plt Count MPV Immature Gran % Seg Neutrophils % Lymphocytes % Monocytes % Eosinophils % Basophils % Neutrophils # Lymphocytes # Monocytes # Eosinophils # Basophils # Nucleated RBCs/100 WBC Platelet Estimate Poikilocytosis Lennie Cells Heparin Anti-Xa, Unfract ABG pH ABG pCO2 ABG pO2 ABG HCO3 ABG Total CO2 ABG O2 Saturation ABG Base Excess Respiration Rate O2 Delivery Device Blood Gas Modality Inspired O2 Tidal Volume PEEP Sodium 123 L Potassium 4.5 Chloride 90 L Carbon Dioxide 20 L BUN 76 H Creatinine 2.49 H Est GFR ( Amer) 32 L Est GFR (Non-Af Amer) 27 L BUN/Creatinine Ratio 31 H Glucose 252 H POC Glucose 201 H Calculated Osmolality 287 Lactic Acid 2.5 H Calcium 6.8 L Total Bilirubin 1.3 H AST 159 H ALT 253 H Alkaline Phosphatase 54 Serum Total Protein 4.4 L Albumin 2.1 L Globulin 2.3 L Albumin/Globulin Ratio 0.9 L 01/22/18 05:48 WBC RBC Hgb Hct MCV MCH MCHC RDW Plt Count MPV Immature Gran % Seg Neutrophils % Lymphocytes % Monocytes % Eosinophils % Basophils % Neutrophils # Lymphocytes # Monocytes # Eosinophils # Basophils # Nucleated RBCs/100 WBC Platelet Estimate Poikilocytosis Mentor Cells Heparin Anti-Xa, Unfract ABG pH 7.24 L ABG pCO2 51 H ABG pO2 76 L ABG HCO3 22 ABG Total CO2 24 ABG O2 Saturation 92 L ABG Base Excess -6 L Respiration Rate 10 O2 Delivery Device Adult Vent Blood Gas Modality ASSIST CONTROL Inspired O2 30.0 Tidal Volume 600 PEEP 5 Sodium Potassium Chloride Carbon Dioxide BUN Creatinine Est GFR ( Amer) Est GFR (Non-Af Amer) BUN/Creatinine Ratio Glucose POC Glucose Calculated Osmolality Lactic Acid Calcium Total Bilirubin AST ALT Alkaline Phosphatase Serum Total Protein Albumin Globulin Albumin/Globulin Ratio - Impressions Impressions Retroperitoneum Ultrasound 01/21/18 13:54 IMPRESSION: No hydronephrosis of the right lower quadrant renal transplant. Complex cyst is seen within the transplant measuring up to 19 mm. D/ / 01/21/2018 18:38:08 Cleso Taylor MD / bcarter Interpreting Provider: Celso Taylor MD - ABG Interpretation ABG results: ABG ABG pH 7.24 pH Units (7.32-7.45) L 01/22/18 05:48 ABG pCO2 51 mmHg (35-45) H 01/22/18 05:48 ABG pO2 76 mmHg (85-104) L 01/22/18 05:48 ABG O2 Saturation 92 % (95-98) L 01/22/18 05:48 PT/INR, D-dimer PT 43.2 Seconds (9.4-12.1) H 01/20/18 22:00 Consult Discharge Plan - Plan Referrals: NONE,PCP [Primary Care Provider] -
--- NOTE | 2018-01-22 11:21 | Pulmonology Progress Note ---
Date of Encounter: 01/22/18 Time of Encounter: 07:00 Assessment and Plan (1) Acute and chronic respiratory failure, unspecified whether with hypoxia or hypercapnia Current Visit: Yes Status: Acute Patient is still unstable for any spontaneous breathing trial and continue vent support. Patient with intrinsic PEEP which has improved with changing vent setting. Qualifiers: Respiratory failure complication: hypoxia and hypercapnia Qualified Code(s) : J96.21 - Acute and chronic respiratory failure with hypoxia; J96.22 - Acute and chronic respiratory failure with hypercapnia (2) Septic shock Current Visit: Yes Status: Acute Patient with poor prognosis and source of pneumonia. Patient has multiple comorbidities and high mortality rate. Vasopressors needs fluctuating and fluid bolus was given to the patient, however concerned about his hypoxemia with more fluid and nephrology is following. Stop scheduled Tylenol with worsening of his liver function test. (3) Acute kidney injury Current Visit: Yes Status: Acute Nephrology follow-up and suspect patient may benefit from Hoda. (4) A-fib Current Visit: Yes Status: Chronic Mostly rate controlled and cardiology follow-up. Patient is on anticoagulation. Qualifiers: Atrial fibrillation type: chronic Qualified Code(s): I48.2 - Chronic atrial fibrillation Subjective Principal diagnosis: Pneumonia Interval history: Overall there is no significant changes and patient remain on vasopressors. Patient's CODE STATUS was changed. Objective PUL Vital signs: Last Vital Signs Temp 97.8 F 01/22/18 11:00 Pulse 85 01/22/18 11:00 Resp 10 01/22/18 11:15 BP 89/57 01/22/18 11:15 Pulse Ox 96 01/22/18 11:15 General appearance: no acute distress Eyes: nonicteric ENT: oropharynx moist Effort: mildly labored Auscultation: bilateral: rhonchi Cardiovascular: irregular rhythm Gastrointestinal: normoactive bowel sounds, non-distended Extremities: no cyanosis, edema unable to assess due to mental status Ventilator Settings Ventilator Settings: Ventilator Settings, Last 8 Hours Ventilator Tidal Volume 600 Setting Ventilator Tidal Volume 600 Setting Ventilator Tidal Volume 600 Setting Ventilator Tidal Volume 600 Setting Ventilator Tidal Volume 600 Setting Ventilator Tidal Volume 600 Setting Ventilator Tidal Volume 600 Setting Ventilator Tidal Volume 600 Setting Ventilator Tidal Volume 600 Setting Ventilator Tidal Volume 600 Setting Ventilator Tidal Volume 600 Setting Ventilator Tidal Volume 600 Setting Ventilator Tidal Volume 600 Setting Ventilator Tidal Volume 600 Setting Ventilator Respiratory Rate 10 Setting Ventilator Respiratory Rate 10 Setting Ventilator Respiratory Rate 10 Setting Ventilator Respiratory Rate 10 Setting Ventilator Respiratory Rate 10 Setting Ventilator Respiratory Rate 10 Setting Ventilator Respiratory Rate 10 Setting Ventilator Respiratory Rate 10 Setting Ventilator Respiratory Rate 10 Setting Ventilator Respiratory Rate 10 Setting Ventilator Respiratory Rate 10 Setting Ventilator Respiratory Rate 10 Setting Ventilator Respiratory Rate 10 Setting Ventilator Respiratory Rate 10 Setting Actual Respiratory Rate 10 Actual Respiratory Rate 10 Actual Respiratory Rate 10 Actual Respiratory Rate 12 Actual Respiratory Rate 12 Actual Respiratory Rate 12 Actual Respiratory Rate 10 Actual Respiratory Rate 10 Actual Respiratory Rate 13 Actual Respiratory Rate 13 Actual Respiratory Rate 10 Actual Respiratory Rate 10 Actual Respiratory Rate 10 Positive End Expiratory 5 Pressure Positive End Expiratory 5 Pressure Positive End Expiratory 5 Pressure Positive End Expiratory 5 Pressure Positive End Expiratory 5 Pressure Positive End Expiratory 5 Pressure Positive End Expiratory 5 Pressure Positive End Expiratory 5 Pressure Positive End Expiratory 5 Pressure Positive End Expiratory 5 Pressure Positive End Expiratory 5 Pressure Positive End Expiratory 5 Pressure Positive End Expiratory 5 Pressure Positive End Expiratory 5 Pressure Peak Inspiratory Airway 34 Pressure Peak Inspiratory Airway 33 Pressure Peak Inspiratory Airway 32 Pressure Peak Inspiratory Airway 15 Pressure Peak Inspiratory Airway 15 Pressure Peak Inspiratory Airway 13 Pressure Peak Inspiratory Airway 32 Pressure Peak Inspiratory Airway 31 Pressure Peak Inspiratory Airway 11 Pressure Peak Inspiratory Airway 11 Pressure Peak Inspiratory Airway 27 Pressure Peak Inspiratory Airway 30 Pressure Results - Laboratory Findings CBC and BMP: 01/22/18 03:02 01/22/18 03:02 ABG ABG pH 7.24 pH Units (7.32-7.45) L 01/22/18 05:48 ABG pCO2 51 mmHg (35-45) H 01/22/18 05:48 ABG pO2 76 mmHg (85-104) L 01/22/18 05:48 ABG O2 Saturation 92 % (95-98) L 01/22/18 05:48 PT/INR, D-dimer PT 43.2 Seconds (9.4-12.1) H 01/20/18 22:00 Abnormal lab findings: Abnormal lab results WBC 14.7 K/mcL (4.3-11.1) H 01/22/18 03:02 Hgb 11.8 g/dL (12.9-16.9) L 01/22/18 03:02 Hct 37.3 % (37.5-50.1) L 01/22/18 03:02 MCV 75.5 fL (83.0-100.0) L 01/22/18 03:02 MCH 23.9 pg (28.0-33.3) L 01/22/18 03:02 RDW 17.7 % (11.5-14.5) H 01/22/18 03:02 Band Neutrophils % 18.0 % (0-4) H 01/21/18 03:50 Neutrophils # 13.9 K/mcL (1.6-8.9) H 01/22/18 03:02 Lymphocytes # 0.3 K/mcL (0.6-4.6) L 01/22/18 03:02 Nucleated RBCs/100 WBC 0.3 /100 WBC (0) H 01/22/18 03:02 Polychromasia 1+ (Not Present) A 01/21/18 03:50 Hypochromasia Present (Not Present) A 01/19/18 04:37 Poikilocytosis 1+ (Not Present) A 01/22/18 03:02 Anisocytosis 1+ (Not Present) A 01/21/18 03:50 Microcytosis Present (Not Present) A 01/21/18 03:50 Cambria Cells 1+ (Not Present) A 01/22/18 03:02 PT 43.2 Seconds (9.4-12.1) H 01/20/18 22:00 APTT 54.2 Seconds (26.0-36.0) H 01/19/18 04:37 ABG pH 7.24 pH Units (7.32-7.45) L 01/22/18 05:48 ABG pCO2 51 mmHg (35-45) H 01/22/18 05:48 ABG pO2 76 mmHg (85-104) L 01/22/18 05:48 ABG O2 Saturation 92 % (95-98) L 01/22/18 05:48 ABG Base Excess -6 mEq/L (-2 to 3) L 01/22/18 05:48 Sodium 123 mEq/L (136-145) L 01/22/18 03:02 Chloride 90 mEq/L (98-107) L 01/22/18 03:02 Carbon Dioxide 20 mEq/L (23-29) L 01/22/18 03:02 BUN 76 mg/dL (6-20) H 01/22/18 03:02 Creatinine 2.49 mg/dL (0.70-1.30) H 01/22/18 03:02 Est GFR ( Amer) 32 (> 60) L 01/22/18 03:02 Est GFR (Non-Af Amer) 27 (> 60) L 01/22/18 03:02 BUN/Creatinine Ratio 31 (6-26) H 01/22/18 03:02 Glucose 252 mg/dL (70-105) H 01/22/18 03:02 POC Glucose 201 mg/dL (70-99) H 01/22/18 05:07 Lactic Acid 2.5 mmol/L (0.5-2.2) H 01/22/18 03:02 Calcium 6.8 mg/dL (8.6-10.3) L 01/22/18 03:02 Total Bilirubin 1.3 mg/dL (0.3-1.0) H 01/22/18 03:02 AST 159 Units/L (13-39) H 01/22/18 03:02 ALT 253 Units/L (7-52) H 01/22/18 03:02 Troponin I 0.05 ng/mL (< 0.04) H* 01/19/18 04:37 B-Natriuretic Peptide 2025 pg/mL (Less than 100) H 01/18/18 21:49 Serum Total Protein 4.4 g/dL (6.4-8.9) L 01/22/18 03:02 Albumin 2.1 g/dL (3.5-5.7) L 01/22/18 03:02 Globulin 2.3 g/dL (2.4-3.5) L 01/22/18 03:02 Albumin/Globulin Ratio 0.9 (1.1-2.2) L 01/22/18 03:02 Vancomycin Trough 16 mcg/mL (5-10) H 01/21/18 03:50 - Microbiology Findings Microbiology Findings: Microbiology, Last 48 Hours 01/19/18 16:40 Sputum Culture - Final Sputum - Clinical Findings Intake & Output: Intake & Output 01/21/18 01/22/18 01/22/18 23:59 07:59 15:59 Intake Total 2079 / 2079 1550 / 1550 1937 Output Total 475 / 475 300 / 300 Balance 1604 / 1604 1250 / 1250 1937 Weight 81 kg - VTE Documentation of Mechanical Device: Intermittent pneumatic compression device Consult Discharge Plan - Plan Referrals: NONE,PCP [Primary Care Provider] -
--- NOTE | 2018-01-22 12:49 | Event Note ---
Date of Encounter: 01/22/18 Time of Encounter: 12:48 - Cardiology Event Note Discussed with Dr. An. From cardiac standpoint, will continue IV amiodarone and heparin gtt for another 24 hours, then re-evaluate tomorrow on any family decisions regarding goals of care.
--- NOTE | 2018-01-22 16:32 | Nephrology Progress Note ---
Date of Encounter: 01/22/18 Time of Encounter: 10:50 - Assessment and Plan (1) [id number] kidney injury Current Visit: Yes Status: Acute Lactic acid down from 4.0->2.5 UOP 475 yesterday 01/21 On Levophed P: 1L NS Bolus Continuing bicarb Possible CRRT tomorrow depending on labs/clinical presentation Consideration for trajectory of metabolic acidosis, potassium, fluid status/pulmonary edema/MAP balance Continue avoiding nephrotoxins, renal dose meds Qualifiers: Acute renal failure type: unspecified Chronic kidney disease stage: unspecified stage Qualified Code(s): N17.9 - Acute kidney failure, unspecified ; N18.9 - Chronic kidney disease, unspecified (2) Septic shock Current Visit: Yes Status: Acute Per primary team: Currently on Levophed (de-escalated from 3 pressors), abx ( Levaquin, was on vanc/zosyn/levaquin) Patient not tolerating cpap weaning (3) History of kidney transplant Current Visit: Yes Status: Chronic Plan as above No hydronephrosis on US (4) Atrial fibrillation with RVR Current Visit: Yes Status: Acute Cardiology continuing amiodarone and heparin gtt for at least another 24hrs Subjective Principal diagnosis: Pneumonia Interval history: Patient seen and evaluated at bedside; intubated and sedated, no acute events overnight. Code status changed to DNR-CCA Objective - Vital Signs Vital signs: Vital Signs Temp Pulse Resp BP Pulse Ox 01/22/18 16:00 86 10 99/64 100 01/22/18 15:24 10 61/52 100 01/22/18 15:00 97.7 F 86 10 107/70 100 01/22/18 14:00 85 12 98/63 94 01/22/18 13:10 12 94 01/22/18 13:00 90 17 88/60 94 01/22/18 12:00 89 10 85/54 99 01/22/18 11:15 10 89/57 96 01/22/18 11:00 97.8 F 85 10 88/56 95 01/22/18 10:00 87 10 85/60 100 01/22/18 09:00 98.4 F 81 12 85/56 91 01/22/18 08:54 12 83/56 95 01/22/18 08:00 91 12 84/54 95 01/22/18 07:41 98.2 F 01/22/18 07:15 98.2 F 90 10 89/57 98 01/22/18 07:06 11 89/52 98 01/22/18 06:00 89 11 89/52 92 01/22/18 05:29 11 85/55 92 01/22/18 05:00 93 14 93/57 96 01/22/18 04:00 90 15 91/60 95 01/22/18 03:21 10 80/52 99 01/22/18 03:01 98 F 86 10 90/61 01/22/18 02:23 10 93/61 100 01/22/18 02:00 83 10 91/56 100 01/22/18 01:00 90 10 90/56 100 01/22/18 00:03 89 10 97/62 100 01/21/18 23:35 10 100/60 100 01/21/18 23:00 98 F 83 10 88/55 100 01/21/18 22:01 97.8 F 90 10 95/56 100 01/21/18 21:43 10 85/58 100 01/21/18 21:05 98 F 99 10 93/57 98 01/21/18 20:06 100 F H 98 10 93/59 98 01/21/18 20:01 10 81/54 98 01/21/18 19:01 101.2 F H 95 10 102/62 98 01/21/18 18:00 106 10 91/68 98 01/21/18 17:00 106 15 93/62 99 Intake and Output 01/22/18 01/22/18 01/22/18 07:59 15:59 23:59 Intake Total 1550 / 1550 3488 / 3488 Output Total 300 / 300 100 / 100 Balance 1250 / 1250 3388 / 3388 Intake: IV Fluids 1550 / 1550 3488 / 3488 Amiodarone Drip Premix 360mg/ 200 / 200 200mL 360 mg In 200 ml @ 0.5 MG /MIN 16.667 mls/hr IVC [facility] Rx#:[id number] PRECEDEX Premix 400 mcg In 100 100 / 100 100 / 100 ml @ 0.2 MCG/KG/HR 3.675 mls/hr IVC .Q24H [facility] Rx#:[id number] FentaNYL (PF) 1,000 MCG In 0.9 100 / 100 % Sodium Chloride 80 ML @ 50 MCG/HR 5 mls/hr IVC CONT [facility] Rx #:[id number] Levophed 8 MG In Dextrose 5% 888 / 888 500 ML @ 8 MCG/MIN 30.48 mls/hr IVC [facility] Rx#:[id number] Sodium Bicarbonate 150 MEQ In 1150 / 1150 2300 / 2300 Dextrose 5% 1,000 ML @ 150 mls/ hr IVC .Q7H40M [facility] Rx#: [id number] Ofirmev 1,000 mg/100 ml 1,000 200 / 200 mg In 100 ml @ 400 mls/hr IVPB Q6HR [facility] Rx#:[id number] Oral 0 / 0 0 / 0 Output: Catheter 300 / 300 100 / 100 - General Appearance General appearance: Present: sedated on ventilator, frail Neck: Present: no JVD Respiratory: Present: course breath sounds Cardiology: Present: no murmurs, no rub, no gallops, regular rate, regular rhythm, normal S1, normal S2 Gastrointestinal: Present: normoactive bowel sounds Integumentary: Present: warm and dry Musculoskeletal: Present: no erythema, no cyanosis, no clubbing - Lab 01/22/18 03:02 01/22/18 03:02 Most recent lab results ABG pH 7.24 pH Units (7.32-7.45) L 01/22/18 05:48 ABG pCO2 51 mmHg (35-45) H 01/22/18 05:48 ABG pO2 76 mmHg (85-104) L 01/22/18 05:48 ABG HCO3 22 mEq/L (21-27) 01/22/18 05:48 ABG O2 Saturation 92 % (95-98) L 01/22/18 05:48 Calcium 6.8 mg/dL (8.6-10.3) L 01/22/18 03:02 - VTE Documentation of Mechanical Device: Intermittent pneumatic compression device Consult Discharge Plan - Plan Referrals: NONE,PCP [Primary Care Provider] -
[2018-01-22] MEDS: Vasopressin 40 UNIT in D5% in Water 100 ML IV SCH (18:02)
[2018-01-22] MEDS: Norepinephrine 8 MG in 0.9 % Sodium Chloride 250 ML IVC SCH ×2 (18:02→18:58)
[2018-01-22] MEDS: Heparin 25,000 UNIT/500 ML D5W 25,000 UNIT/500 ML BAG IVC SCH (19:01)
[2018-01-23] MEDS: Lacri-Lube 3.5 GM TUBE BOTH EYES SCH ×5 (00:02→20:10)
[2018-01-23] MEDS: Ipratropium/Albuterol Neb 3 ML IH SCH ×6 (03:33→23:02)
[2018-01-23 03:46] LABS: Basophils % 0.2 %; Hematocrit 35.4 % (37.5-50.1); Hemoglobin 11.8 g/dL (12.9-16.9); Immature Granulocytes % 2.3 % (0-4); Immature Platelets 3.7 % (1.1-6.1); Lymphocytes # 0.2 K/mcL (0.6-4.6); Lymphocytes % 1.2 %; Mean Corpuscular HGB Conc 33.3 g/dL (31.6-35.5); Mean Corpuscular Hemoglobin 24.2 pg (28.0-33.3); Mean Corpuscular Volume 72.5 fL (83.0-100.0); Mean Platelet Volume 10.1 fL (9.4-12.4); Monocytes # 0.6 K/mcL (0.0-1.3); Monocytes % 3.8 %; Nucleated Red Blood Cells 0.7 /100 WBC (0); Platelet Count 120 K/mcL (140-400); Red Blood Count 4.88 M/mcL (4.19-5.50); Red Cell Distribution Width 18.1 % (11.5-14.5); Segmented Neutrophils % 92.5 %
[2018-01-23 03:49] LABS: Neutrophils # 14.2 K/mcL (1.6-8.9)
[2018-01-23 04:03] LABS: Calcium 6.5 mg/dL (8.6-10.3); Potassium 4.9 mEq/L (3.5-5.1)
[2018-01-23] MEDS: FentaNYL (PF) 1,000 MCG in 0.9 % Sodium Chloride 80 ML IVC SCH ×3 (04:04→17:10)
[2018-01-23] MEDS: Norepinephrine 8 MG in 0.9 % Sodium Chloride 250 ML IVC SCH ×2 (04:05→14:13)
[2018-01-23 04:08] LABS: Hypochromasia Present (Not Present); Platelet Estimate Slight Decrease (Normal)
[2018-01-23 04:09] LABS: Microcytosis Present (Not Present); Poikilocytosis 1+ (Not Present); Toxic Granulation Present (Not Present)
[2018-01-23] MEDS: Dexmedetomidine HCl 400 MCG/100 ML MLS IVC SCH ×5 (05:03→19:30)
[2018-01-23] MEDS: MethylPREDNISolone 40 MG/ML VIAL IVP SCH ×3 (05:04→17:00)
[2018-01-23] MEDS: Insulin LISPRO 300 UNITS/3 ML VIAL SQ SCH ×3 (05:06→17:00)
[2018-01-23] MEDS: Budesonide/Formoterol 160/4.5 MDI IH SCH ×2 (07:12→19:39)
[2018-01-23] MEDS: Sodium Bicarbonate 150 MEQ in D5% in Water 1,000 ML IVC SCH ×3 (07:17→22:13)
[2018-01-23] MEDS: Chlorhexidine Rinse 15 ML MOUTHWASH MM SCH ×2 (08:12→20:19)
[2018-01-23] MEDS: Levofloxacin 750 MG/150 ML 750 MG/150 ML BAG IVPB SCH (08:12)
[2018-01-23] MEDS: Pantoprazole 40 MG VIAL IVP SCH (08:12)
[2018-01-23] MEDS: Aspirin 81 MG TAB.CHEW PO SCH (08:12)
[2018-01-23] MEDS: Amiodarone Premix 360 MG/200 ML BAG IVC SCH ×2 (08:15→20:10)
[2018-01-23] MEDS: Phenylephrine 20 MG in 0.9 % Sodium Chloride 500 ML IVC SCH (08:18)
--- NOTE | 2018-01-23 08:26 | Pulmonology Progress Note ---
<Neymar Guy - Last Filed: 01/23/18 11:05> Date of Encounter: 01/23/18 Time of Encounter: 08:25 Assessment and Plan (1) Sepsis Current Visit: Yes Status: Acute Patient does meet sepsis criteria most likely secondary to patient's pneumonia. Patient was tachycardic but he is also in A. fib with RVR. Patient also has a fever and a source of infection with the pneumonia. Patient was positive for strep pneumonia urine antigen. All other cultures are still pending. Patient was initially placed on broad-spectrum antibiotics including vancomycin , Zosyn, Levaquin. Patient was mildly hypotensive we did give 25% albumin this did not change patient's blood pressure. This could have been all due to breath stacking so we did give patient vecuronium and patient's blood pressure did seem to go up after that. But it did not hold. At this time we decided to consult cardiology cardiology says patient is atrial fibrillation and if we do get them out of atrial fibrillation a could help with patient's blood pressure as he would not be is tachycardic. Spoke with cardiology and they are going to plan on starting heparin drip and trying possible electrocardioversion. We did order a factor X a as patient is on Xarelto severe unsure of his correct INR which was reading at 4.5. The factor X a came back normal at 0.61. We gave patient 2 L lactated Ringer's and will also start Levaquin fed to support patient's blood pressure. For this we will consider placing central venous catheter to give this. We did attempt to decrease patient's sedation but then he was too alert. So patient be changed Precedex which did seem to help minorly but is not working to its full extent. CVC in left groin placed for pressor access. Patient did have to be on levofed , Kota-Synephrine, vasopressin. Has since only been weaned to levofed. Day 5 Levaquin Patient's continuing to weep. Patient's Tylenol has been stopped due to worry about worsening liver function tests. He still had no bowel movements so we will start patient on Reglan hold off on tube feeds until we get better gut motility. Qualifiers: Sepsis type: Pneumococcus Qualified Code(s): A40.3 - Sepsis due to Streptococcus pneumoniae (2) Acute respiratory failure with hypoxia Current Visit: Yes Status: Acute Patient presented in acute respiratory distress he did have worsening tachypnea while on BiPAP so patient was intubated and placed on the ventilator. Patient was sedated with fentanyl, propofol, Precedex. We will discontinue the Versed and change to propofol and fentanyl. Patient does have history of COPD. He is not on oxygen at home. Patient most likely has pneumonia based on chest x-ray showing multifocal consolidations and possible effusions. 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 Patient needs to continue on the vent. We will get daily ABGs and change that sending ABGresults. Continue sedation daily Mcdaniel of 3. (3) Acute kidney injury Current Visit: Yes Status: Acute Worsening creatinine as today measured at 2.35 patient does have a kidney transplant those done about 15 years ago. Patient was a dialysis patient but does not have active using fistulas. Nephrology has been following. He said if he does not have creatinine the gets better will consider starting renal therapy. Nephrology following appreciate their conditions After speaking with nephrology due to patient's fluid overload because of the sodium bicarbonate is been getting we are worried about fluid status so we will consider doing Hoda. Patient's family is coming we will speak with them about placing a temporary catheter for dialysis/Hoda. We will wait for okay from family. Palliative is also following the case. (4) Pneumonia Current Visit: No Status: Resolved Patient does have pneumonia. Urine strep pneumoniae antigen was positive. Blood cultures and sputum cultures are still pending. Initially started patient on Zosyn, Levaquin, vancomycin. Due to kidney injury we will stop the vancomycin and keep the patient on Levaquin and also DC the Zosyn Day 5 Levaquin Qualifiers: Pneumonia type: due to unspecified organism Laterality: right Lung location: lower lobe of lung Qualified Code(s): J18.1 - Lobar pneumonia, unspecified organism (5) Urethritis Current Visit: Yes Status: Acute when examining patient a green discharg patient is sedated to her unable to assess for sexual history. This most likely is going to be an STD, gonorrhea or chlamydia so we will prophylactically treat him with one time dose of ceftriaxone and azithromycin. (6) Acute exacerbation of chronic obstructive airways disease Current Visit: Yes Status: Acute Patient does have history of COPD. Patient is getting steroids every 6 hours. Also getting scheduled duo nebs. Patient is on the ventilator on proper ventilator settings. (7) A-fib Current Visit: Yes Status: Chronic Patient does have chronic history of A. fib. Patient is supratherapeutic on INRs there is no need for any anticoagulation at this time. We will continue to monitor. Cardiology is following the patient patient will be cardioverted her cardiology' s request we are going to start patient on heparin while we do this. Patient was unable to be cardioverted so patient started on amiodarone bolus and a drip. Patient is still on initial fibrillation but does have a few beats of sinus rhythm. Cardiology is following we appreciate their recommendations Qualifiers: Atrial fibrillation type: chronic Qualified Code(s): I48.2 - Chronic atrial fibrillation (8) Elevated INR Current Visit: Yes Status: Acute Patient does have elevated INR we did order factor X a which came back normal as patient is on Xarelto. This patient's patient is probably not anticoagulated. We will start heparin to anticoagulate patient due to him being in A. 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 Patient's right leg was mildly mottled. This seems to be a chronic vascular disease. ABIs negative vascular surgery not needed this is probably chronic. (11) DVT prophylaxis Current Visit: Yes Status: Acute We will now start patient on heparin drip. Subjective Principal diagnosis: Pneumonia Interval history: Patient had no acute or events overnight. Patient still on the ventilator. Patient's labs, imaging, chart were reviewed. Patient is weaned to only 1 vasopressor this time. Family was not initially due to prior commitments. Family coming in later today to set up family meeting for goals of care. Objective PUL Vital signs: Last Vital Signs Temp 99.1 F 01/23/18 07:53 Pulse 105 01/23/18 07:00 Resp 13 01/23/18 07:13 BP 61/52 01/23/18 07:13 Pulse Ox 96 01/23/18 07:13 General appearance: no acute distress Eyes: nonicteric ENT: oropharynx moist Neck: supple Effort: normal Auscultation: bilateral: rales Cardiovascular: regular rate and rhythm Gastrointestinal: normoactive bowel sounds, soft, non-tender, non-distended Extremities: no cyanosis, no edema, no clubbing Musculoskeletal: no deformities, ROM normal non-focal exam, pupils equal and round, motor strength normal and symmetric Ventilator Settings Ventilator Settings: Ventilator Settings, Last 8 Hours Ventilator Tidal Volume 600 Setting Ventilator Tidal Volume 600 Setting Ventilator Tidal Volume 600 Setting Ventilator Tidal Volume 600 Setting Ventilator Tidal Volume 600 Setting Ventilator Tidal Volume 600 Setting Ventilator Tidal Volume 600 Setting Ventilator Tidal Volume 600 Setting Ventilator Tidal Volume 600 Setting Ventilator Tidal Volume 600 Setting Ventilator Respiratory Rate 10 Setting Ventilator Respiratory Rate 10 Setting Ventilator Respiratory Rate 10 Setting Ventilator Respiratory Rate 10 Setting Ventilator Respiratory Rate 10 Setting Ventilator Respiratory Rate 10 Setting Ventilator Respiratory Rate 10 Setting Ventilator Respiratory Rate 10 Setting Ventilator Respiratory Rate 10 Setting Ventilator Respiratory Rate 10 Setting Actual Respiratory Rate 15 Actual Respiratory Rate 11 Actual Respiratory Rate 10 Actual Respiratory Rate 10 Actual Respiratory Rate 15 Actual Respiratory Rate 15 Actual Respiratory Rate 15 Actual Respiratory Rate 10 Actual Respiratory Rate 10 Actual Respiratory Rate 10 Positive End Expiratory 5 Pressure Positive End Expiratory 5 Pressure Positive End Expiratory 5 Pressure Positive End Expiratory 5 Pressure Positive End Expiratory 5 Pressure Positive End Expiratory 5 Pressure Positive End Expiratory 5 Pressure Positive End Expiratory 5 Pressure Positive End Expiratory 5 Pressure Positive End Expiratory 5 Pressure Peak Inspiratory Airway 37 Pressure Peak Inspiratory Airway 33 Pressure Peak Inspiratory Airway 33 Pressure Peak Inspiratory Airway 33 Pressure Peak Inspiratory Airway 26 Pressure Peak Inspiratory Airway 26 Pressure Peak Inspiratory Airway 26 Pressure Peak Inspiratory Airway 33 Pressure Peak Inspiratory Airway 33 Pressure Peak Inspiratory Airway 32 Pressure Results - Laboratory Findings CBC and BMP: 01/23/18 03:30 01/23/18 03:30 ABG ABG pH 7.24 pH Units (7.32-7.45) L 01/22/18 05:48 ABG pCO2 51 mmHg (35-45) H 01/22/18 05:48 ABG pO2 76 mmHg (85-104) L 01/22/18 05:48 ABG O2 Saturation 92 % (95-98) L 01/22/18 05:48 PT/INR, D-dimer PT 43.2 Seconds (9.4-12.1) H 01/20/18 22:00 Abnormal lab findings: Abnormal lab results WBC 15.3 K/mcL (4.3-11.1) H 01/23/18 03:30 Hgb 11.8 g/dL (12.9-16.9) L 01/23/18 03:30 Hct 35.4 % (37.5-50.1) L 01/23/18 03:30 MCV 72.5 fL (83.0-100.0) L 01/23/18 03:30 MCH 24.2 pg (28.0-33.3) L 01/23/18 03:30 RDW 18.1 % (11.5-14.5) H 01/23/18 03:30 Plt Count 120 K/mcL (140-400) L 01/23/18 03:30 Band Neutrophils % 18.0 % (0-4) H 01/21/18 03:50 Neutrophils # 14.2 K/mcL (1.6-8.9) H 01/23/18 03:30 Lymphocytes # 0.2 K/mcL (0.6-4.6) L 01/23/18 03:30 Nucleated RBCs/100 WBC 0.7 /100 WBC (0) H 01/23/18 03:30 Toxic Granulation Present (Not Present) A 01/23/18 03:30 Platelet Estimate Slight Decrease (Normal) L 01/23/18 03:30 Polychromasia 1+ (Not Present) A 01/21/18 03:50 Hypochromasia Present (Not Present) A 01/23/18 03:30 Poikilocytosis 1+ (Not Present) A 01/23/18 03:30 Anisocytosis 1+ (Not Present) A 01/21/18 03:50 Microcytosis Present (Not Present) A 01/23/18 03:30 Lennie Cells 1+ (Not Present) A 01/22/18 03:02 PT 43.2 Seconds (9.4-12.1) H 01/20/18 22:00 APTT 54.2 Seconds (26.0-36.0) H 01/19/18 04:37 ABG pH 7.24 pH Units (7.32-7.45) L 01/22/18 05:48 ABG pCO2 51 mmHg (35-45) H 01/22/18 05:48 ABG pO2 76 mmHg (85-104) L 01/22/18 05:48 ABG O2 Saturation 92 % (95-98) L 01/22/18 05:48 ABG Base Excess -6 mEq/L (-2 to 3) L 01/22/18 05:48 Sodium 123 mEq/L (136-145) L 01/23/18 03:30 Chloride 83 mEq/L (98-107) L 01/23/18 03:30 Carbon Dioxide 22 mEq/L (23-29) L 01/23/18 03:30 BUN 78 mg/dL (6-20) H 01/23/18 03:30 Creatinine 2.55 mg/dL (0.70-1.30) H 01/23/18 03:30 Est GFR ( Amer) 31 (> 60) L 01/23/18 03:30 Est GFR (Non-Af Amer) 26 (> 60) L 01/23/18 03:30 BUN/Creatinine Ratio 31 (6-26) H 01/23/18 03:30 Glucose 139 mg/dL (70-105) H 01/23/18 03:30 Lactic Acid 2.5 mmol/L (0.5-2.2) H 01/22/18 03:02 Calcium 6.5 mg/dL (8.6-10.3) L 01/23/18 03:30 Total Bilirubin 1.3 mg/dL (0.3-1.0) H 01/22/18 03:02 AST 159 Units/L (13-39) H 01/22/18 03:02 ALT 253 Units/L (7-52) H 01/22/18 03:02 Troponin I 0.05 ng/mL (< 0.04) H* 01/19/18 04:37 B-Natriuretic Peptide 2025 pg/mL (Less than 100) H 01/18/18 21:49 Serum Total Protein 4.4 g/dL (6.4-8.9) L 01/22/18 03:02 Albumin 2.1 g/dL (3.5-5.7) L 01/22/18 03:02 Globulin 2.3 g/dL (2.4-3.5) L 01/22/18 03:02 Albumin/Globulin Ratio 0.9 (1.1-2.2) L 01/22/18 03:02 Vancomycin Trough 16 mcg/mL (5-10) H 01/21/18 03:50 - Microbiology Findings Microbiology Findings: Microbiology, Last 48 Hours 01/19/18 16:40 Sputum Culture - Final Sputum - Clinical Findings Intake & Output: Intake & Output 01/22/18 01/23/18 01/23/18 23:59 07:59 15:59 Intake Total 2139 / 2139 1708 / 1708 300 / 300 Output Total 175 / 175 650 / 650 Balance 1965 / 1963 1058 / 1058 300 / 300 Weight 90 kg - VTE Documentation of Mechanical Device: Intermittent pneumatic compression device Consult Discharge Plan - Plan Referrals: NONE,PCP [Primary Care Provider] - <Jorje Pollard - Last Filed: 01/24/18 10:50> Date of Encounter: 01/24/18 Assessment and Plan (1) Acute and chronic respiratory failure, unspecified whether with hypoxia or hypercapnia Current Visit: Yes Status: Acute Qualifiers: Respiratory failure complication: hypoxia and hypercapnia Qualified Code(s) : J96.21 - Acute and chronic respiratory failure with hypoxia; J96.22 - Acute and chronic respiratory failure with hypercapnia (2) Septic shock Current Visit: Yes Status: Acute (3) Acute kidney injury Current Visit: Yes Status: Acute (4) A-fib Current Visit: Yes Status: Chronic Qualifiers: Atrial fibrillation type: chronic Qualified Code(s): I48.2 - Chronic atrial fibrillation Objective PUL Vital signs: Last Vital Signs Temp 99.1 F 01/23/18 07:53 Pulse 93 01/23/18 09:00 Resp 10 01/23/18 09:13 BP 82/56 01/23/18 09:13 Pulse Ox 100 01/23/18 09:13 Ventilator Settings Ventilator Settings: Ventilator Settings, Last 8 Hours Ventilator Tidal Volume 600 Setting Ventilator Tidal Volume 600 Setting Ventilator Tidal Volume 600 Setting Ventilator Tidal Volume 600 Setting Ventilator Tidal Volume 600 Setting Ventilator Tidal Volume 600 Setting Ventilator Tidal Volume 600 Setting Ventilator Tidal Volume 600 Setting Ventilator Tidal Volume 600 Setting Ventilator Tidal Volume 600 Setting Ventilator Tidal Volume 600 Setting Ventilator Respiratory Rate 10 Setting Ventilator Respiratory Rate 10 Setting Ventilator Respiratory Rate 10 Setting Ventilator Respiratory Rate 10 Setting Ventilator Respiratory Rate 10 Setting Ventilator Respiratory Rate 10 Setting Ventilator Respiratory Rate 10 Setting Ventilator Respiratory Rate 10 Setting Ventilator Respiratory Rate 10 Setting Ventilator Respiratory Rate 10 Setting Ventilator Respiratory Rate 10 Setting Actual Respiratory Rate 10 Actual Respiratory Rate 17 Actual Respiratory Rate 10 Actual Respiratory Rate 15 Actual Respiratory Rate 11 Actual Respiratory Rate 10 Actual Respiratory Rate 10 Actual Respiratory Rate 15 Actual Respiratory Rate 15 Actual Respiratory Rate 15 Actual Respiratory Rate 10 Positive End Expiratory 5 Pressure Positive End Expiratory 5 Pressure Positive End Expiratory 5 Pressure Positive End Expiratory 5 Pressure Positive End Expiratory 5 Pressure Positive End Expiratory 5 Pressure Positive End Expiratory 5 Pressure Positive End Expiratory 5 Pressure Positive End Expiratory 5 Pressure Positive End Expiratory 5 Pressure Positive End Expiratory 5 Pressure Peak Inspiratory Airway 31 Pressure Peak Inspiratory Airway 29 Pressure Peak Inspiratory Airway 29 Pressure Peak Inspiratory Airway 37 Pressure Peak Inspiratory Airway 33 Pressure Peak Inspiratory Airway 33 Pressure Peak Inspiratory Airway 33 Pressure Peak Inspiratory Airway 26 Pressure Peak Inspiratory Airway 26 Pressure Peak Inspiratory Airway 26 Pressure Peak Inspiratory Airway 33 Pressure Results - Laboratory Findings CBC and BMP: 01/24/18 03:56 01/24/18 03:56 ABG ABG pH 7.24 pH Units (7.32-7.45) L 01/22/18 05:48 ABG pCO2 51 mmHg (35-45) H 01/22/18 05:48 ABG pO2 76 mmHg (85-104) L 01/22/18 05:48 ABG O2 Saturation 92 % (95-98) L 01/22/18 05:48 PT/INR, D-dimer PT 43.2 Seconds (9.4-12.1) H 01/20/18 22:00 Abnormal lab findings: Abnormal lab results WBC 15.3 K/mcL (4.3-11.1) H 01/23/18 03:30 Hgb 11.8 g/dL (12.9-16.9) L 01/23/18 03:30 Hct 35.4 % (37.5-50.1) L 01/23/18 03:30 MCV 72.5 fL (83.0-100.0) L 01/23/18 03:30 MCH 24.2 pg (28.0-33.3) L 01/23/18 03:30 RDW 18.1 % (11.5-14.5) H 01/23/18 03:30 Plt Count 120 K/mcL (140-400) L 01/23/18 03:30 Band Neutrophils % 18.0 % (0-4) H 01/21/18 03:50 Neutrophils # 14.2 K/mcL (1.6-8.9) H 01/23/18 03:30 Lymphocytes # 0.2 K/mcL (0.6-4.6) L 01/23/18 03:30 Nucleated RBCs/100 WBC 0.7 /100 WBC (0) H 01/23/18 03:30 Toxic Granulation Present (Not Present) A 01/23/18 03:30 Platelet Estimate Slight Decrease (Normal) L 01/23/18 03:30 Polychromasia 1+ (Not Present) A 01/21/18 03:50 Hypochromasia Present (Not Present) A 01/23/18 03:30 Poikilocytosis 1+ (Not Present) A 01/23/18 03:30 Anisocytosis 1+ (Not Present) A 01/21/18 03:50 Microcytosis Present (Not Present) A 01/23/18 03:30 Lennie Cells 1+ (Not Present) A 01/22/18 03:02 PT 43.2 Seconds (9.4-12.1) H 01/20/18 22:00 APTT 54.2 Seconds (26.0-36.0) H 01/19/18 04:37 ABG pH 7.24 pH Units (7.32-7.45) L 01/22/18 05:48 ABG pCO2 51 mmHg (35-45) H 01/22/18 05:48 ABG pO2 76 mmHg (85-104) L 01/22/18 05:48 ABG O2 Saturation 92 % (95-98) L 01/22/18 05:48 ABG Base Excess -6 mEq/L (-2 to 3) L 01/22/18 05:48 Sodium 123 mEq/L (136-145) L 01/23/18 03:30 Chloride 83 mEq/L (98-107) L 01/23/18 03:30 Carbon Dioxide 22 mEq/L (23-29) L 01/23/18 03:30 BUN 78 mg/dL (6-20) H 01/23/18 03:30 Creatinine 2.55 mg/dL (0.70-1.30) H 01/23/18 03:30 Est GFR ( Amer) 31 (> 60) L 01/23/18 03:30 Est GFR (Non-Af Amer) 26 (> 60) L 01/23/18 03:30 BUN/Creatinine Ratio 31 (6-26) H 01/23/18 03:30 Glucose 139 mg/dL (70-105) H 01/23/18 03:30 Lactic Acid 2.5 mmol/L (0.5-2.2) H 01/22/18 03:02 Calcium 6.5 mg/dL (8.6-10.3) L 01/23/18 03:30 Total Bilirubin 1.3 mg/dL (0.3-1.0) H 01/22/18 03:02 AST 159 Units/L (13-39) H 01/22/18 03:02 ALT 253 Units/L (7-52) H 01/22/18 03:02 Troponin I 0.05 ng/mL (< 0.04) H* 01/19/18 04:37 B-Natriuretic Peptide 2025 pg/mL (Less than 100) H 01/18/18 21:49 Serum Total Protein 4.4 g/dL (6.4-8.9) L 01/22/18 03:02 Albumin 2.1 g/dL (3.5-5.7) L 01/22/18 03:02 Globulin 2.3 g/dL (2.4-3.5) L 01/22/18 03:02 Albumin/Globulin Ratio 0.9 (1.1-2.2) L 01/22/18 03:02 Vancomycin Trough 16 mcg/mL (5-10) H 01/21/18 03:50 - Microbiology Findings Microbiology Findings: Microbiology, Last 48 Hours 01/19/18 16:40 Sputum Culture - Final Sputum - Clinical Findings Intake & Output: Intake & Output 01/22/18 01/23/18 01/23/18 23:59 07:59 15:59 Intake Total 2139 / 2139 1708 / 1708 607 / 607 Output Total 175 / 175 650 / 650 Balance 1963 / 1963 1058 / 1058 607 / 607 Weight 90 kg - Attending Attestation I examined this patient and my medical decision-making was reviewed with the Resident Physician. I agree with the documented findings, disposition and treatment plan as described except to the extent set forth below. Patient seen and examined. Labs, radiology, chart personally reviewed. 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 Pulmonary: Acceptable oxygenation and ventilation. Overall prognosis is poor. Cardiovascular: Patient remained in septic shock and has changed to comfort care. GI: Nutrition per dietary and GI prophylaxis per routine Heme: DVT prophylaxis per routine ID: Continue antibiotics and plan to de-escalation Renal; urine out put and renal funtion reviewed. Discussed with nephrology regarding placement she nephrology's help. Endorcine: blood glucose is monitored Lines: all lines checked and no evidence of infections Skin: skin care to prevent pressure ulcers per nursing routine care Overall prognosis is poor.
--- NOTE | 2018-01-23 09:11 | Palliative Progress Note ---
Date of Encounter: 01/23/18 Time of Encounter: 09:00 - Assessment and plan (1) Generalized pain Current Visit: Yes Status: Acute Assessment and plan: Remains on Fentanyl drip - Denies pain per nodding head (2) Anxiety Current Visit: Yes Status: Acute Assessment and plan: Sedation off at present - appears calm (3) Dyspnea Current Visit: Yes Status: Acute (4) Goals of care, counseling/discussion Current Visit: Yes Status: Acute Assessment and plan: Goals of care discussion - both sons, Travis and Luis Carlos at bedside. Dr. Guy, myself, Audograph Operator Uriel Ulrich, and primary nurse Kody at bedside. Family updated on clinical status and need to establish central catheter and begin dialysis today. Discussed overall prognosis remains poor. Family desires to transition to comfort care, however, wants to wait until pt brother arrives from the [place] area tomorrow afternoon before proceeding. They would like for current therapy to remain until that time. Discussed transition after extubation, and explained that focus would be on liberating from life support and intense symptom management. Family verbalized understanding. Code status transitioned to DNRCC - not escalating care today for decline, but maintaining current state, and if he survives, compassionately extubating when family here and ready tomorrow. Palliative not available this weekend, but pt can transition to palliative bed under hospitalist care if stable after extubation. I did place comfort care orders for tomorrow. His other medications, continuous monitoring, labwork will need discontnued tomorrow once extubated. He can remain on Fentanyl drip and this can be titrated for comfort and to alleviate dyspnea. (5) Acute exacerbation of chronic obstructive airways disease Current Visit: Yes Status: Acute (6) Acute kidney injury Current Visit: Yes Status: Acute (7) Acute respiratory failure with hypoxia Current Visit: Yes Status: Acute (8) Cardiomyopathy Current Visit: Yes Status: Chronic Qualifiers: Cardiomyopathy type: unspecified Qualified Code(s): I42.9 - Cardiomyopathy , unspecified - Time Spent With Patient Total time spent is greater than 50% in coordination of care (as documented) at patient's floor/unit and/or counseling patient: 25 - 35 minutes - Subjective Interval history: Remains on vent and on Levophed. He is alert today and responded by head nods to questions. Follows simple commands. Renal function worsening still. Will probably need to start dialysis today if no change in goals of care. Currently remains DNRCC-Arrest - Constitutional Vitals: Abnormal lab results WBC 15.3 K/mcL (4.3-11.1) H 01/23/18 03:30 Hgb 11.8 g/dL (12.9-16.9) L 01/23/18 03:30 Hct 35.4 % (37.5-50.1) L 01/23/18 03:30 MCV 72.5 fL (83.0-100.0) L 01/23/18 03:30 MCH 24.2 pg (28.0-33.3) L 01/23/18 03:30 RDW 18.1 % (11.5-14.5) H 01/23/18 03:30 Plt Count 120 K/mcL (140-400) L 01/23/18 03:30 Band Neutrophils % 18.0 % (0-4) H 01/21/18 03:50 Neutrophils # 14.2 K/mcL (1.6-8.9) H 01/23/18 03:30 Lymphocytes # 0.2 K/mcL (0.6-4.6) L 01/23/18 03:30 Nucleated RBCs/100 WBC 0.7 /100 WBC (0) H 01/23/18 03:30 Toxic Granulation Present (Not Present) A 01/23/18 03:30 Platelet Estimate Slight Decrease (Normal) L 01/23/18 03:30 Polychromasia 1+ (Not Present) A 01/21/18 03:50 Hypochromasia Present (Not Present) A 01/23/18 03:30 Poikilocytosis 1+ (Not Present) A 01/23/18 03:30 Anisocytosis 1+ (Not Present) A 01/21/18 03:50 Microcytosis Present (Not Present) A 01/23/18 03:30 Lennie Cells 1+ (Not Present) A 01/22/18 03:02 PT 43.2 Seconds (9.4-12.1) H 01/20/18 22:00 APTT 54.2 Seconds (26.0-36.0) H 01/19/18 04:37 ABG pH 7.24 pH Units (7.32-7.45) L 01/22/18 05:48 ABG pCO2 51 mmHg (35-45) H 01/22/18 05:48 ABG pO2 76 mmHg (85-104) L 01/22/18 05:48 ABG O2 Saturation 92 % (95-98) L 01/22/18 05:48 ABG Base Excess -6 mEq/L (-2 to 3) L 01/22/18 05:48 Sodium 123 mEq/L (136-145) L 01/23/18 03:30 Chloride 83 mEq/L (98-107) L 01/23/18 03:30 Carbon Dioxide 22 mEq/L (23-29) L 01/23/18 03:30 BUN 78 mg/dL (6-20) H 01/23/18 03:30 Creatinine 2.55 mg/dL (0.70-1.30) H 01/23/18 03:30 Est GFR ( Amer) 31 (> 60) L 01/23/18 03:30 Est GFR (Non-Af Amer) 26 (> 60) L 01/23/18 03:30 BUN/Creatinine Ratio 31 (6-26) H 01/23/18 03:30 Glucose 139 mg/dL (70-105) H 01/23/18 03:30 Lactic Acid 2.5 mmol/L (0.5-2.2) H 01/22/18 03:02 Calcium 6.5 mg/dL (8.6-10.3) L 01/23/18 03:30 Total Bilirubin 1.3 mg/dL (0.3-1.0) H 01/22/18 03:02 AST 159 Units/L (13-39) H 01/22/18 03:02 ALT 253 Units/L (7-52) H 01/22/18 03:02 Troponin I 0.05 ng/mL (< 0.04) H* 01/19/18 04:37 B-Natriuretic Peptide 2025 pg/mL (Less than 100) H 01/18/18 21:49 Serum Total Protein 4.4 g/dL (6.4-8.9) L 01/22/18 03:02 Albumin 2.1 g/dL (3.5-5.7) L 01/22/18 03:02 Globulin 2.3 g/dL (2.4-3.5) L 01/22/18 03:02 Albumin/Globulin Ratio 0.9 (1.1-2.2) L 01/22/18 03:02 Vancomycin Trough 16 mcg/mL (5-10) H 01/21/18 03:50 General appearance: Present: no acute distress - Respiratory Additional comments: RHonchi throughout anterior chest - Cardiovascular Cardiovascular exam: Present: irregular rhythm - GI/Abdominal GI/Abdominal exam: Present: diminished bowel sounds, firm - Additional comments: Watters with dk shea urine - Extremities Exam Additional comments: Lower extremities with mottling/coolness to touch - Neurological Exam Neurological exam: Present: alert Additional comments: Follows simple commands to squeeze hands, wiggle toes - Skin Skin exam: Present: dry, pallor, warm Palliative Quality Palliative Quality: Screen for Code Status: Yes, Screen for Goals of Care: Yes, Screen for Pain: NA (unresponsive on vent), If Pain Regimen Started, Initiate Bowel Regimen: NA, Screen for Nausea/Vomitting: NA Code Status: 01/21/18 15:25 DNR [Resuscitation Status: Active] [RES] Routine Comment: Resuscitation Status: DNR-Comfort Care-Arrest - Labs CBC & Chem 7: 01/23/18 03:30 01/23/18 03:30 Labs: Laboratory Results - last 24 hr 01/22/18 01/22/18 01/22/18 11:24 17:53 21:15 WBC RBC Hgb Hct MCV MCH MCHC RDW Plt Count MPV Immature Gran % Seg Neutrophils % Lymphocytes % Monocytes % Eosinophils % Basophils % Neutrophils # Lymphocytes # Monocytes # Eosinophils # Basophils # Nucleated RBCs/100 WBC Toxic Granulation Platelet Estimate Immature Plt Fraction Hypochromasia Poikilocytosis Microcytosis Heparin Anti-Xa, Unfract 0.40 Sodium Potassium Chloride Carbon Dioxide BUN Creatinine Est GFR ( Amer) Est GFR (Non-Af Amer) BUN/Creatinine Ratio Glucose POC Glucose 187 H 146 H Calculated Osmolality Calcium 01/22/18 01/23/18 01/23/18 22:36 03:30 03:30 WBC 15.3 H RBC 4.88 Hgb 11.8 L Hct 35.4 L MCV 72.5 L MCH 24.2 L MCHC 33.3 RDW 18.1 H Plt Count 120 L MPV 10.1 Immature Gran % 2.3 Seg Neutrophils % 92.5 Lymphocytes % 1.2 Monocytes % 3.8 Eosinophils % 0.0 Basophils % 0.2 Neutrophils # 14.2 H Lymphocytes # 0.2 L Monocytes # 0.6 Eosinophils # 0.0 Basophils # 0.0 Nucleated RBCs/100 WBC 0.7 H Toxic Granulation Present A Platelet Estimate Slight Decrease L Immature Plt Fraction 3.7 Hypochromasia Present A Poikilocytosis 1+ A Microcytosis Present A Heparin Anti-Xa, Unfract Sodium 123 L Potassium 4.9 Chloride 83 L Carbon Dioxide 22 L BUN 78 H Creatinine 2.55 H Est GFR ( Amer) 31 L Est GFR (Non-Af Amer) 26 L BUN/Creatinine Ratio 31 H Glucose 139 H POC Glucose 113 H Calculated Osmolality 282 Calcium 6.5 L 01/23/18 05:06 WBC RBC Hgb Hct MCV MCH MCHC RDW Plt Count MPV Immature Gran % Seg Neutrophils % Lymphocytes % Monocytes % Eosinophils % Basophils % Neutrophils # Lymphocytes # Monocytes # Eosinophils # Basophils # Nucleated RBCs/100 WBC Toxic Granulation Platelet Estimate Immature Plt Fraction Hypochromasia Poikilocytosis Microcytosis Heparin Anti-Xa, Unfract Sodium Potassium Chloride Carbon Dioxide BUN Creatinine Est GFR ( Amer) Est GFR (Non-Af Amer) BUN/Creatinine Ratio Glucose POC Glucose 86 Calculated Osmolality Calcium - ABG Interpretation ABG results: ABG ABG pH 7.24 pH Units (7.32-7.45) L 01/22/18 05:48 ABG pCO2 51 mmHg (35-45) H 01/22/18 05:48 ABG pO2 76 mmHg (85-104) L 01/22/18 05:48 ABG O2 Saturation 92 % (95-98) L 01/22/18 05:48 PT/INR, D-dimer PT 43.2 Seconds (9.4-12.1) H 01/20/18 22:00 Consult Discharge Plan - Plan Referrals: NONE,PCP [Primary Care Provider] -
[2018-01-23 10:41] LABS: Hepatitis B Surface Antibody 38.54 mIU/mL; Hepatitis B Surface Antigen Nonreactive (Nonreactive)
[2018-01-23] MEDS: Metoclopramide 10 MG/2 ML VIAL IVP SCH ×2 (11:56→17:00)
--- NOTE | 2018-01-23 12:18 | Cardiology Progress Note ---
Date of Encounter: 01/23/18 Time of Encounter: 12:12 Assessment and Plan (1) Acute respiratory failure with hypoxia Current Visit: Yes Status: Acute Intubated, alert. Acute respiratory failure secondary to PNA and COPD. Pulmonology managing. Family meeting today to determine goals of care. (2) Atrial fibrillation with RVR Current Visit: Yes Status: Acute A-Fib RVR in setting of acute respiratory failure. BP will not tolerate BB. Dr. An attempted DCCV at bedside 01/21/18 x 3, unsuccessful. IV/loading amiodarone gtt was started 01/21. HR now controlled. Continue amiodarone. Anticoagulated on Xarelto previously. Currently on heparin gtt, but last INR 3.8. Recheck INR and if remains supratherapeutic, stop IV Heparin. assisted, If INR >2 without AC, none is warranted. If INR <2, would recommend starting Coumadin given decline in renal function. Prognosis is guarded, but pt is awake today, remains intubated. If care is decided to be withdrawn, can stop Amiodarone and heparin. If care is continued and pt becomes successfully extubated, would then recommend transitioning to PO Amiodarone 200mg BID x 2 weeks, then PO Amiodarone 200mg daily. Cardiology is signing off. Reconsult PRN. (3) CHF (congestive heart failure) Current Visit: Yes Status: Acute Known EF 40-45%. BNP 2024, presented with worsening dyspnea. Acute respiratory failure, currently intubated. Lasix on hold given KALANI. Recommend strict I/Os, Na and fluid restriction, daily weights. Qualifiers: Heart failure type: systolic Heart failure chronicity: acute on chronic Qualified Code(s): I50.23 - Acute on chronic systolic (congestive) heart failure (4) Cardiomyopathy Current Visit: Yes Status: Chronic EF 11/2017 40-45%. Underwent stress test 12/2017, negative for ischemia. Did show evidence of prior infarct with no known previous CAD hx. BP and renal function will not tolerate BB or ACEi. Qualifiers: Cardiomyopathy type: unspecified Qualified Code(s): I42.9 - Cardiomyopathy , unspecified Discussion w patient/family: The assessment and plan as outlined above was discussed with the patient and/or family members who expressed understanding and agreement. All questions were answered. Thank you for involving us in the care of your patient. Please call with any questions. I will discuss all the above with Dr. nA and make changes as necessary. Subjective Principal diagnosis: Pneumonia Interval history: Pt remains intubated, but awake today. HR low 100s at bedside, on amiodarone and heparin gtt. Palliative continues to follow as well as nephrology-- worsening renal function, hx transplant. Reportedly having family meeting today to make further decisions regarding goals of care. Objective Vital Signs, Last 4 Hours Pulse Resp BP Pulse Ox 01/23/18 12:00 101 13 87/61 99 01/23/18 11:51 14 91/61 100 01/23/18 11:00 100 102/73 100 01/23/18 10:00 77 10 88/57 100 01/23/18 09:13 10 82/56 100 01/23/18 09:00 93 17 107/75 99 Vital Signs Temp Pulse Resp BP Pulse Ox 01/23/18 12:00 101 13 87/61 99 01/23/18 11:51 14 91/61 100 01/23/18 11:00 100 102/73 100 01/23/18 10:00 77 10 88/57 100 01/23/18 09:13 10 82/56 100 01/23/18 09:00 93 17 107/75 99 01/23/18 08:00 94 10 83/55 100 01/23/18 07:53 99.1 F 01/23/18 07:13 13 61/52 96 01/23/18 07:00 105 11 90/61 100 01/23/18 06:00 84 10 94/58 100 01/23/18 05:45 10 101/64 100 01/23/18 05:00 80 10 93/59 100 01/23/18 04:00 99 15 112/72 100 01/23/18 03:33 15 95/59 100 01/23/18 03:00 97.8 F 83 17 91/55 96 01/23/18 02:00 79 17 104/65 96 01/23/18 01:35 10 99/62 100 01/23/18 01:00 79 10 96/62 100 01/23/18 00:00 85 10 90/57 100 01/22/18 23:15 10 90/56 100 01/22/18 23:01 97.8 F 81 10 86/54 100 01/22/18 22:00 79 10 88/53 100 01/22/18 21:22 14 86/56 99 01/22/18 21:00 86 12 89/54 100 01/22/18 20:02 91 12 94/57 97 01/22/18 19:55 10 94/58 99 01/22/18 19:00 97.5 F L 77 17 91/72 94 01/22/18 18:00 92 11 93/63 94 01/22/18 17:00 99.3 F 96 12 84/58 96 01/22/18 16:59 11 94 01/22/18 16:00 86 10 99/64 100 01/22/18 15:24 10 61/52 100 01/22/18 15:00 97.7 F 86 10 107/70 100 01/22/18 14:00 85 12 98/63 94 01/22/18 13:10 12 94 01/22/18 13:00 90 17 88/60 94 Intake and Output 01/22/18 01/23/18 01/23/18 23:59 07:59 15:59 Intake Total 2138 / 2138 1708 / 1708 707 / 707 Output Total 175 / 175 650 / 650 Balance 1963 / 1963 1058 / 1058 707 / 707 Intake: IV Fluids 2138 / 2138 1708 / 1708 707 / 707 Vasostrict 40 UNIT In Dextrose 0 / 0 5% 100 ML @ 0.03 UNIT/MIN 4.59 mls/hr IV .[id number] [facility] Rx#: [id number] Amiodarone Drip Premix 360mg/ 200 / 200 200 / 200 200mL 360 mg In 200 ml @ 0.5 MG /MIN 16.667 mls/hr IVC CONT [facility] Rx#:[id number] PRECEDEX Premix 400 mcg In 100 100 / 100 200 / 200 100 / 100 ml @ 0.2 MCG/KG/HR 3.675 mls/hr IVC .Q24H [facility] Rx#:[id number] FentaNYL (PF) 1,000 MCG In 0.9 200 / 200 100 / 100 100 / 100 % Sodium Chloride 80 ML @ 50 MCG/HR 5 mls/hr IVC CONT [facility] Rx #:[id number] Heparin 25,000 UNIT/500 ML D5W 489 / 489 25,000 unit In 500 ml @ 14 UNIT /KG/HR 20.58 mls/hr IVC .Q24H [facility] Rx#:[id number] Levophed 8 MG In 0.9 % Sodium 258 / 258 157 / 157 Chloride 250 ML @ 8 MCG/MIN 15. 48 mls/hr IVC CONT [facility] Rx#: [id number] Diprivan 1,000 mg In 100 ml @ 5 0 / 0 MCG/KG/MIN 2.105 mls/hr IVC . Q24H [facility] Rx#:[id number] Sodium Bicarbonate 150 MEQ In 1150 / 1150 1150 / 1150 Dextrose 5% 1,000 ML @ 150 mls/ hr IVC .Q7H40M [facility] Rx#: [id number] Levaquin Premix 750mg/150 mL 150 / 150 750 mg In 150 ml @ 100 mls/hr IVPB Q48H [facility] Rx#:[id number] Oral 0 / 0 Output: Catheter 175 / 175 650 / 650 Other: Weight 90 kg General: Other (intubated) HEENT: Atraumatic, Normocephaly, Mucus Membranes Moist Neck: Normal carotid pulses Cardiac: Other (irregularly irregular) Lungs: Other (rhonchi) Neuro: Other (alert, intubated) Abdomen: Soft, Non-Tender Skin: No rashes noted on visualized skin Musculoskeletal: No Chest Wall Tenderness Extremities: No Clubbing, No Edema Results 01/23/18 03:30 01/23/18 03:30 Lab Results 01/23/18 01/23/18 03:30 03:30 WBC 15.3 H Hgb 11.8 L Hct 35.4 L Plt Count 120 L Sodium 123 L Potassium 4.9 Chloride 83 L Carbon Dioxide 22 L BUN 78 H Creatinine 2.55 H Glucose 139 H Calcium 6.5 L Short CBC 01/23/18 Range/Units 03:30 WBC 15.3 H (4.3-11.1) K/mcL Hgb 11.8 L (12.9-16.9) g/dL Hct 35.4 L (37.5-50.1) % Plt Count 120 L (140-400) K/mcL Neutrophils # 14.2 H (1.6-8.9) K/mcL BMP 07/13/18 Range/Units 03:30 Sodium 123 L (136-145) mEq/L Potassium 4.9 (3.5-5.1) mEq/L Chloride 83 L (98-107) mEq/L Carbon Dioxide 22 L (23-29) mEq/L BUN 78 H (6-20) mg/dL Creatinine 2.55 H (0.70-1.30) mg/dL Glucose 139 H (70-105) mg/dL Calcium 6.5 L (8.6-10.3) mg/dL Active Medications Albuterol Sulfate (Proventil Neb) 2.5 mg IH Q2H PRN; Protocol PRN Reason: Shortness Of Breath/Wheezing Stop: 07/22/18 17:56 Albuterol/Ipratropium (Duoneb) 3 ml IH [id number] [facility] Stop: 07/21/18 04:01 Last Admin: 01/23/18 11:51 Dose: 3 ml Artificial Tears (Lacri-Lube) 1 appl BOTH EYES Q4HR [facility] PRN Reason: Protocol Stop: 07/21/18 08:01 Last Admin: 01/23/18 11:54 Dose: Not Given Artificial Tears (Lacri-Lube) 1 appl BOTH EYES Q2HR PRN; Protocol PRN Reason: Dry Eyes Stop: 07/21/18 04:15 Aspirin (Aspirin) 81 mg PO DAILY [facility] Stop: 07/21/18 09:01 Last Admin: 01/23/18 08:12 Dose: 81 mg Budesonide/Formoterol Fumarate (Symbicort) 2 puff IH BIDR [facility] PRN Reason: Protocol Stop: 07/21/18 10:01 Last Admin: 01/23/18 07:12 Dose: 2 puff Chlorhexidine Gluconate (Chlorhexidine Rinse) 15 ml MM BID [facility] Stop: 07/21/18 09:01 Last Admin: 01/23/18 08:12 Dose: 15 ml Dextrose/Water (Dextrose 50% (Syg)) 25 ml IVP AD PRN PRN Reason: Hypoglycemia Stop: 07/21/18 08:07 Glucagon (Glucagen) 1 mg IM ONCE PRN PRN Reason: Hypoglycemia Stop: 07/21/18 08:07 Glucose (Gluctose) 15 gm PO ONCE PRN PRN Reason: Hypoglycemia Stop: 07/21/18 08:07 Glucose (Gluctose) 30 gm PO ONCE PRN PRN Reason: Hypoglycemia Stop: 07/21/18 08:07 Heparin Sodium (Porcine) (Heparin) 5,100 unit 70 unit/kg (5100 unit) IVP Q6HR PRN PRN Reason: SEE COMMENTS Stop: 07/22/18 15:00 Heparin Sodium (Porcine) (Heparin) 2,600 unit 35 unit/kg (2600 unit) IVP Q6H PRN PRN Reason: SEE COMMENTS Stop: 07/22/18 15:00 Fentanyl Citrate 1,000 mcg/ (Sodium Chloride) 100 mls @ 5 mls/hr IVC CONT [facility]; 50 MCG/HR PRN Reason: Protocol Stop: 07/21/18 04:16 Last Admin: 01/23/18 10:43 Dose: 100 mcg/hr, 10 mls/hr Propofol (Diprivan) 1,000 mg in 100 mls @ 2.105 mls/hr IVC .Q24H [facility]; 5 MCG/KG/ MIN PRN Reason: Protocol Stop: 07/21/18 07:01 Last Titration: 01/23/18 09:39 Dose: Infused Dextrose (Dextrose 5%) 1,000 mls @ 100 mls/hr IVC .Q10H PRN PRN Reason: HYPOGLYCEMIA Stop: 07/21/18 08:07 Dexmedetomidine HCl (Precedex Premix) 400 mcg in 100 mls @ 3.675 mls/hr IVC .Q24H [facility]; 0.2 MCG/KG/HR PRN Reason: Protocol Stop: 07/22/18 09:16 Last Admin: 01/23/18 08:10 Dose: 0.7 mcg/kg/hr, 12.863 mls/hr Heparin Sodium/Dextrose (Heparin 25,000 Unit/500 Ml D5w) 25,000 unit in 500 mls @ 20.58 mls/hr IVC .Q24H [facility]; 14 UNIT/KG/HR PRN Reason: Protocol Stop: 07/22/18 15:01 Last Titration: 01/22/18 21:42 Dose: 14 unit/kg/hr, 20.58 mls/hr Amiodarone HCl/Dextrose (Amiodarone Drip Premix 360mg/200ml) 360 mg in 200 mls @ 16.667 mls/hr IVC CONT [facility] PRN Reason: 0.5 MG/MIN Stop: 07/22/18 16:31 Last Admin: 01/23/18 08:15 Dose: 0.5 mg/min, 16.667 mls/hr Vasopressin 40 unit/ Dextrose 102 mls @ 4.59 mls/hr IV .[id number] [facility] PRN Reason: 0.03 UNIT/MIN Stop: 07/22/18 20:31 Last Infusion: 01/23/18 12:08 Dose: Infused Levofloxacin/Dextrose (Levaquin Premix 750mg/150 Ml) 750 mg in 150 mls @ 100 mls/hr IVPB Q48H [facility] PRN Reason: Protocol Stop: 07/22/18 09:01 Last Infusion: 01/23/18 09:38 Dose: Infused Sodium Bicarbonate 150 meq/ (Dextrose) 1,150 mls @ 150 mls/hr IVC .Q7H40M [facility] Stop: 07/23/18 16:16 Last Admin: 01/23/18 07:17 Dose: 150 mls/hr Phenylephrine HCl 20 mg/ (Sodium Chloride) 502 mls @ 150.6 mls/hr IVC CONT [facility] ; 100 MCG/MIN PRN Reason: Protocol Stop: 07/22/18 18:16 Last Admin: 01/23/18 08:18 Dose: Not Given Norepinephrine Bitartrate 8 mg (/ Sodium Chloride) 258 mls @ 15.48 mls/hr IVC CONT [facility]; 8 MCG/MIN PRN Reason: Protocol Stop: 07/22/18 14:46 Last Titration: 01/23/18 09:37 Dose: 11 mcg/min, 21.28 mls/hr Insulin Human Lispro (Humalog) 0 units SQ Q6HR [facility] PRN Reason: Protocol Stop: 07/21/18 12:01 Last Admin: 01/23/18 12:05 Dose: Not Given Lorazepam (Ativan) 0.5 mg IVP Q8HR PRN PRN Reason: Anxiety Stop: 07/21/18 09:01 Last Admin: 01/23/18 11:39 Dose: 0.5 mg Methylprednisolone (Solu-Medrol) 40 mg IVP Q6HR [facility] Stop: 07/21/18 06:01 Last Admin: 01/23/18 11:57 Dose: 40 mg Metoclopramide HCl (Reglan) 10 mg IVP Q6HR [facility] Stop: 07/25/18 12:01 Last Admin: 01/23/18 11:56 Dose: 10 mg Metoprolol Tartrate (Lopressor) 2.5 mg IVP Q6HR PRN PRN Reason: HR >110, inform MD Stop: 07/21/18 01:11 Naloxone HCl (Narcan) 0.4 mg IVP Q2MIN PRN PRN Reason: SEE COMMENTS Stop: 07/21/18 04:15 Nitroglycerin (Nitroglycerin) 0.4 mg SL Q5MIN PRN PRN Reason: Chest Pain Stop: 07/21/18 01:14 Pantoprazole Sodium (Protonix) 40 mg IVP DAILY [facility] Stop: 07/21/18 09:01 Last Admin: 01/23/18 08:12 Dose: 40 mg - Imaging and Cardiology Stress Test: report reviewed Echo: report reviewed - EKG Interpretation EKG results cardiology: other (12 hr tele AVG HR 90, A-Fib, no significant pauses) - VTE Documentation of Mechanical Device: Intermittent pneumatic compression device Consult Discharge Plan - Plan Referrals: NONE,PCP [Primary Care Provider] -
--- NOTE | 2018-01-23 13:14 | Event Note ---
<Neymar Guy - Last Filed: 01/23/18 13:12> Date of Encounter: 01/23/18 Time of Encounter: 13:12 Spoke with patient's sons who are both POA's at bedside with palliative care. Explained to them the patient's current status. After speaking with them and noting a patient is going to dialysis. They felt that they did not want to pursue it further. They did ask the patient does say alive until his brother is able to see him which is tomorrow around 1600. We said that is completely doable. So we will keep patient on pressors but not order any more labs or do any more invasive testing or invasive procedures until patient's brother is present. At this time we changed the CODE STATUS to DNR CC. Palliative did place orders to keep patient comfortable. Once we do withdraw care patient will be transferred to 2A bed. <Jorje Pollard - Last Filed: 01/23/18 16:50> Date of Encounter: 01/23/18 I examined this patient and my medical decision-making was reviewed with the Resident Physician. I agree with the documented findings, disposition and treatment plan as described except to the extent set forth below. Discussed with the resident and the nursing staff.
[2018-01-23 13:28] LABS: INR 1.4; Prothrombin Time 16.2 Seconds (9.4-12.1)
--- NOTE | 2018-01-23 13:29 | Nephrology Progress Note ---
Date of Encounter: 01/23/18 Time of Encounter: 09:45 - Assessment and Plan (1) [id number] kidney injury Current Visit: Yes Status: Acute Multifactorial KALANI UOP improved at 575 yesterday; modest increase today as well No hyperkalemia; only moderate upward creatinine trend; volume status stabilizing On Levophed P: No plan for CVVHD today; aware of family wishes for palliative care and no dialysis Continue avoiding nephrotoxins, renal dose meds Qualifiers: Acute renal failure type: unspecified Chronic kidney disease stage: unspecified stage Qualified Code(s): N17.9 - Acute kidney failure, unspecified ; N18.9 - Chronic kidney disease, unspecified (2) Septic shock Current Visit: Yes Status: Acute Per primary team: Currently on Levophed (de-escalated from 3 pressors), abx ( Levaquin day 5, was on vanc/zosyn/levaquin) Patient not tolerating cpap weaning (3) History of kidney transplant Current Visit: Yes Status: Chronic Plan as above No hydronephrosis on US Follows [facility] nephrology for renal transplant; cellcept on hold (4) Atrial fibrillation with RVR Current Visit: Yes Status: Acute Cardiology continuing amiodarone, heparin orders and INR being titrated by primary team Subjective Principal diagnosis: Pneumonia Interval history: Patient seen and evaluated at bedside; intubated and sedated, no acute events overnight. Code status [id number]. Objective - Vital Signs Vital signs: Vital Signs Temp Pulse Resp BP Pulse Ox 01/23/18 13:00 78 10 92/58 100 01/23/18 12:00 99.5 F 101 13 87/61 99 01/23/18 11:51 14 91/61 100 01/23/18 11:00 100 102/73 100 01/23/18 10:00 77 10 88/57 100 01/23/18 09:13 10 82/56 100 01/23/18 09:00 93 17 107/75 99 01/23/18 08:00 94 10 83/55 100 01/23/18 07:53 99.1 F 01/23/18 07:13 13 61/52 96 01/23/18 07:00 105 11 90/61 100 01/23/18 06:00 84 10 94/58 100 01/23/18 05:45 10 101/64 100 01/23/18 05:00 80 10 93/59 100 01/23/18 04:00 99 15 112/72 100 01/23/18 03:33 15 95/59 100 01/23/18 03:00 97.8 F 83 17 91/55 96 01/23/18 02:00 79 17 104/65 96 01/23/18 01:35 10 99/62 100 01/23/18 01:00 79 10 96/62 100 01/23/18 00:00 85 10 90/57 100 01/22/18 23:15 10 90/56 100 01/22/18 23:01 97.8 F 81 10 86/54 100 01/22/18 22:00 79 10 88/53 100 01/22/18 21:22 14 86/56 99 01/22/18 21:00 86 12 89/54 100 01/22/18 20:02 91 12 94/57 97 01/22/18 19:55 10 94/58 99 01/22/18 19:00 97.5 F L 77 17 91/72 94 01/22/18 18:00 92 11 93/63 94 01/22/18 17:00 99.3 F 96 12 84/58 96 01/22/18 16:59 11 94 01/22/18 16:00 86 10 99/64 100 01/22/18 15:24 10 61/52 100 01/22/18 15:00 97.7 F 86 10 107/70 100 01/22/18 14:00 85 12 98/63 94 Intake and Output 01/22/18 01/23/18 01/23/18 23:59 07:59 15:59 Intake Total 2138 / 2138 1708 / 1708 707 / 707 Output Total 175 / 175 650 / 650 150 / 150 Balance 1963 / 1963 1058 / 1058 557 / 557 Intake: IV Fluids 2138 / 2138 1708 / 1708 707 / 707 Vasostrict 40 UNIT In Dextrose 0 / 0 5% 100 ML @ 0.03 UNIT/MIN 4.59 mls/hr IV .[id number] [facility] Rx#: [id number] Amiodarone Drip Premix 360mg/ 200 / 200 200 / 200 200mL 360 mg In 200 ml @ 0.5 MG /MIN 16.667 mls/hr IVC [facility] Rx#:[id number] PRECEDEX Premix 400 mcg In 100 100 / 100 200 / 200 100 / 100 ml @ 0.2 MCG/KG/HR 3.675 mls/hr IVC .Q24H [facility] Rx#:[id number] FentaNYL (PF) 1,000 MCG In 0.9 200 / 200 100 / 100 100 / 100 % Sodium Chloride 80 ML @ 50 MCG/HR 5 mls/hr IVC [facility] Rx #:[id number] Heparin 25,000 UNIT/500 ML D5W 489 / 489 25,000 unit In 500 ml @ 14 UNIT /KG/HR 20.58 mls/hr IVC .Q24H [facility] Rx#:[id number] Levophed 8 MG In 0.9 % Sodium 258 / 258 157 / 157 Chloride 250 ML @ 8 MCG/MIN 15. 48 mls/hr IVC [facility] Rx#: [id number] Diprivan 1,000 mg In 100 ml @ 5 0 / 0 MCG/KG/MIN 2.105 mls/hr IVC . Q24H [facility] Rx#:[id number] Sodium Bicarbonate 150 MEQ In 1150 / 1150 1150 / 1150 Dextrose 5% 1,000 ML @ 150 mls/ hr IVC .Q7H40M [facility] Rx#: [id number] Levaquin Premix 750mg/150 mL 150 / 150 750 mg In 150 ml @ 100 mls/hr IVPB Q48H [facility] Rx#:[id number] Oral 0 / 0 Output: Catheter 175 / 175 650 / 650 150 / 150 Other: Weight 90 kg Blood Glucose* 136 - General Appearance General appearance: Present: appears started age, chronically ill, frail Neck: Present: no JVD, no thyromegaly, no carotid bruit, supple Respiratory: Present: course breath sounds Cardiology: Present: no murmurs, no rub, no gallops, edema, regular rate, regular rhythm, normal S1, normal S2 Additional Comments: trace Gastrointestinal: Present: normoactive bowel sounds, no tenderness Integumentary: Present: warm and dry Musculoskeletal: Present: no cyanosis, no clubbing - Lab 01/23/18 03:30 01/23/18 03:30 Most recent lab results ABG pH 7.24 pH Units (7.32-7.45) L 01/22/18 05:48 ABG pCO2 51 mmHg (35-45) H 01/22/18 05:48 ABG pO2 76 mmHg (85-104) L 01/22/18 05:48 ABG HCO3 22 mEq/L (21-27) 01/22/18 05:48 ABG O2 Saturation 92 % (95-98) L 01/22/18 05:48 Calcium 6.5 mg/dL (8.6-10.3) L 01/23/18 03:30 - VTE Documentation of Mechanical Device: Intermittent pneumatic compression device Consult Discharge Plan - Plan Referrals: NONE,PCP [Primary Care Provider] -
[2018-01-23] MEDS ORDERED: *HR* LORazepam 2 MG/ML VIAL ONE (13:46)
[2018-01-23] MEDS: *HR* LORazepam 2 MG/ML VIAL IVP PRN ×2 (14:05→21:14)
[2018-01-23] MEDS: Vasopressin 40 UNIT in D5% in Water 100 ML IV SCH (14:15)
[2018-01-23] MEDS: Heparin 25,000 UNIT/500 ML D5W 25,000 UNIT/500 ML BAG IVC SCH (15:10)
[2018-01-24] MEDS: Metoclopramide 10 MG/2 ML VIAL IVP SCH ×4 (00:04→16:06)
[2018-01-24] MEDS: Lacri-Lube 3.5 GM TUBE BOTH EYES SCH ×6 (00:04→20:21)
[2018-01-24] MEDS: MethylPREDNISolone 40 MG/ML VIAL IVP SCH ×4 (00:04→16:06)
[2018-01-24] MEDS: Insulin LISPRO 300 UNITS/3 ML VIAL SQ SCH ×4 (00:15→16:06)
[2018-01-24] MEDS: Dexmedetomidine HCl 400 MCG/100 ML MLS IVC SCH ×5 (00:25→20:38)
[2018-01-24] MEDS: FentaNYL (PF) 1,000 MCG in 0.9 % Sodium Chloride 80 ML IVC SCH ×2 (02:28→12:13)
[2018-01-24] MEDS: Norepinephrine 8 MG in 0.9 % Sodium Chloride 250 ML IVC SCH ×3 (02:28→20:17)
[2018-01-24] MEDS: Ipratropium/Albuterol Neb 3 ML IH SCH ×6 (03:25→23:10)
[2018-01-24 04:15] LABS: Immature Granulocytes % 0.3 % (0-4); Mean Platelet Volume 9.8 fL (9.4-12.4)
[2018-01-24 04:17] LABS: Basophils % 0.1 %; Hematocrit 29.8 % (37.5-50.1); Hemoglobin 10.3 g/dL (12.9-16.9); Immature Platelets 4.1 % (1.1-6.1); Lymphocytes # 0.1 K/mcL (0.6-4.6); Lymphocytes % 1.3 %; Mean Corpuscular HGB Conc 34.6 g/dL (31.6-35.5); Mean Corpuscular Hemoglobin 24.3 pg (28.0-33.3); Mean Corpuscular Volume 70.3 fL (83.0-100.0); Monocytes # 0.2 K/mcL (0.0-1.3); Monocytes % 2.6 %; Neutrophils # 6.9 K/mcL (1.6-8.9); Nucleated Red Blood Cells 3.1 /100 WBC (0); Red Blood Count 4.24 M/mcL (4.19-5.50); Red Cell Distribution Width 18.2 % (11.5-14.5); Segmented Neutrophils % 95.7 %
[2018-01-24 04:20] LABS: Platelet Count 63 K/mcL (140-400)
[2018-01-24 04:30] LABS: Calcium 6.4 mg/dL (8.6-10.3); Potassium 3.7 mEq/L (3.5-5.1)
[2018-01-24 04:38] LABS: Anisocytosis 1+ (Not Present); Burr Cells 1+ (Not Present); Hypochromasia Present (Not Present); Platelet Estimate Decreased (Normal)
[2018-01-24 04:39] LABS: Poikilocytosis 1+ (Not Present)
[2018-01-24] MEDS: Sodium Bicarbonate 150 MEQ in D5% in Water 1,000 ML IVC SCH (05:55)
[2018-01-24] MEDS: Amiodarone Premix 360 MG/200 ML BAG IVC SCH ×2 (05:56→20:20)
[2018-01-24] MEDS: Phenylephrine 20 MG in 0.9 % Sodium Chloride 500 ML IVC SCH ×2 (07:51→21:32)
[2018-01-24] MEDS: Budesonide/Formoterol 160/4.5 MDI IH SCH ×2 (08:08→20:16)
[2018-01-24] MEDS: Pantoprazole 40 MG VIAL IVP SCH (08:17)
[2018-01-24] MEDS: Aspirin 81 MG TAB.CHEW PO SCH (08:17)
[2018-01-24] MEDS: Chlorhexidine Rinse 15 ML MOUTHWASH MM SCH ×2 (08:17→20:19)
--- NOTE | 2018-01-24 08:42 | Pulmonology Progress Note ---
<Neymar Guy - Last Filed: 01/24/18 09:46> Date of Encounter: 01/24/18 Time of Encounter: 08:42 Assessment and Plan (1) Advance care planning Current Visit: Yes Status: Acute We spoke with family at bedside. Family decided they did decide to withdraw care and change patient's CODE STATUS to DNR CC. The did ask that we do not withdraw care until patient's brother arrives which should be on 01/24 at proximally 1600. At that time they said all family will be at bedside and we can withdraw care at that time. Patient does have a palliative bed set. Palliative orders arty put in. (2) Sepsis Current Visit: Yes Status: Acute Patient does meet sepsis criteria most likely secondary to patient's pneumonia. Patient was tachycardic but he is also in A. fib with RVR. Patient also has a fever and a source of infection with the pneumonia. Patient was positive for strep pneumonia urine antigen. All other cultures are still pending. Patient was initially placed on broad-spectrum antibiotics including vancomycin , Zosyn, Levaquin. Patient was mildly hypotensive we did give 25% albumin this did not change patient's blood pressure. This could have been all due to breath stacking so we did give patient vecuronium and patient's blood pressure did seem to go up after that. But it did not hold. At this time we decided to consult cardiology cardiology says patient is atrial fibrillation and if we do get them out of atrial fibrillation a could help with patient's blood pressure as he would not be is tachycardic. Spoke with cardiology and they are going to plan on starting heparin drip and trying possible electrocardioversion. We did order a factor X a as patient is on Xarelto severe unsure of his correct INR which was reading at 4.5. The factor X a came back normal at 0.61. We gave patient 2 L lactated Ringer's and will also start Levaquin fed to support patient's blood pressure. For this we will consider placing central venous catheter to give this. We did attempt to decrease patient's sedation but then he was too alert. So patient be changed Precedex which did seem to help minorly but is not working to its full extent. CVC in left groin placed for pressor access. Patient did have to be on levofed , Kota-Synephrine, vasopressin. Has since only been weaned to levofed. Day 5 Levaquin Patient's continuing to weep. Patient's Tylenol has been stopped due to worry about worsening liver function tests. He still had no bowel movements so we will start patient on Reglan hold off on tube feeds until we get better gut motility. Qualifiers: Sepsis type: Pneumococcus Qualified Code(s): A40.3 - Sepsis due to Streptococcus pneumoniae (3) Acute respiratory failure with hypoxia Current Visit: Yes Status: Acute Patient presented in acute respiratory distress he did have worsening tachypnea while on BiPAP so patient was intubated and placed on the ventilator. Patient was sedated with fentanyl, propofol, Precedex. We will discontinue the Versed and change to propofol and fentanyl. Patient does have history of COPD. He is not on oxygen at home. Patient most likely has pneumonia based on chest x-ray showing multifocal consolidations and possible effusions. 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 Patient needs to continue on the vent. We will get daily ABGs and change that sending ABGresults. Continue sedation daily Mcdaniel of 3. (4) Acute kidney injury Current Visit: Yes Status: Acute Worsening creatinine as today measured at 2.35 patient does have a kidney transplant those done about 15 years ago. Patient was a dialysis patient but does not have active using fistulas. Nephrology has been following. He said if he does not have creatinine the gets better will consider starting renal therapy. Nephrology following appreciate their conditions After speaking with nephrology due to patient's fluid overload because of the sodium bicarbonate is been getting we are worried about fluid status so we will consider doing Hoda. Patient's family is coming we will speak with them about placing a temporary catheter for dialysis/Hoda. We will wait for okay from family. Palliative is also following the case. (5) Pneumonia Current Visit: No Status: Resolved Patient does have pneumonia. Urine strep pneumoniae antigen was positive. Blood cultures and sputum cultures are still pending. Initially started patient on Zosyn, Levaquin, vancomycin. Due to kidney injury we will stop the vancomycin and keep the patient on Levaquin and also DC the Zosyn Day 5 Levaquin Qualifiers: Pneumonia type: due to unspecified organism Laterality: right Lung location: lower lobe of lung Qualified Code(s): J18.1 - Lobar pneumonia, unspecified organism (6) Urethritis Current Visit: Yes Status: Acute when examining patient a green discharg patient is sedated to her unable to assess for sexual history. This most likely is going to be an STD, gonorrhea or chlamydia so we will prophylactically treat him with one time dose of ceftriaxone and azithromycin. (7) Acute exacerbation of chronic obstructive airways disease Current Visit: Yes Status: Acute Patient does have history of COPD. Patient is getting steroids every 6 hours. Also getting scheduled duo nebs. Patient is on the ventilator on proper ventilator settings. (8) A-fib Current Visit: Yes Status: Chronic Patient does have chronic history of A. fib. Patient is supratherapeutic on INRs there is no need for any anticoagulation at this time. We will continue to monitor. Cardiology is following the patient patient will be cardioverted her cardiology' s request we are going to start patient on heparin while we do this. Patient was unable to be cardioverted so patient started on amiodarone bolus and a drip. Patient is still on initial fibrillation but does have a few beats of sinus rhythm. Cardiology is following we appreciate their recommendations Qualifiers: Atrial fibrillation type: chronic Qualified Code(s): I48.2 - Chronic atrial fibrillation (9) Elevated INR Current Visit: Yes Status: Acute Patient does have elevated INR we did order factor X a which came back normal as patient is on Xarelto. This patient's patient is probably not anticoagulated. We will start heparin to anticoagulate patient due to him being in A. 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 Patient's right leg was mildly mottled. This seems to be a chronic vascular disease. ABIs negative vascular surgery not needed this is probably chronic. (12) DVT prophylaxis Current Visit: Yes Status: Acute We will now start patient on heparin drip. Subjective Principal diagnosis: Pneumonia Interval history: Patient had no acute or events overnight. Patient still on the ventilator. Patient's labs, imaging, chart were reviewed. Family did come yesterday did decide to make patient DNR comfort care. They said they did not want dialysis to be done. They did ask that we do not withdraw care until patient's brother comes as he wants to see him. He is planning on coming today around 1600. Objective PUL Vital signs: Last Vital Signs Temp 97.6 F 01/24/18 03:00 Pulse 87 01/24/18 06:00 Resp 14 01/24/18 08:11 BP 85/55 01/24/18 08:11 Pulse Ox 100 01/24/18 08:11 General appearance: no acute distress, other Eyes: nonicteric ENT: oropharynx moist Neck: supple Effort: normal Auscultation: bilateral: diminished breath sounds, rales Cardiovascular: regular rate and rhythm Gastrointestinal: normoactive bowel sounds, soft, non-tender, non-distended Extremities: no cyanosis, no edema, no clubbing Musculoskeletal: no deformities, ROM normal non-focal exam, pupils equal and round, motor strength normal and symmetric Ventilator Settings Ventilator Settings: Ventilator Settings, Last 8 Hours Ventilator Tidal Volume 600 Setting Ventilator Tidal Volume 600 Setting Ventilator Tidal Volume 600 Setting Ventilator Tidal Volume 600 Setting Ventilator Tidal Volume 600 Setting Ventilator Tidal Volume 600 Setting Ventilator Tidal Volume 600 Setting Ventilator Tidal Volume 600 Setting Ventilator Respiratory Rate 10 Setting Ventilator Respiratory Rate 10 Setting Ventilator Respiratory Rate 10 Setting Ventilator Respiratory Rate 10 Setting Ventilator Respiratory Rate 10 Setting Ventilator Respiratory Rate 10 Setting Ventilator Respiratory Rate 10 Setting Ventilator Respiratory Rate 10 Setting Actual Respiratory Rate 14 Actual Respiratory Rate 11 Actual Respiratory Rate 10 Actual Respiratory Rate 13 Actual Respiratory Rate 10 Actual Respiratory Rate 10 Actual Respiratory Rate 10 Actual Respiratory Rate 12 Positive End Expiratory 5 Pressure Positive End Expiratory 5 Pressure Positive End Expiratory 5 Pressure Positive End Expiratory 5 Pressure Positive End Expiratory 5 Pressure Positive End Expiratory 5 Pressure Positive End Expiratory 5 Pressure Positive End Expiratory 5 Pressure Peak Inspiratory Airway 34 Pressure Peak Inspiratory Airway 35 Pressure Peak Inspiratory Airway 32 Pressure Peak Inspiratory Airway 27 Pressure Peak Inspiratory Airway 35 Pressure Peak Inspiratory Airway 30 Pressure Peak Inspiratory Airway 29 Pressure Peak Inspiratory Airway 35 Pressure Results - Laboratory Findings CBC and BMP: 01/24/18 03:56 01/24/18 03:56 ABG ABG pH 7.24 pH Units (7.32-7.45) L 01/22/18 05:48 ABG pCO2 51 mmHg (35-45) H 01/22/18 05:48 ABG pO2 76 mmHg (85-104) L 01/22/18 05:48 ABG O2 Saturation 92 % (95-98) L 01/22/18 05:48 PT/INR, D-dimer PT 16.2 Seconds (9.4-12.1) H D 01/23/18 12:54 Abnormal lab findings: Abnormal lab results Hgb 10.3 g/dL (12.9-16.9) L D 01/24/18 03:56 Hct 29.8 % (37.5-50.1) L 01/24/18 03:56 MCV 70.3 fL (83.0-100.0) L 01/24/18 03:56 MCH 24.3 pg (28.0-33.3) L 01/24/18 03:56 RDW 18.2 % (11.5-14.5) H 01/24/18 03:56 Plt Count 63 K/mcL (140-400) L 01/24/18 03:56 Band Neutrophils % 18.0 % (0-4) H 01/21/18 03:50 Lymphocytes # 0.1 K/mcL (0.6-4.6) L 01/24/18 03:56 Nucleated RBCs/100 WBC 3.1 /100 WBC (0) H 01/24/18 03:56 Toxic Granulation Present (Not Present) A 01/23/18 03:30 Platelet Estimate Decreased (Normal) L 01/24/18 03:56 Polychromasia 1+ (Not Present) A 01/21/18 03:50 Hypochromasia Present (Not Present) A 01/24/18 03:56 Poikilocytosis 1+ (Not Present) A 01/24/18 03:56 Anisocytosis 1+ (Not Present) A 01/24/18 03:56 Microcytosis Present (Not Present) A 01/23/18 03:30 [place] Cells 1+ (Not Present) A 01/24/18 03:56 PT 16.2 Seconds (9.4-12.1) H D 01/23/18 12:54 APTT 54.2 Seconds (26.0-36.0) H 01/19/18 04:37 ABG pH 7.24 pH Units (7.32-7.45) L 01/22/18 05:48 ABG pCO2 51 mmHg (35-45) H 01/22/18 05:48 ABG pO2 76 mmHg (85-104) L 01/22/18 05:48 ABG O2 Saturation 92 % (95-98) L 01/22/18 05:48 ABG Base Excess -6 mEq/L (-2 to 3) L 01/22/18 05:48 Sodium 125 mEq/L (136-145) L 01/24/18 03:56 Chloride 80 mEq/L (98-107) L 01/24/18 03:56 Carbon Dioxide 30 mEq/L (23-29) H 01/24/18 03:56 BUN 74 mg/dL (6-20) H 01/24/18 03:56 Creatinine 2.60 mg/dL (0.70-1.30) H 01/24/18 03:56 Est GFR ( Amer) 31 (> 60) L 01/24/18 03:56 Est GFR (Non-Af Amer) 25 (> 60) L 01/24/18 03:56 BUN/Creatinine Ratio 28 (6-26) H 01/24/18 03:56 Glucose 131 mg/dL (70-105) H 01/24/18 03:56 POC Glucose 138 mg/dL (70-99) H 01/24/18 06:02 Lactic Acid 2.5 mmol/L (0.5-2.2) H 01/22/18 03:02 Calcium 6.4 mg/dL (8.6-10.3) L 01/24/18 03:56 Total Bilirubin 1.3 mg/dL (0.3-1.0) H 01/22/18 03:02 AST 159 Units/L (13-39) H 01/22/18 03:02 ALT 253 Units/L (7-52) H 01/22/18 03:02 Troponin I 0.05 ng/mL (< 0.04) H* 01/19/18 04:37 B-Natriuretic Peptide 2025 pg/mL (Less than 100) H 01/18/18 21:49 Serum Total Protein 4.4 g/dL (6.4-8.9) L 01/22/18 03:02 Albumin 2.1 g/dL (3.5-5.7) L 01/22/18 03:02 Globulin 2.3 g/dL (2.4-3.5) L 01/22/18 03:02 Albumin/Globulin Ratio 0.9 (1.1-2.2) L 01/22/18 03:02 Vancomycin Trough 16 mcg/mL (5-10) H 01/21/18 03:50 - Clinical Findings Intake & Output: Intake & Output 01/23/18 01/24/18 01/24/18 23:59 07:59 15:59 Intake Total 1624 / 1624 1943 / 1943 Output Total 760 / 760 390 / 390 Balance 864 / 864 1553 / 1553 Weight 93.4 kg - VTE Documentation of Mechanical Device: Intermittent pneumatic compression device Consult Discharge Plan - Plan Referrals: NONE,PCP [Primary Care Provider] - <Jorje Pollard - Last Filed: 01/24/18 11:01> Date of Encounter: 01/24/18 Assessment and Plan (1) Acute and chronic respiratory failure, unspecified whether with hypoxia or hypercapnia Current Visit: Yes Status: Acute Qualifiers: Respiratory failure complication: hypoxia and hypercapnia Qualified Code(s) : J96.21 - Acute and chronic respiratory failure with hypoxia; J96.22 - Acute and chronic respiratory failure with hypercapnia (2) Septic shock Current Visit: Yes Status: Acute (3) Acute kidney injury Current Visit: Yes Status: Acute (4) A-fib Current Visit: Yes Status: Chronic Qualifiers: Atrial fibrillation type: chronic Qualified Code(s): I48.2 - Chronic atrial fibrillation Objective PUL Vital signs: Last Vital Signs Temp 97.7 F 01/24/18 08:00 Pulse 88 01/24/18 10:15 Resp 14 01/24/18 10:15 BP 83/54 01/24/18 10:15 Pulse Ox 100 01/24/18 10:15 Ventilator Settings Ventilator Settings: Ventilator Settings, Last 8 Hours Ventilator Tidal Volume 600 Setting Ventilator Tidal Volume 600 Setting Ventilator Tidal Volume 600 Setting Ventilator Tidal Volume 600 Setting Ventilator Tidal Volume 600 Setting Ventilator Tidal Volume 600 Setting Ventilator Tidal Volume 600 Setting Ventilator Tidal Volume 600 Setting Ventilator Tidal Volume 600 Setting Ventilator Tidal Volume 600 Setting Ventilator Respiratory Rate 14 Setting Ventilator Respiratory Rate 14 Setting Ventilator Respiratory Rate 10 Setting Ventilator Respiratory Rate 14 Setting Ventilator Respiratory Rate 14 Setting Ventilator Respiratory Rate 10 Setting Ventilator Respiratory Rate 10 Setting Ventilator Respiratory Rate 10 Setting Ventilator Respiratory Rate 10 Setting Ventilator Respiratory Rate 10 Setting Actual Respiratory Rate 14 Actual Respiratory Rate 14 Actual Respiratory Rate 14 Actual Respiratory Rate 14 Actual Respiratory Rate 14 Actual Respiratory Rate 11 Actual Respiratory Rate 10 Actual Respiratory Rate 13 Actual Respiratory Rate 10 Actual Respiratory Rate 10 Positive End Expiratory 5 Pressure Positive End Expiratory 5 Pressure Positive End Expiratory 5 Pressure Positive End Expiratory 5 Pressure Positive End Expiratory 5 Pressure Positive End Expiratory 5 Pressure Positive End Expiratory 5 Pressure Positive End Expiratory 5 Pressure Positive End Expiratory 5 Pressure Positive End Expiratory 5 Pressure Peak Inspiratory Airway 35 Pressure Peak Inspiratory Airway 35 Pressure Peak Inspiratory Airway 34 Pressure Peak Inspiratory Airway 35 Pressure Peak Inspiratory Airway 35 Pressure Peak Inspiratory Airway 35 Pressure Peak Inspiratory Airway 32 Pressure Peak Inspiratory Airway 27 Pressure Peak Inspiratory Airway 35 Pressure Peak Inspiratory Airway 30 Pressure Results - Laboratory Findings CBC and BMP: 01/24/18 03:56 01/24/18 03:56 ABG ABG pH 7.24 pH Units (7.32-7.45) L 01/22/18 05:48 ABG pCO2 51 mmHg (35-45) H 01/22/18 05:48 ABG pO2 76 mmHg (85-104) L 01/22/18 05:48 ABG O2 Saturation 92 % (95-98) L 01/22/18 05:48 PT/INR, D-dimer PT 16.2 Seconds (9.4-12.1) H D 01/23/18 12:54 Abnormal lab findings: Abnormal lab results Hgb 10.3 g/dL (12.9-16.9) L D 01/24/18 03:56 Hct 29.8 % (37.5-50.1) L 01/24/18 03:56 MCV 70.3 fL (83.0-100.0) L 01/24/18 03:56 MCH 24.3 pg (28.0-33.3) L 01/24/18 03:56 RDW 18.2 % (11.5-14.5) H 01/24/18 03:56 Plt Count 63 K/mcL (140-400) L 01/24/18 03:56 Band Neutrophils % 18.0 % (0-4) H 01/21/18 03:50 Lymphocytes # 0.1 K/mcL (0.6-4.6) L 01/24/18 03:56 Nucleated RBCs/100 WBC 3.1 /100 WBC (0) H 01/24/18 03:56 Toxic Granulation Present (Not Present) A 01/23/18 03:30 Platelet Estimate Decreased (Normal) L 01/24/18 03:56 Polychromasia 1+ (Not Present) A 01/21/18 03:50 Hypochromasia Present (Not Present) A 01/24/18 03:56 Poikilocytosis 1+ (Not Present) A 01/24/18 03:56 Anisocytosis 1+ (Not Present) A 01/24/18 03:56 Microcytosis Present (Not Present) A 01/23/18 03:30 [place] Cells 1+ (Not Present) A 01/24/18 03:56 PT 16.2 Seconds (9.4-12.1) H D 01/23/18 12:54 APTT 54.2 Seconds (26.0-36.0) H 01/19/18 04:37 ABG pH 7.24 pH Units (7.32-7.45) L 01/22/18 05:48 ABG pCO2 51 mmHg (35-45) H 01/22/18 05:48 ABG pO2 76 mmHg (85-104) L 01/22/18 05:48 ABG O2 Saturation 92 % (95-98) L 01/22/18 05:48 ABG Base Excess -6 mEq/L (-2 to 3) L 01/22/18 05:48 Sodium 125 mEq/L (136-145) L 01/24/18 03:56 Chloride 80 mEq/L (98-107) L 01/24/18 03:56 Carbon Dioxide 30 mEq/L (23-29) H 01/24/18 03:56 BUN 74 mg/dL (6-20) H 01/24/18 03:56 Creatinine 2.60 mg/dL (0.70-1.30) H 01/24/18 03:56 Est GFR ( Amer) 31 (> 60) L 01/24/18 03:56 Est GFR (Non-Af Amer) 25 (> 60) L 01/24/18 03:56 BUN/Creatinine Ratio 28 (6-26) H 01/24/18 03:56 Glucose 131 mg/dL (70-105) H 01/24/18 03:56 POC Glucose 138 mg/dL (70-99) H 01/24/18 06:02 Lactic Acid 2.5 mmol/L (0.5-2.2) H 01/22/18 03:02 Calcium 6.4 mg/dL (8.6-10.3) L 01/24/18 03:56 Total Bilirubin 1.3 mg/dL (0.3-1.0) H 01/22/18 03:02 AST 159 Units/L (13-39) H 01/22/18 03:02 ALT 253 Units/L (7-52) H 01/22/18 03:02 Troponin I 0.05 ng/mL (< 0.04) H* 01/19/18 04:37 B-Natriuretic Peptide 2025 pg/mL (Less than 100) H 01/18/18 21:49 Serum Total Protein 4.4 g/dL (6.4-8.9) L 01/22/18 03:02 Albumin 2.1 g/dL (3.5-5.7) L 01/22/18 03:02 Globulin 2.3 g/dL (2.4-3.5) L 01/22/18 03:02 Albumin/Globulin Ratio 0.9 (1.1-2.2) L 01/22/18 03:02 Vancomycin Trough 16 mcg/mL (5-10) H 01/21/18 03:50 - Clinical Findings Intake & Output: Intake & Output 01/23/18 01/24/18 01/24/18 23:59 07:59 15:59 Intake Total 1624 / 1624 1943 / 1943 323 / 323 Output Total 760 / 760 390 / 390 250 / 250 Balance 864 / 864 1553 / 1553 73 / 73 Weight 93.4 kg - Attending Attestation I examined this patient and my medical decision-making was reviewed with the Resident Physician. I agree with the documented findings, disposition and treatment plan as described except to the extent set forth below. Patient seen and examined. Labs, radiology, chart personally reviewed. 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 Patient is not tolerating tube feed Heme: DVT prophylaxis per routine ID: Continue antibiotics and plan to de-escalation Renal; urine out put and renal funtion reviewed Endorcine: blood glucose is monitored Lines: all lines checked and no evidence of infections Skin: skin care to prevent pressure ulcers per nursing routine care Overall prognosis is poor and waiting for the family's decision
[2018-01-24] MEDS ORDERED: *HR* FentaNYL (PF) 100 MCG/2 ML VIAL IVP ONE (12:33)
[2018-01-24] MEDS ORDERED: *HR* LORazepam 2 MG/ML VIAL IVP ONE (12:34)
[2018-01-24] MEDS ORDERED: *HR* LORazepam 2 MG/ML VIAL IVP PRN (12:40)
[2018-01-24] MEDS: Vasopressin 40 UNIT in D5% in Water 100 ML IV SCH (13:44)
[2018-01-24] MEDS: Heparin 25,000 UNIT/500 ML D5W 25,000 UNIT/500 ML BAG IVC SCH ×2 (14:40→21:10)
--- NOTE | 2018-01-24 14:45 | Nephrology Progress Note ---
Date of Encounter: 01/24/18 Time of Encounter: 09:00 - Assessment and Plan (1) Acute and chronic respiratory failure, unspecified whether with hypoxia or hypercapnia Current Visit: Yes Status: Acute Patient intubted. He is more alert today. Qualifiers: Respiratory failure complication: hypoxia and hypercapnia Qualified Code(s) : J96.21 - Acute and chronic respiratory failure with hypoxia; J96.22 - Acute and chronic respiratory failure with hypercapnia (2) [id number] kidney injury Current Visit: Yes Status: Acute Patient with multifactorial KALANI on CKD. Patient is non-oliguric and creatinine seems to be at a plateau. Family has decided to make the patient comfort care and plans to extubate later today after family arrives. From a renal standpoint there is no immediate need for dialysis. His serum bicarbonate is elevated so his bicarbonate drip has been discontinued. Patient has severe sepsis from pneumonia that seems to be improving as evidenced by decreased pressor requirements, minimal vent settings, and WBC that is now normal. Qualifiers: Acute renal failure type: unspecified Chronic kidney disease stage: unspecified stage Qualified Code(s): N17.9 - Acute kidney failure, unspecified ; N18.9 - Chronic kidney disease, unspecified (3) Hyponatremia Current Visit: Yes Status: Acute Improving slightly after carrier solutions were changed to 0.9. (4) Thrombocytopenia Current Visit: Yes Status: Acute Decreasing platelet count. Defer to primary team. No active bleeding identified. Subjective Principal diagnosis: Pneumonia Interval history: Patient intubated, but responsive. Spoke with primary team who plans for an extubation per the family later today. Objective - Vital Signs Vital signs: Vital Signs Temp Pulse Resp BP Pulse Ox 01/24/18 14:00 98 14 84/56 100 01/24/18 13:29 14 100/63 100 01/24/18 13:00 95 14 91/88 100 01/24/18 12:00 97.8 F 94 14 103/80 100 01/24/18 11:56 14 96/58 100 01/24/18 11:00 88 14 83/54 100 01/24/18 10:15 88 14 83/54 100 01/24/18 09:31 14 81/55 100 01/24/18 08:11 14 85/55 100 01/24/18 08:00 97.7 F 85 10 90/69 100 01/24/18 07:00 85 14 70/44 100 01/24/18 06:00 87 11 94/60 100 01/24/18 05:00 81 10 100/63 100 01/24/18 04:20 84 13 139/88 100 01/24/18 03:45 83 10 92/52 96 01/24/18 03:30 10 87/50 100 01/24/18 03:00 97.6 F 01/24/18 02:27 85 10 91/52 100 01/24/18 01:15 100 14 123/76 100 01/24/18 00:10 98.8 F 01/24/18 00:00 84 10 98/60 100 01/23/18 23:30 85 01/23/18 23:20 80 10 95/60 99 01/23/18 23:04 10 90/58 99 01/23/18 22:15 85 12 88/58 95 01/23/18 21:00 104 15 123/77 92 01/23/18 20:47 98.0 F 01/23/18 20:00 76 10 103/62 100 01/23/18 19:43 10 103/63 100 01/23/18 19:30 81 01/23/18 19:00 79 10 101/62 100 01/23/18 18:21 10 87/56 100 01/23/18 18:00 88 10 81/53 100 01/23/18 16:17 11 90/55 100 01/23/18 16:00 87 10 90/57 100 01/23/18 15:00 74 10 93/57 100 Intake and Output 01/23/18 01/24/18 01/24/18 23:59 07:59 15:59 Intake Total 1624 / 1624 1942 423 / 423 Output Total 760 / 760 390 / 390 250 / 250 Balance 864 / 864 1553 / 1553 173 / 173 Intake: IV Fluids 1624 / 1624 1942 423 / 423 Amiodarone Drip Premix 360mg/ 200 / 200 200 / 200 200mL 360 mg In 200 ml @ 0.5 MG /MIN 16.667 mls/hr IVC [facility] Rx#:[id number] PRECEDEX Premix 400 mcg In 100 100 / 100 200 / 200 100 / 100 ml @ 0.2 MCG/KG/HR 3.675 mls/hr IVC .Q24H [facility] Rx#:[id number] FentaNYL (PF) 1,000 MCG In 0.9 30 / 30 100 / 100 100 / 100 % Sodium Chloride 80 ML @ 50 MCG/HR 5 mls/hr IVC [facility] Rx #:[id number] Heparin 25,000 UNIT/500 ML D5W 144 / 144 25,000 unit In 500 ml @ 14 UNIT /KG/HR 20.58 mls/hr IVC .Q24H [facility] Rx#:[id number] Levophed 8 MG In 0.9 % Sodium 293 / 293 223 / 223 Chloride 250 ML @ 8 MCG/MIN 15. 48 mls/hr IVC [facility] Rx#: [id number] Sodium Bicarbonate 150 MEQ In 1150 / 1150 1150 / 1150 Dextrose 5% 1,000 ML @ 150 mls/ hr IVC .Q7H40M [facility] Rx#: [id number] Oral 0 / 0 Output: Catheter 550 / 550 350 / 350 250 / 250 Gastric Drainage 210 / 210 40 / 40 Other: Weight 93.4 kg Blood Glucose* 138 143 Patient Weight 01/24/18 23:59 Weight 93.4 kg - General Appearance General appearance: Present: well-developed, chronically ill, intubated, frail EENT: Present: ATNC Respiratory: Present: course breath sounds, rhonchi Cardiology: Present: edema, regular rate Gastrointestinal: Present: no tenderness Integumentary: Present: warm and dry - Lab 01/24/18 03:56 01/24/18 03:56 Most recent lab results ABG pH 7.24 pH Units (7.32-7.45) L 01/22/18 05:48 ABG pCO2 51 mmHg (35-45) H 01/22/18 05:48 ABG pO2 76 mmHg (85-104) L 01/22/18 05:48 ABG HCO3 22 mEq/L (21-27) 01/22/18 05:48 ABG O2 Saturation 92 % (95-98) L 01/22/18 05:48 Calcium 6.4 mg/dL (8.6-10.3) L 01/24/18 03:56 - VTE Documentation of Mechanical Device: Intermittent pneumatic compression device Consult Discharge Plan - Plan Referrals: NONE,PCP [Primary Care Provider] -
[2018-01-24] MEDS: *HR* Dextrose 50 % in Water (Syg) 50 ML SYRINGE IVP PRN (23:45)
[2018-01-25] MEDS: Metoclopramide 10 MG/2 ML VIAL IVP SCH ×5 (01:01→23:41)
[2018-01-25] MEDS: Insulin LISPRO 300 UNITS/3 ML VIAL SQ SCH ×4 (01:01→17:55)
[2018-01-25] MEDS: Lacri-Lube 3.5 GM TUBE BOTH EYES SCH ×6 (01:01→21:00)
[2018-01-25] MEDS: MethylPREDNISolone 40 MG/ML VIAL IVP SCH ×5 (01:01→23:41)
[2018-01-25] MEDS: Dexmedetomidine HCl 400 MCG/100 ML MLS IVC SCH ×5 (02:05→23:41)
[2018-01-25] MEDS: Norepinephrine 8 MG in 0.9 % Sodium Chloride 250 ML IVC SCH ×6 (02:12→20:38)
[2018-01-25] MEDS: Phenylephrine 20 MG in 0.9 % Sodium Chloride 500 ML IVC SCH ×2 (02:13→06:04)
[2018-01-25] MEDS: Ipratropium/Albuterol Neb 3 ML IH SCH ×6 (03:21→23:09)
[2018-01-25] MEDS: Vasopressin 40 UNIT in D5% in Water 100 ML IV SCH (06:40)
--- NOTE | 2018-01-25 07:06 | Pulmonology Progress Note ---
<Jorje Pollard M - Last Filed: 01/25/18 08:28> Date of Encounter: 01/25/18 Assessment and Plan (1) Acute and chronic respiratory failure, unspecified whether with hypoxia or hypercapnia Current Visit: Yes Status: Acute Qualifiers: Respiratory failure complication: hypoxia and hypercapnia Qualified Code(s) : J96.21 - Acute and chronic respiratory failure with hypoxia; J96.22 - Acute and chronic respiratory failure with hypercapnia (2) Septic shock Current Visit: Yes Status: Acute (3) Acute kidney injury Current Visit: Yes Status: Acute (4) A-fib Current Visit: Yes Status: Chronic Qualifiers: Atrial fibrillation type: chronic Qualified Code(s): I48.2 - Chronic atrial fibrillation Objective PUL Vital signs: Last Vital Signs Temp 98.3 F 01/25/18 05:05 Pulse 103 01/25/18 06:00 Resp 14 01/25/18 07:54 BP 93/66 01/25/18 07:54 Pulse Ox 100 01/25/18 07:54 Ventilator Settings Ventilator Settings: Ventilator Settings, Last 8 Hours Ventilator Tidal Volume 600 Setting Ventilator Tidal Volume 600 Setting Ventilator Tidal Volume 600 Setting Ventilator Tidal Volume 600 Setting Ventilator Tidal Volume 600 Setting Ventilator Tidal Volume 600 Setting Ventilator Tidal Volume 600 Setting Ventilator Tidal Volume 600 Setting Ventilator Tidal Volume 600 Setting Ventilator Tidal Volume 600 Setting Ventilator Tidal Volume 600 Setting Ventilator Respiratory Rate 14 Setting Ventilator Respiratory Rate 14 Setting Ventilator Respiratory Rate 14 Setting Ventilator Respiratory Rate 14 Setting Ventilator Respiratory Rate 14 Setting Ventilator Respiratory Rate 14 Setting Ventilator Respiratory Rate 14 Setting Ventilator Respiratory Rate 14 Setting Ventilator Respiratory Rate 14 Setting Ventilator Respiratory Rate 14 Setting Ventilator Respiratory Rate 14 Setting Actual Respiratory Rate 14 Actual Respiratory Rate 14 Actual Respiratory Rate 14 Actual Respiratory Rate 14 Actual Respiratory Rate 15 Actual Respiratory Rate 14 Actual Respiratory Rate 14 Actual Respiratory Rate 15 Actual Respiratory Rate 14 Actual Respiratory Rate 14 Positive End Expiratory 5 Pressure Positive End Expiratory 5 Pressure Positive End Expiratory 5 Pressure Positive End Expiratory 5 Pressure Positive End Expiratory 5 Pressure Positive End Expiratory 5 Pressure Positive End Expiratory 5 Pressure Positive End Expiratory 5 Pressure Positive End Expiratory 5 Pressure Positive End Expiratory 5 Pressure Positive End Expiratory 5 Pressure Peak Inspiratory Airway 35 Pressure Peak Inspiratory Airway 34 Pressure Peak Inspiratory Airway 34 Pressure Peak Inspiratory Airway 34 Pressure Peak Inspiratory Airway 34 Pressure Peak Inspiratory Airway 35 Pressure Peak Inspiratory Airway 34 Pressure Peak Inspiratory Airway 35 Pressure Peak Inspiratory Airway 35 Pressure Peak Inspiratory Airway 35 Pressure Results - Laboratory Findings CBC and BMP: 01/24/18 03:56 01/24/18 03:56 ABG ABG pH 7.58 pH Units (7.32-7.45) H 01/25/18 08:03 ABG pCO2 25 mmHg (35-45) L 01/25/18 08:03 ABG pO2 111 mmHg (85-104) H 01/25/18 08:03 ABG O2 Saturation 99 % (95-98) H 01/25/18 08:03 PT/INR, D-dimer PT 16.2 Seconds (9.4-12.1) H D 01/23/18 12:54 Abnormal lab findings: Abnormal lab results Hgb 10.3 g/dL (12.9-16.9) L D 01/24/18 03:56 Hct 29.8 % (37.5-50.1) L 01/24/18 03:56 MCV 70.3 fL (83.0-100.0) L 01/24/18 03:56 MCH 24.3 pg (28.0-33.3) L 01/24/18 03:56 RDW 18.2 % (11.5-14.5) H 01/24/18 03:56 Plt Count 63 K/mcL (140-400) L 01/24/18 03:56 Band Neutrophils % 18.0 % (0-4) H 01/21/18 03:50 Lymphocytes # 0.1 K/mcL (0.6-4.6) L 01/24/18 03:56 Nucleated RBCs/100 WBC 3.1 /100 WBC (0) H 01/24/18 03:56 Toxic Granulation Present (Not Present) A 01/23/18 03:30 Platelet Estimate Decreased (Normal) L 01/24/18 03:56 Polychromasia 1+ (Not Present) A 01/21/18 03:50 Hypochromasia Present (Not Present) A 01/24/18 03:56 Poikilocytosis 1+ (Not Present) A 01/24/18 03:56 Anisocytosis 1+ (Not Present) A 01/24/18 03:56 Microcytosis Present (Not Present) A 01/23/18 03:30 [place] Cells 1+ (Not Present) A 01/24/18 03:56 PT 16.2 Seconds (9.4-12.1) H D 01/23/18 12:54 APTT 54.2 Seconds (26.0-36.0) H 01/19/18 04:37 ABG pH 7.58 pH Units (7.32-7.45) H 01/25/18 08:03 ABG pCO2 25 mmHg (35-45) L 01/25/18 08:03 ABG pO2 111 mmHg (85-104) H 01/25/18 08:03 ABG O2 Saturation 99 % (95-98) H 01/25/18 08:03 Sodium 125 mEq/L (136-145) L 01/24/18 03:56 Chloride 80 mEq/L (98-107) L 01/24/18 03:56 Carbon Dioxide 30 mEq/L (23-29) H 01/24/18 03:56 BUN 74 mg/dL (6-20) H 01/24/18 03:56 Creatinine 2.60 mg/dL (0.70-1.30) H 01/24/18 03:56 Est GFR ( Amer) 31 (> 60) L 01/24/18 03:56 Est GFR (Non-Af Amer) 25 (> 60) L 01/24/18 03:56 BUN/Creatinine Ratio 28 (6-26) H 01/24/18 03:56 Glucose 131 mg/dL (70-105) H 01/24/18 03:56 Lactic Acid 2.5 mmol/L (0.5-2.2) H 01/22/18 03:02 Calcium 6.4 mg/dL (8.6-10.3) L 01/24/18 03:56 Total Bilirubin 1.3 mg/dL (0.3-1.0) H 01/22/18 03:02 AST 159 Units/L (13-39) H 01/22/18 03:02 ALT 253 Units/L (7-52) H 01/22/18 03:02 Troponin I 0.05 ng/mL (< 0.04) H* 01/19/18 04:37 B-Natriuretic Peptide 2025 pg/mL (Less than 100) H 01/18/18 21:49 Serum Total Protein 4.4 g/dL (6.4-8.9) L 01/22/18 03:02 Albumin 2.1 g/dL (3.5-5.7) L 01/22/18 03:02 Globulin 2.3 g/dL (2.4-3.5) L 01/22/18 03:02 Albumin/Globulin Ratio 0.9 (1.1-2.2) L 01/22/18 03:02 Vancomycin Trough 16 mcg/mL (5-10) H 01/21/18 03:50 - Microbiology Findings Microbiology Findings: Microbiology, Last 48 Hours 01/20/18 00:40 Blood Culture - Final Peripheral Venipuncture No growth. Final report. 01/20/18 00:40 Blood Culture - Final Peripheral Venipuncture No growth. Final report. 01/19/18 13:23 Blood Culture - Final Peripheral Venipuncture No growth. Final report. 01/19/18 13:23 Blood Culture - Final Peripheral Venipuncture No growth. Final report. - Clinical Findings Intake & Output: Intake & Output 01/24/18 01/25/18 01/25/18 23:59 07:59 15:59 Intake Total 1158 / 1158 1359 / 1359 Output Total 640 / 640 235 / 235 Balance 518 / 518 1124 / 1124 Weight 96.2 kg Consult Discharge Plan - Plan Referrals: NONE,PCP [Primary Care Provider] - - Attending Attestation I examined this patient and my medical decision-making was reviewed with the Resident Physician. I agree with the documented findings, disposition and treatment plan as described except to the extent set forth below. Patient seen and examined. Labs, radiology, chart personally reviewed. Agree with resident's history and physical, assessment, plan with following comments: HOSPICE HOME CARE COORDINATOR: Patient does not follows commands, Pulmonary: Acceptable oxygenation and ventilation. Continue vent support. Check ABG Cardiovascular: Patient in shock and check with cardiology regarding heparin and Amiodarone duration. GI: Nutrition per dietary and GI prophylaxis per routine. Patient tolerating tube feeds Heme: DVT prophylaxis per routine. Patient remain on heparin drip and check with cardiology. ID: Continue antibiotics and plan to de-escalation Renal; urine out put and renal funtion reviewed. There is significant problem with volume management and patient with acute kidney injury since family has reconsidered his plan of care, will check with nephrology regarding the resident. Endorcine: blood glucose is monitored Lines: all lines checked and no evidence of infections Skin: skin care to prevent pressure ulcers per nursing routine care Prognosis remained poor and family has indicated they are not ready compassionate with following of care. <Neymar Guy - Last Filed: 01/25/18 09:38> Date of Encounter: 01/25/18 Time of Encounter: 07:06 Assessment and Plan (1) Advance care planning Current Visit: Yes Status: Acute We spoke with family at bedside. Family decided they did decide to withdraw care and change patient's CODE STATUS to DNR CC. The did ask that we do not withdraw care until patient's brother arrives which should be on 01/24 at proximally 1600. At that time they said all family will be at bedside and we can withdraw care at that time. Patient does have a palliative bed set. Palliative orders arty put in. Patient's family came in and they decided that they were pressured to withdraw care so family decided to no longer withdraw care. Patient's CODE STATUS was changed from DNR CC to DNR a. At this time we did get labs and continue patient on ventilator and restart patient's heparin. We will wait until Friday and speak with family with palliative at bedside to see if this is still at they want to do. (2) Sepsis Current Visit: Yes Status: Acute Patient does meet sepsis criteria most likely secondary to patient's pneumonia. Patient was tachycardic but he is also in A. fib with RVR. Patient also has a fever and a source of infection with the pneumonia. Patient was positive for strep pneumonia urine antigen. All other cultures are still pending. Patient was initially placed on broad-spectrum antibiotics including vancomycin , Zosyn, Levaquin. Patient was mildly hypotensive we did give 25% albumin this did not change patient's blood pressure. This could have been all due to breath stacking so we did give patient vecuronium and patient's blood pressure did seem to go up after that. But it did not hold. At this time we decided to consult cardiology cardiology says patient is atrial fibrillation and if we do get them out of atrial fibrillation a could help with patient's blood pressure as he would not be is tachycardic. Spoke with cardiology and they are going to plan on starting heparin drip and trying possible electrocardioversion. We did order a factor X a as patient is on Xarelto severe unsure of his correct INR which was reading at 4.5. The factor X a came back normal at 0.61. We gave patient 2 L lactated Ringer's and will also start Levaquin fed to support patient's blood pressure. For this we will consider placing central venous catheter to give this. We did attempt to decrease patient's sedation but then he was too alert. So patient be changed Precedex which did seem to help minorly but is not working to its full extent. CVC in left groin placed for pressor access. Patient did have to be on levofed , Kota-Synephrine, vasopressin. Has since only been weaned to levofed. Day 5 Levaquin Patient's continuing to weep. Patient's Tylenol has been stopped due to worry about worsening liver function tests. He still had no bowel movements so we will start patient on Reglan hold off on tube feeds until we get better gut motility. Qualifiers: Sepsis type: Pneumococcus Qualified Code(s): A40.3 - Sepsis due to Streptococcus pneumoniae (3) Acute respiratory failure with hypoxia Current Visit: Yes Status: Acute Patient presented in acute respiratory distress he did have worsening tachypnea while on BiPAP so patient was intubated and placed on the ventilator. Patient was sedated with fentanyl, propofol, Precedex. We will discontinue the Versed and change to propofol and fentanyl. Patient does have history of COPD. He is not on oxygen at home. Patient most likely has pneumonia based on chest x-ray showing multifocal consolidations and possible effusions. 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 Patient needs to continue on the vent. We will get daily ABGs and change that sending ABGresults. Continue sedation daily Mcdaniel of 3. (4) Acute kidney injury Current Visit: Yes Status: Acute Worsening creatinine as today measured at 2.35 patient does have a kidney transplant those done about 15 years ago. Patient was a dialysis patient but does not have active using fistulas. Nephrology has been following. He said if he does not have creatinine the gets better will consider starting renal therapy. Nephrology following appreciate their conditions After speaking with nephrology due to patient's fluid overload because of the sodium bicarbonate is been getting we are worried about fluid status so we will consider doing Hoda. Patient's family is coming we will speak with them about placing a temporary catheter for dialysis/Hoda. We will wait for nephrology's recommendations as we felt patient cannot handle another bicarbonate drip because patient become fluid overloaded. So we will speak with nephrology to see if they recommend patient going on dialysis/ Hoda. This is all pending family still decides to not withdraw care. (5) Pneumonia Current Visit: No Status: Resolved Patient does have pneumonia. Urine strep pneumoniae antigen was positive. Blood cultures and sputum cultures are still pending. Initially started patient on Zosyn, Levaquin, vancomycin. Due to kidney injury we will stop the vancomycin and keep the patient on Levaquin and also DC the Zosyn Day 6 Levaquin Qualifiers: Pneumonia type: due to unspecified organism Laterality: right Lung location: lower lobe of lung Qualified Code(s): J18.1 - Lobar pneumonia, unspecified organism (6) Urethritis Current Visit: Yes Status: Acute when examining patient a green discharg patient is sedated to her unable to assess for sexual history. This most likely is going to be an STD, gonorrhea or chlamydia so we will prophylactically treat him with one time dose of ceftriaxone and azithromycin. (7) Acute exacerbation of chronic obstructive airways disease Current Visit: Yes Status: Acute Patient does have history of COPD. Patient is getting steroids every 6 hours. Also getting scheduled duo nebs. Patient is on the ventilator on proper ventilator settings. (8) A-fib Current Visit: Yes Status: Chronic Patient does have chronic history of A. fib. Patient is supratherapeutic on INRs there is no need for any anticoagulation at this time. We will continue to monitor. Cardiology is following the patient patient will be cardioverted her cardiology' s request we are going to start patient on heparin while we do this. Patient was unable to be cardioverted so patient started on amiodarone bolus and a drip. Patient is still on initial fibrillation but does have a few beats of sinus rhythm. Cardiology is following we appreciate their recommendations Qualifiers: Atrial fibrillation type: chronic Qualified Code(s): I48.2 - Chronic atrial fibrillation (9) Elevated INR Current Visit: Yes Status: Acute Patient does have elevated INR we did order factor X a which came back normal as patient is on Xarelto. This patient's patient is probably not anticoagulated. We will start heparin to anticoagulate patient due to him being in A. fib (10) Diabetes mellitus Current Visit: Yes Status: Acute Will place patient on low-dose sliding insulin scale Qualifiers: Diabetes mellitus type: type 2 Diabetes mellitus intermediate accountant insulin use: unspecified senior care insulin use status Diabetes mellitus complication status : with unspecified complications Qualified Code(s): E11.8 - Type 2 diabetes mellitus with unspecified complications (11) Diminished pulses in lower extremity Current Visit: Yes Status: Acute On exam we noticed patient had decreased pulses in the right side there were pulses in the left side. Patient's right leg was mildly mottled. This seems to be a chronic vascular disease. ABIs negative vascular surgery not needed this is probably chronic. (12) DVT prophylaxis Current Visit: Yes Status: Acute We will now start patient on heparin drip. Subjective Principal diagnosis: Pneumonia Interval history: Patient had no acute or events overnight. Patient still on the ventilator. Patient's labs, imaging, chart were reviewed. Family did come yesterday. They decided that they did not want to withdraw care at this time. So due to this patient's CODE STATUS was changed to DNRA. And patient will not be transferred out of the ICU and we will continue with our management of the patient. Family felt that they were pressured into making this decision felt like they are not ready and they are give the patient more of a chance. Objective PUL Vital signs: Last Vital Signs Temp 98.3 F 01/25/18 05:05 Pulse 103 01/25/18 06:00 Resp 14 01/25/18 06:00 BP 107/68 01/25/18 06:00 Pulse Ox 100 01/25/18 06:00 General appearance: no acute distress, other (Somnolence sedated on the ventilator) Eyes: nonicteric ENT: oropharynx moist Neck: supple Effort: normal Auscultation: bilateral: rhonchi Cardiovascular: regular rate and rhythm Gastrointestinal: normoactive bowel sounds, soft, non-tender, non-distended Extremities: no cyanosis, no edema, no clubbing Musculoskeletal: no deformities, ROM normal normal mental status, non-focal exam Ventilator Settings Ventilator Settings: Ventilator Settings, Last 8 Hours Ventilator Tidal Volume 600 Setting Ventilator Tidal Volume 600 Setting Ventilator Tidal Volume 600 Setting Ventilator Tidal Volume 600 Setting Ventilator Tidal Volume 600 Setting Ventilator Tidal Volume 600 Setting Ventilator Tidal Volume 600 Setting Ventilator Tidal Volume 600 Setting Ventilator Tidal Volume 600 Setting Ventilator Tidal Volume 600 Setting Ventilator Respiratory Rate 14 Setting Ventilator Respiratory Rate 14 Setting Ventilator Respiratory Rate 14 Setting Ventilator Respiratory Rate 14 Setting Ventilator Respiratory Rate 14 Setting Ventilator Respiratory Rate 14 Setting Ventilator Respiratory Rate 14 Setting Ventilator Respiratory Rate 14 Setting Ventilator Respiratory Rate 14 Setting Ventilator Respiratory Rate 14 Setting Actual Respiratory Rate 14 Actual Respiratory Rate 14 Actual Respiratory Rate 14 Actual Respiratory Rate 15 Actual Respiratory Rate 14 Actual Respiratory Rate 14 Actual Respiratory Rate 15 Actual Respiratory Rate 14 Actual Respiratory Rate 14 Actual Respiratory Rate 14 Positive End Expiratory 5 Pressure Positive End Expiratory 5 Pressure Positive End Expiratory 5 Pressure Positive End Expiratory 5 Pressure Positive End Expiratory 5 Pressure Positive End Expiratory 5 Pressure Positive End Expiratory 5 Pressure Positive End Expiratory 5 Pressure Positive End Expiratory 5 Pressure Positive End Expiratory 5 Pressure Peak Inspiratory Airway 34 Pressure Peak Inspiratory Airway 34 Pressure Peak Inspiratory Airway 34 Pressure Peak Inspiratory Airway 34 Pressure Peak Inspiratory Airway 35 Pressure Peak Inspiratory Airway 34 Pressure Peak Inspiratory Airway 35 Pressure Peak Inspiratory Airway 35 Pressure Peak Inspiratory Airway 35 Pressure Peak Inspiratory Airway 34 Pressure Results - Laboratory Findings CBC and BMP: 01/24/18 03:56 01/24/18 03:56 ABG ABG pH 7.24 pH Units (7.32-7.45) L 01/22/18 05:48 ABG pCO2 51 mmHg (35-45) H 01/22/18 05:48 ABG pO2 76 mmHg (85-104) L 01/22/18 05:48 ABG O2 Saturation 92 % (95-98) L 01/22/18 05:48 PT/INR, D-dimer PT 16.2 Seconds (9.4-12.1) H D 01/23/18 12:54 Abnormal lab findings: Abnormal lab results Hgb 10.3 g/dL (12.9-16.9) L D 01/24/18 03:56 Hct 29.8 % (37.5-50.1) L 01/24/18 03:56 MCV 70.3 fL (83.0-100.0) L 01/24/18 03:56 MCH 24.3 pg (28.0-33.3) L 01/24/18 03:56 RDW 18.2 % (11.5-14.5) H 01/24/18 03:56 Plt Count 63 K/mcL (140-400) L 01/24/18 03:56 Band Neutrophils % 18.0 % (0-4) H 01/21/18 03:50 Lymphocytes # 0.1 K/mcL (0.6-4.6) L 01/24/18 03:56 Nucleated RBCs/100 WBC 3.1 /100 WBC (0) H 01/24/18 03:56 Toxic Granulation Present (Not Present) A 01/23/18 03:30 Platelet Estimate Decreased (Normal) L 01/24/18 03:56 Polychromasia 1+ (Not Present) A 01/21/18 03:50 Hypochromasia Present (Not Present) A 01/24/18 03:56 Poikilocytosis 1+ (Not Present) A 01/24/18 03:56 Anisocytosis 1+ (Not Present) A 01/24/18 03:56 Microcytosis Present (Not Present) A 01/23/18 03:30 [place] Cells 1+ (Not Present) A 01/24/18 03:56 PT 16.2 Seconds (9.4-12.1) H D 01/23/18 12:54 APTT 54.2 Seconds (26.0-36.0) H 01/19/18 04:37 ABG pH 7.24 pH Units (7.32-7.45) L 01/22/18 05:48 ABG pCO2 51 mmHg (35-45) H 01/22/18 05:48 ABG pO2 76 mmHg (85-104) L 01/22/18 05:48 ABG O2 Saturation 92 % (95-98) L 01/22/18 05:48 ABG Base Excess -6 mEq/L (-2 to 3) L 01/22/18 05:48 Sodium 125 mEq/L (136-145) L 01/24/18 03:56 Chloride 80 mEq/L (98-107) L 01/24/18 03:56 Carbon Dioxide 30 mEq/L (23-29) H 01/24/18 03:56 BUN 74 mg/dL (6-20) H 01/24/18 03:56 Creatinine 2.60 mg/dL (0.70-1.30) H 01/24/18 03:56 Est GFR ( Amer) 31 (> 60) L 01/24/18 03:56 Est GFR (Non-Af Amer) 25 (> 60) L 01/24/18 03:56 BUN/Creatinine Ratio 28 (6-26) H 01/24/18 03:56 Glucose 131 mg/dL (70-105) H 01/24/18 03:56 Lactic Acid 2.5 mmol/L (0.5-2.2) H 01/22/18 03:02 Calcium 6.4 mg/dL (8.6-10.3) L 01/24/18 03:56 Total Bilirubin 1.3 mg/dL (0.3-1.0) H 01/22/18 03:02 AST 159 Units/L (13-39) H 01/22/18 03:02 ALT 253 Units/L (7-52) H 01/22/18 03:02 Troponin I 0.05 ng/mL (< 0.04) H* 01/19/18 04:37 B-Natriuretic Peptide 2025 pg/mL (Less than 100) H 01/18/18 21:49 Serum Total Protein 4.4 g/dL (6.4-8.9) L 01/22/18 03:02 Albumin 2.1 g/dL (3.5-5.7) L 01/22/18 03:02 Globulin 2.3 g/dL (2.4-3.5) L 01/22/18 03:02 Albumin/Globulin Ratio 0.9 (1.1-2.2) L 01/22/18 03:02 Vancomycin Trough 16 mcg/mL (5-10) H 01/21/18 03:50 - Microbiology Findings Microbiology Findings: Microbiology, Last 48 Hours 01/20/18 00:40 Blood Culture - Final Peripheral Venipuncture No growth. Final report. 01/20/18 00:40 Blood Culture - Final Peripheral Venipuncture No growth. Final report. 01/19/18 13:23 Blood Culture - Final Peripheral Venipuncture No growth. Final report. 01/19/18 13:23 Blood Culture - Final Peripheral Venipuncture No growth. Final report. - Diagnostic Findings Chest x-ray: report reviewed, image reviewed - Clinical Findings Intake & Output: Intake & Output 01/24/18 01/24/18 01/25/18 15:59 23:59 07:59 Intake Total 779 / 779 1158 / 1158 1359 / 1359 Output Total 250 / 250 640 / 640 235 / 235 Balance 529 / 529 518 / 518 1124 / 1124 Weight 96.2 kg - VTE Documentation of Mechanical Device: Intermittent pneumatic compression device
[2018-01-25] MEDS: Budesonide/Formoterol 160/4.5 MDI IH SCH ×2 (07:53→19:48)
[2018-01-25 08:08] LABS: ABG Base Excess 2 mEq/L (-2 to 3); ABG HCO3 24 mEq/L (21-27); ABG Oxygen Saturation 99 % (95-98); ABG PCO2 25 mmHg (35-45); ABG PH 7.58 pH Units (7.32-7.45); ABG PO2 111 mmHg (85-104); ABG TCO2 24 mEq/L (20-26); Blood Gas Modality ASSIST CONTROL; Blood Gas Respiration Rate 14; Blood Gas VT 600 cc
[2018-01-25] MEDS: Pantoprazole 40 MG VIAL IVP SCH (08:27)
[2018-01-25] MEDS: Chlorhexidine Rinse 15 ML MOUTHWASH MM SCH ×2 (08:27→21:00)
[2018-01-25] MEDS: Aspirin 81 MG TAB.CHEW PO SCH (08:27)
[2018-01-25] MEDS: Levofloxacin 750 MG/150 ML 750 MG/150 ML BAG IVPB SCH (08:27)
[2018-01-25] MEDS: Amiodarone Premix 360 MG/200 ML BAG IVC SCH ×2 (08:45→17:44)
[2018-01-25 10:16] LABS: Hematocrit 24.1 % (37.5-50.1); Hemoglobin 8.5 g/dL (12.9-16.9); Mean Corpuscular HGB Conc 35.3 g/dL (31.6-35.5); Mean Corpuscular Hemoglobin 23.5 pg (28.0-33.3); Mean Corpuscular Volume 66.8 fL (83.0-100.0); Monocytes # 0.7 K/mcL (0.0-1.3); Nucleated Red Blood Cells 8.7 /100 WBC (0); Red Blood Count 3.61 M/mcL (4.19-5.50); Red Cell Distribution Width 18.4 % (11.5-14.5)
[2018-01-25 10:31] LABS: Albumin 1.6 g/dL (3.5-5.7); Albumin/Globulin Ratio 0.8 (1.1-2.2); Bilirubin,Total 1.7 mg/dL (0.3-1.0); Calcium 6.8 mg/dL (8.6-10.3); Potassium 4.1 mEq/L (3.5-5.1); Total Protein 3.6 g/dL (6.4-8.9)
[2018-01-25 10:59] LABS: Platelet Count 63 K/mcL (140-400)
[2018-01-25 11:07] LABS: Lymphocytes # 0.7 K/mcL (0.6-4.6); Neutrophils # 32.7 K/mcL (1.6-8.9)
[2018-01-25 11:10] LABS: Anisocytosis 1+ (Not Present); Platelet Estimate Decreased (Normal); Poikilocytosis 1+ (Not Present); Polychromasia 1+ (Not Present)
[2018-01-25 11:11] LABS: Hypochromasia Present (Not Present)
[2018-01-25] MEDS ORDERED: *HR* Norepinephrine 4 MG/4 ML VIAL IVC ONE ×2 (11:46→12:03)
[2018-01-25] MEDS ORDERED: 0.9 % Sodium Chloride 250 ML ONE (11:47)
--- NOTE | 2018-01-25 11:49 | Nephrology Progress Note ---
Date of Encounter: 01/25/18 Time of Encounter: 11:40 - Assessment and Plan (1) [id number] kidney injury Current Visit: Yes Status: Acute Patient with multifactorial KALANI on CKD. Patient is non-oliguric and creatinine was at a plateau, but now seems to be worse. Family initially was thinking of comfort care, but per report have changed their mind and want aggressive care. Patient has severe sepsis from pneumonia that seemed to be improving 01/24/18 as evidenced by decreased pressor requirements, minimal vent settings, and WBC that is now normal. Today he seems worse as evidenced by a greatly elevated WBC and slowly increasing supplemental oxygen and the addition of another pressor. 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 In lieu of the family now wanting more aggressive care I strongly recommend transfer to [facility] for continuity of care by his transplant team and specialized care for transplant patients. If it is felt that he is not stable to transfer I recommend an ID consultation as this is an immunosuppressed patient that originally was improving and now has a significant rise in his WBC of unclear etiology. Discussed with primary team. Qualifiers: Acute renal failure type: unspecified Chronic kidney disease stage: unspecified stage Qualified Code(s): N17.9 - Acute kidney failure, unspecified ; N18.9 - Chronic kidney disease, unspecified (2) Acute and chronic respiratory failure, unspecified whether with hypoxia or hypercapnia Current Visit: Yes Status: Acute Patient intubated. Qualifiers: Respiratory failure complication: hypoxia and hypercapnia Qualified Code(s) : J96.21 - Acute and chronic respiratory failure with hypoxia; J96.22 - Acute and chronic respiratory failure with hypercapnia (3) Hyponatremia Current Visit: Yes Status: Acute Improving slightly after carrier solutions were changed to 0.9. (4) Thrombocytopenia Current Visit: Yes Status: Acute Decreasing platelet count. Defer to primary team. No active bleeding identified. Recommend evaluation for HITS. He may need Argatroban therapy for anticoagulation until HIT study is back. (5) Anemia Current Visit: Yes Status: Acute Patient with worsening anemia. Recommend evaluation for bleeding. Will check for hemolysis. With worsening anemia and thrombocytopenia he may warrant a hematology evaluation. Qualifiers: Qualified Code(s): D64.9 - Anemia, unspecified Subjective Principal diagnosis: Pneumonia Interval history: Patient intubated, but responsive. Spoke with primary team who initially thought the family was going to withdraw care. The family has now changed their mind and want the patient to be full code. No family is in the room at the time of my evaluation. ROS is unobtainable. Objective - Vital Signs Vital signs: Vital Signs Temp Pulse Resp BP Pulse Ox 01/25/18 11:32 14 91/66 100 01/25/18 11:00 104 14 107/73 100 01/25/18 10:00 107 14 98/67 100 01/25/18 09:03 109 14 85/59 100 01/25/18 09:01 87 14 85/59 100 01/25/18 08:00 98.3 F 109 14 80/59 100 01/25/18 07:54 14 93/66 100 01/25/18 07:00 107 14 83/57 100 01/25/18 06:00 103 14 107/68 100 01/25/18 05:10 110 14 108/69 100 01/25/18 05:05 98.3 F 01/25/18 04:00 96 14 99/62 100 01/25/18 03:25 14 106/67 100 01/25/18 03:15 106 14 99/62 100 01/25/18 02:00 106 14 105/61 100 01/25/18 01:19 15 98/69 100 01/25/18 01:00 114 14 114/66 100 01/25/18 00:30 107 14 92/57 100 01/25/18 00:02 99.3 F 01/24/18 23:13 14 89/59 100 01/24/18 23:00 116 14 93/58 100 01/24/18 22:00 112 14 91/57 100 01/24/18 21:54 14 96/56 100 01/24/18 21:15 99.6 F 01/24/18 21:00 120 14 67/50 100 01/24/18 20:30 114 14 137/79 100 01/24/18 20:20 14 127/81 100 01/24/18 20:00 123 01/24/18 19:45 115 14 125/87 100 01/24/18 18:00 114 14 125/78 100 01/24/18 17:00 113 14 84/61 100 01/24/18 16:00 109 14 101/68 100 01/24/18 15:25 14 85/59 100 01/24/18 15:00 107 14 98/71 100 01/24/18 14:00 98 14 84/56 100 01/24/18 13:29 14 100/63 100 01/24/18 13:00 95 14 91/88 100 01/24/18 12:00 97.8 F 94 14 103/80 100 01/24/18 11:56 14 96/58 100 Intake and Output 01/24/18 01/25/18 01/25/18 23:59 07:59 15:59 Intake Total 1158 / 1158 1459 / 1459 200 / 200 Output Total 640 / 640 235 / 235 Balance 518 / 518 1224 / 1224 200 / 200 Intake: IV Fluids 1158 / 1158 1459 / 1459 200 / 200 Amiodarone Drip Premix 360mg/ 200 / 200 200 / 200 200mL 360 mg In 200 ml @ 0.5 MG /MIN 16.667 mls/hr IVC CONT [facility] Rx#:[id number] PRECEDEX Premix 400 mcg In 100 200 / 200 200 / 200 ml @ 0.2 MCG/KG/HR 3.675 mls/hr IVC .Q24H [facility] Rx#:[id number] Heparin 25,000 UNIT/500 ML D5W 160 / 160 25,000 unit In 500 ml @ 14 UNIT /KG/HR 20.58 mls/hr IVC .Q24H [facility] Rx#:[id number] Levophed 8 MG In 0.9 % Sodium 258 / 258 500 / 500 Chloride 250 ML @ 8 MCG/MIN 15. 48 mls/hr IVC CONT [facility] Rx#: [id number] Phenylephrine 20 MG In 0.9 % 500 / 500 599 / 599 Sodium Chloride 500 ML @ 100 MCG/MIN 150.6 mls/hr IVC CONT [facility] Rx#:[id number] Output: Catheter 600 / 600 175 / 175 Gastric Drainage 40 / 40 60 / 60 Other: Weight 96.2 kg Blood Glucose* 78 Patient Weight 01/25/18 23:59 Weight 96.2 kg - General Appearance General appearance: Present: well-nourished, intubated EENT: Present: ATNC Neck: Present: supple Respiratory: Present: course breath sounds Cardiology: Present: edema, regular rate Additional Comments: tachycardic Gastrointestinal: Present: no tenderness Integumentary: Present: warm and dry Additional Comments: unobtainable. Musculoskeletal: Present: no cyanosis Additional Comments: unobtainable. - Lab 01/25/18 10:00 01/25/18 10:00 Most recent lab results ABG pH 7.58 pH Units (7.32-7.45) H 01/25/18 08:03 ABG pCO2 25 mmHg (35-45) L 01/25/18 08:03 ABG pO2 111 mmHg (85-104) H 01/25/18 08:03 ABG HCO3 24 mEq/L (21-27) 01/25/18 08:03 ABG O2 Saturation 99 % (95-98) H 01/25/18 08:03 Calcium 6.8 mg/dL (8.6-10.3) L 01/25/18 10:00 - VTE Documentation of Mechanical Device: Intermittent pneumatic compression device Consult Discharge Plan - Plan Referrals: NONE,PCP [Primary Care Provider] -
[2018-01-25] MEDS: Heparin 25,000 UNIT/500 ML D5W 25,000 UNIT/500 ML BAG IVC SCH (17:40)
[2018-01-26] MEDS: Lacri-Lube 3.5 GM TUBE BOTH EYES SCH ×6 (00:47→21:00)
[2018-01-26] MEDS: Insulin LISPRO 300 UNITS/3 ML VIAL SQ SCH ×4 (00:47→18:15)
[2018-01-26] MEDS: Norepinephrine 8 MG in 0.9 % Sodium Chloride 250 ML IVC SCH ×5 (01:05→21:36)
[2018-01-26] MEDS ORDERED: 0.9 % Sodium Chloride 1,000 ML ONE (02:47)
[2018-01-26] MEDS: Ipratropium/Albuterol Neb 3 ML IH SCH ×5 (03:27→19:14)
[2018-01-26] MEDS: Dexmedetomidine HCl 400 MCG/100 ML MLS IVC SCH ×4 (04:36→19:49)
[2018-01-26] MEDS: Amiodarone Premix 360 MG/200 ML BAG IVC SCH ×2 (04:37→19:43)
[2018-01-26] MEDS: Vasopressin 40 UNIT in D5% in Water 100 ML IV SCH (04:37)
[2018-01-26 04:41] LABS: ABG Base Excess -3 mEq/L (-2 to 3); ABG HCO3 19 mEq/L (21-27); ABG Oxygen Saturation 99 % (95-98); ABG PCO2 24 mmHg (35-45); ABG PH 7.52 pH Units (7.32-7.45); ABG PO2 100 mmHg (85-104); ABG TCO2 20 mEq/L (20-26); Blood Gas Modality TC; Blood Gas Respiration Rate 14; Blood Gas VT 600 cc
[2018-01-26 04:44] LABS: Basophils % 0.1 %; Hematocrit 23.2 % (37.5-50.1); Immature Granulocytes % 2.3 % (0-4); Lymphocytes # 0.1 K/mcL (0.6-4.6); Lymphocytes % 0.2 %; Mean Corpuscular HGB Conc 34.5 g/dL (31.6-35.5); Mean Corpuscular Hemoglobin 23.9 pg (28.0-33.3); Mean Corpuscular Volume 69.3 fL (83.0-100.0); Monocytes # 1.4 K/mcL (0.0-1.3); Monocytes % 2.8 %; Neutrophils # 47.2 K/mcL (1.6-8.9); Nucleated Red Blood Cells 5.3 /100 WBC (0); Red Blood Count 3.35 M/mcL (4.19-5.50); Red Cell Distribution Width 19.1 % (11.5-14.5); Segmented Neutrophils % 94.6 %
[2018-01-26 04:45] LABS: Immature Reticulocyte % 53.1 % (11.0-38.0); Retculocyte # 0.04 M/mcL (0.05-0.10); Reticulocyte % 1.2 % (1.6-2.8)
[2018-01-26 04:48] LABS: VBG Ionized Calcium 0.79 mmol/L (1.15-1.35)
[2018-01-26 04:53] LABS: Basophils # 0.1 K/mcL (0.0-0.2); Platelet Count 45 K/mcL (140-400)
[2018-01-26] MEDS ORDERED: Norepinephrine 8 MG in 0.9 % Sodium Chloride 250 ML IVC SCH (05:00)
[2018-01-26 05:02] LABS: Bilirubin,Direct 1.3 mg/dL (0.0-0.2); Potassium 4.6 mEq/L (3.5-5.1)
[2018-01-26 05:09] LABS: Anisocytosis 2+ (Not Present); Hypochromasia Present (Not Present); Platelet Estimate Decreased (Normal); Poikilocytosis 2+ (Not Present); Polychromasia 1+ (Not Present)
[2018-01-26 05:26] LABS: Folate 10.4 ng/mL (3.0-16.0)
[2018-01-26 05:29] LABS: Vitamin B12 > 1500 pg/mL (250-1100)
[2018-01-26] MEDS: Metoclopramide 10 MG/2 ML VIAL IVP SCH ×3 (06:11→18:14)
[2018-01-26] MEDS: MethylPREDNISolone 40 MG/ML VIAL IVP SCH (06:11)
[2018-01-26] MEDS: Budesonide/Formoterol 160/4.5 MDI IH SCH ×2 (07:48→19:14)
[2018-01-26] MEDS: Aspirin 81 MG TAB.CHEW PO SCH (07:58)
[2018-01-26] MEDS: Chlorhexidine Rinse 15 ML MOUTHWASH MM SCH ×2 (07:58→21:00)
[2018-01-26] MEDS: Pantoprazole 40 MG VIAL IVP SCH (07:58)
--- NOTE | 2018-01-26 08:56 | Pulmonology Progress Note ---
Addendum entered and electronically signed by Neymar Guy DO 01/26/18 15:35: Patient does have an elevated lactate KUB was ordered which did show dilated loops of bowel this most probably is ischemic bowel secondary to vasopressors. I did consult with general surgery spoke with the on-call physician Dr. Doyle who said patient does seem to be too an unstable to undergo anesthetic for surgery but he will be sure and come see the patient and give his recommendations. We appreciate surgery's recommendations once they see the patient. Original Note: <Neymar uGy - Last Filed: 01/26/18 12:42> Date of Encounter: 01/26/18 Time of Encounter: 08:55 Assessment and Plan (1) Advance care planning Current Visit: Yes Status: Acute We spoke with family at bedside. Family decided they did decide to withdraw care and change patient's CODE STATUS to DNR CC. The did ask that we do not withdraw care until patient's brother arrives which should be on 01/24 at proximally 1600. At that time they said all family will be at bedside and we can withdraw care at that time. Patient does have a palliative bed set. Palliative orders arty put in. Patient's family came in and they decided that they were pressured to withdraw care so family decided to no longer withdraw care. Patient's CODE STATUS was changed from DNR CC to DNR a. At this time we did get labs and continue patient on ventilator and restart patient's heparin. We will wait until Friday and speak with family with palliative at bedside to see if this is still at they want to do. Family was not there yesterday so we will hold for a family meeting today with palliative to make a goals of care to see if they want to go back to doing DNR CC and get hospice/palliative involved again (2) Sepsis Current Visit: Yes Status: Acute Patient does meet sepsis criteria most likely secondary to patient's pneumonia. Patient was tachycardic but he is also in A. fib with RVR. Patient also has a fever and a source of infection with the pneumonia. Patient was positive for strep pneumonia urine antigen. All other cultures are still pending. Patient was initially placed on broad-spectrum antibiotics including vancomycin , Zosyn, Levaquin. Patient was mildly hypotensive we did give 25% albumin this did not change patient's blood pressure. This could have been all due to breath stacking so we did give patient vecuronium and patient's blood pressure did seem to go up after that. But it did not hold. At this time we decided to consult cardiology cardiology says patient is atrial fibrillation and if we do get them out of atrial fibrillation a could help with patient's blood pressure as he would not be is tachycardic. Spoke with cardiology and they are going to plan on starting heparin drip and trying possible electrocardioversion. We did order a factor X a as patient is on Xarelto severe unsure of his correct INR which was reading at 4.5. The factor X a came back normal at 0.61. We gave patient 2 L lactated Ringer's and will also start Levaquin fed to support patient's blood pressure. For this we will consider placing central venous catheter to give this. We did attempt to decrease patient's sedation but then he was too alert. So patient be changed Precedex which did seem to help minorly but is not working to its full extent. CVC in left groin placed for pressor access. Patient did have to be on levofed , Kota-Synephrine, vasopressin. Patient is now on 3 vasopressors due to blood pressure being very volatile. Day 7 Levaquin Patient's continuing to weep. Patient's Tylenol has been stopped due to worry about worsening liver function tests. He still had no bowel movements so we will start patient on Reglan hold off on tube feeds until we get better gut motility. Due to patient having new elevation in white blood cell count with a leukocytosis we will add a second antibiotic including Zosyn to his Levaquin so we increased the broaden coverage. If family does continue to undergo aggressive treatment will consider getting infectious disease consult further recommendations. Qualifiers: Sepsis type: Pneumococcus Qualified Code(s): A40.3 - Sepsis due to Streptococcus pneumoniae (3) Acute respiratory failure with hypoxia Current Visit: Yes Status: Acute Patient presented in acute respiratory distress he did have worsening tachypnea while on BiPAP so patient was intubated and placed on the ventilator. Patient was sedated with fentanyl, propofol, Precedex. We will discontinue the Versed and change to propofol and fentanyl. Patient does have history of COPD. He is not on oxygen at home. Patient most likely has pneumonia based on chest x-ray showing multifocal consolidations and possible effusions. Patient does not see a medical surgery nurse regular. Patient needs to continue on the vent. We will get daily ABGs and change that sending ABGresults. Continue sedation daily Mcdaniel of 3. (4) Acute kidney injury Current Visit: Yes Status: Acute Worsening creatinine as today measured at 2.35 patient does have a kidney transplant those done about 15 years ago. Patient was a dialysis patient but does not have active using fistulas. Nephrology has been following. He said if he does not have creatinine the gets better will consider starting renal therapy. Nephrology following appreciate their conditions After speaking with nephrology due to patient's fluid overload because of the sodium bicarbonate is been getting we are worried about fluid status so we will consider doing Hoda. Patient's family is coming we will speak with them about placing a temporary catheter for dialysis/Hoda. We will wait for nephrology's recommendations as we felt patient cannot handle another bicarbonate drip because patient become fluid overloaded. So we will speak with nephrology to see if they recommend patient going on dialysis/ Hoda. This is all pending family still decides to not withdraw care. (5) Pneumonia Current Visit: No Status: Resolved Patient does have pneumonia. Urine strep pneumoniae antigen was positive. Blood cultures and sputum cultures are still pending. Initially started patient on Zosyn, Levaquin, vancomycin. Due to kidney injury we will stop the vancomycin and keep the patient on Levaquin and also DC the Zosyn Day 7 Levaquin Restarted Zosyn today due to patient's new leukocytosis Qualifiers: Pneumonia type: due to unspecified organism Laterality: right Lung location: lower lobe of lung Qualified Code(s): J18.1 - Lobar pneumonia, unspecified organism (6) Urethritis Current Visit: Yes Status: Acute when examining patient a green discharg patient is sedated to her unable to assess for sexual history. This most likely is going to be an STD, gonorrhea or chlamydia so we will prophylactically treat him with one time dose of ceftriaxone and azithromycin. (7) Acute exacerbation of chronic obstructive airways disease Current Visit: Yes Status: Acute Patient does have history of COPD. Patient is getting steroids every 6 hours. Also getting scheduled duo nebs. Patient is on the ventilator on proper ventilator settings. (8) A-fib Current Visit: Yes Status: Chronic Patient does have chronic history of A. fib. Patient is supratherapeutic on INRs there is no need for any anticoagulation at this time. We will continue to monitor. Cardiology is following the patient patient will be cardioverted her cardiology' s request we are going to start patient on heparin while we do this. Patient was unable to be cardioverted so patient started on amiodarone bolus and a drip. Patient is still on initial fibrillation but does have a few beats of sinus rhythm. Cardiology is following we appreciate their recommendations Discontinue heparin and start patient on subcutaneous for DVT prophylaxis Qualifiers: Atrial fibrillation type: chronic Qualified Code(s): I48.2 - Chronic atrial fibrillation (9) Elevated INR Current Visit: Yes Status: Acute Patient does have elevated INR we did order factor X a which came back normal as patient is on Xarelto. This patient's patient is probably not anticoagulated. We will start heparin to anticoagulate patient due to him being in A. fib (10) Diabetes mellitus Current Visit: Yes Status: Acute Will place patient on low-dose sliding insulin scale Qualifiers: Diabetes mellitus type: type 2 Diabetes mellitus care manager insulin use: unspecified half-way insulin use status Diabetes mellitus complication status : with unspecified complications Qualified Code(s): E11.8 - Type 2 diabetes mellitus with unspecified complications (11) Diminished pulses in lower extremity Current Visit: Yes Status: Acute On exam we noticed patient had decreased pulses in the right side there were pulses in the left side. Patient's right leg was mildly mottled. This seems to be a chronic vascular disease. ABIs negative vascular surgery not needed this is probably chronic. (12) DVT prophylaxis Current Visit: Yes Status: Acute Discontinued heparin drip. Started subcutaneous heparin twice a day.. Subjective Principal diagnosis: Pneumonia Interval history: Patient had no acute or events overnight. Patient still on the ventilator. Patient's labs, imaging, chart were reviewed. Family did not come in yesterday they said they will come in today for another goals of care family meeting. Patient's blood pressure has complained continue to be volatile Tory had add a third vasopressor on the patient. With that he is doing better he also had a new jump in his white blood cell count. Objective PUL Vital signs: Last Vital Signs Temp 98.2 F 01/26/18 08:00 Pulse 91 01/26/18 08:00 Resp 24 07/16/18 08:00 BP 116/70 01/26/18 08:00 Pulse Ox 100 01/26/18 08:00 General appearance: no acute distress Eyes: nonicteric ENT: oropharynx moist Neck: supple Effort: normal Auscultation: bilateral: rhonchi Cardiovascular: regular rate and rhythm Gastrointestinal: normoactive bowel sounds, soft, non-tender, non-distended Integumentary: normal Extremities: no cyanosis, no edema, no clubbing Musculoskeletal: no deformities, ROM normal non-focal exam, pupils equal and round, motor strength normal and symmetric Ventilator Settings Ventilator Settings: Ventilator Settings, Last 8 Hours Ventilator Tidal Volume 480 Setting Ventilator Tidal Volume 600 Setting Ventilator Tidal Volume 600 Setting Ventilator Tidal Volume 600 Setting Ventilator Tidal Volume 600 Setting Ventilator Tidal Volume 600 Setting Ventilator Tidal Volume 600 Setting Ventilator Tidal Volume 600 Setting Ventilator Tidal Volume 600 Setting Ventilator Tidal Volume 600 Setting Ventilator Tidal Volume 600 Setting Ventilator Tidal Volume 600 Setting Ventilator Respiratory Rate 14 Setting Ventilator Respiratory Rate 14 Setting Ventilator Respiratory Rate 14 Setting Ventilator Respiratory Rate 14 Setting Ventilator Respiratory Rate 14 Setting Ventilator Respiratory Rate 14 Setting Ventilator Respiratory Rate 14 Setting Ventilator Respiratory Rate 14 Setting Ventilator Respiratory Rate 14 Setting Ventilator Respiratory Rate 14 Setting Ventilator Respiratory Rate 14 Setting Ventilator Respiratory Rate 14 Setting Actual Respiratory Rate 24 Actual Respiratory Rate 16 Actual Respiratory Rate 15 Actual Respiratory Rate 14 Actual Respiratory Rate 14 Actual Respiratory Rate 14 Actual Respiratory Rate 14 Actual Respiratory Rate 14 Actual Respiratory Rate 15 Actual Respiratory Rate 14 Actual Respiratory Rate 14 Actual Respiratory Rate 14 Positive End Expiratory 5 Pressure Positive End Expiratory 5 Pressure Positive End Expiratory 5 Pressure Positive End Expiratory 5 Pressure Positive End Expiratory 5 Pressure Positive End Expiratory 5 Pressure Positive End Expiratory 5 Pressure Positive End Expiratory 5 Pressure Positive End Expiratory 5 Pressure Positive End Expiratory 5 Pressure Positive End Expiratory 5 Pressure Positive End Expiratory 5 Pressure Positive End Expiratory 5 Pressure Peak Inspiratory Airway 22 Pressure Peak Inspiratory Airway 29 Pressure Peak Inspiratory Airway 28 Pressure Peak Inspiratory Airway 31 Pressure Peak Inspiratory Airway 31 Pressure Peak Inspiratory Airway 31 Pressure Peak Inspiratory Airway 31 Pressure Peak Inspiratory Airway 30 Pressure Peak Inspiratory Airway 32 Pressure Peak Inspiratory Airway 32 Pressure Peak Inspiratory Airway 34 Pressure Peak Inspiratory Airway 32 Pressure Results - Laboratory Findings CBC and BMP: 01/26/18 04:16 01/26/18 04:16 ABG ABG pH 7.52 pH Units (7.32-7.45) H 01/26/18 04:38 ABG pCO2 24 mmHg (35-45) L 01/26/18 04:38 ABG pO2 100 mmHg (85-104) 01/26/18 04:38 ABG O2 Saturation 99 % (95-98) H 01/26/18 04:38 PT/INR, D-dimer PT 16.2 Seconds (9.4-12.1) H D 01/23/18 12:54 Abnormal lab findings: Abnormal lab results WBC 49.9 K/mcL (4.3-11.1) H* 01/26/18 04:16 RBC 3.35 M/mcL (4.19-5.50) L 01/26/18 04:16 Hgb 8.0 g/dL (12.9-16.9) L 01/26/18 04:16 Hct 23.2 % (37.5-50.1) L 01/26/18 04:16 MCV 69.3 fL (83.0-100.0) L 01/26/18 04:16 MCH 23.9 pg (28.0-33.3) L 01/26/18 04:16 RDW 19.1 % (11.5-14.5) H 01/26/18 04:16 Plt Count 45 K/mcL (140-400) L 01/26/18 04:16 Reticulocyte # 0.04 M/mcL (0.05-0.10) L 01/26/18 04:16 Neutrophils # 47.2 K/mcL (1.6-8.9) H 01/26/18 04:16 Lymphocytes # 0.1 K/mcL (0.6-4.6) L 01/26/18 04:16 Monocytes # 1.4 K/mcL (0.0-1.3) H 01/26/18 04:16 Nucleated RBCs/100 WBC 5.3 /100 WBC (0) H 01/26/18 04:16 Toxic Granulation Present (Not Present) A 01/23/18 03:30 Platelet Estimate Decreased (Normal) L 01/26/18 04:16 Polychromasia 1+ (Not Present) A 01/26/18 04:16 Hypochromasia Present (Not Present) A 01/26/18 04:16 Poikilocytosis 2+ (Not Present) A 01/26/18 04:16 Anisocytosis 2+ (Not Present) A 01/26/18 04:16 Microcytosis Present (Not Present) A 01/23/18 03:30 Lennie Cells 1+ (Not Present) A 01/24/18 03:56 Percent Retic 1.2 % (1.6-2.8) L 01/26/18 04:16 Immature Retic Fraction 53.1 % (11.0-38.0) H 01/26/18 04:16 Retic Hgb Equivalent 22.9 pg (28.61-36.33) L 01/26/18 04:16 PT 16.2 Seconds (9.4-12.1) H D 01/23/18 12:54 APTT 54.2 Seconds (26.0-36.0) H 01/19/18 04:37 ABG pH 7.52 pH Units (7.32-7.45) H 01/26/18 04:38 ABG pCO2 24 mmHg (35-45) L 01/26/18 04:38 ABG HCO3 19 mEq/L (21-27) L 01/26/18 04:38 ABG O2 Saturation 99 % (95-98) H 01/26/18 04:38 ABG Base Excess -3 mEq/L (-2 to 3) L 01/26/18 04:38 Sodium 125 mEq/L (136-145) L 01/26/18 04:16 Chloride 81 mEq/L (98-107) L 01/26/18 04:16 Carbon Dioxide 21 mEq/L (23-29) L 01/26/18 04:16 BUN 83 mg/dL (6-20) H 01/26/18 04:16 Creatinine 3.08 mg/dL (0.70-1.30) H 01/26/18 04:16 Est GFR ( Amer) 25 (> 60) L 01/26/18 04:16 Est GFR (Non-Af Amer) 21 (> 60) L 01/26/18 04:16 BUN/Creatinine Ratio 27 (6-26) H 01/26/18 04:16 Lactic Acid 2.5 mmol/L (0.5-2.2) H 01/22/18 03:02 Calcium 7.0 mg/dL (8.6-10.3) L 01/26/18 04:16 Venous Ioniz Calcium 0.79 mmol/L (1.15-1.35) L 01/26/18 04:45 Phosphorus 9.3 mg/dL (2.7-4.5) H 01/26/18 04:16 Iron 20 mcg/dL (65-175) L 01/26/18 04:16 % Saturation 12 % (20-55) L 01/26/18 04:16 Transferrin 115 mg/dL (203-362) L 01/26/18 04:16 Ferritin 379 ng/mL (20-250) H 01/26/18 04:16 Total Bilirubin 2.0 mg/dL (0.3-1.0) H 01/26/18 04:16 Direct Bilirubin 1.3 mg/dL (0.0-0.2) H 01/26/18 04:16 AST 152 Units/L (13-39) H 01/25/18 10:00 ALT 96 Units/L (7-52) H 01/25/18 10:00 Lactate Dehydrogenase 464 Units/L (140-271) H 01/26/18 04:16 Troponin I 0.05 ng/mL (< 0.04) H* 01/19/18 04:37 B-Natriuretic Peptide 2025 pg/mL (Less than 100) H 01/18/18 21:49 Serum Total Protein 3.6 g/dL (6.4-8.9) L 01/25/18 10:00 Albumin 1.6 g/dL (3.5-5.7) L 01/25/18 10:00 Globulin 2.0 g/dL (2.4-3.5) L 01/25/18 10:00 Albumin/Globulin Ratio 0.8 (1.1-2.2) L 01/25/18 10:00 Vitamin B12 > 1500 pg/mL (250-1100) H 01/26/18 04:16 Vancomycin Trough 16 mcg/mL (5-10) H 01/21/18 03:50 - Microbiology Findings Microbiology Findings: Microbiology, Last 48 Hours 01/20/18 00:40 Blood Culture - Final Peripheral Venipuncture No growth. Final report. 01/20/18 00:40 Blood Culture - Final Peripheral Venipuncture No growth. Final report. 01/19/18 13:23 Blood Culture - Final Peripheral Venipuncture No growth. Final report. 01/19/18 13:23 Blood Culture - Final Peripheral Venipuncture No growth. Final report. - Diagnostic Findings Chest x-ray: report reviewed, image reviewed - Clinical Findings Intake & Output: Intake & Output 01/25/18 01/26/18 01/26/18 23:59 07:59 15:59 Intake Total 916 / 916 1160 / 1160 Output Total 150 / 150 175 / 175 Balance 766 / 766 985 / 985 Weight 97.8 kg - VTE Documentation of Mechanical Device: Intermittent pneumatic compression device Consult Discharge Plan - Plan Referrals: NONE,PCP [Primary Care Provider] - <Gayle Carpenter - Last Filed: 01/26/18 20:26> Date of Encounter: 01/26/18 Objective PUL Vital signs: Last Vital Signs Temp 95.9 F L 01/26/18 16:37 Pulse 50 01/26/18 19:00 Resp 23 01/26/18 19:14 BP 88/48 01/26/18 19:14 Pulse Ox 97 01/26/18 18:00 Ventilator Settings Ventilator Settings: Ventilator Settings, Last 8 Hours Ventilator Tidal Volume 480 Setting Ventilator Tidal Volume 480 Setting Ventilator Tidal Volume 480 Setting Ventilator Tidal Volume 480 Setting Ventilator Tidal Volume 480 Setting Ventilator Respiratory Rate 14 Setting Ventilator Respiratory Rate 14 Setting Ventilator Respiratory Rate 14 Setting Ventilator Respiratory Rate 14 Setting Ventilator Respiratory Rate 14 Setting Actual Respiratory Rate 22 Actual Respiratory Rate 22 Actual Respiratory Rate 23 Actual Respiratory Rate 23 Actual Respiratory Rate 21 Actual Respiratory Rate 22 Actual Respiratory Rate 22 Actual Respiratory Rate 22 Actual Respiratory Rate 22 Positive End Expiratory 5 Pressure Positive End Expiratory 5 Pressure Positive End Expiratory 5 Pressure Positive End Expiratory 5 Pressure Positive End Expiratory 5 Pressure Positive End Expiratory 5 Pressure Positive End Expiratory 5 Pressure Positive End Expiratory 5 Pressure Positive End Expiratory 5 Pressure Positive End Expiratory 5 Pressure Peak Inspiratory Airway 32 Pressure Peak Inspiratory Airway 34 Pressure Peak Inspiratory Airway 34 Pressure Peak Inspiratory Airway 34 Pressure Peak Inspiratory Airway 31 Pressure Peak Inspiratory Airway 30 Pressure Results - Laboratory Findings CBC and BMP: 01/26/18 04:16 01/26/18 04:16 ABG ABG pH 7.33 pH Units (7.32-7.45) 01/26/18 16:15 ABG pCO2 17 mmHg (35-45) L* 01/26/18 16:15 ABG pO2 123 mmHg (85-104) H 01/26/18 16:15 ABG O2 Saturation 99 % (95-98) H 01/26/18 16:15 PT/INR, D-dimer PT 16.2 Seconds (9.4-12.1) H D 01/23/18 12:54 Abnormal lab findings: Abnormal lab results WBC 49.9 K/mcL (4.3-11.1) H* 01/26/18 04:16 RBC 3.35 M/mcL (4.19-5.50) L 01/26/18 04:16 Hgb 8.0 g/dL (12.9-16.9) L 01/26/18 04:16 Hct 23.2 % (37.5-50.1) L 01/26/18 04:16 MCV 69.3 fL (83.0-100.0) L 01/26/18 04:16 MCH 23.9 pg (28.0-33.3) L 01/26/18 04:16 RDW 19.1 % (11.5-14.5) H 01/26/18 04:16 Plt Count 45 K/mcL (140-400) L 01/26/18 04:16 Reticulocyte # 0.04 M/mcL (0.05-0.10) L 01/26/18 04:16 Neutrophils # 47.2 K/mcL (1.6-8.9) H 01/26/18 04:16 Lymphocytes # 0.1 K/mcL (0.6-4.6) L 01/26/18 04:16 Monocytes # 1.4 K/mcL (0.0-1.3) H 01/26/18 04:16 Nucleated RBCs/100 WBC 5.3 /100 WBC (0) H 01/26/18 04:16 Toxic Granulation Present (Not Present) A 01/23/18 03:30 Platelet Estimate Decreased (Normal) L 01/26/18 04:16 Polychromasia 1+ (Not Present) A 01/26/18 04:16 Hypochromasia Present (Not Present) A 01/26/18 04:16 Poikilocytosis 2+ (Not Present) A 01/26/18 04:16 Anisocytosis 2+ (Not Present) A 01/26/18 04:16 Microcytosis Present (Not Present) A 01/23/18 03:30 Lennie Cells 1+ (Not Present) A 01/24/18 03:56 Percent Retic 1.2 % (1.6-2.8) L 01/26/18 04:16 Immature Retic Fraction 53.1 % (11.0-38.0) H 01/26/18 04:16 Retic Hgb Equivalent 22.9 pg (28.61-36.33) L 01/26/18 04:16 PT 16.2 Seconds (9.4-12.1) H D 01/23/18 12:54 APTT 54.2 Seconds (26.0-36.0) H 01/19/18 04:37 ABG pCO2 17 mmHg (35-45) L* 01/26/18 16:15 ABG pO2 123 mmHg (85-104) H 01/26/18 16:15 ABG HCO3 9 mEq/L (21-27) L 01/26/18 16:15 ABG Total CO2 10 mEq/L (20-26) L 01/26/18 16:15 ABG O2 Saturation 99 % (95-98) H 01/26/18 16:15 ABG Base Excess -15 mEq/L (-2 to 3) L 01/26/18 16:15 Sodium 125 mEq/L (136-145) L 01/26/18 04:16 Chloride 81 mEq/L (98-107) L 01/26/18 04:16 Carbon Dioxide 21 mEq/L (23-29) L 01/26/18 04:16 BUN 83 mg/dL (6-20) H 01/26/18 04:16 Creatinine 3.08 mg/dL (0.70-1.30) H 01/26/18 04:16 Est GFR ( Amer) 25 (> 60) L 01/26/18 04:16 Est GFR (Non-Af Amer) 21 (> 60) L 01/26/18 04:16 BUN/Creatinine Ratio 27 (6-26) H 01/26/18 04:16 POC Glucose 19 mg/dL (70-99) L* 01/26/18 18:17 Lactic Acid > 10.0 mmol/L (0.5-2.2) H* 01/26/18 18:52 Calcium 7.0 mg/dL (8.6-10.3) L 01/26/18 04:16 Venous Ioniz Calcium 0.79 mmol/L (1.15-1.35) L 01/26/18 04:45 Phosphorus 9.3 mg/dL (2.7-4.5) H 01/26/18 04:16 Iron 20 mcg/dL (65-175) L 01/26/18 04:16 % Saturation 12 % (20-55) L 01/26/18 04:16 Transferrin 115 mg/dL (203-362) L 01/26/18 04:16 Ferritin 379 ng/mL (20-250) H 01/26/18 04:16 Total Bilirubin 2.0 mg/dL (0.3-1.0) H 01/26/18 04:16 Direct Bilirubin 1.3 mg/dL (0.0-0.2) H 01/26/18 04:16 AST 152 Units/L (13-39) H 01/25/18 10:00 ALT 96 Units/L (7-52) H 01/25/18 10:00 Lactate Dehydrogenase 464 Units/L (140-271) H 01/26/18 04:16 Troponin I 0.05 ng/mL (< 0.04) H* 01/19/18 04:37 B-Natriuretic Peptide 2025 pg/mL (Less than 100) H 01/18/18 21:49 Serum Total Protein 3.6 g/dL (6.4-8.9) L 01/25/18 10:00 Albumin 1.6 g/dL (3.5-5.7) L 01/25/18 10:00 Globulin 2.0 g/dL (2.4-3.5) L 01/25/18 10:00 Albumin/Globulin Ratio 0.8 (1.1-2.2) L 01/25/18 10:00 Vitamin B12 > 1500 pg/mL (250-1100) H 01/26/18 04:16 Vancomycin Trough 16 mcg/mL (5-10) H 01/21/18 03:50 - Microbiology Findings Microbiology Findings: Microbiology, Last 48 Hours 01/26/18 14:55 Blood Culture - Preliminary Central Venous Catheter Culture is incubating and being continuously monitored for growth. Final report to follow. 01/26/18 14:20 Blood Culture - Preliminary Peripheral Venipuncture Culture is incubating and being continuously monitored for growth. Final report to follow. 01/26/18 14:20 Blood Culture - Preliminary Peripheral Venipuncture Culture is incubating and being continuously monitored for growth. Final report to follow. 01/20/18 00:40 Blood Culture - Final Peripheral Venipuncture No growth. Final report. 01/20/18 00:40 Blood Culture - Final Peripheral Venipuncture No growth. Final report. - Clinical Findings Intake & Output: Intake & Output 01/26/18 01/26/18 01/26/18 07:59 15:59 23:59 Intake Total 1160 / 1160 458 / 458 1560 / 1560 Output Total 175 / 175 0 / 0 100 / 100 Balance 985 / 985 458 / 458 1460 / 1460 Weight 97.8 kg - Attending Attestation I saw and evaluated this patient and my medical decision-making was reviewed with the Resident Physician. I agree with the documented findings, disposition and treatment plan as described except to the extent set forth below. We independently had [id number] contact with the patient I spent 35 minutes of Critical Care time with this patient. It involved decision making of high complexity to assess, manipulate, and support vital organ system failure and/or to prevent further life threatening deterioration of the patient's condition. The time involved in the performance of separately reportable procedures was not counted toward critical care time. Patient seen and examined at bedside Labs, radiology, chart personally reviewed. Management was reviewed during multidisciplinary critical care rounds. MANUFACTURING ANALYST: Patient is not following any commands patient is sedated this clinical picture is contributed by septic encephalopathy.. Pulm: Acute respiratory failure adequate oxygenation and ventilation low tidal volume strategy. Cards: Still in septic shock now worsening added third vasopressors. Very poor prognosis added some IV steroids hydrocortisone . FEN-GI: As per dietary. Renal: HEENT on chronic kidney disease nephrology following appreciate the recs ID: As increasing white count with leukocytosis around 49 looks like leukemoid reaction not on the coverage of antibiotics and reculture consulted ID. Heme/Onc: heparin which is therapeutic dose because of thrombocytopenia. stopped It and change it to a prophylaxis dose. The prophylaxis does also have the platelets dropped below 30,000. Cytopenias multifactorially mostly due to sepsis. Endo: Glucose Monitored Integ/MSK: Skin Care per routine ICU Nursing Protocol to prevent ulcers. Lines: All lines examined without evidence of infection : Dispo: Extensive liver the family about proper prognosis family is not ready to make decision patient will clinically deteriorated and will pass away on his own. CODE:[id number]
[2018-01-26] MEDS ORDERED: Piperacillin/Tazobactam 3.375 GM in 0.9 % Sodium Chloride Mini Bag 100 ML IVPB SCH (10:00)
[2018-01-26] MEDS: Hydrocortisone Sodium Succ 100 MG/2 ML VIAL IVP SCH ×2 (11:36→18:14)
[2018-01-26] MEDS: *HR* Dextrose 50 % in Water (Syg) 50 ML SYRINGE IVP PRN (11:43)
[2018-01-26] MEDS: Phenylephrine 20 MG in 0.9 % Sodium Chloride 500 ML IVC SCH ×4 (11:46→21:03)
--- NOTE | 2018-01-26 13:02 | Nephrology Progress Note ---
Date of Encounter: 01/26/18 Time of Encounter: 09:30 - Assessment and Plan (1) Gupnf-[id number] kidney injury Current Visit: Yes Status: Acute Multifactorial AK UOP downtrended from 1200cc 01/24 to 375cc 01/25 Scr rising 2.6-2.7-3.08 Fio2 at 30; Titrated back up to 3 pressors since yesterday Persisting seeping on exam No hyperkalemia P: Family meeting with palliative afternoon 01/26, patient does continue to have cutaneous weeping, FIO2 is stable at 30; CRRT has been considered, no strong indication that CRRT will improve clinical picture today--this is based on stable Fio2 (volume maintaining MAP but not worseing Fio2), non-intractable acidosis, no disarray of K, Na,Ca, or uremic symptoms. Consider heme/onc eval for HIT (precipitous drop in platelets) however, can be explained by worsening sepsis Given worsening kidney function after the last transplant ultrasound, requesting repeat imaging of transplant kidney/ureter/vessels Continue avoiding nephrotoxins, renal dose meds Qualifiers: Acute renal failure type: unspecified Chronic kidney disease stage: unspecified stage Qualified Code(s): N17.9 - Acute kidney failure, unspecified ; N18.9 - Chronic kidney disease, unspecified (2) Septic shock Current Visit: Yes Status: Acute Per primary team: Currently on Levophed (de-escalated from 3 pressors), abx ( Levaquin, was on vanc/zosyn/levaquin) (3) History of kidney transplant Current Visit: Yes Status: Chronic No hydronephrosis on US, repeating US 01/26 in setting of drop in UOP Follows [facility] nephrology for renal transplant; cellcept on hold, consider transfer (4) Atrial fibrillation with RVR Current Visit: Yes Status: Acute Cardiology continuing amiodarone, heparin gtt discontinued, sq heparin ordered thrombocytpenia as MDM above (5) Acute respiratory failure with hypoxia Current Visit: Yes Status: Acute (6) Acute and chronic respiratory failure, unspecified whether with hypoxia or hypercapnia Current Visit: Yes Status: Acute Patient continues to be intubated and sedated on Precedex; patient's Fio2 at 30 Qualifiers: Respiratory failure complication: hypoxia and hypercapnia Qualified Code(s) : J96.21 - Acute and chronic respiratory failure with hypoxia; J96.22 - Acute and chronic respiratory failure with hypercapnia Subjective Principal diagnosis: Pneumonia Interval history: Patient seen and evaluated at bedside; intubated and sedated, family not at bedside; deliberation per palliative and primary team regarding goals of care still pending. Objective - Vital Signs Vital signs: Vital Signs Temp Pulse Resp BP Pulse Ox 01/26/18 11:28 21 74/45 01/26/18 11:00 97.1 F L 75 22 71/49 99 01/26/18 10:00 83 22 73/48 99 01/26/18 09:57 23 77/52 100 01/26/18 09:00 85 23 70/48 100 01/26/18 08:00 98.2 F 91 24 116/70 100 01/26/18 07:48 15 117/71 100 01/26/18 07:00 98.2 F 91 15 119/71 100 01/26/18 06:00 92 14 116/70 100 01/26/18 05:21 14 88/58 100 01/26/18 05:09 98 14 92/60 100 01/26/18 05:04 98.7 F 01/26/18 04:30 92 14 87/54 100 01/26/18 03:27 14 114/70 100 01/26/18 03:15 96 15 115/71 100 01/26/18 02:10 111 14 92/60 100 01/26/18 01:05 98 14 99/64 100 01/26/18 01:03 14 91/59 100 01/26/18 00:35 94 14 78/54 100 01/26/18 00:33 100.1 F H 01/26/18 00:30 96 01/25/18 23:11 14 98/66 100 01/25/18 23:00 102 15 103/68 100 01/25/18 22:30 103 14 101/72 100 01/25/18 21:53 14 115/76 100 01/25/18 21:05 100.3 F H 01/25/18 21:00 109 14 101/72 100 01/25/18 20:00 109 15 96/66 100 01/25/18 19:49 14 103/72 100 01/25/18 19:30 113 14 101/67 100 01/25/18 18:18 102 14 110/70 100 01/25/18 18:00 102 14 110/70 100 01/25/18 17:00 104 14 104/67 100 01/25/18 16:00 99.0 F 115 14 121/71 100 01/25/18 15:50 14 125/80 91 01/25/18 15:00 115 15 105/71 100 01/25/18 14:00 108 15 118/73 100 01/25/18 13:50 15 108/72 100 01/25/18 13:00 108 15 108/72 100 Intake and Output 01/25/18 01/26/18 01/26/18 23:59 07:59 15:59 Intake Total 916 / 916 1160 / 1160 358 / 358 Output Total 150 / 150 175 / 175 Balance 766 / 766 985 / 985 358 / 358 Intake: IV Fluids 916 / 916 1160 / 1160 358 / 358 Vasostrict 40 UNIT In Dextrose 102 / 102 5% 100 ML @ 0.03 UNIT/MIN 4.59 mls/hr IV .[id number] [facility] Rx#: [id number] Amiodarone Drip Premix 360mg/ 200 / 200 200 / 200 200mL 360 mg In 200 ml @ 0.5 MG /MIN 16.667 mls/hr IVC CONT [facility] Rx#:[id number] PRECEDEX Premix 400 mcg In 100 200 / 200 100 / 100 100 / 100 ml @ 0.2 MCG/KG/HR 3.675 mls/hr IVC .Q24H [facility] Rx#:[id number] Heparin 25,000 UNIT/500 ML D5W 0 / 0 250 / 250 25,000 unit In 500 ml @ 14 UNIT /KG/HR 20.58 mls/hr IVC .Q24H [facility] Rx#:[id number] Levophed 8 MG In 0.9 % Sodium 516 / 516 508 / 508 258 / 258 Chloride 250 ML @ 8 MCG/MIN 15. 48 mls/hr IVC CONT [facility] Rx#: [id number] Output: Catheter 150 / 150 175 / 175 Other: Weight 97.8 kg Blood Glucose* 69 98 157 Patient Weight 01/26/18 23:59 Weight 97.8 kg - General Appearance General appearance: Present: chronically ill, frail EENT: Present: mucous membranes moist Respiratory: Present: course breath sounds Cardiology: Present: no murmurs, no rub, no gallops, regular rate, regular rhythm, normal S1, normal S2 Gastrointestinal: Present: no organomegaly Integumentary: Present: no rash, cool/clammy Additional Comments: cutaneous weeping Additional Comments: sedated - Lab 01/26/18 04:16 01/26/18 04:16 Most recent lab results ABG pH 7.52 pH Units (7.32-7.45) H 01/26/18 04:38 ABG pCO2 24 mmHg (35-45) L 01/26/18 04:38 ABG pO2 100 mmHg (85-104) 01/26/18 04:38 ABG HCO3 19 mEq/L (21-27) L 01/26/18 04:38 ABG O2 Saturation 99 % (95-98) H 01/26/18 04:38 Calcium 7.0 mg/dL (8.6-10.3) L 01/26/18 04:16 Phosphorus 9.3 mg/dL (2.7-4.5) H 01/26/18 04:16 - VTE Documentation of Mechanical Device: Intermittent pneumatic compression device Consult Discharge Plan - Plan Referrals: NONE,PCP [Primary Care Provider] -
--- NOTE | 2018-01-26 13:37 | Palliative Progress Note ---
Date of Encounter: 01/26/18 Time of Encounter: 13:30 - Assessment and plan (1) Generalized pain Current Visit: Yes Status: Acute Assessment and plan: Continues with IV Fentanyl per ICu protocol. MOnitor (2) Anxiety Current Visit: Yes Status: Acute Assessment and plan: Remains on Precedex per ICU protocol. Monitor (3) Dyspnea Current Visit: Yes Status: Acute Assessment and plan: Remains on ventilator support with treatment for sepsis. (4) Goals of care, counseling/discussion Current Visit: Yes Status: Acute Assessment and plan: Dr. Carpenter, Dr. Guy, and myself met with son(Travis)/brother(Luis Carlos) of patient. Dr. Carpenter updated on clinical status, and again poor prognosis, and asked what pt wishes would be. Patient's brother stated "If my brother were alert and could make decision for himself, he would have rolled his eyes at you and not make a decision". Dr. Carpenter discussed in details his multiple complications, and everything being done at this point to sustain patient. Explained that he needs transfer to [facility] prior to initiating dialysis, however, too unstable for transport. Family states that they will discuss. Patient's brother headed back to [place] in the am. Will continue to follow. (5) Acute exacerbation of chronic obstructive airways disease Current Visit: Yes Status: Acute (6) Acute kidney injury Current Visit: Yes Status: Acute Assessment and plan: Nephrology still following closely. (7) Acute respiratory failure with hypoxia Current Visit: Yes Status: Acute Assessment and plan: Continues with vent support (8) Cardiomyopathy Current Visit: Yes Status: Chronic Qualifiers: Cardiomyopathy type: unspecified Qualified Code(s): I42.9 - Cardiomyopathy , unspecified - Time Spent With Patient Total time spent is greater than 50% in coordination of care (as documented) at patient's floor/unit and/or counseling patient: - Subjective Interval history: Events from weekend noted - family changed code status back to DNRCC-Arrest, and after pt brother arrived, decided NOT to remove from life support and transition to comfort care. Leukocytosis increases over last 48 hours - 49. 9 today. Hgb 8.0. Platelets decreasing. Most of electrolytes abnormal. Continue with renal decline and fluid overload, remains hypotensive, and 3rd pressors had to be added today. Abd continues to be firm /distended. Too unstable for CT scan - awaiting ultrasound of abd. - Constitutional Vitals: Abnormal lab results WBC 49.9 K/mcL (4.3-11.1) H* 01/26/18 04:16 RBC 3.35 M/mcL (4.19-5.50) L 01/26/18 04:16 Hgb 8.0 g/dL (12.9-16.9) L 01/26/18 04:16 Hct 23.2 % (37.5-50.1) L 01/26/18 04:16 MCV 69.3 fL (83.0-100.0) L 01/26/18 04:16 MCH 23.9 pg (28.0-33.3) L 01/26/18 04:16 RDW 19.1 % (11.5-14.5) H 01/26/18 04:16 Plt Count 45 K/mcL (140-400) L 01/26/18 04:16 Reticulocyte # 0.04 M/mcL (0.05-0.10) L 01/26/18 04:16 Neutrophils # 47.2 K/mcL (1.6-8.9) H 01/26/18 04:16 Lymphocytes # 0.1 K/mcL (0.6-4.6) L 01/26/18 04:16 Monocytes # 1.4 K/mcL (0.0-1.3) H 01/26/18 04:16 Nucleated RBCs/100 WBC 5.3 /100 WBC (0) H 01/26/18 04:16 Toxic Granulation Present (Not Present) A 01/23/18 03:30 Platelet Estimate Decreased (Normal) L 01/26/18 04:16 Polychromasia 1+ (Not Present) A 01/26/18 04:16 Hypochromasia Present (Not Present) A 01/26/18 04:16 Poikilocytosis 2+ (Not Present) A 01/26/18 04:16 Anisocytosis 2+ (Not Present) A 01/26/18 04:16 Microcytosis Present (Not Present) A 01/23/18 03:30 Lennie Cells 1+ (Not Present) A 01/24/18 03:56 Percent Retic 1.2 % (1.6-2.8) L 01/26/18 04:16 Immature Retic Fraction 53.1 % (11.0-38.0) H 01/26/18 04:16 Retic Hgb Equivalent 22.9 pg (28.61-36.33) L 01/26/18 04:16 PT 16.2 Seconds (9.4-12.1) H D 01/23/18 12:54 APTT 54.2 Seconds (26.0-36.0) H 01/19/18 04:37 ABG pH 7.52 pH Units (7.32-7.45) H 01/26/18 04:38 ABG pCO2 24 mmHg (35-45) L 01/26/18 04:38 ABG HCO3 19 mEq/L (21-27) L 01/26/18 04:38 ABG O2 Saturation 99 % (95-98) H 01/26/18 04:38 ABG Base Excess -3 mEq/L (-2 to 3) L 01/26/18 04:38 Sodium 125 mEq/L (136-145) L 01/26/18 04:16 Chloride 81 mEq/L (98-107) L 01/26/18 04:16 Carbon Dioxide 21 mEq/L (23-29) L 01/26/18 04:16 BUN 83 mg/dL (6-20) H 01/26/18 04:16 Creatinine 3.08 mg/dL (0.70-1.30) H 01/26/18 04:16 Est GFR ( Amer) 25 (> 60) L 01/26/18 04:16 Est GFR (Non-Af Amer) 21 (> 60) L 01/26/18 04:16 BUN/Creatinine Ratio 27 (6-26) H 01/26/18 04:16 POC Glucose 157 mg/dL (70-99) H 01/26/18 11:40 Lactic Acid 2.5 mmol/L (0.5-2.2) H 01/22/18 03:02 Calcium 7.0 mg/dL (8.6-10.3) L 01/26/18 04:16 Venous Ioniz Calcium 0.79 mmol/L (1.15-1.35) L 01/26/18 04:45 Phosphorus 9.3 mg/dL (2.7-4.5) H 01/26/18 04:16 Iron 20 mcg/dL (65-175) L 01/26/18 04:16 % Saturation 12 % (20-55) L 01/26/18 04:16 Transferrin 115 mg/dL (203-362) L 01/26/18 04:16 Ferritin 379 ng/mL (20-250) H 01/26/18 04:16 Total Bilirubin 2.0 mg/dL (0.3-1.0) H 01/26/18 04:16 Direct Bilirubin 1.3 mg/dL (0.0-0.2) H 01/26/18 04:16 AST 152 Units/L (13-39) H 01/25/18 10:00 ALT 96 Units/L (7-52) H 01/25/18 10:00 Lactate Dehydrogenase 464 Units/L (140-271) H 01/26/18 04:16 Troponin I 0.05 ng/mL (< 0.04) H* 01/19/18 04:37 B-Natriuretic Peptide 2025 pg/mL (Less than 100) H 01/18/18 21:49 Serum Total Protein 3.6 g/dL (6.4-8.9) L 01/25/18 10:00 Albumin 1.6 g/dL (3.5-5.7) L 01/25/18 10:00 Globulin 2.0 g/dL (2.4-3.5) L 01/25/18 10:00 Albumin/Globulin Ratio 0.8 (1.1-2.2) L 01/25/18 10:00 Vitamin B12 > 1500 pg/mL (250-1100) H 01/26/18 04:16 Vancomycin Trough 16 mcg/mL (5-10) H 01/21/18 03:50 General appearance: Present: no acute distress - Respiratory Respiratory exam: Present: decreased breath sounds, CTAB - Cardiovascular Cardiovascular exam: Present: irregular rhythm - GI/Abdominal GI/Abdominal exam: Present: diminished bowel sounds, distended, firm - Additional comments: Scant amount of dk shea urine in catheter - Extremities Exam Additional comments: Bilateral extremities mottled and cold to touch - Neurological Exam Additional comments: Does occasionally shake head "yes/no" to questions. - Skin Skin exam: Present: pallor Additional comments: Weeping from extremities noted Palliative Quality Palliative Quality: Screen for Code Status: Yes, Screen for Goals of Care: Yes, Screen for Pain: NA (unresponsive on vent), If Pain Regimen Started, Initiate Bowel Regimen: NA, Screen for Nausea/Vomitting: NA Code Status: 01/21/18 15:25 DNR [Resuscitation Status: Active] [RES] Routine Comment: Resuscitation Status: DNR-Comfort Care-Arrest 01/23/18 12:27 DNR [Resuscitation Status: Active] [RES] Routine Comment: Resuscitation Status: DNR-Comfort Care DNR [Resuscitation Status: Active] [RES] Routine Comment: Resuscitation Status: DNR-Comfort Care-Arrest 01/25/18 09:40 DNR [Resuscitation Status: Active] [RES] Routine Comment: Resuscitation Status: DNR-Comfort Care-Arrest - Labs CBC & Chem 7: 01/26/18 04:16 01/26/18 04:16 Labs: Laboratory Results - last 24 hr 01/25/18 01/25/18 01/26/18 13:48 17:48 00:18 WBC RBC Hgb Hct MCV MCH MCHC RDW Plt Count Reticulocyte # Immature Gran % Seg Neutrophils % Lymphocytes % Monocytes % Eosinophils % Basophils % Neutrophils # Lymphocytes # Monocytes # Eosinophils # Basophils # Nucleated RBCs/100 WBC Platelet Estimate Polychromasia Hypochromasia Poikilocytosis Anisocytosis Percent Retic Immature Retic Fraction Retic Hgb Equivalent Heparin Anti-Xa, Unfract 0.30 Sample Site ABG pH ABG pCO2 ABG pO2 ABG HCO3 ABG Total CO2 ABG O2 Saturation ABG Base Excess Respiration Rate O2 Delivery Device Blood Gas Modality Inspired O2 Tidal Volume PEEP Sodium Potassium Chloride Carbon Dioxide BUN Creatinine Est GFR ( Amer) Est GFR (Non-Af Amer) BUN/Creatinine Ratio Glucose POC Glucose 69 L 75 Serum Osmolality Calculated Osmolality Calcium Venous Ioniz Calcium Phosphorus Iron % Saturation Transferrin Ferritin Total Bilirubin Direct Bilirubin Lactate Dehydrogenase Vitamin B12 Folate Urine Osmolality 01/26/18 01/26/18 01/26/18 04:00 04:16 04:16 WBC 49.9 H* RBC 3.35 L Hgb 8.0 L Hct 23.2 L MCV 69.3 L MCH 23.9 L MCHC 34.5 RDW 19.1 H Plt Count 45 L Reticulocyte # Immature Gran % 2.3 Seg Neutrophils % 94.6 Lymphocytes % 0.2 Monocytes % 2.8 Eosinophils % 0.0 Basophils % 0.1 Neutrophils # 47.2 H Lymphocytes # 0.1 L Monocytes # 1.4 H Eosinophils # 0.0 Basophils # 0.1 Nucleated RBCs/100 WBC 5.3 H Platelet Estimate Decreased L Polychromasia 1+ A Hypochromasia Present A Poikilocytosis 2+ A Anisocytosis 2+ A Percent Retic Immature Retic Fraction Retic Hgb Equivalent Heparin Anti-Xa, Unfract Sample Site ABG pH ABG pCO2 ABG pO2 ABG HCO3 ABG Total CO2 ABG O2 Saturation ABG Base Excess Respiration Rate O2 Delivery Device Blood Gas Modality Inspired O2 Tidal Volume PEEP Sodium 125 L Potassium 4.6 Chloride 81 L Carbon Dioxide 21 L BUN 83 H Creatinine 3.08 H Est GFR ( Amer) 25 L Est GFR (Non-Af Amer) 21 L BUN/Creatinine Ratio 27 H Glucose 98 POC Glucose Serum Osmolality Calculated Osmolality 285 Calcium 7.0 L Venous Ioniz Calcium Phosphorus Iron 20 L % Saturation 12 L Transferrin 115 L Ferritin 379 H Total Bilirubin 2.0 H Direct Bilirubin 1.3 H Lactate Dehydrogenase 464 H Vitamin B12 Folate Urine Osmolality 321 01/26/18 01/26/18 01/26/18 04:16 04:16 04:16 WBC RBC Hgb Hct MCV MCH MCHC RDW Plt Count Reticulocyte # 0.04 L Immature Gran % Seg Neutrophils % Lymphocytes % Monocytes % Eosinophils % Basophils % Neutrophils # Lymphocytes # Monocytes # Eosinophils # Basophils # Nucleated RBCs/100 WBC Platelet Estimate Polychromasia Hypochromasia Poikilocytosis Anisocytosis Percent Retic 1.2 L Immature Retic Fraction 53.1 H Retic Hgb Equivalent 22.9 L Heparin Anti-Xa, Unfract Sample Site ABG pH ABG pCO2 ABG pO2 ABG HCO3 ABG Total CO2 ABG O2 Saturation ABG Base Excess Respiration Rate O2 Delivery Device Blood Gas Modality Inspired O2 Tidal Volume PEEP Sodium Potassium Chloride Carbon Dioxide BUN Creatinine Est GFR ( Amer) Est GFR (Non-Af Amer) BUN/Creatinine Ratio Glucose POC Glucose Serum Osmolality 293 Calculated Osmolality Calcium Venous Ioniz Calcium Phosphorus Iron % Saturation Transferrin Ferritin Total Bilirubin Direct Bilirubin Lactate Dehydrogenase Vitamin B12 > 1500 H Folate 10.4 Urine Osmolality 01/26/18 01/26/18 01/26/18 04:16 04:19 04:38 WBC RBC Hgb Hct MCV MCH MCHC RDW Plt Count Reticulocyte # Immature Gran % Seg Neutrophils % Lymphocytes % Monocytes % Eosinophils % Basophils % Neutrophils # Lymphocytes # Monocytes # Eosinophils # Basophils # Nucleated RBCs/100 WBC Platelet Estimate Polychromasia Hypochromasia Poikilocytosis Anisocytosis Percent Retic Immature Retic Fraction Retic Hgb Equivalent Heparin Anti-Xa, Unfract 0.30 Sample Site Art Line ABG pH 7.52 H ABG pCO2 24 L ABG pO2 100 ABG HCO3 19 L ABG Total CO2 20 ABG O2 Saturation 99 H ABG Base Excess -3 L Respiration Rate 14 O2 Delivery Device Adult Vent Blood Gas Modality TC Inspired O2 30.0 Tidal Volume 600 PEEP 5 Sodium Potassium Chloride Carbon Dioxide BUN Creatinine Est GFR ( Amer) Est GFR (Non-Af Amer) BUN/Creatinine Ratio Glucose POC Glucose Serum Osmolality Calculated Osmolality Calcium Venous Ioniz Calcium Phosphorus 9.3 H Iron % Saturation Transferrin Ferritin Total Bilirubin Direct Bilirubin Lactate Dehydrogenase Vitamin B12 Folate Urine Osmolality 01/26/18 01/26/18 01/26/18 04:45 11:12 11:14 WBC RBC Hgb Hct MCV MCH MCHC RDW Plt Count Reticulocyte # Immature Gran % Seg Neutrophils % Lymphocytes % Monocytes % Eosinophils % Basophils % Neutrophils # Lymphocytes # Monocytes # Eosinophils # Basophils # Nucleated RBCs/100 WBC Platelet Estimate Polychromasia Hypochromasia Poikilocytosis Anisocytosis Percent Retic Immature Retic Fraction Retic Hgb Equivalent Heparin Anti-Xa, Unfract Sample Site ABG pH ABG pCO2 ABG pO2 ABG HCO3 ABG Total CO2 ABG O2 Saturation ABG Base Excess Respiration Rate O2 Delivery Device Blood Gas Modality Inspired O2 Tidal Volume PEEP Sodium Potassium Chloride Carbon Dioxide BUN Creatinine Est GFR ( Amer) Est GFR (Non-Af Amer) BUN/Creatinine Ratio Glucose POC Glucose 18 L* 20 L* Serum Osmolality Calculated Osmolality Calcium Venous Ioniz Calcium 0.79 L Phosphorus Iron % Saturation Transferrin Ferritin Total Bilirubin Direct Bilirubin Lactate Dehydrogenase Vitamin B12 Folate Urine Osmolality 01/26/18 01/26/18 01/26/18 11:17 11:39 11:40 WBC RBC Hgb Hct MCV MCH MCHC RDW Plt Count Reticulocyte # Immature Gran % Seg Neutrophils % Lymphocytes % Monocytes % Eosinophils % Basophils % Neutrophils # Lymphocytes # Monocytes # Eosinophils # Basophils # Nucleated RBCs/100 WBC Platelet Estimate Polychromasia Hypochromasia Poikilocytosis Anisocytosis Percent Retic Immature Retic Fraction Retic Hgb Equivalent Heparin Anti-Xa, Unfract Sample Site ABG pH ABG pCO2 ABG pO2 ABG HCO3 ABG Total CO2 ABG O2 Saturation ABG Base Excess Respiration Rate O2 Delivery Device Blood Gas Modality Inspired O2 Tidal Volume PEEP Sodium Potassium Chloride Carbon Dioxide BUN Creatinine Est GFR ( Amer) Est GFR (Non-Af Amer) BUN/Creatinine Ratio Glucose POC Glucose 39 L* 23 L* 157 H Serum Osmolality Calculated Osmolality Calcium Venous Ioniz Calcium Phosphorus Iron % Saturation Transferrin Ferritin Total Bilirubin Direct Bilirubin Lactate Dehydrogenase Vitamin B12 Folate Urine Osmolality - ABG Interpretation ABG results: ABG ABG pH 7.52 pH Units (7.32-7.45) H 01/26/18 04:38 ABG pCO2 24 mmHg (35-45) L 01/26/18 04:38 ABG pO2 100 mmHg (85-104) 01/26/18 04:38 ABG O2 Saturation 99 % (95-98) H 01/26/18 04:38 PT/INR, D-dimer PT 16.2 Seconds (9.4-12.1) H D 01/23/18 12:54 Consult Discharge Plan - Plan Referrals: NONE,PCP [Primary Care Provider] -
--- NOTE | 2018-01-26 14:04 | Infectious Disease Consult ---
Date of Encounter: 01/26/18 Time of Encounter: 14:01 Assessment and Plan (1) Septic shock Status: Acute Assessment and plan: The patient had four SIRS criteria with hypotension requiring vasopressors. Likely secondary to PNA, but need to rule out additional sources given the marked worsening of the patient's clinical status despite appropriate treatment. Additionally, consider non-infectious etiologies of the patient's acute worsening of leukocytosis. He has been on steroids since admission. The patient continues to have worsening leukocytosis. His tachycardia appears improved. He did have a low-grade fever yesterday. He continues to have high vasopressor requirements to maintain adequate MAP. Currently on chris, levo, and vaso. Blood cultures drawn 01/19/18 are negative x 2 sets. Additional blood cultures drawn 01/20/18 are negative x 2 sets. Repeat blood cultures x2 sets now from a peripheral stick and one set from the patient's CVC. Check procalcitonin. The patient has not had BM since admission. Per nursing, patient too unstable for transport to CT scan. Get KUB to evaluate for obstruction/ileus. Recommend imaging of the chest: CT vs. X-ray. Recommend CT of the head when stable. Check amylase, lipase. Check procalcitonin. Consider viral serologies given the patient immunocompromised status (CMV, EBV, etc.). RIP negative. S. pneumoniae UAT positive. Legionella UAT negative. Vasopressor management per the primary team. Continue Zosyn 3.375 grams IV Q12H. Continue Levaquin 750mg IV Q48H. Start Vancomycin IV. Pharmacy to dose. Goal trough ~15. Duration of treatment depends on the clinical picture. Monitor renal function and for drug toxicity and dose-adjust antibiotics. (2) Pneumonia Status: Acute Assessment and plan: Causative organism likely S. pneumo based on positive UAT. Location: Multifocal. Sputum culture negative. RIP negative. Consider repeat imaging CT vs. XR. Pulmonology following. Continue antibiotics as above. Qualifiers: Pneumonia type: due to unspecified organism Laterality: right Lung location: lower lobe of lung Qualified Code(s): J18.1 - Lobar pneumonia, unspecified organism (3) Acute and chronic respiratory failure, unspecified whether with hypoxia or hypercapnia Status: Acute Assessment and plan: Likely multifactorial: PNA vs. CHF vs. COPD. Vent management per the pulmonology team. Qualifiers: Respiratory failure complication: hypoxia and hypercapnia Qualified Code(s) : J96.21 - Acute and chronic respiratory failure with hypoxia; J96.22 - Acute and chronic respiratory failure with hypercapnia (4) Crhyr-vi-xxvskmp kidney injury Status: Acute Assessment and plan: Likely multifactorial. Nephrology consulted and following. Dose-adjust medications and avoid nephrotoxins as able. Qualifiers: Acute renal failure type: unspecified Chronic kidney disease stage: unspecified stage Qualified Code(s): N17.9 - Acute kidney failure, unspecified ; N18.9 - Chronic kidney disease, unspecified (5) Thrombocytopenia Status: Acute Assessment and plan: Etiology unclear: infectious vs. other. No acute bleeding noted on exam. Consider Hem/Onc consult. (6) Elevated INR Status: Acute Assessment and plan: Noted on admission. Etiology unclear. Resolved. (7) Anemia Status: Acute Assessment and plan: Hgb down to 8 this morning. Could be dilutional. The patient is positive 23 liters since admission. No acute bleeding noted on exam. Continue trend. Further workup and management per the primary team. Qualifiers: Anemia type: unspecified type Qualified Code(s): D64.9 - Anemia, unspecified (8) Atrial fibrillation with RVR Status: Acute Assessment and plan: Rate controlled with Amiodarone gtt. Cardiology consulted and signed off. (9) CHF (congestive heart failure) Status: Chronic Qualifiers: Heart failure type: systolic Heart failure chronicity: acute on chronic Qualified Code(s): I50.23 - Acute on chronic systolic (congestive) heart failure (10) Diabetes mellitus Status: Chronic Assessment and plan: Recommend aggressive glucose monitoring and control. Management per the primary team. 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 Takes Cellcept BID, currently on hold. Consider transfer to [facility] when medically stable if the patient's family wishes to pursue further treatment. (14) Immunosuppression Status: Acute Assessment and plan: Secondary to CellCept use and Hepatitis C. Puts patient at risk for atypical infections. (15) Hepatitis C Status: Chronic Qualifiers: Viral hepatitis chronicity: chronic Hepatic coma status: without hepatic coma Qualified Code(s): B18.2 - Chronic viral hepatitis C Infectious Disease HPI - Data of Consult Patient: new to practice Consult date: 01/26/18 Requesting Physician: Azam Yanes MD Primary Care Provider: PCP NONE - Consult Narrative Reason for consult: Septic shock History of present illness: Mr. Campbell is a 57 year old male with a past medical history of COPD, DVT on the Route toe, chronic hepatitis C, hypertension, chronic kidney disease, CHF, cardiomyopathy, and mitral regurgitation status post renal transplant currently on CellCept twice a day. The patient was admitted to the hospital January 18 for dyspnea on exertion, elevated INR, and CHF exacerbation. We are consulted January 26 for further workup and recommendations regarding septic shock. Briefly, the patient is a 57-year-old male with past medical history as stated above. The patient presented to the emergency department on the day of admission with complaints of worsening shortness of breath and chest pain. Upon arrival, the patient was tachycardic and tachypneic. Laboratory studies revealed a normal white blood cell count, mildly elevated troponin and a BNP of 2025. He also had an INR 4. Chest x-ray showed cardiomegaly without overt failure and table left basilar dependent atelectasis. He was originally started on IV thank and Zosyn and Levaquin and admitted to the hospital for further evaluation. Her admission, the patient's respiratory status worsened he required emergent intubation and mechanical ventilation. He was admitted to the care unit. His white blood cell count was noted to be elevated at 23,000 with an acute kidney injury with a serum front of 1.42. He will rest for infectious panel that was negative. He also continued to spike fevers. He was noted to have some discharge from his penis and he was treated for sexually transmitted infection with a one-time dose of Rocephin and Zithromax. He has sputum culture that was negative. Blood cultures were obtained 2 sets are negative as well. Since then, the patient has had increasing vasopressor requirements. His white blood cell count finally normalized on January 24. In the meantime, his kidney function worsened and nephrology was consulted. Family had originally decided to withdraw care and was awaiting the arrival of more family before compassionately extubating, but then changed her mind and decided they wanted to pursue aggressive treatment. Laboratory studies done this morning reveal a white blood cell count of 49,000 with neutrophilic predominance. His creatinine is up to 3. His LFTs are worsening. He did have a fever with a MAXIMUM TEMPERATURE of 100.3 yesterday. At this time, the patient has been on Levaquin for 8 days. We have been asked to evaluate and make further recommendations. During my exam today, the patient is alert, but the ET tube prevents him from providing me with any information. Most of the information is obtained from the medical record. CC: Azam Yanes MD Past Med Surg Social Fam HX - Past Medical History Source: old records reviewed, nursing notes reviewed Medical history: COPD, DVT, hepatitis, hypertension, renal disease, other Additional medical history: Last DVT 2008 Psychiatric history: anxiety, depression, previous psychiatric hospitalization, other - Past Surgical History Surgical History: hip replacement, transplant Additional surgical history: Kidney transplant, left hip replacement - Social History Smoking Status: Current every day smoker Smokeless Tobacco Status: No Alcohol use: none Drug use: cocaine, marijuana - Family History Father Living Status: Hx Family Cardiac Disorders: Yes ([place]) Mother Adopted: No Family Member Ethnicity: Non- Living Status: Hx Family Cardiac Disorders: Yes ([place]) Hx Family Respiratory Disorders: Yes (asthma) Hx Family Cancer: No Hx Family GI Disorders: No Hx Family Endocrine Disorder: No Hx Family Neuromuscular Disorders: No Hx Family Neurologic Disorders: No Hx Family HEENT Disorders: No Hx Family Autoimmune Disorders: No Infectious Disease-CN:Meds Duloxetine HCl [Cymbalta] 60 mg PO 0900,1700 07/13/15 [History] Mycophenolate Mofetil [Cellcept] 500 mg PO BID 12/14/15 [History] ARIPiprazole [Abilify] 15 mg PO DAILY 12/25/16 [History] Albuterol Sulfate [Ventolin Hfa] 2 puff IH Q4H PRN 12/25/16 [History] Budesonide/Formoterol 160/4.5 [Symbicort 160/4.5] 2 puff IH BID 12/25/16 [ History] Buspirone HCl [Buspar] 10 mg PO TID 12/25/16 [History] predniSONE [PredniSONE] 10 mg PO DAILY 12/25/16 [History] Rivaroxaban [Xarelto] 20 mg PO DAILY 10/23/17 [History] amLODIPine [Norvasc] 5 mg PO DAILY 11/17/17 [History] Furosemide [Lasix] 40 mg PO DAILY tablet 11/18/17 [Rx] Metoprolol XL (24 HR) Succ [Toprol Xl] 12.5 mg PO DAILY 4 Days #4 tab.er.24h [Rx] clonazePAM [Klonopin] 0.5 mg PO BID 4 Days #8 tablet 01/06/18 [Rx] Ascorbic Acid [Vitamin C] 1 tab PO DAILY #30 tablet 01/13/18 [Rx] Ferrous Sulfate [Iron] 325 mg PO DAILY 01/19/18 [History] Lanolin Alcohol/Mo/W.pet/[place] [Eucerin Creme] 1 appl TP DAILY 01/19/18 [History ] 3 Allergy/AdvReac Type Severity Reaction Status Date / Time codeine AdvReac Nausea Verified 01/13/18 13:17 ROS unobtainable: due to endotracheal tube Exam - Constitutional Vitals: Temp Pulse Resp BP Pulse Ox 97.1 F L 75 22 82/50 100 01/26/18 11:00 01/26/18 11:00 01/26/18 13:20 01/26/18 13:20 01/26/18 13:20 General appearance: average body habitus, no acute distress, no febrile - Head Head exam: Present: atraumatic, normal inspection, normocephalic - Eye Eye exam: Absent: EOMI (unable to assess), normal appearance, scleral icterus Additional comments: Right conjunctiva erythematous and bulging from the lower lid. Pupils are dilated at 5mm and slow to react. - ENT ENT exam: Present: mucous membranes dry - Neck Neck exam: Present: normal inspection - Respiratory Respiratory exam: Present: CTAB. Absent: rales, respiratory distress, rhonchi, wheezes Additional comments: O2 via the ventilator. - Cardiovascular Cardiovascular exam: Present: irregular rhythm. Absent: tachycardia - GI/Abdominal GI/Abdominal exam: Present: diminished bowel sounds, distended, firm - Extremities Exam Extremities exam: Present: pedal edema (2+ BLE) Additional comments: Mottling noted to the bilateral feet, lower legs, and left knee. - Neurological Exam Neurological exam: Present: altered (Sedated.) - Skin Skin exam: Absent: normal color (Mottling noted to the bilateral feel, lower legs, left knee, and scrotum) - Additional findings Additional findings: Scrotum and pannus markedly edematous. Mottling noted to the scrotum. Watters catheter with small amount of dark brown urine with small amount of blood noted in the tubing. Infectious Disease CN: Results - Labs CBC & Chem 7: 01/26/18 04:16 01/26/18 04:16 Cultures: Cultures 01/20/18 00:40 Blood Culture - Final Peripheral Venipuncture No growth. Final report. 01/20/18 00:40 Blood Culture - Final Peripheral Venipuncture No growth. Final report. 01/19/18 13:23 Blood Culture - Final Peripheral Venipuncture No growth. Final report. 01/19/18 13:23 Blood Culture - Final Peripheral Venipuncture No growth. Final report. 01/19/18 16:40 Sputum Culture - Final Sputum 01/19/18 15:15 Legionella Antigen - Final Urine,Catheterized Streptococcus pneumoniae Antigen (M - Final Serology: Serology 01/26/18 01/23/18 01/19/18 Range/Units 04:00 10:02 15:15 Urine Osmolality 321 (300-1090) mOsm/kg Chlamy pneumoniae PCR Not Detected (Not Detect) Adenovirus (PCR) Not Detected (Not Detect) B. pertussis DNA (PCR) Not Detected (Not Detect) B.parapertussis DNA PCR Not Detected (Not Detect) Coronavirus OC43 (PCR) Not Detected (Not Detect) Coronavirus HKU1 (PCR) Not Detected (Not Detect) Coronavirus 229E (PCR) Not Detected (Not Detect) Coronavirus NL63 (PCR) Not Detected (Not Detect) Hep Bs Antigen Nonreactive (Nonreactive) Hep Bs Antibody 38.54 mIU/mL Human Metapneumovir PCR Not Detected (Not Detect) Influenza A (H1) PCR Not Detected (Not Detect) Influ A (H1N1/09) PCR Not Detected (Not Detect) Influenza A (H3) PCR Not Detected (Not Detect) Influenza A Untype (PCR) Not Detected (Not Detect) Influenza Type B (PCR) Not Detected (Not Detect) M.pneumoniae DNA (PCR) Not Detected (Not Detect) Parainfluenza 1 (PCR) Not Detected (Not Detect) Parainfluenza 2 (PCR) Not Detected (Not Detect) Parainfluenza 3 (PCR) Not Detected (Not Detect) Parainfluenza 4 (PCR) Not Detected (Not Detect) RSV (PCR) Not Detected (Not Detect) Entero/Rhino (PCR) Not Detected (Not Detect) - VTE Documentation of Mechanical Device: Intermittent pneumatic compression device Consult Discharge Plan - Plan Referrals: NONE,PCP [Primary Care Provider] - - Attending Attestation I examined this patient and my medical decision-making was reviewed with the Resident Physician. I agree with the documented findings, disposition and treatment plan as described except to the extent set forth below. This is an addendum to original report dictated by Aure Gale CNP. Please refer to Aure's note for full detail. Patient is 57-year-old gentleman with extensive complicated past medical history including history of end-stage renal disease status post kidney transplant at outside facility about 12 years ago currently on CellCept 500 mg twice a day and prednisone presented to [place] on January 18 4 dyspnea on exertion, elevated INR and CHF the patient. Patient was admitted and was noted to have acute respiratory failure and was not sure if the was due to pneumonia versus CHF. Patient was started on empiric antibiotics. Patient's workup was only revealing for Streptococcus pneumoniae antigen positive on 01/19/18. Patient is required multiple pressors. Patient was improving clinically as per notes and he was requiring less pressors. Patient eventually to return to the worse and had severe leukocytosis jumped up to almost 50,000 with neutrophilic predominance but no bands. Patient was still afebrile. We were asked to evaluate the patient and make further recommendations. On physical exam patient's pupils were both dilated. I discussed with the nursing staff and the ICU team and they said just to to some of the pressors he is probably on. Patient was intubated and sedated on multiple pressors and hemodynamically unstable. Patient is also third spacing and has myxedema. Anywhere I tried to elicit with a stethoscope [place] physical shape was notable on the skin. Patient's abdomen was large and bowel sounds were hypoactive if at all out of. There was some remodeling of the skin of the lower extremities and upper extremity. Assessment and plan: Septic shock with multiorgan failure. Source is not clear. Not sure if it is due to pneumonia versus intra-abdominal process versus UTI versus bacteremia due to central line in the femoral vein versus other. Patient was already on Zosyn, we will add levofloxacin and vancomycin. Patient clearly having worsening septic shock and local might reaction. We need to find out the possible source. Patient is also immunosuppressed he is currently on CellCept and low-dose prednisone. I did discuss with the ICU team possibility of atypical infection including PCP pneumonia versus CMV viremia versus other. At this point we will check blood cultures from peripheral and central line. I will also check procalcitonin level. Urine legionella and pneumococcal and restrictive infectious panel have all been obtained and have been negative. Repeat imaging if possible. Patient so unstable to go down for a CAT scan so we might do a chest x-ray and a KUB at bedside. Prognosis at best guarded.
[2018-01-26 15:35] LABS: Amylase 54 Units/L (29-103); Lipase 18 Units/L (11-82)
[2018-01-26 16:18] LABS: ABG Base Excess -15 mEq/L (-2 to 3); ABG HCO3 9 mEq/L (21-27); ABG Oxygen Saturation 99 % (95-98); ABG PCO2 17 mmHg (35-45); ABG PH 7.33 pH Units (7.32-7.45); ABG PO2 123 mmHg (85-104); ABG TCO2 10 mEq/L (20-26); Blood Gas Modality VC; Blood Gas Respiration Rate 14; Blood Gas VT 480 cc
[2018-01-26] MEDS ORDERED: *HR* Heparin 5,000 UNIT/ML VIAL SQ SCH (18:00)
[2018-01-26 22:04] VITALS: BP 50/26
--- NOTE | 2018-01-26 22:54 | Death Note ---
Pronouncement Note - Date and Time of Date of : 01/26/18 Time of : 22:41 - PCOD Preliminary cause of : Septic shock - Summary Additional details: Received call from RN that patient has at 2241. On exam the patient did not respond to verbal or physical stimuli. Absent heart and no spontaneous respirations. Absent peripheral pulses. Pupils are fixed and dilated. Patient pronounced at 22:41. Dr. Neumann notified. Next of kin/family Bashir notified. Autopsy declined. - Additional Data Confirmation of : no pulse Family: at bedside Attending/PCP notified?: Yes Attending physician: Freeman Neumann MD
--- NOTE | 2018-01-26 23:04 | Death Note ---
<Fahad Ford - Last Filed: 01/27/18 05:26> Discharge Sum: Summary - Date and Time Date of admission: 01/19/18 01:52 Date of : 01/26/18 Time of : 22:41 - Summary Details: Mr. Campbell is a 57 year old male with a past medical history of COPD, DVT, chronic hepatitis C, hypertension, chronic kidney disease, CHF, cardiomyopathy, and mitral regurgitation, and status post renal transplant currently on CellCept twice a day who was admitted to the hospital 01/18/18 for septic shock, PNA, CHF exacerbation, and elevated INR of 4. Upon arrival, the patient was tachycardic and tachypneic. Laboratory studies revealed a normal white blood cell count, mildly elevated troponin and a BNP of 2025. Chest x-ray showed cardiomegaly without overt failure and stable left basilar dependent atelectasis. Respiratory infectious panel that was negative. He was originally started on IV Vancomycin, Zosyn, and Levaquin and admitted to the hospital for further evaluation. Despite appropriate medical treatment, the patient's respiratory status worsened and he required emergent intubation and mechanical ventilation. His white blood cell count increased to 23,000 and he developed acute kidney injury. He also started spiking fevers. He was noted to have some discharge from his penis and he was treated for sexually transmitted infection with a one-time dose of Rocephin and Zithromax. His sputum culture that was negative. Blood cultures 2 sets are negative as well. Since then, the patient had increasing vasopressor requirements, his kidney function worsened and nephrology was consulted. Family had originally decided to withdraw care and was awaiting the arrival of more family before compassionately extubating, but then changed their mind and decided they wanted to pursue aggressive treatment. Laboratory studies done January 26 revealed a white blood cell count of 49,000 with neutrophilic predominance. His creatinine was up to 3. His LFTs were worsening. He had a fever with a Tmax of 100.3 F despite antibiotics for 8 days. His code status was changed to DNR- CCA. Infectious disease evaluated the patient and recommended continue Levaquin and Zosyn. Received call from RN that patient was unresponsive on at 2241. On exam the patient did not respond to verbal or physical stimuli. Absent heart and no spontaneous respirations. Absent peripheral pulses. Pupils were fixed and dilated. Patient was pronounced at 22:41. Attending, Dr. Neumann was notified. Next of kin/son Bashir was notified and all questions were answered at bedside. Autopsy was declined. - Additional Data Confirmation of as documented by pronouncing clinician: no pulse Family: at bedside Attending/PCP notified?: Yes Attending physician: Freeman Neumann MD Was code activated?: No Autopsy requested?: No land title examiner notified?: No Discharge Sum: Diag - PCOD Probable Cause of : Septic shock Discharge Sum: Prov - Provider Primary care physician: PCP NONE Admitting clinician: Azam Yanes Attending physician on admission: Azam Yanes Consults: 01/19/18 02:31 Consult to Cardiology [CONS] Routine Comment: Consulting Provider: Cardiology Jam[facility] Reason for Consult: CHFE, Chest pain Call Completed: No 01/19/18 06:50 Consult to Pulmonology [CONS] Routine Consulting Provider: Pulm Crit Care & Sleep Jamila Reason for Consult: ARF with mechanical intubation Call Completed: No 01/19/18 10:33 Consult to Invasive Line Access Team [CONS] Routine Reason for Consult: limited access Line Type: EPIV 01/21/18 07:29 Consult to Nephrology [CONS] Routine Consulting Provider: Kidney Jamila/ABEBA/ERENDIRA/GISELE Reason for Consult: worsening creatinine may need lex Time Notified: 07:31 Call Completed: Yes 01/21/18 14:26 Consult to Palliative Care [CONS] Routine Comment: Consulting Provider: Palliative Care Jamila Reason for Consult: Poor prognosis Time Notified: 14:27 Call Completed: Yes 01/23/18 10:41 Consult to Interventional Radiology [CONS] Stat Consulting Provider: Radiology Interventional [facility] Reason for Consult: HD Line for lex/dialysis Call Completed: No 01/26/18 13:33 Consult to Infectious Diseases [CONS] Routine Consulting Provider: Infectious Disease [place] Reason for Consult: elevating white blood cell count and worsening sepsis Time Notified: 13:34 Call Completed: Yes 01/26/18 15:33 Consult to Surgery [CONS] Routine Consulting Provider: Surgery [place] [facility] Reason for Consult: Elevated lactate, kub shows dilated bowel probably ischemic bowel due to vasopressors Time Notified: 15:34 Call Completed: Yes Pronouncing clinician: Fahad Ford <Gayle Carpenter - Last Filed: 01/27/18 08:51> Discharge Sum: Summary - Date and Time Date of admission: 01/19/18 01:52 - Additional Data Attending physician: Azam Yanes MD Discharge Sum: Prov - Provider Primary care physician: I agree with above documentation with the resident with some additional comments patient developed refractory septic shock went on 3 vasopressors with worsening of lactic acidosis patient eventually went into cardio/pulmonary arrest . Consults: 01/19/18 02:31 Consult to Cardiology [CONS] Routine Comment: Consulting Provider: Cardiology [place] Reason for Consult: CHFE, Chest pain Call Completed: No 01/19/18 06:50 Consult to Pulmonology [CONS] Routine Consulting Provider: Pulm Crit Care & Sleep Jamila Reason for Consult: ARF with mechanical intubation Call Completed: No 01/19/18 10:33 Consult to Invasive Line Access Team [CONS] Routine Reason for Consult: limited access Line Type: EPIV 01/21/18 07:29 Consult to Nephrology [CONS] Routine Consulting Provider: Kidney Jamila/ABEBA/ERENDIRA/GISELE Reason for Consult: worsening creatinine may need lex Time Notified: 07:31 Call Completed: Yes 01/21/18 14:26 Consult to Palliative Care [CONS] Routine Comment: Consulting Provider: Palliative Care [facility] Reason for Consult: Poor prognosis Time Notified: 14:27 Call Completed: Yes 01/23/18 10:41 Consult to Interventional Radiology [CONS] Stat Consulting Provider: Radiology Interventional [facility] Reason for Consult: HD Line for lex/dialysis Call Completed: No 01/26/18 13:33 Consult to Infectious Diseases [CONS] Routine Consulting Provider: Infectious Disease [place] Reason for Consult: elevating white blood cell count and worsening sepsis Time Notified: 13:34 Call Completed: Yes 01/26/18 15:33 Consult to Surgery [CONS] Routine Consulting Provider: Surgery [facility] Reason for Consult: Elevated lactate, kub shows dilated bowel probably ischemic bowel due to vasopressors Time Notified: 15:34 Call Completed: Yes
[2018-01-27] MEDS ORDERED: Vancomycin 1 EACH in EMPTY BAG 1 EACH IVPB SCH (09:00)
[2018-01-27 21:15] LABS: Enterococcus by PCR Not Detected (Not Detect); blaKPC Carbapenem-Resist Gene Not Detected (Not Detect); mecA Methicillin-Resist Gene DETECTED (Not Detect); vanA/B Vancomycin-Resist Genes Not Detected (Not Detect)
[2018-01-27 21:16] LABS: Acinetobacter baumannii by PCR Not Detected (Not Detect); Candida albicans by PCR Not Detected (Not Detect); Candida glabrata by PCR Not Detected (Not Detect); Candida krusei by PCR Not Detected (Not Detect); Candida parapsilosis by PCR Not Detected (Not Detect); Candida tropicalis by PCR Not Detected (Not Detect); Escherichia coli by PCR Not Detected (Not Detect); Klebsiella oxytoca by PCR Not Detected (Not Detect); Klebsiella pneumoniae by PCR Not Detected (Not Detect); Pseudomonas aeruginosa by PCR Not Detected (Not Detect); Serratia marcescens by PCR Not Detected (Not Detect); Staphylococcus aureus by PCR Not Detected (Not Detect); Streptococcus agalactiae(B)PCR Not Detected (Not Detect); Streptococcus by PCR Not Detected (Not Detect); Streptococcus pneumoniae PCR Not Detected (Not Detect); Streptococcus pyogenes (A) PCR Not Detected (Not Detect)
== END 2018-01-26 22:41 | disposition expired | DRG 870 ==
LOC: 2SOUTHHOLD 21:28 → EMEROO 21:28 → 2SOUTHHOLD 01-19 02:09 → ICNU 01-19 07:24
PROVIDERS: ADMIT Internal Medicine; ATTEND Internal Medicine